=== PATIENT | female | born 1940 | race Caucasian/White ===

== ENCOUNTER → 2019-07-11 | Outpatient (CLI) | payer MEDICARE, BC ==
--- NOTE | 2019-07-11 10:17 | US ---
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 Takes medication for diabetes and arthritis; gallbladder removed; renal stones per patient EXAM MEASUREMENTS: Liver Length: 14.5 cm Gallbladder Wall: surgically removed CBD: 0.6 cm Right Kidney: 8.4 x 4.4 x 4.3 cm Pancreas: hyperechoic Liver: nodular borders with size decrease suggests cirrhotic liver; Main portal Vein Flow is to live r; Common Hepatic Artery Flow is to Liver; visualized portions of Right and Middle Hepatic Vein Flow is noted to IVC. Hepatic Veins are limitedly seen. Cirrhotic heterogenous echogenicity of the liver limits evaluation for underlying masses. No focal mass is seen on today's exam. Gallbladder: surgically absent Evidence for sonographic Law's sign: no CBD: wnl and post cholecystectomy Right Kidney: lobular borders, hyperechoic calcified vascular brito noted inferior pole. Ascites is noted in RUQ = 5.1cm A/P, very small amount in LUQ , and in LLQ = 4.7cm A/P. IMPRESSION: Cirrhotic morphology of the liver. Appropriate directionality of flow within the hepatic veins, portal vein and hepatic artery. Small volume ascites visualized.
== END | disposition home or self-care (01) ==
LOC: RADUSWWP 07:39
PROVIDERS: ATTEND Internal Medicine Gastroenterology
DX: K74.69 Other cirrhosis of liver (principal); R18.8 Other ascites
CPT/HCPCS: 76705; 93975

== ENCOUNTER 2019-07-24 08:18 | Day surgery (SDC) | payer MEDICARE, BC ==
[2019-07-19 16:18] VITALS: BMI 24.7
[~2019-07-24 08:18] MED LIST: LACTATED RINGERS 1,000 ML IV SCH; LIDOCAINE 1% 20 ML VIAL (10MG/ML) FOR IV START INTRADERMA PRN
[2019-07-24 08:48] VITALS: TEMP 97.9
[2019-07-24 08:50] LABS: Glucose,Whole Blood 115 mg/dL (75-99)
[2019-07-24] MEDS ORDERED: LIDOCAINE 1% INJ 10MG/ML (20 ML MDV) ONE (09:03)
[2019-07-24] MEDS ORDERED: PROPOFOL 10 MG/ML 20 ML VIAL IV ONE (09:03)
--- NOTE | 2019-07-24 09:05 | P.GSHP ---
History of Present Illness H&P Date: 07/24/19 Chief Complaint: GI bleed This a 79-year-old female referred from Dr. Aury Gracia. Patient rents today for colonoscopy. She's had issues with GI bleed. Past Medical History Past Medical History: Diabetes Mellitus, GERD/Reflux, Hyperlipidemia, Hypertension Additional Past Medical History / Comment(s): dtr Adrienne states "mom doesn't clot right but is not aware of any specific clotting disorders but all her Drs are aware",hemorrhoids and bleeding with stools,recent admission to [facility] for dehydration and UTI. History of Any Multi-Drug Resistant Organisms: None Reported Past Surgical History: Cholecystectomy, Orthopedic Surgery Additional Past Surgical History / Comment(s): colonoscopy,lt knee surgery Past Anesthesia/Blood Transfusion Reactions: No Reported Reaction Additional Past Anesthesia/Blood Transfusion Reaction / Comment(s): no problems with prior blood transfusions Past Psychological History: No Psychological Hx Reported Smoking Status: Never smoker Past Alcohol Use History: None Reported Past Drug Use History: None Reported - Past Family History Mother Family Medical History: Cancer Medications and Allergies Home Medications Medication Instructions Recorded Confirmed Type Allopurinol [Zyloprim] 100 mg PO DAILY 07/19/19 07/19/19 History Atenolol [Tenormin] 25 mg PO QAM 07/19/19 07/19/19 History Calcium Carbonate [Calcium] 1,200 mg PO DAILY 07/19/19 07/19/19 History Cranberry Fruit Extract [Cranberry] 1,500 mg PO DAILY 07/19/19 07/19/19 History Cyanocobalamin (Vitamin B-12) 1,000 mcg PO DAILY 07/19/19 07/19/19 History [Vitamin B-12] Ergocalciferol [Vitamin D2] 50,000 unit PO Q7D 07/19/19 07/19/19 History Ferrous Sulfate [Feosol] 325 mg PO DAILY 07/19/19 07/19/19 History HYDROcodone/APAP 5-325MG [[place] 1 tab PO BID PRN 07/19/19 07/19/19 History 5-325] Levothyroxine Sodium [Synthroid] 100 mcg PO QAM 07/19/19 07/19/19 History Multivit-Min/Iron/Folic/Lutein 1 each PO DAILY 07/19/19 07/19/19 History [Centrum Silver Women Tablet] Omeprazole 40 mg PO QAM 07/19/19 07/19/19 History Simvastatin [Zocor] 40 mg PO DAILY 07/19/19 07/19/19 History metFORMIN HCL 500 mg PO DAILY 07/19/19 07/19/19 History Allergies Allergy/AdvReac Type Severity Reaction Status Date / Time No Known Allergies Allergy Verified 07/19/19 16:12 Surgical - Exam Vital Signs Temp Pulse Resp BP Pulse Ox 97.9 F 80 18 139/61 99 07/24/19 08:44 07/24/19 08:44 07/24/19 08:44 07/24/19 08:44 07/24/19 08:44 - General well developed, well nourished, no distress - Eyes PERRL - ENT normal pinna - Neck no masses - Respiratory normal expansion - Cardiovascular Rhythm: regular - Abdomen Abdomen: soft, non tender Results - Labs Abnormal Lab Results - Last 24 Hours (Table) 07/24/19 Range/Units 08:45 POC Glucose (mg/dL) 115 H (75-99) mg/dL Assessment and Plan Assessment: GI bleed. We'll perform colonoscopy.
--- NOTE | 2019-07-24 09:23 | P.OP ---
Date of Procedure: 07/24/19 Preoperative Diagnosis: GI bleed Postoperative Diagnosis: Rectal prolapse Multiple colonic polyps Diverticulosis Procedure(s) Performed: Colonoscopy Anesthesia: MAC Surgeon: Christian Rosales Pathology: other (Right colon, transverse colon, rectal polyp) Condition: stable Disposition: PACU Description of Procedure: The patient's placed on the endoscopy table lateral position. She received IV sedation. Digital rectal exam was performed which revealed evidence of external hemorrhoids and rectal prolapse. The flexible colonoscope was then placed patient anus and passed throughout the entire colon. The ileocecal valve was visualized. The cecum appeared normal. In the right colon there was a sessile polyp was removed with cold forcep. Scope back then in the transverse colon polyp seen this removed with the snare. There was a few scattered diverticula in the transverse and descending colon. The sigmoid colon had a few scattered diverticula. Scope back the rectum another polyp seen this removed with snare. The scope was then withdrawn from the patient.
[2019-07-24 11:06] VITALS: BP 119/77; PULSE 71; RESP 16
== END 2019-07-24 11:06 | disposition home or self-care (01) ==
LOC: ORWHC2ENDO 08:18
PROVIDERS: ATTEND Surgery
DX: D12.2 Benign neoplasm of ascending colon (principal); D12.3 Benign neoplasm of transverse colon; K62.1 Rectal polyp; K64.4 Residual hemorrhoidal skin tags; K62.3 Rectal prolapse; K57.30 Diverticulosis of large intestine without perforation or abscess without bleeding; E07.9 Disorder of thyroid, unspecified; K21.9 Gastro-esophageal reflux disease without esophagitis; I10 Essential (primary) hypertension; E78.5 Hyperlipidemia, unspecified; Z97.2 Presence of dental prosthetic device (complete) (partial); E11.9 Type 2 diabetes mellitus without complications; Z90.49 Acquired absence of other specified parts of digestive tract; Z79.84 Long term (current) use of oral hypoglycemic drugs; Z79.890 Hormone replacement therapy; Z79.899 Other long term (current) drug therapy
CPT/HCPCS: 88305; 45380; 45385; J2001; J2704

== ENCOUNTER 2019-07-25 05:43 | Day surgery (SDC) | payer MEDICARE, BC ==
[~2019-07-25 05:43] MED LIST changes: +DEXAMETHASONE SOD PHOSPHATE 10 MG/ML 1 ML VIAL IV ONE; +HEPARIN SODIUM,PORCINE 5,000 UNIT/ML 1 ML VIAL SQ ONE; -LACTATED RINGERS 1,000 ML IV SCH; +MORPHINE SULFATE 4 MG/ML SYRINGE IV PRN; +ONDANSETRON 4 MG/2 ML VIAL IVP ONE; +Pre Op ABX Message 1 EACH MISC MISCELLANE ONE
[2019-07-25] MEDS ORDERED: NA PHOS,M-B/NA PHOS,DI-BA 133 ML ENEMA RECTAL ONE (06:16)
[2019-07-25 06:35] LABS: Glucose,Whole Blood 97 mg/dL (75-99)
[2019-07-25] MEDS ORDERED: LACTATED RINGERS 1,000 ML IV ONE ×2 (06:39→09:18)
[2019-07-25] MEDS ORDERED: fentaNYL (PF) 50 MCG/ML 2 ML AMP ONE (07:51)
[2019-07-25] MEDS ORDERED: KETAMINE 10 MG/ML 20 ML VIAL ONE (07:51)
[2019-07-25] MEDS ORDERED: MIDAZOLAM 2 MG/2 ML VIAL ONE (07:51)
[2019-07-25] MEDS ORDERED: diphenhydrAMINE 50 MG/ML 1 ML VIAL ONE (07:51)
[2019-07-25] MEDS ORDERED: PROPOFOL 10 MG/ML 20 ML VIAL IV ONE (07:51)
--- NOTE | 2019-07-25 07:52 | P.GSHP ---
History of Present Illness H&P Date: 07/25/19 Chief Complaint: Internal and external hemorrhoids This is a 79-year-old female who presents today for hemorrhoidectomy. Patient has had issues with rectal bleeding and pain from internal and external hemorrhoids. Past Medical History Past Medical History: Diabetes Mellitus, GERD/Reflux, Hyperlipidemia, Hypertension Additional Past Medical History / Comment(s): jl Deleon states "mom doesn't clot right but is not aware of any specific clotting disorders but all her Drs are aware",hemorrhoids and bleeding with stools,recent admission to [facility] for dehydration and UTI. History of Any Multi-Drug Resistant Organisms: None Reported Past Surgical History: Cholecystectomy, Orthopedic Surgery Additional Past Surgical History / Comment(s): colonoscopy,lt knee surgery Past Anesthesia/Blood Transfusion Reactions: No Reported Reaction Additional Past Anesthesia/Blood Transfusion Reaction / Comment(s): no problems with prior blood transfusions Past Psychological History: No Psychological Hx Reported Smoking Status: Never smoker Past Alcohol Use History: None Reported Past Drug Use History: None Reported - Past Family History Mother Family Medical History: Cancer Medications and Allergies Home Medications Medication Instructions Recorded Confirmed Type Allopurinol [Zyloprim] 100 mg PO DAILY 07/19/19 07/19/19 History Atenolol [Tenormin] 25 mg PO QAM 07/19/19 07/19/19 History Calcium Carbonate [Calcium] 1,200 mg PO DAILY 07/19/19 07/19/19 History Cranberry Fruit Extract [Cranberry] 1,500 mg PO DAILY 07/19/19 07/19/19 History Cyanocobalamin (Vitamin B-12) 1,000 mcg PO DAILY 07/19/19 07/19/19 History [Vitamin B-12] Ergocalciferol [Vitamin D2] 50,000 unit PO Q7D 07/19/19 07/19/19 History Ferrous Sulfate [Feosol] 325 mg PO DAILY 07/19/19 07/19/19 History HYDROcodone/APAP 5-325MG [[place] 1 tab PO BID PRN 07/19/19 07/19/19 History 5-325] Levothyroxine Sodium [Synthroid] 100 mcg PO QAM 07/19/19 07/19/19 History Multivit-Min/Iron/Folic/Lutein 1 each PO DAILY 07/19/19 07/19/19 History [Centrum Silver Women Tablet] Omeprazole 40 mg PO QAM 07/19/19 07/19/19 History Simvastatin [Zocor] 40 mg PO DAILY 07/19/19 07/19/19 History metFORMIN HCL 500 mg PO DAILY 07/19/19 07/19/19 History Allergies Allergy/AdvReac Type Severity Reaction Status Date / Time No Known Allergies Allergy Verified 07/19/19 16:12 Surgical - Exam Vital Signs Temp Pulse Resp BP Pulse Ox 97.6 F 78 18 127/65 99 07/25/19 06:10 07/25/19 06:10 07/25/19 06:10 07/25/19 06:10 07/25/19 06:10 - General well developed, well nourished, no distress - Eyes PERRL - ENT normal pinna - Neck no masses - Respiratory normal expansion - Cardiovascular Rhythm: regular - Abdomen Abdomen: soft, non tender - Rectum Internal and external hemorrhoids Assessment and Plan Assessment: Internal and external hemorrhoids. We'll perform hemorrhoidectomy.
[2019-07-25] MEDS ORDERED: SODIUM CHLORIDE 0.9% 50 ML with ceFAZolin 2,000 MG IV ONE ×2 (07:58)
[2019-07-25] MEDS ORDERED: GELATIN SPONGE,ABSORB (LARGE) 1 EACH SPONGE TOPICAL ONE (08:26)
[2019-07-25] MEDS ORDERED: BUPIVACAINE (PF) 0.25% 30 ML VIAL SQ ONE (08:27)
[2019-07-25] MEDS ORDERED: LIDOCAINE 1%-EPI 1:100,000 20 ML VIAL SQ ONE (08:27)
[2019-07-25] MEDS ORDERED: HYDROmorphone 0.5 MG/0.5 ML SYRINGE IVP PRN (09:18)
[2019-07-25] MEDS ORDERED: NALOXONE 0.4 MG/ML 1 ML VIAL IV PRN (09:18)
[2019-07-25] MEDS ORDERED: HYDROcodone/APAP 5-325MG 1 EACH TAB PO PRN (09:18)
[2019-07-25] MEDS ORDERED: ACETAMINOPHEN TAB 325 MG TAB PO PRN (09:18)
[2019-07-25] MEDS ORDERED: ONDANSETRON 4 MG/2 ML VIAL IVP PRN (09:18)
[2019-07-25] MEDS ORDERED: traMADol 50 MG TAB PO PRN (09:18)
[2019-07-25] MEDS: LACTATED RINGERS 1,000 ML IV SCH (10:11)
[2019-07-25 11:04] VITALS: BMI 25.0
[2019-07-25] MEDS: KETOROLAC 30 MG/ML 1 ML VIAL IVP SCH ×2 (11:30→16:49)
[2019-07-25] MEDS: PANTOPRAZOLE 40 MG TABLET PO SCH (11:31)
[2019-07-25] MEDS: LEVOTHYROXINE 100 MCG TAB PO SCH (11:31)
[2019-07-25] MEDS: metFORMIN 500 MG TAB PO SCH (11:31)
[2019-07-25] MEDS: ATENOLOL 25 MG TAB PO SCH (11:31)
[2019-07-25] MEDS: HEPARIN SODIUM,PORCINE 5,000 UNIT/ML 1 ML VIAL SQ SCH (16:51)
[2019-07-25] MEDS: DOCUSATE 100 MG CAP PO SCH (21:27)
[2019-07-26] MEDS: KETOROLAC 30 MG/ML 1 ML VIAL IVP SCH ×2 (00:01→05:24)
[2019-07-26] MEDS: LACTATED RINGERS 1,000 ML IV SCH (00:56)
[2019-07-26 04:06] VITALS: RESP 16
[2019-07-26] MEDS: LEVOTHYROXINE 100 MCG TAB PO SCH (05:26)
[2019-07-26 07:11] LABS: Glucose,Whole Blood 132 mg/dL (75-99)
[2019-07-26 07:27] VITALS: BP 115/69; PULSE 88; TEMP 98
[2019-07-26] MEDS: PANTOPRAZOLE 40 MG TABLET PO SCH (08:50)
[2019-07-26] MEDS: HEPARIN SODIUM,PORCINE 5,000 UNIT/ML 1 ML VIAL SQ SCH ×2 (08:50)
[2019-07-26] MEDS: DOCUSATE 100 MG CAP PO SCH (08:50)
[2019-07-26] MEDS: ATENOLOL 25 MG TAB PO SCH (08:50)
[2019-07-26] MEDS: metFORMIN 500 MG TAB PO SCH (08:51)
[2019-07-26 08:57] LABS: Basophils % (A) 0 %; Eosinophils % (A) 0 %; HCT 30.6 % (34.0-46.0); Lymphocytes # (A) 0.6 k/uL (1.0-4.8); Lymphocytes % (A) 22 %; MCH 32.7 pg (25.0-35.0); MCHC 32.7 g/dL (31.0-37.0); MCV 99.9 fL (80.0-100.0); Macrocytosis Slight; Mean Platelet Volume 7.6; Monocytes # (A) 0.1 k/uL (0-1.0); Monocytes % (A) 5 %; Neutrophils # (A) 1.9 k/uL (1.3-7.7); Neutrophils % (A) 71 %; RBC 3.07 m/uL (3.80-5.40); RDW 15.1 % (11.5-15.5); WBC 2.7 k/uL (3.8-10.6)
[2019-07-26] MEDS ORDERED: ALLOPURINOL 100 MG TAB PO SCH (09:00)
[2019-07-26] MEDS ORDERED: ATORVASTATIN 20 MG TAB PO SCH (09:00)
[2019-07-26 09:08] LABS: Platelet Count 40 k/uL (150-450)
[2019-07-26 09:09] LABS: Anisocytosis (M) Present; Poikilocytosis (M) Present
--- NOTE | 2019-07-26 12:34 | P.DS ---
Providers Expected date of discharge: 07/26/19 Attending physician: Christian Rosales Consults: 07/25/19 09:18 Consult Physician Routine Consulting Provider: Get Bower Consult Reason/Comments: Medical management Do you want consulting provider notified?: Yes Primary care physician: Aury Gracia Hospital Course: 79-year-old female who underwent hemorrhoidectomy with Dr. Rosales on 2018. Patient was admitted overnight for observation. She is doing well postoperatively without any immediate complications. She is stable for discharge home today. She is to follow up with Dr. Rosales outpatient. Please see EMR for further hospital course details. Discharge diagnosis 1. Status post hemorrhoidectomy Nurse practitioner note has been reviewed by physician. Signing provider agrees with the documented findings, assessment, and plan of care. Plan - Discharge Summary Discharge Rx Participant: No New Discharge Prescriptions: No Action Multivit-Min/Iron/Folic/Lutein [Centrum Silver Women Tablet] 1 each PO DAILY Ferrous Sulfate [Feosol] 325 mg PO DAILY Cyanocobalamin (Vitamin B-12) [Vitamin B-12] 1,000 mcg PO DAILY Cranberry Fruit Extract [Cranberry] 1,500 mg PO DAILY HYDROcodone/APAP 5-325MG [[place] 5-325] 1 tab PO BID PRN PRN Reason: Pain Ergocalciferol [Vitamin D2] 50,000 unit PO Q7D Simvastatin [Zocor] 40 mg PO DAILY Levothyroxine Sodium [Synthroid] 100 mcg PO QAM Omeprazole 40 mg PO QAM Atenolol [Tenormin] 25 mg PO QAM Allopurinol [Zyloprim] 100 mg PO DAILY metFORMIN HCL 500 mg PO DAILY Calcium Carbonate [Calcium] 1,200 mg PO DAILY Discharge Medication List Allopurinol [Zyloprim] 100 mg PO DAILY 07/19/19 [History] Atenolol [Tenormin] 25 mg PO QAM 07/19/19 [History] Calcium Carbonate [Calcium] 1,200 mg PO DAILY 07/19/19 [History] Cranberry Fruit Extract [Cranberry] 1,500 mg PO DAILY 07/19/19 [History] Cyanocobalamin (Vitamin B-12) [Vitamin B-12] 1,000 mcg PO DAILY 07/19/19 [History] Ergocalciferol [Vitamin D2] 50,000 unit PO Q7D 07/19/19 [History] Ferrous Sulfate [Feosol] 325 mg PO DAILY 07/19/19 [History] HYDROcodone/APAP 5-325MG [[place] 5-325] 1 tab PO BID PRN 07/19/19 [History] Levothyroxine Sodium [Synthroid] 100 mcg PO QAM 07/19/19 [History] Multivit-Min/Iron/Folic/Lutein [Centrum Silver Women Tablet] 1 each PO DAILY 07/19/19 [History] Omeprazole 40 mg PO QAM 07/19/19 [History] Simvastatin [Zocor] 40 mg PO DAILY 07/19/19 [History] metFORMIN HCL 500 mg PO DAILY 07/19/19 [History] Follow up Appointment(s)/Referral(s): Christian Rosales MD [STAFF PHYSICIAN] - 07/30/19 3:10 pm
--- NOTE | 2019-08-19 17:39 | P.OP ---
Date of Procedure: 07/25/19 Preoperative Diagnosis: Internal and external hemorrhoids Postoperative Diagnosis: Internal and external hemorrhoids Procedure(s) Performed: Hemorrhoidectomy Anesthesia: OTIS Surgeon: Christian Rosales Estimated Blood Loss (ml): 10 Pathology: other (Hemorrhoids) Condition: stable Disposition: PACU Description of Procedure: The patient's placed on the operative table in the prone position. She received IV sedation. Her anus was prepped and draped usual fashion. The a retractors placed anus. The left lateral hemorrhoidal column was grasped and then dissected using Harmonic scissors. The right anterior and right posterior hemorrhoidal columns were grasped in identical fashion. The wounds. Janet. There is no bleeding seen. The anus was packed with Gelfoam. Patient top she will was sent to recovery room stable condition.
== END 2019-07-26 11:13 ==
LOC: OR 05:43 → 4SSUR 08:51 → OR 07-26 11:13
PROVIDERS: ATTEND Surgery
DX: K64.8 Other hemorrhoids (principal); K64.4 Residual hemorrhoidal skin tags; E11.9 Type 2 diabetes mellitus without complications; K21.9 Gastro-esophageal reflux disease without esophagitis; E78.5 Hyperlipidemia, unspecified; I10 Essential (primary) hypertension; Z90.49 Acquired absence of other specified parts of digestive tract; Z80.9 Family history of malignant neoplasm, unspecified; Z79.84 Long term (current) use of oral hypoglycemic drugs; Z79.890 Hormone replacement therapy; Z79.899 Other long term (current) drug therapy; E07.9 Disorder of thyroid, unspecified; Z87.442 Personal history of urinary calculi; K74.60 Unspecified cirrhosis of liver; Z97.2 Presence of dental prosthetic device (complete) (partial)
CPT/HCPCS: 46260; 88304; 85025; J2250; J1200; J1644 ×2; J1100; J2405; J0690; J3010; J1885 ×2; J2704

== ENCOUNTER → 2019-08-15 | Outpatient (CLI) | payer MEDICARE, BC ==
[2019-08-15 13:17] LABS: HCT 34.1 % (34.0-46.0); Hypochromasia Slight; MCH 32.3 pg (25.0-35.0); MCHC 32.3 g/dL (31.0-37.0); MCV 100.1 fL (80.0-100.0); Macrocytosis Slight; Mean Platelet Volume 8.5; RBC 3.41 m/uL (3.80-5.40); RDW 14.9 % (11.5-15.5); WBC 2.8 k/uL (3.8-10.6)
[2019-08-15 13:20] LABS: Platelet Count 59 k/uL (150-450)
[2019-08-15 13:21] LABS: INR 1.3 (<1.2); Prothrombin Time 13.3 sec (9.0-12.0)
[2019-08-15 14:28] LABS: ALT 20 U/L (4-34); AST 48 U/L (14-36); African American GFR (CKD) 61 (>60 ml/min/1.73 sqM); Albumin 3.5 g/dL (3.5-5.0); Alkaline Phosphatase 140 U/L (38-126); Anion Gap 8 mmol/L; Blood Urea Nitrogen 20 mg/dL (7-17); Calcium 9.8 mg/dL (8.4-10.2); Carbon Dioxide 26 mmol/L (22-30); Chloride 109 mmol/L (98-107); Globulin 3.5 g/dL; Glucose 101 mg/dL (74-99); Non-African American GFR(CKD) 53 (>60 ml/min/1.73 sqM); Potassium 4.6 mmol/L (3.5-5.1); Sodium 143 mmol/L (137-145); Total Bilirubin 1.2 mg/dL (0.2-1.3)
== END | disposition home or self-care (01) ==
LOC: LABWHC1 12:02
PROVIDERS: ATTEND Internal Medicine Gastroenterology
DX: K74.60 Unspecified cirrhosis of liver (principal)
CPT/HCPCS: 36415; 80053; 82103; 85027; 85610

== ENCOUNTER → 2019-09-06 | Outpatient (CLI) | payer MEDICARE, BC ==
--- NOTE | 2019-09-06 10:46 | US ---
EXAMINATION TYPE: US liver DATE OF EXAM: 09/06/2019 COMPARISON: NONE CLINICAL HISTORY: 79-year-old female K74.60 Cirrhosis of liver. TECHNIQUE: Multiple sonographic images of the right upper quadrant are obtained. FINDINGS: EXAM MEASUREMENTS: Liver Length: 13.9 cm Gallbladder: Surgically absent CBD: 0.4 cm Right Kidney: 9.0 x 3.3 x 4.4 cm Pancreas: Suboptimal visualization of the pancreatic tail secondary to shadowing from bowel gas. At t he portal venous confluence, an echogenic, nonoccluding filling defect is demonstrated. The splenic v ein is dilated at 1.2 cm. Liver: nodular, heterogeneous, small amount of ascites Gallbladder: Surgically absent Evidence for sonographic Law's sign: no CBD: some intrahepatic duct dilation but the bile duct is normal caliber. Right Kidney: No hydronephrosis. IMPRESSION: 1. Cirrhotic morphology of the liver with heterogeneity and nodular contour. Trace perihepatic ascite s. 2. Large caliber to the splenic vein suggests underlying portal venous hypertension. There is some no nocclusive thrombus at the portal venous confluence. 3. Status post cholecystectomy. The bile duct is normal caliber at 4 mm.
== END | disposition home or self-care (01) ==
LOC: RADUSWWP 08:06
PROVIDERS: ATTEND Surgery Plastic and Reconstructive Surgery
DX: K74.60 Unspecified cirrhosis of liver (principal); Z90.49 Acquired absence of other specified parts of digestive tract
CPT/HCPCS: 76705

== ENCOUNTER → 2020-02-13 | Outpatient (CLI) | payer MEDICARE, BC ==
[2020-02-13 14:16] LABS: INR 1.3 (<1.2); Prothrombin Time 13.1 sec (9.0-12.0)
[2020-02-13 14:22] LABS: Basophils % (A) 1 %; Eosinophils # (A) 0.1 k/uL (0-0.7); Eosinophils % (A) 3 %; HCT 35.9 % (34.0-46.0); HGB 11.4 gm/dL (11.4-16.0); Hypochromasia Moderate; Lymphocytes # (A) 0.9 k/uL (1.0-4.8); Lymphocytes % (A) 36 %; MCH 32.4 pg (25.0-35.0); MCHC 31.7 g/dL (31.0-37.0); MCV 102.2 fL (80.0-100.0); Macrocytosis Slight; Mean Platelet Volume 8.8; Monocytes # (A) 0.1 k/uL (0-1.0); Monocytes % (A) 6 %; Neutrophils # (A) 1.3 k/uL (1.3-7.7); Neutrophils % (A) 54 %; RBC 3.51 m/uL (3.80-5.40); RDW 15.7 % (11.5-15.5); WBC 2.4 k/uL (3.8-10.6)
[2020-02-13 14:54] LABS: Platelet Count 40 k/uL (150-450)
[2020-02-13 21:24] LABS: Albumin 3.5 g/dL (3.80-4.90); Albumin/Globulin Ratio 1.3 (1.60-3.17); Bilirubin, Conjugated 0.5 mg/dL (0.20-0.40); Bilirubin,Unconjugated 0.6 mg/dL; Globulin 2.7 g/dL (1.6-3.3); Total Bilirubin 1.1 mg/dL (0.2-1.2); Total Protein 6.2 g/dL (6.2-8.2)
== END | disposition home or self-care (01) ==
LOC: LABWHC1 13:17
PROVIDERS: ATTEND Physician Assistant
DX: K74.60 Unspecified cirrhosis of liver (principal)
CPT/HCPCS: 36415; 80076; 82105; 85025; 85610

== ENCOUNTER → 2020-03-05 | Outpatient (CLI) | payer MEDICARE, BC ==
--- NOTE | 2020-03-05 13:16 | US ---
EXAMINATION TYPE: US liver DATE OF EXAM: 03/05/2020 COMPARISON: NONE CLINICAL HISTORY: 79-year-old female K74.60 CIRRHOSIS OF LIVER. Prior cholecystectomy TECHNIQUE: Multiple sonographic images of the right upper quadrant are obtained. FINDINGS: EXAM MEASUREMENTS: Liver Length: 13.3 cm Gallbladder: Surgically absent CBD: 0.5 cm Right Kidney: 8.7 x 3.9 x 3.7 cm Pancreas: echogenic non-occluding filling defect at portal venous confluence as on prior exam. Large caliber portal venous confluence. Liver: heterogeneous, small amount of ascites noted. Nodular contour compatible with cirrhosis. No f ocal lesion is seen. Gallbladder: Surgically absent Evidence for sonographic Law's sign: no CBD: appears wnl Right Kidney: no evidence of hydronephrosis IMPRESSION: 1. Cirrhotic morphology of the liver. No focal lesion seen. 2. Status post cholecystectomy. No biliary ductal dilatation. 3. Large caliber to the portal venous confluence with some small amount of nonocclusive portal venous thrombosis. Findings suggest portal venous hypertension. 4. Trace ascites.
== END | disposition home or self-care (01) ==
LOC: RADUSWWP 10:53
PROVIDERS: ATTEND Internal Medicine Gastroenterology
DX: K74.60 Unspecified cirrhosis of liver (principal); Z90.49 Acquired absence of other specified parts of digestive tract; I81 Portal vein thrombosis
CPT/HCPCS: 76705

== ENCOUNTER → 2020-03-13 | Outpatient (CLI) | payer MEDICARE, BC ==
--- NOTE | 2020-03-13 08:32 | CT ---
EXAMINATION TYPE: CT brain w con DATE OF EXAM: 03/13/2020 COMPARISON: None HISTORY: Confusion CT DLP: 1090.40 mGycm Automated exposure control for dose reduction was used. CONTRAST: Performed with IV Contrast, patient injected with 80 ml mL of Isovue 300. FINDINGS: The ventricles basal cisterns and sulci overlying the cerebral convexities are mildly enlarged. There is no evidence for enhancing lesion or pathologic enhancement. No midline shift identified. Mild per iventricular white matter ischemic demyelination likely related to chronic small vessel ischemic wiley ge. IMPRESSION: NO ENHANCING LESION IDENTIFIED AT THIS TIME.
== END | disposition home or self-care (01) ==
LOC: RADCTMAIN 06:51
PROVIDERS: ATTEND Family Medicine
DX: R41.0 Disorientation, unspecified (principal)
CPT/HCPCS: 82565; 84520; 70460; 36415; Q9967

== ENCOUNTER 2020-09-05 11:45 | Emergency (ER) | payer MEDICARE, BC ==
[2020-09-05 11:52] VITALS: RESP 18
[2020-09-05] MEDS ORDERED: fentaNYL (PF) 50 MCG/ML 2 ML AMP IVP STA (12:11)
[2020-09-05] MEDS ORDERED: PROPOFOL 10 MG/ML 20 ML VIAL IV ONE (12:11)
[2020-09-05] MEDS ORDERED: SODIUM CHLORIDE 0.9% 1,000 ML IV STA (12:11)
--- NOTE | 2020-09-05 12:13 | ED ---
General Adult HPI - General Chief complaint: Dental/Oral Stated complaint: Dislocated Jaw Time Seen by Provider: 09/05/20 11:57 Source: patient, family Mode of arrival: wheelchair Limitations: no limitations - History of Present Illness Initial comments: Dictation was produced using [employer] dictation software. please excuse any grammatical, word or spelling errors. This patient was cared for during a federal and state declared state of emergency secondary to Covid 19 Chief Complaint: 80-year-old female presents to the emergency department for jaw dislocation. History of Present Illness: 80-year-old female she has past medical history of diabetes, dyslipidemia hypertension. She presents today with jaw dislocation. Since last year she is had 3 occasions of jaw dislocation. Patient [facility] complaint. She states that she required sedation to have her jaw relocated. Patient was given referral to ENT however given that its to holidays in the week in she is not able to follow-up until Monday. She was given a Bartons bandage however last night she took it off to go to sleep. She woke up this morning with same symptoms of one her jaw dislocated. Patient states she required sedation for one of the relocation procedures. The ROS documented in this emergency department record has been reviewed and confirmed by me. Those systems with pertinent positive or negative responses have been documented in the HPI. All other systems are other negative and/or noncontributory. PHYSICAL EXAM: General Impression: Alert and oriented x3, acute distress secondary to pain HEENT: Normocephalic atraumatic, extra-ocular movements intact, pupils equal and reactive to light bilaterally, mucous membranes moist, malocclusion with just look in the open position he can only be approximated to 4 cm, tenderness to palpation over the bilateral TMJs. Cardiovascular: Heart regular rate and rhythm Chest: Able to complete full sentences, no retractions, no tachypnea Abdomen: abdomen soft, non-tender, non-distended, no organomegaly Musculoskeletal: Pulses present and equal in all extremities, no peripheral edema Motor: no focal deficits noted Neurological: CN II-XII grossly intact, no focal motor or sensory deficits noted Skin: Intact with no visualized rashes Psych: Normal affect and mood ED course: 80-year-old female with clinical presentation consistent with jaw dislocation. vital signs upon arrival are within acceptable limits. X-ray facial bones was obtained. No comment was made by radiology regarding possible TMJ dislocation. Case is discussed with Dr. Ramirez at approximately 12:[address] imaging of the TMJ. Given that this is patient's third recurrence in several months advanced imaging is indicated at this time.. CT shows bilateral TMJ dislocations. No other comp getting processes noted. Given propofol and bilateral TMJ dislocations were reduced. Patient was observed in emergency department after sedation. Case is discussed with Dr. Kimbrough who recommended outpatient follow-up with Dr. Philipp Murphy, TMJ specialist. Dr. Murphy's information was obtained from the Internet. Patient given Dr. Murphy's information. Patient be discharged. She is told to maintain Pina bandage for the time being. She is told to not open close her mouth excessively and to eat soft diet. - Related Data Home Medications Medication Instructions Recorded Confirmed Calcium Carbonate [Calcium] 1,200 mg PO DAILY 07/19/19 07/19/19 Cranberry Fruit Extract [Cranberry] 1,500 mg PO DAILY 07/19/19 07/19/19 Cyanocobalamin (Vitamin B-12) 1,000 mcg PO DAILY 07/19/19 07/19/19 [Vitamin B-12] Ergocalciferol [Vitamin D2] 50,000 unit PO Q7D 07/19/19 07/19/19 Ferrous Sulfate [Feosol] 325 mg PO DAILY 07/19/19 07/19/19 HYDROcodone/APAP 5-325MG [[place] 1 tab PO BID PRN 07/19/19 07/19/19 5-325] Levothyroxine Sodium [Synthroid] 100 mcg PO QAM 07/19/19 07/19/19 Multivit-Min/Iron/Folic/Lutein 1 each PO DAILY 07/19/19 07/19/19 [Centrum Silver Women Tablet] Omeprazole 40 mg PO QAM 07/19/19 07/19/19 Simvastatin [Zocor] 40 mg PO DAILY 07/19/19 07/19/19 allopurinoL [Zyloprim] 100 mg PO DAILY 07/19/19 07/19/19 atenoloL [Tenormin] 25 mg PO QAM 07/19/19 07/19/19 metFORMIN HCL 500 mg PO DAILY 07/19/19 07/19/19 Allergies Allergy/AdvReac Type Severity Reaction Status Date / Time No Known Allergies Allergy Verified 09/05/20 11:46 Review of Systems ROS Statement: Those systems with pertinent positive or pertinent negative responses have been documented in the HPI. ROS Other: All systems not noted in ROS Statement are negative. Past Medical History Past Medical History: Diabetes Mellitus, GERD/Reflux, Hyperlipidemia, Hypertension Additional Past Medical History / Comment(s): jl Deleon states "mom doesn't clot right but is not aware of any specific clotting disorders but all her Drs are aware",hemorrhoids and bleeding with stools,recent admission to [facility] for dehydration and UTI. History of Any Multi-Drug Resistant Organisms: None Reported Past Surgical History: Cholecystectomy, Orthopedic Surgery Additional Past Surgical History / Comment(s): colonoscopy,lt knee surgery Past Anesthesia/Blood Transfusion Reactions: No Reported Reaction Additional Past Anesthesia/Blood Transfusion Reaction / Comment(s): no problems with prior blood transfusions Past Psychological History: No Psychological Hx Reported Smoking Status: Current every day smoker Past Alcohol Use History: None Reported Past Drug Use History: None Reported - Past Family History Mother Family Medical History: Cancer General Exam Limitations: no limitations Course Vital Signs 09/05/20 09/05/20 09/05/20 11:49 12:50 13:48 Temperature 97.9 F Pulse Rate 84 85 89 Respiratory 18 18 18 Rate Blood Pressure 131/53 128/61 121/67 O2 Sat by Pulse 100 100 98 Oximetry 09/05/20 09/05/20 09/05/20 13:50 13:51 14:03 Temperature Pulse Rate 90 86 110 H Respiratory 18 18 18 Rate Blood Pressure 121/72 128/86 127/69 O2 Sat by Pulse 98 98 97 Oximetry Procedures - Orthopedic Joint Reduction Joint #1 Consent Obtained: verbal consent Side: right Joint Reduction Location: other (tmj) Analgesia: procedural sedation Technique Used: other (direct manipulation) Post-Reduction Neuro Exam: intact Post-Reduction Vascular Exam: intact Post Reduction X-Ray Obtained: No Post Reduction X-Ray Results: reduced Splint Applied: No Patient Tolerated Procedure: well - Procedural Sedation Procedural Sedation Start Time: 13:48 Procedural Sedation Stop Time: 13:50 Indications: fracture/dislocation reduction (bilateral tmj dislocation) ASA Class: II Mallampati Airway Score: 2 Preparation: post doc fellowship applied, pulse oximeter, capnometry used, supplemental O2 applied IV Propofol Dose (mgs): 50 Complications: none Patient Tolerated Procedure: well Disposition Clinical Impression: TMJ dislocation Disposition: HOME SELF-CARE Condition: Good Instructions (If sedation given, give patient instructions): Temporomandibular Disorder (ED) Additional Instructions: Philipp Murphy DDS TMJ specialist General Dentistry Website Directions [address] [place] [address] ~47.1 la Suggest an edit 1. Maintain head bandage 2. Try to eat soft diet preferably through a straw to avoid excessive opening and closing of the jaw. Is patient prescribed a controlled substance at d/c from ED?: No Time of Disposition: 14:05
--- NOTE | 2020-09-05 12:40 | XR ---
EXAMINATION TYPE: XR mandible complete DATE OF EXAM: 09/05/2020 COMPARISON: NONE HISTORY: Pain after injury. TECHNIQUE: Multiple views of the mandible including oblique and lateral projections. FINDINGS: No acute displaced mandibular fracture identified. Overlying soft tissue is unremarkable. IMPRESSION: As above.
--- NOTE | 2020-09-05 13:32 | CT ---
EXAMINATION TYPE: CT brain wo con DATE OF EXAM: 09/05/2020 HISTORY: Dislocated Jaw, headache. CT DLP: 1259.4 mGycm. Automated Exposure Control for Dose Reduction was Utilized. TECHNIQUE: CT scan of the head is performed without contrast. COMPARISON: Mandible x-rays earlier today. CT brain March 13, 2020. FINDINGS: There is no acute intracranial hemorrhage or midline shift identified. There is diffuse v entricular and sulcal prominence consistent with diffuse age-related cerebral atrophy. There is low- attenuation in the periventricular white matter consistent with chronic small vessel ischemic change. There is a 10 mm sclerotic focus right frontal bone consistent with osteoma redemonstrated otherwise paranasal sinuses are clear. Nasal septum is deviated to left of midline. The globes are intact bila terally. There is confirmation of anterior dislocation of the mandibular condyles without fracture. IMPRESSION: No acute intracranial hemorrhage or midline shift. There is [id number] diffuse ag e-related cerebral atrophy and chronic small vessel ischemic change redemonstrated. Bilateral anterio r TMJ joint dislocation is confirmed as suspected clinically.
[2020-09-05 14:47] VITALS: BP 129/71; PULSE 82; TEMP 98
--- NOTE | 2020-09-05 14:57 | ED ---
Disposition Clinical Impression: TMJ dislocation Disposition: HOME SELF-CARE Condition: Good Instructions (If sedation given, give patient instructions): Temporomandibular Disorder (ED), Moderate Sedation (ED) Additional Instructions: Philipp Murphy DDS TMJ specialist General Dentistry Website Directions [address] [place] [address] ~47.1 oh Suggest an edit 1. Maintain head bandage 2. Try to eat soft diet preferably through a straw to avoid excessive opening and closing of the jaw. Is patient prescribed a controlled substance at d/c from ED?: No Time of Disposition: 14:57 Procedures - Birney Protocol (Time Out) Procedure Performed:: jaw reduction Performing Provider: oY Iqbal Nurse: Mariam Mzea Respiratory Therapist: Rosie Ohara Patient Identification (2 identifiers required): Verbal, Arm Band, Name, Birthdate Patient/Legal Green Hide Inspector has Confirmed: Identity, Site, Procedure, Consent Site: jaw Site Marked: Not Applicable Site Verified With Patient/Guardian: Yes Final Confirmation: Procedure, Site, Radiographs, Special Equipment, Confirmed w/Provider
== END 2020-09-05 14:51 | disposition home or self-care (01) ==
LOC: EC 11:45
DX: S03.03XA Dislocation of jaw, bilateral, initial encounter (principal); M26.4 Malocclusion, unspecified; I10 Essential (primary) hypertension; E11.9 Type 2 diabetes mellitus without complications; K21.9 Gastro-esophageal reflux disease without esophagitis; E78.5 Hyperlipidemia, unspecified; F17.200 Nicotine dependence, unspecified, uncomplicated; Z79.890 Hormone replacement therapy; Z79.899 Other long term (current) drug therapy; Z79.84 Long term (current) use of oral hypoglycemic drugs; X58.XXXA Exposure to other specified factors, initial encounter
CPT/HCPCS: 70110; 70450; 99284; 21480; 96374; 96375; 96361 ×2; J3010; J2704

== ENCOUNTER → 2020-10-02 | Outpatient (CLI) | payer MEDICARE, BC ==
[2020-10-02 13:23] LABS: Basophils % (A) 1 %; Eosinophils # (A) 0.1 k/uL (0-0.7); Eosinophils % (A) 2 %; HCT 35.4 % (34.0-46.0); HGB 11.3 gm/dL (11.4-16.0); Hypochromasia Marked; Lymphocytes # (A) 0.9 k/uL (1.0-4.8); Lymphocytes % (A) 31 %; MCH 32.8 pg (25.0-35.0); MCHC 31.8 g/dL (31.0-37.0); MCV 103.3 fL (80.0-100.0); Macrocytosis Moderate; Mean Platelet Volume 8.6; Monocytes # (A) 0.2 k/uL (0-1.0); Monocytes % (A) 6 %; Neutrophils # (A) 1.6 k/uL (1.3-7.7); Neutrophils % (A) 59 %; RBC 3.43 m/uL (3.80-5.40); RDW 15.8 % (11.5-15.5); WBC 2.8 k/uL (3.8-10.6)
[2020-10-02 15:07] LABS: Platelet Count 41 k/uL (150-450)
[2020-10-02 19:13] LABS: INR 1.31 (0.90-1.11)
[2020-10-02 21:52] LABS: Albumin 3.4 g/dL (3.80-4.90); Albumin/Globulin Ratio 1.21 (1.60-3.17); Bilirubin, Conjugated 0.6 mg/dL (0.20-0.40); Bilirubin,Unconjugated 0.7 mg/dL; Globulin 2.8 g/dL (1.6-3.3); Total Bilirubin 1.3 mg/dL (0.3-1.2); Total Protein 6.2 g/dL (6.2-8.2)
== END | disposition home or self-care (01) ==
LOC: LABWHC1 10:59
PROVIDERS: ATTEND Physician Assistant
DX: K74.60 Unspecified cirrhosis of liver (principal)
CPT/HCPCS: 36415; 80076; 82105; 85025; 85610

== ENCOUNTER → 2020-10-27 | Outpatient (CLI) | payer MEDICARE, BC ==
--- NOTE | 2020-10-27 10:22 | US ---
EXAMINATION TYPE: US abdomen complete DATE OF EXAM: 10/27/2020 COMPARISON: MRI renal January 25, 2011. Most recent ultrasound liver March 05, 2020 CLINICAL HISTORY: K74.60 Unspecified cirrhosis of liver. follow up thrombus EXAM MEASUREMENTS: Liver Length: 14.4 cm CBD: 0.6 cm Spleen: 17.4 cm Right Kidney: 8.2 x 3.6 x 4.0 cm Left Kidney: 8.3 x 3.0 x 3.3 cm Pancreas: Echogenic in appearance. Echogenic non-occluding filling defect at portal venous confluen ce as on prior exam Liver: Lobular and coarse in appearance Gallbladder: Surgically absent Evidence for sonographic Alw's sign: neg CBD: wnl Spleen: wnl Right Kidney: Appears small in size. No hydronephrosis or masses seen. Left Kidney: Appears small in size. No hydronephrosis or masses seen. Upper IVC: Obscured by overlying bowel gas Abd Aorta: Obscured by overlying bowel gas Small to borderline moderate ascites visualized The visualized liver is heterogeneously hyperechoic with lobulated contour and adjacent [id number] rate amount of ascites greatest over right lobe. Visualized pancreas hypoechoic. Gallbladder surgical ly absent. No intrahepatic or extra hepatic biliary dilatation. Symmetric small size kidneys without hydronephrosis. Persistent splenomegaly without surrounding ascites. Small amount of intraperitoneal ascites greatest right lower quadrant. IMPRESSION: Findings consistent with cirrhosis and underlying portal venous hypertension with splenom egaly redemonstrated. Small amount of intraperitoneal ascites increased from most recent ultrasound g reatest in the right abdomen.
== END | disposition home or self-care (01) ==
LOC: RADUSWWP 07:42
PROVIDERS: ATTEND Internal Medicine Gastroenterology
DX: R18.8 Other ascites (principal); K74.60 Unspecified cirrhosis of liver
CPT/HCPCS: 76700

== ENCOUNTER 2020-11-20 20:24 | Inpatient (IN) | payer MEDICARE, BC ==
[2020-11-20 21:48] LABS: Anisocytosis Slight; Basophils % (A) 0 %; Eosinophils # (A) 0.1 k/uL (0-0.7); Eosinophils % (A) 3 %; HGB 10.7 gm/dL (11.4-16.0); Hypochromasia Moderate; Lymphocytes # (A) 1.3 k/uL (1.0-4.8); Lymphocytes % (A) 29 %; MCH 33.1 pg (25.0-35.0); MCHC 32.5 g/dL (31.0-37.0); Macrocytosis Moderate; Mean Platelet Volume 8.5; Monocytes # (A) 0.4 k/uL (0-1.0); Monocytes % (A) 8 %; Neutrophils # (A) 2.7 k/uL (1.3-7.7); Neutrophils % (A) 58 %; RBC 3.24 m/uL (3.80-5.40); RDW 16.8 % (11.5-15.5); WBC 4.6 k/uL (3.8-10.6)
[2020-11-20 22:07] LABS: Albumin 3.3 g/dL (3.5-5.0); Calcium 9.4 mg/dL (8.4-10.2); Total Bilirubin 1.5 mg/dL (0.2-1.3); Total Protein 6.9 g/dL (6.3-8.2)
[2020-11-20 22:09] LABS: Appearance,Urine Clear (Clear); Bilirubin,Urine Negative (Negative); Blood,Urine Negative (Negative); Color,Urine Light Yellow; Glucose,Urine (UA) Negative (Negative); Hyaline Casts,Urine 11 /lpf (0-2); Ketones,Urine Negative (Negative); Leukocyte Esterase,Urine Small (Negative); Nitrite,Urine Negative (Negative); Protein,Urine Negative (Negative); RBC,Urine 3 /hpf (0-5); Specific Gravity,Urine 1.007 (1.001-1.035); Squamous Epithelial Cell,Urine <1 /hpf (0-4); Urobilinogen,Urine <2.0 mg/dL (<2.0); WBC,Urine 8 /hpf (0-5)
[2020-11-20] MEDS ORDERED: LACTULOSE 20 GM/30 ML CUP PO ONE (22:10)
[2020-11-20] MEDS ORDERED: HYDROmorphone 0.5 MG/0.5 ML SYRINGE IVP STA (22:11)
[2020-11-20 22:12] LABS: Potassium 4.9 mmol/L (3.5-5.1)
[2020-11-20 22:42] LABS: Platelet Count 54 k/uL (150-450)
--- NOTE | 2020-11-20 23:05 | ED ---
Abdominal Pain HPI - General Chief Complaint: Abdominal Pain Stated Complaint: liver problems Time Seen by Provider: 11/20/20 20:43 Source: patient Mode of arrival: wheelchair Limitations: no limitations - History of Present Illness Initial Comments: 80-year-old female with history of known alcohol-like liver cirrhosis presents to emergency department with chief complaint of abdominal pain. Patient states she is scheduled for paracentesis 7 days from today. Daughter is also present in the room. Patient reports over the past 2 weeks she has been feeling increasingly weak and is sleeping more than usual. She denies any confusion lightheadedness or dizziness or headaches. Daughter states the patient is acting at baseline. She does report increased abdominal pain and left abdominal region. She states her abdomen is gradually becoming distended. She also has bilateral lower extremity edema. She denies any chest pain or shortness of breath. - Related Data Home Medications Medication Instructions Recorded Confirmed Calcium Carbonate [Calcium] 600 mg PO DAILY 07/19/19 11/20/20 Cranberry Fruit Extract [Cranberry] 1,500 mg PO DAILY 07/19/19 11/20/20 Cyanocobalamin (Vitamin B-12) 1,000 mcg PO DAILY 07/19/19 11/20/20 [Vitamin B-12] Ergocalciferol [Vitamin D2] 50,000 unit PO Q7D 07/19/19 11/20/20 Ferrous Sulfate [Feosol] 325 mg PO DAILY 07/19/19 11/20/20 HYDROcodone/APAP 5-325MG [[place] 1 tab PO BID PRN 07/19/19 11/20/20 5-325] Levothyroxine Sodium [Synthroid] 100 mcg PO QAM 07/19/19 11/20/20 Multivit-Min/Iron/Folic/Lutein 1 each PO DAILY 07/19/19 11/20/20 [Centrum Silver Women Tablet] Omeprazole 40 mg PO QAM 07/19/19 11/20/20 Simvastatin [Zocor] 40 mg PO DAILY 07/19/19 11/20/20 allopurinoL [Zyloprim] 100 mg PO DAILY 07/19/19 11/20/20 atenoloL [Tenormin] 25 mg PO QAM 07/19/19 11/20/20 metFORMIN HCL 500 mg PO DAILY 07/19/19 11/20/20 Furosemide [Lasix] 20 mg PO BID 11/20/20 11/20/20 Spironolactone [Aldactone] 25 mg PO BID 11/20/20 11/20/20 Allergies Allergy/AdvReac Type Severity Reaction Status Date / Time No Known Allergies Allergy Verified 11/20/20 23:13 Review of Systems ROS Statement: Those systems with pertinent positive or pertinent negative responses have been documented in the HPI. ROS Other: All systems not noted in ROS Statement are negative. Past Medical History Past Medical History: Cancer, Diabetes Mellitus, GERD/Reflux, Hyperlipidemia, Hypertension, Liver Disease, Osteoarthritis (OA) Additional Past Medical History / Comment(s): patient states "doesn't clot right but is not aware of any specific clotting disorders but all her Drs are aware",hemorrhoids and bleeding with stools,recent dehydration and UTI, non alcoholic cirrhosis of the liver, skin cancer History of Any Multi-Drug Resistant Organisms: None Reported Past Surgical History: Cholecystectomy, Orthopedic Surgery Additional Past Surgical History / Comment(s): colonoscopy, lt knee surgery Past Anesthesia/Blood Transfusion Reactions: No Reported Reaction Additional Past Anesthesia/Blood Transfusion Reaction / Comment(s): no problems with previous blood transfusions Past Psychological History: Depression Smoking Status: Never smoker Past Alcohol Use History: None Reported Past Drug Use History: None Reported - Past Family History Mother Family Medical History: Cancer General Exam Limitations: no limitations General appearance: alert, in no apparent distress Head exam: Present: atraumatic, normocephalic, normal inspection Eye exam: Present: normal appearance, PERRL, EOMI Pupils: Present: normal accommodation ENT exam: Present: normal exam, normal oropharynx, mucous membranes moist Neck exam: Present: normal inspection, full ROM. Absent: tenderness Respiratory exam: Present: normal lung sounds bilaterally. Absent: respiratory distress, wheezes, rales, rhonchi, stridor, chest wall tenderness Cardiovascular Exam: Present: regular rate, normal rhythm, normal heart sounds GI/Abdominal exam: Present: soft, distended, tenderness (Left-sided abdominal pain). Absent: guarding, rebound, rigid Extremities exam: Present: normal inspection, full ROM, normal capillary refill, pedal edema (+2 bilateral lower extremity edema, pitting.). Absent: tenderness, joint swelling, calf tenderness Back exam: Present: normal inspection, full ROM. Absent: tenderness, CVA tenderness (R), CVA tenderness (L) Neurological exam: Present: alert, oriented X3 Psychiatric exam: Present: normal affect, normal mood Skin exam: Present: warm, dry, intact, normal color Course Vital Signs 11/20/20 11/20/20 11/20/20 20:29 21:55 22:17 Temperature 98.1 F Pulse Rate 98 90 87 Respiratory 18 18 18 Rate Blood Pressure 112/46 128/56 119/53 O2 Sat by Pulse 100 97 96 Oximetry Medical Decision Making - Medical Decision Making 80-year-old female with known alcoholic cirrhosis presents to emergency department with a complaint of abdominal pain. Increased abdominal distention. On physical examination, abdomen is soft with mild tenderness.. Bilateral lower extremity edema. No chest pain shortness of breath. Mild anemia. Mild elevation BUN/creatinine at 22 and 1.49, respectively. Bilirubin 1.5. Ammonia levels 115. Patient was given 40 mg of by mouth lactulose. No confusion. Low concern for hepatic encephalopathy at this time. Repeat ammonia levels pending. UA unremarkable. I spoke with Maggy, nurse practitioner who will admit for Dr. Hill. Case discussed with . GI consult - Lab Data Result diagrams: 11/20/20 21:40 11/20/20 21:40 Lab Results 11/20/20 11/20/20 11/20/20 Range/Units 21:40 21:40 21:40 WBC 4.6 (3.8-10.6) k/uL RBC 3.24 L (3.80-5.40) m/uL Hgb 10.7 L (11.4-16.0) gm/dL Hct 33.0 L (34.0-46.0) % MCV 102.0 H (80.0-100.0) fL MCH 33.1 (25.0-35.0) pg MCHC 32.5 (31.0-37.0) g/dL RDW 16.8 H (11.5-15.5) % Plt Count 54 L (150-450) k/uL MPV 8.5 Neutrophils % 58 % Lymphocytes % 29 % Monocytes % 8 % Eosinophils % 3 % Basophils % 0 % Neutrophils # 2.7 (1.3-7.7) k/uL Lymphocytes # 1.3 (1.0-4.8) k/uL Monocytes # 0.4 (0-1.0) k/uL Eosinophils # 0.1 (0-0.7) k/uL Basophils # 0.0 (0-0.2) k/uL Hypochromasia Moderate Anisocytosis Slight Macrocytosis Moderate Sodium 139 (137-145) mmol/L Potassium 4.9 (3.5-5.1) mmol/L Chloride 103 (98-107) mmol/L Carbon Dioxide 25 (22-30) mmol/L Anion Gap 11 mmol/L BUN 22 H (7-17) mg/dL Creatinine 1.49 H (0.52-1.04) mg/dL Est GFR (CKD-EPI)AfAm 39 (>60 ml/min/1.73 sqM) Est GFR (CKD-EPI)NonAf 34 (>60 ml/min/1.73 sqM) Glucose 104 H (74-99) mg/dL Calcium 9.4 (8.4-10.2) mg/dL Total Bilirubin 1.5 H (0.2-1.3) mg/dL AST 82 H (14-36) U/L ALT 25 (4-34) U/L Alkaline Phosphatase 157 H (38-126) U/L Ammonia (<30) umol/L Total Protein 6.9 (6.3-8.2) g/dL Albumin 3.3 L (3.5-5.0) g/dL Amylase 75 (30-110) U/L Lipase 76 (23-300) U/L Urine Color Light Yellow Urine Appearance Clear (Clear) Urine pH 5.0 (5.0-8.0) Ur Specific [place] 1.007 (1.001-1.035) Urine Protein Negative (Negative) Urine Glucose (UA) Negative (Negative) Urine Ketones Negative (Negative) Urine Blood Negative (Negative) Urine Nitrite Negative (Negative) Urine Bilirubin Negative (Negative) Urine Urobilinogen <2.0 (<2.0) mg/dL Ur Leukocyte Esterase Small H (Negative) Urine RBC 3 (0-5) /hpf Urine WBC 8 H (0-5) /hpf Ur Squamous Epith Cells <1 (0-4) /hpf Hyaline Casts 11 H (0-2) /lpf 11/20/20 Range/Units 21:40 WBC (3.8-10.6) k/uL RBC (3.80-5.40) m/uL Hgb (11.4-16.0) gm/dL Hct (34.0-46.0) % MCV (80.0-100.0) fL MCH (25.0-35.0) pg MCHC (31.0-37.0) g/dL RDW (11.5-15.5) % Plt Count (150-450) k/uL MPV Neutrophils % % Lymphocytes % % Monocytes % % Eosinophils % % Basophils % % Neutrophils # (1.3-7.7) k/uL Lymphocytes # (1.0-4.8) k/uL Monocytes # (0-1.0) k/uL Eosinophils # (0-0.7) k/uL Basophils # (0-0.2) k/uL Hypochromasia Anisocytosis Macrocytosis Sodium (137-145) mmol/L Potassium (3.5-5.1) mmol/L Chloride (98-107) mmol/L Carbon Dioxide (22-30) mmol/L Anion Gap mmol/L BUN (7-17) mg/dL Creatinine (0.52-1.04) mg/dL Est GFR (CKD-EPI)AfAm (>60 ml/min/1.73 sqM) Est GFR (CKD-EPI)NonAf (>60 ml/min/1.73 sqM) Glucose (74-99) mg/dL Calcium (8.4-10.2) mg/dL Total Bilirubin (0.2-1.3) mg/dL AST (14-36) U/L ALT (4-34) U/L Alkaline Phosphatase (38-126) U/L Ammonia 115 H (<30) umol/L Total Protein (6.3-8.2) g/dL Albumin (3.5-5.0) g/dL Amylase (30-110) U/L Lipase (23-300) U/L Urine Color Urine Appearance (Clear) Urine pH (5.0-8.0) Ur Specific [place] (1.001-1.035) Urine Protein (Negative) Urine Glucose (UA) (Negative) Urine Ketones (Negative) Urine Blood (Negative) Urine Nitrite (Negative) Urine Bilirubin (Negative) Urine Urobilinogen (<2.0) mg/dL Ur Leukocyte Esterase (Negative) Urine RBC (0-5) /hpf Urine WBC (0-5) /hpf Ur Squamous Epith Cells (0-4) /hpf Hyaline Casts (0-2) /lpf Disposition Clinical Impression: Abdominal pain, Ascites, Increased ammonia level Disposition: ADMITTED IP TO THIS HOSP Condition: Fair Is patient prescribed a controlled substance at d/c from ED?: No Referrals: Aury Gracia DO [Primary Care Provider] - 1-2 days Time of Disposition: 23:50
[2020-11-20] MEDS ORDERED: LORazepam 2 MG/ML INJ IV PRN (23:44)
[2020-11-20] MEDS ORDERED: IBUPROFEN 400 MG TAB PO PRN (23:44)
[2020-11-20] MEDS ORDERED: NALOXONE 0.4 MG/ML 1 ML VIAL IV PRN (23:44)
[2020-11-20] MEDS ORDERED: SODIUM CHLORIDE 0.9% 1,000 ML IV SCH (23:45)
[2020-11-21 08:13] LABS: Glucose,Whole Blood 126 mg/dL (75-99)
[2020-11-21] MEDS: INSULIN ASPART (NovoLOG) 100 UNIT/ML VIAL SQ SCH ×4 (08:38→21:45)
[2020-11-21 12:06] LABS: Glucose,Whole Blood 114 mg/dL (75-99)
[2020-11-21] MEDS: MORPHINE SULFATE 4 MG/ML SYRINGE IV PRN ×2 (14:11→20:16)
--- NOTE | 2020-11-21 15:48 | CONS ---
CONSULTATION DATE OF SERVICE: 11/21/2020 REASON FOR CONSULTATION: Abdominal distention and ascites. HISTORY OF PRESENT ILLNESS: The patient is a 80-year-old pleasant white female with history of nonalcoholic fatty liver disease with cirrhosis of the liver diagnosed a couple of years ago, presented to the emergency room complaining of abdominal pain and abdominal distention for the last one week duration. She was seen in the office and was scheduled for paracentesis in a week from now, but in the meantime her symptoms got progressively worse and hence came into the hospital for further evaluation. She has been taking Lasix 20 mg twice daily and Aldactone 25 mg b.i.d. on an outpatient basis. She denies any abdominal pain. She did have some nausea and vomiting last night. She also has been complaining of intermittent rectal bleeding. PAST MEDICAL HISTORY: Significant for diabetes mellitus, hypertension, hyperlipidemia, gout, gastroesophageal reflux disease, hypothyroidism. MEDICATIONS: Aldactone 25 b.i.d., Lasix 20 b.i.d., metformin, atenolol, Allopurinol, simvastatin, Prilosec, multivitamin, levothyroxine, hydrocodone, iron sulfate, vitamin D3, calcium and vitamin B12. ALLERGIES: None. PAST SURGICAL HISTORY: Colonoscopy about 3 or 4 years ago, history of left knee surgery, cholecystectomy. SOCIAL HISTORY: No smoking, no alcohol use. FAMILY HISTORY: Unremarkable. REVIEW OF SYSTEMS: CARDIOPULMONARY: No chest pain, no shortness of breath. GENITOURINARY: No dysuria or hematuria. MUSCULOSKELETAL: Unremarkable. SKIN: Unremarkable. ENDOCRINE: Unremarkable. PSYCHIATRIC: Unremarkable. NEUROLOGY: Unremarkable. ENT/VISION: Unremarkable. CONSTITUTIONAL: Weight gain of 10 pounds. No fever, chills, night sweats. PHYSICAL EXAMINATION: Appears comfortable, no apparent distress. Vital signs are stable. Blood pressure is 130/82, pulse 86 per minute and afebrile. HEENT examination unremarkable. Conjunctivae pink, sclerae anicteric. Oral cavity no lesions. NECK: No JVD or lymph node enlargement. CHEST: Clear to auscultation. HEART: Regular rate and rhythm. ABDOMEN: Soft. Bowel sounds are positive. It was slightly distended. Mild tenderness in the epigastric and right upper quadrant area. EXTREMITIES: No pedal edema. NEUROLOGIC: Alert and oriented x3. No focal deficits. LABS: WBC 4.6, hemoglobin 10.7, platelets 54,000. BUN 22, creatinine 1.49, T bilirubin 1.5, AST 82, ALT 24, alkaline phosphatase is 157. Amylase and lipase are normal. Coronavirus PCR negative. IMPRESSION: 1. This is a lady with fatty liver disease with nonalcoholic cirrhosis of the liver diagnosed a couple of years ago, presents to the hospital with abdominal distention and abdominal discomfort for the last one week duration. Clinically has some ascites noted. She had an ultrasound of the abdomen done on October 27 which revealed mild to moderate amount of ascites and she was scheduled for large-volume paracentesis on an outpatient basis on November 23. In the meantime, her symptoms progressively got worse and hence admitted to the hospital for further management. She is on Lasix 20 b.i.d. and Aldactone 25 mg twice daily. 2. History of hypertension. 3. History of hypercholesteremia. 4. History of diabetes mellitus. 5. Pancytopenia secondary to mild portal hypertension and cirrhosis of the liver. 6. Mild elevation of BUN and creatinine, probably acute kidney injury. RECOMMENDATIONS: 1. Continue with current dose of diuretics. 2. Low-salt diet. 3. We will schedule her for large-volume paracentesis on Monday. 4. Continue with symptomatic and supportive care. 5. We will follow with you closely. Thank you for this consultation. HERMILO / SOFIEN: [id number] /
[2020-11-21 16:54] LABS: Glucose,Whole Blood 177 mg/dL (75-99)
--- NOTE | 2020-11-21 17:15 | P.HPIM ---
History of Present Illness Patient was around 82-year-old female came in with complaints of epigastric abdominal discomfort sharp pain which started yesterday. 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 Patient had paracentesis about a week ago patient does have abdominal distention but doesn't appear to have large ascites at this time. Patient denied any fever chills nausea vomiting patient does take on ibuprofen at home patient is also on Prilosec daily patient the serum reaction is a 1.4 baseline is within normal limits patient does take Lasix, Aldactone for cirrhosis. Patient pain is still not well controlled but patient is on morphine which will be continued as needed for pain. Review of Systems REVIEW OF SYSTEMS: CONSTITUTIONAL: No fever, no malaise, no fatigue. HEENT: No recent visual problems or hearing problems. Denied any sore throat. CARDIOVASCULAR: No chest pain, orthopnea, PND, no palpitations, no syncope. PULMONARY: No shortness of breath, no cough, no hemoptysis. GASTROINTESTINAL: As mentioned in HPI NEUROLOGICAL: No headaches, no weakness, no numbness. HEMATOLOGICAL: Denies any bleeding or petechiae. GENITOURINARY: Denies any burning micturition, frequency, or urgency. MUSCULOSKELETAL/RHEUMATOLOGICAL: Denies any joint pain, swelling, or any muscle pain. ENDOCRINE: Denies any polyuria or polydipsia. The rest of the 14-point review of systems is negative. Past Medical History Past Medical History: Cancer, Diabetes Mellitus, GERD/Reflux, Hyperlipidemia, Hypertension, Liver Disease, Osteoarthritis (OA) Additional Past Medical History / Comment(s): patient states "doesn't clot right but is not aware of any specific clotting disorders but all her Drs are a [place]",hemorrhoids and bleeding with stools,recent dehydration and UTI, non alcoholic cirrhosis of the liver, skin cancer History of Any Multi-Drug Resistant Organisms: None Reported Past Surgical History: Cholecystectomy, Orthopedic Surgery Additional Past Surgical History / Comment(s): colonoscopy, lt knee surgery Past Anesthesia/Blood Transfusion Reactions: No Reported Reaction Additional Past Anesthesia/Blood Transfusion Reaction / Comment(s): no problems with previous blood transfusions Past Psychological History: Depression Additional Psychological History / Comment(s): no medication Smoking Status: Never smoker Past Alcohol Use History: None Reported Past Drug Use History: None Reported - Past Family History Mother Family Medical History: Cancer Medications and Allergies Home Medications Medication Instructions Recorded Confirmed Type Calcium Carbonate [Calcium] 600 mg PO DAILY 07/19/19 11/20/20 History Cranberry Fruit Extract [Cranberry] 1,500 mg PO DAILY 07/19/19 11/20/20 History Cyanocobalamin (Vitamin B-12) 1,000 mcg PO DAILY 07/19/19 11/20/20 History [Vitamin B-12] Ergocalciferol [Vitamin D2] 50,000 unit PO Q7D 07/19/19 11/20/20 History Ferrous Sulfate [Feosol] 325 mg PO DAILY 07/19/19 11/20/20 History HYDROcodone/APAP 5-325MG [[place] 1 tab PO BID PRN 07/19/19 11/20/20 History 5-325] Levothyroxine Sodium [Synthroid] 100 mcg PO QAM 07/19/19 11/20/20 History Multivit-Min/Iron/Folic/Lutein 1 each PO DAILY 07/19/19 11/20/20 History [Centrum Silver Women Tablet] Omeprazole 40 mg PO QAM 07/19/19 11/20/20 History Simvastatin [Zocor] 40 mg PO DAILY 07/19/19 11/20/20 History allopurinoL [Zyloprim] 100 mg PO DAILY 07/19/19 11/20/20 History atenoloL [Tenormin] 25 mg PO QAM 07/19/19 11/20/20 History metFORMIN HCL 500 mg PO DAILY 07/19/19 11/20/20 History Furosemide [Lasix] 20 mg PO BID 11/20/20 11/20/20 History Spironolactone [Aldactone] 25 mg PO BID 11/20/20 11/20/20 History Allergies Allergy/AdvReac Type Severity Reaction Status Date / Time No Known Allergies Allergy Verified 11/20/20 23:13 Physical Exam Vitals: Vital Signs Temp Pulse Pulse Resp BP BP Pulse Ox 11/21/20 14:00 98.1 F 83 16 114/66 100 11/21/20 08:00 97.4 F L 87 16 112/70 98 11/21/20 02:07 97.8 F 87 99/61 98 11/21/20 00:47 82 16 124/55 98 11/20/20 22:17 87 18 119/53 96 11/20/20 21:55 90 18 128/56 97 11/20/20 20:29 98.1 F 98 18 112/46 100 Intake and Output 11/21/20 11/21/20 11/21/20 06:59 14:59 22:59 Intake Total 400 Balance 400 Intake: Intake, IV Titration 400 Amount Sodium Chloride 0.9% 1, 400 000 ml @ 50 mls/hr IV . [facility] Rx#:[id number] Other: Voiding Method Toilet # Voids 1 Weight 73.936 kg PHYSICAL EXAMINATION: GENERAL: The patient is alert and oriented x3, not in any acute distress. Well developed, well nourished. HEENT: Pupils are round and equally reacting to light. EOMI. No scleral icterus. No conjunctival pallor. Normocephalic, atraumatic. No pharyngeal erythema. No thyromegaly. CARDIOVASCULAR: S1 and S2 present. No murmurs, rubs, or gallops. PULMONARY: Chest is clear to auscultation, no wheezing or crackles. ABDOMEN: Distended mild epigastric abdominal tenderness does have ascites does have shifting dullness no fluid thrill MUSCULOSKELETAL: No joint swelling or deformity. EXTREMITIES: No cyanosis, clubbing, or pedal edema. NEUROLOGICAL: Gross neurological examination did not reveal any focal deficits. SKIN: No rashes. Results CBC & Chem 7: 11/20/20 21:40 11/20/20 21:40 Labs: Abnormal Lab Results - Last 24 Hours (Table) 11/20/20 11/20/20 11/20/20 Range/Units 21:40 21:40 21:40 RBC 3.24 L (3.80-5.40) m/uL Hgb 10.7 L (11.4-16.0) gm/dL Hct 33.0 L (34.0-46.0) % MCV 102.0 H (80.0-100.0) fL RDW 16.8 H (11.5-15.5) % Plt Count 54 L (150-450) k/uL BUN 22 H (7-17) mg/dL Creatinine 1.49 H (0.52-1.04) mg/dL Glucose 104 H (74-99) mg/dL POC Glucose (mg/dL) (75-99) mg/dL Total Bilirubin 1.5 H (0.2-1.3) mg/dL AST 82 H (14-36) U/L Alkaline Phosphatase 157 H (38-126) U/L Ammonia (<30) umol/L Albumin 3.3 L (3.5-5.0) g/dL Ur Leukocyte Esterase Small H (Negative) Urine WBC 8 H (0-5) /hpf Hyaline Casts 11 H (0-2) /lpf 11/20/20 11/20/20 11/21/20 Range/Units 21:40 23:43 08:11 RBC (3.80-5.40) m/uL Hgb (11.4-16.0) gm/dL Hct (34.0-46.0) % MCV (80.0-100.0) fL RDW (11.5-15.5) % Plt Count (150-450) k/uL BUN (7-17) mg/dL Creatinine (0.52-1.04) mg/dL Glucose (74-99) mg/dL POC Glucose (mg/dL) 126 H (75-99) mg/dL Total Bilirubin (0.2-1.3) mg/dL AST (14-36) U/L Alkaline Phosphatase (38-126) U/L Ammonia 115 H 118 H (<30) umol/L Albumin (3.5-5.0) g/dL Ur Leukocyte Esterase (Negative) Urine WBC (0-5) /hpf Hyaline Casts (0-2) /lpf 11/21/20 11/21/20 Range/Units 11:57 16:48 RBC (3.80-5.40) m/uL Hgb (11.4-16.0) gm/dL Hct (34.0-46.0) % MCV (80.0-100.0) fL RDW (11.5-15.5) % Plt Count (150-450) k/uL BUN (7-17) mg/dL Creatinine (0.52-1.04) mg/dL Glucose (74-99) mg/dL POC Glucose (mg/dL) 114 H 177 H (75-99) mg/dL Total Bilirubin (0.2-1.3) mg/dL AST (14-36) U/L Alkaline Phosphatase (38-126) U/L Ammonia (<30) umol/L Albumin (3.5-5.0) g/dL Ur Leukocyte Esterase (Negative) Urine WBC (0-5) /hpf Hyaline Casts (0-2) /lpf Thrombosis Risk Factor Assmnt - Choose All That Apply Each Factor Represents 1 point: Obesity (BMI >25) Each Risk Factor Represents 3 Points: Age 75 years or older Thrombosis Risk Factor Assessment Total Risk Factor Score: 4 Thrombosis Risk Factor Assessment Level: Moderate Risk Assessment and Plan Plan: Abdominal pain: Appears to be secondary to peptic is a disease or gastritis I do not believe patient has one his Bactrim peritonitis patient doesn't have significant ascites to cause discomfort due to distention. Patient's proton p ulmonary to will be switched to Protonix 40 twice a day discontinue ibuprofen continued morphine for pain. -acute renal failure secondary to diuretics and nonsteroidal anti-inflammatory medications. Nostril anti-inflammatory medications were discontinued patient was hydrated until now more hydration will lead to worsening ascites because of which IV fluids were discontinued -Type 2 diabetes mellitus -Gastroesophageal reflux disease -Hypertension -Hyperlipidemia -Nonalcoholic cirrhosis DVT prophylaxis with heparin
[2020-11-21 21:09] LABS: Glucose,Whole Blood 91 mg/dL (75-99)
[2020-11-21] MEDS: PANTOPRAZOLE 40 MG/10 ML VIAL IVP SCH (21:45)
[2020-11-21] MEDS: HEPARIN SODIUM,PORCINE 5,000 UNIT/ML 1 ML VIAL SQ SCH (21:45)
[2020-11-22] MEDS: LEVOTHYROXINE 100 MCG TAB PO SCH (05:30)
[2020-11-22 07:03] LABS: Glucose,Whole Blood 116 mg/dL (75-99)
[2020-11-22] MEDS: INSULIN ASPART (NovoLOG) 100 UNIT/ML VIAL SQ SCH ×4 (07:06→20:57)
[2020-11-22] MEDS ORDERED: PANTOPRAZOLE 40 MG TABLET PO SCH (07:30)
[2020-11-22] MEDS: HEPARIN SODIUM,PORCINE 5,000 UNIT/ML 1 ML VIAL SQ SCH ×2 (07:54→20:57)
[2020-11-22] MEDS: CALCIUM CARBONATE 500 MG CHEWABLE PO SCH (07:54)
[2020-11-22] MEDS: FERROUS SULFATE 325 MG TAB PO SCH (07:54)
[2020-11-22] MEDS: PANTOPRAZOLE 40 MG/10 ML VIAL IVP SCH ×2 (07:54→20:57)
[2020-11-22] MEDS: ATORVASTATIN 20 MG TAB PO SCH (07:54)
[2020-11-22] MEDS: allopurinoL 100 MG TAB PO SCH (07:54)
[2020-11-22] MEDS: CYANOCOBALAMIN 500 MCG TAB PO SCH (07:55)
[2020-11-22] MEDS ORDERED: NON FORMULARY DRUG (Cranberry Fruit Extract [Cranberry] 500 MG Tablet) PO SCH (09:00)
[2020-11-22 09:49] LABS: HCT 25.1 % (37.2-46.3); MCH 32.4 pg (27.0-32.0); MCHC 31.9 g/dL (32.0-37.0); MCV 101.6 fL (80.0-97.0); Mean Platelet Volume 11.6 fL (9.5-12.2); Platelet Count 47 X 10*3/uL (140-440); RBC 2.47 X 10*6/uL (4.10-5.20); WBC 2.94 X 10*3/uL (4.50-10.00)
[2020-11-22 09:50] LABS: Hypochromasia (M) 2+
[2020-11-22 09:54] LABS: African American GFR (CKD) 41.6 (60.0-200.0); Albumin 2.7 g/dL (3.80-4.90); Albumin/Globulin Ratio 1.13 (1.60-3.17); Anion Gap 8.2 mmol/L (4.00-12.00); BUN/Creat Ratio 16.43 Ratio (12.00-20.00); Calcium 8.7 mg/dL (8.7-10.3); Carbon Dioxide 29.8 mmol/L (21.6-31.8); Globulin 2.4 g/dL (1.6-3.3); Non-African American GFR(CKD) 35.9 (60.0-200.0); Potassium 4.3 mmol/L (3.5-5.5); Total Bilirubin 1.3 mg/dL (0.3-1.2); Total Protein 5.1 g/dL (6.2-8.2)
--- NOTE | 2020-11-22 10:31 | P.PN ---
Subjective Patient is a 80-year-old female came in with complaints of epigastric abdominal discomfort sharp pain which started yesterday. 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 Patient had paracentesis about a week ago patient does have abdominal distention but doesn't appear to have large ascites at this time. Patient denied any fever chills nausea vomiting patient does take on ibuprofen at home patient is also on Prilosec daily patient the serum reaction is a 1.4 baseline is within normal li mits patient does take Lasix, Aldactone for cirrhosis. Patient pain is still not well controlled but patient is on morphine which will be continued as needed for pain. 11/22/2020 Patient's creatinine remained stable at 1.4 patient does have thrombocytopenia which is expected secondary to her cirrhosis and splenic sequestration hemoglobin did go down from 10.7-8 no evidence of any active GI bleeding at this time. Her epigastric abdominal pain did improve compared to yesterday although still having abdominal pain. Constitutional: Denied any fatigue denied any fever. Cardio vascular: denied any chest pain, palpitations Gastrointestinal denied any nausea vomiting Pulmonary: Denied any shortness of breath cough Neurologic denied any new focal deficits All inpatient medications were reviewed and appropriate changes in these medications as dictated in the interval history and assessment and plan. Objective - Vital Signs Vital signs: Vital Signs Temp 97.7 F 11/22/20 07:45 Pulse 83 11/22/20 07:45 Resp 18 11/22/20 07:45 BP 104/52 11/22/20 07:45 Pulse Ox 94 L 11/22/20 07:45 Intake & Output 11/21/20 11/22/20 11/22/20 18:59 06:59 18:59 Intake Total 400 Balance 400 Intake: Intake, IV Titration 400 Amount Sodium Chloride 0.9% 1, 400 000 ml @ 50 mls/hr IV . Q20H [facility] Rx#:[id number] Other: Voiding Method Toilet Diaper # Voids 1 2 - Exam PHYSICAL EXAMINATION: GENERAL: The patient is alert and oriented x3, not in any acute distress. Well developed, well nourished. HEENT: Pupils are round and equally reacting to light. EOMI. No scleral icterus. No conjunctival pallor. Normocephalic, atraumatic. No pharyngeal erythema. No thyromegaly. CARDIOVASCULAR: S1 and S2 present. No murmurs, rubs, or gallops. PULMONARY: Chest is clear to auscultation, no wheezing or crackles. ABDOMEN: Distended mild epigastric abdominal tenderness does have ascites does have shifting dullness no fluid thrill MUSCULOSKELETAL: No joint swelling or deformity. EXTREMITIES: No cyanosis, clubbing, or pedal edema. NEUROLOGICAL: Gross neurological examination did not reveal any focal deficits. SKIN: No rashes. - Labs CBC & Chem 7: 11/22/20 06:05 11/22/20 06:05 Labs: Abnormal Lab Results - Last 24 Hours (Table) 11/21/20 11/21/20 11/22/20 Range/Units 11:57 16:48 06:05 WBC 2.94 L (4.50-10.00) X 10*3/uL RBC 2.47 L (4.10-5.20) X 10*6/uL Hgb 8.0 L (12.0-15.0) g/dL Hct 25.1 L (37.2-46.3) % MCV 101.6 H (80.0-97.0) fL MCH 32.4 H (27.0-32.0) pg MCHC 31.9 L (32.0-37.0) g/dL RDW 17.0 H (11.5-14.5) % Plt Count 47 L (140-440) X 10*3/uL Plt Count Comment A Est GFR (CKD-EPI)AfAm (60.0-200.0) Est GFR (CKD-EPI)NonAf (60.0-200.0) Glucose (70-110) mg/dL POC Glucose (mg/dL) 114 H 177 H (75-99) mg/dL Total Bilirubin (0.3-1.2) mg/dL AST (13-35) U/L Total Protein (6.2-8.2) g/dL Albumin (3.80-4.90) g/dL Albumin/Globulin Ratio (1.60-3.17) g/dL 11/22/20 11/22/20 Range/Units 06:05 06:47 WBC (4.50-10.00) X 10*3/uL RBC (4.10-5.20) X 10*6/uL Hgb (12.0-15.0) g/dL Hct (37.2-46.3) % MCV (80.0-97.0) fL MCH (27.0-32.0) pg MCHC (32.0-37.0) g/dL RDW (11.5-14.5) % Plt Count (140-440) X 10*3/uL Plt Count Comment Est GFR (CKD-EPI)AfAm 41.6 L (60.0-200.0) Est GFR (CKD-EPI)NonAf 35.9 L (60.0-200.0) Glucose 120 H (70-110) mg/dL POC Glucose (mg/dL) 116 H (75-99) mg/dL Total Bilirubin 1.3 H (0.3-1.2) mg/dL AST 41 H (13-35) U/L Total Protein 5.1 L (6.2-8.2) g/dL Albumin 2.70 L (3.80-4.90) g/dL Albumin/Globulin Ratio 1.13 L (1.60-3.17) g/dL Assessment and Plan Plan: Abdominal pain: Appears to be secondary to peptic is a disease or gastritis I do not believe patient has spontaneous bacterial peritonitis . Patient's proton pulmonary to will be switched to Protonix 40 twice a day discontinue ibuprofen continued morphine for pain. -acute renal failure secondary to diuretics and nonsteroidal anti-inflammatory medications. Nostril anti-inflammatory medications were discontinued patient was hydrated until now more hydration will lead to worsening ascites because of which IV fluids were discontinued. Patient's serum creatinine remained stable will continue to hold off on diuretics will check the kidney function tomorrow -Type 2 diabetes mellitus -Gastroesophageal reflux disease -Hypertension -Hyperlipidemia -Nonalcoholic cirrhosis DVT prophylaxis with heparin
[2020-11-22 11:36] LABS: Glucose,Whole Blood 139 mg/dL (75-99)
[2020-11-22 14:59] LABS: Hemoglobin A1C 5.1 % (4.0-6.0)
--- NOTE | 2020-11-22 15:23 | PN ---
PROGRESS NOTE DATE OF SERVICE: 11/22/2020 INTERVAL HISTORY: Patient is a 80-year-old pleasant white female admitted to hospital with history of liver cirrhosis, admitted to the hospital with new onset ascites. She was on Lasix and Aldactone on an outpatient basis, but because of elevated BUN and creatinine they are on hold. She is scheduled for large-volume paracentesis tomorrow. In the meantime, she is doing much better. Still has some abdominal distention and abdominal pain has improved. PHYSICAL EXAMINATION: GENERAL: Appears comfortable. VITAL SIGNS: Stable. Blood pressure 104/52, pulse 86, temperature 97.9. HEENT: Examination unremarkable. Conjunctivae are pink. Sclerae anicteric. Oral cavity no lesions. NECK: No JVD. No lymph node enlargement. CHEST: Was clear to auscultation. HEART: Regular rate and rhythm. ABDOMEN: Slightly distended. Bowel sounds are positive. No organomegaly. EXTREMITIES: No pedal edema. NEURO: She is alert and oriented x3. No focal deficits. LABS: WBC 2.9, hemoglobin 8, platelets 47, T bilirubin 1.3, AST 41, ALT 18. IMPRESSION: 1. Ascites secondary to portal hypertension from underlying liver cirrhosis. Diuretics currently on hold. The patient is scheduled for large-volume paracentesis tomorrow. 2. Elevated LFTs and mild jaundice secondary to nonalcoholic fatty liver disease. 3. History of liver cirrhosis diagnosed 2 years ago. 4. Mild pancytopenia. RECOMMENDATIONS: 1. Proceed with large volume paracentesis for diagnostic and therapeutic purposes tomorrow. 2. Monitor labs closely. 3. Hold off on diuretics for now. 4. Continue with low salt diet. We will follow with you. Thank you for this consultation. MMODL / IJN: [id number] /
[2020-11-22 16:32] LABS: Glucose,Whole Blood 141 mg/dL (75-99)
[2020-11-22 20:54] LABS: Glucose,Whole Blood 160 mg/dL (75-99)
[2020-11-23] MEDS: LEVOTHYROXINE 100 MCG TAB PO SCH (05:40)
[2020-11-23 07:28] LABS: Glucose,Whole Blood 146 mg/dL (75-99)
[2020-11-23] MEDS: ATORVASTATIN 20 MG TAB PO SCH (07:44)
[2020-11-23] MEDS: CYANOCOBALAMIN 500 MCG TAB PO SCH (07:44)
[2020-11-23] MEDS: allopurinoL 100 MG TAB PO SCH (07:44)
[2020-11-23] MEDS: PANTOPRAZOLE 40 MG/10 ML VIAL IVP SCH ×2 (07:44→21:11)
[2020-11-23] MEDS: CALCIUM CARBONATE 500 MG CHEWABLE PO SCH (07:44)
[2020-11-23] MEDS: FERROUS SULFATE 325 MG TAB PO SCH (07:44)
[2020-11-23] MEDS: HEPARIN SODIUM,PORCINE 5,000 UNIT/ML 1 ML VIAL SQ SCH ×2 (07:45→21:10)
[2020-11-23] MEDS: INSULIN ASPART (NovoLOG) 100 UNIT/ML VIAL SQ SCH ×4 (07:45→21:10)
[2020-11-23 07:49] LABS: INR 1.4 (<1.2); Partial Thromboplastin Time 24.7 sec (22.0-30.0); Prothrombin Time 13.9 sec (9.0-12.0)
[2020-11-23 09:30] LABS: African American GFR (CKD) 41.6 (60.0-200.0); Albumin 2.8 g/dL (3.80-4.90); Albumin/Globulin Ratio 1.08 (1.60-3.17); BUN/Creat Ratio 17.14 Ratio (12.00-20.00); Calcium 9.5 mg/dL (8.7-10.3); Globulin 2.6 g/dL (1.6-3.3); Non-African American GFR(CKD) 35.9 (60.0-200.0); Potassium 4.6 mmol/L (3.5-5.5); Total Bilirubin 1.2 mg/dL (0.2-1.2); Total Protein 5.4 g/dL (6.2-8.2)
[2020-11-23 10:41] LABS: HCT 25.9 % (37.2-46.3); HGB 8.2 g/dL (12.0-15.0); MCH 31.8 pg (27.0-32.0); MCHC 31.7 g/dL (32.0-37.0); MCV 100.4 fL (80.0-97.0); Mean Platelet Volume 12.5 fL (9.5-12.2); Platelet Count 42 X 10*3/uL (140-440); RBC 2.58 X 10*6/uL (4.10-5.20); RDW 16.7 % (11.5-14.5); WBC 2.41 X 10*3/uL (4.50-10.00)
[2020-11-23 11:55] LABS: Glucose,Whole Blood 159 mg/dL (75-99)
[2020-11-23] MEDS: MORPHINE SULFATE 4 MG/ML SYRINGE IV PRN ×2 (13:20→23:51)
--- NOTE | 2020-11-23 14:04 | P.PN ---
Subjective Progress Note Date: 11/23/20 11/23/2020 this is a 80 -year-old female admitted with abdominal pain, ascites, underlying liver cirrhosis, scheduled for large volume diagnostic and therapeutic paracentesis today. Abdomen tense, tender, reports positive diarrhea. Creatinine 1.4. Denies chest pain, palpitations or shortness of breath. Maintaining O2 sats in the 90s on room air. Objective - Vital Signs Vital signs: Vital Signs Temp 97.9 F 11/23/20 07:31 Pulse 96 11/23/20 11:31 Resp 16 11/23/20 11:31 BP 117/56 11/23/20 11:31 Pulse Ox 99 11/23/20 11:31 Intake & Output 11/22/20 11/23/20 11/23/20 18:59 06:59 18:59 Other: Voiding Method Toilet Diaper # Voids 2 2 2 # Bowel Movements 2 - Exam PHYSICAL EXAMINATION: GENERAL: alert and oriented x3, no acute distress. HEENT: Pupils are round and equally reacting to light. EOMI. No scleral icterus. No conjunctival pallor. Sclerae anicteric CARDIOVASCULAR: S1 and S2 present. No murmurs, rubs, or gallops. PULMONARY: Chest is clear to auscultation, no wheezing or crackles. ABDOMEN: Distended,tense,tender , positive ascites, positive bowel sounds EXTREMITIES: No cyanosis, clubbing, or pedal edema. NEUROLOGICAL: Gross neurological examination did not reveal any focal deficits. SKIN: Warm and dry, No rashes. - Labs CBC & Chem 7: 11/23/20 06:16 11/23/20 06:16 Labs: Abnormal Lab Results - Last 24 Hours (Table) 11/22/20 11/22/20 11/23/20 Range/Units 16:30 20:52 06:16 WBC (4.50-10.00) X 10*3/uL RBC (4.10-5.20) X 10*6/uL Hgb (12.0-15.0) g/dL Hct (37.2-46.3) % MCV (80.0-97.0) fL MCHC (32.0-37.0) g/dL RDW (11.5-14.5) % Plt Count (140-440) X 10*3/uL Plt Count Comment MPV (9.5-12.2) fL PT (9.0-12.0) sec INR (<1.2) Est GFR (CKD-EPI)AfAm 41.6 L (60.0-200.0) Est GFR (CKD-EPI)NonAf 35.9 L (60.0-200.0) Glucose 136 H (70-110) mg/dL POC Glucose (mg/dL) 141 H 160 H (75-99) mg/dL AST 46 H (13-35) U/L Total Protein 5.4 L (6.2-8.2) g/dL Albumin 2.80 L (3.80-4.90) g/dL Albumin/Globulin Ratio 1.08 L (1.60-3.17) g/dL 11/23/20 11/23/20 11/23/20 Range/Units 06:16 07:11 07:15 WBC 2.41 L (4.50-10.00) X 10*3/uL RBC 2.58 L (4.10-5.20) X 10*6/uL Hgb 8.2 L (12.0-15.0) g/dL Hct 25.9 L (37.2-46.3) % MCV 100.4 H (80.0-97.0) fL MCHC 31.7 L (32.0-37.0) g/dL RDW 16.7 H (11.5-14.5) % Plt Count 42 L (140-440) X 10*3/uL Plt Count Comment DECREASED A MPV 12.5 H (9.5-12.2) fL PT 13.9 H (9.0-12.0) sec INR 1.4 H (<1.2) Est GFR (CKD-EPI)AfAm (60.0-200.0) Est GFR (CKD-EPI)NonAf (60.0-200.0) Glucose (70-110) mg/dL POC Glucose (mg/dL) 146 H (75-99) mg/dL AST (13-35) U/L Total Protein (6.2-8.2) g/dL Albumin (3.80-4.90) g/dL Albumin/Globulin Ratio (1.60-3.17) g/dL 11/23/20 Range/Units 11:54 WBC (4.50-10.00) X 10*3/uL RBC (4.10-5.20) X 10*6/uL Hgb (12.0-15.0) g/dL Hct (37.2-46.3) % MCV (80.0-97.0) fL MCHC (32.0-37.0) g/dL RDW (11.5-14.5) % Plt Count (140-440) X 10*3/uL Plt Count Comment MPV (9.5-12.2) fL PT (9.0-12.0) sec INR (<1.2) Est GFR (CKD-EPI)AfAm (60.0-200.0) Est GFR (CKD-EPI)NonAf (60.0-200.0) Glucose (70-110) mg/dL POC Glucose (mg/dL) 159 H (75-99) mg/dL AST (13-35) U/L Total Protein (6.2-8.2) g/dL Albumin (3.80-4.90) g/dL Albumin/Globulin Ratio (1.60-3.17) g/dL Assessment and Plan Assessment: Abdominal pain, ascites secondary to portal hypertension,in a patient with history of liver cirrhosis, fatty liver, no history of hepatitis, Acute renal failure secondary to diuretics, NSAIDs Pancytopenia, mild Diabetes mellitus type 2 Gastroesophageal reflux disease Hypertension Hyperlipidemia Nonalcoholic cirrhosis Plan: Continue on current medication regime ,monitoring and symptomatic treatment. Scheduled for a large volume diagnostic and therapeutic paracentesis. The impression and plan of care has been dictated as directed. : I performed a history and examination of this patient, discussed the same with the dictator. I agree with the dictator's note ,documented as a scribe. Any additional findings or plans will be noted.
[2020-11-23 14:33] LABS: Appearance,BF Hazy; Color,BF Yellow; Nucleated Cells, Body Fluid 53 /uL; RBC, Body Fluid 199 /uL
[2020-11-23 14:43] LABS: Mononuclear WBC,Body Fluid 91 %; Polynuclear WBC,Body Fluid 9 %; Total Cells Counted,Body Fluid 100
--- NOTE | 2020-11-23 15:50 | US ---
EXAMINATION TYPE: US paracentesis abd w/image DATE OF EXAM: 11/23/2020 COMPARISON: NONE HISTORY: Ascites. PROCEDURE: Maximal barrier technique was utilized. The skin overlying a suitable pocket of fluid was localized with ultrasound and the overlying skin was prepped and draped. Ultrasound was utilized with sterile technique. Lidocaine was used for local anesthesia and a skin mike made with a scalpel. Catheter was advanced under direct ultrasound guidance into a suitable pocket of fluid and approximately 3.8 liter s of serous fluid were removed. Catheter was withdrawn and hemostasis achieved. There is no immedia te complication; the patient is discharged in stable condition. IMPRESSION: STATUS POST ULTRASOUND GUIDED PARACENTESIS FOR PALLIATION OF ASCITES. THIS PROCEDURE WA S PERFORMED BY THE UNDERSIGNED.
[2020-11-23 16:33] LABS: Glucose,Whole Blood 131 mg/dL (75-99)
[2020-11-23 20:39] LABS: Glucose,Whole Blood 191 mg/dL (75-99)
[2020-11-23 22:34] LABS: Albumin, Fluid Source Paracentesis Fluid; Total Protein, Body Fluid 630 mg/dL
[2020-11-23 23:04] LABS: Anisocytosis Slight; Basophils % (A) 1 %; Eosinophils % (A) 2 %; HCT 27.7 % (34.0-46.0); Hypochromasia Slight; Lymphocytes # (A) 1.1 k/uL (1.0-4.8); Lymphocytes % (A) 38 %; MCH 31.9 pg (25.0-35.0); MCHC 31.5 g/dL (31.0-37.0); MCV 101.1 fL (80.0-100.0); Macrocytosis Slight; Mean Platelet Volume 8.5; Monocytes # (A) 0.2 k/uL (0-1.0); Monocytes % (A) 8 %; Neutrophils # (A) 1.4 k/uL (1.3-7.7); Neutrophils % (A) 50 %; RBC 2.74 m/uL (3.80-5.40); RDW 16.9 % (11.5-15.5); WBC 2.8 k/uL (3.8-10.6)
[2020-11-23 23:20] LABS: HGB 8.7 gm/dL (11.4-16.0); Platelet Count 48 k/uL (150-450)
[2020-11-24 06:55] LABS: Glucose,Whole Blood 160 mg/dL (75-99)
[2020-11-24] MEDS: LEVOTHYROXINE 100 MCG TAB PO SCH (07:28)
[2020-11-24] MEDS: INSULIN ASPART (NovoLOG) 100 UNIT/ML VIAL SQ SCH ×4 (07:28→20:22)
[2020-11-24] MEDS: MORPHINE SULFATE 4 MG/ML SYRINGE IV PRN (07:29)
[2020-11-24 07:44] LABS: Anisocytosis Slight; Basophils % (A) 0 %; Eosinophils % (A) 3 %; HCT 26.9 % (34.0-46.0); HGB 8.9 gm/dL (11.4-16.0); Hypochromasia Moderate; Lymphocytes % (A) 39 %; MCH 33.5 pg (25.0-35.0); MCHC 32.9 g/dL (31.0-37.0); MCV 101.8 fL (80.0-100.0); Macrocytosis Slight; Mean Platelet Volume 8.2; Monocytes % (A) 8 %; Neutrophils % (A) 48 %; RBC 2.65 m/uL (3.80-5.40); RDW 16.5 % (11.5-15.5); WBC 3.7 k/uL (3.8-10.6)
[2020-11-24 07:45] LABS: Eosinophils # (A) 0.1 k/uL (0-0.7); Lymphocytes # (A) 1.4 k/uL (1.0-4.8); Monocytes # (A) 0.3 k/uL (0-1.0); Neutrophils # (A) 1.8 k/uL (1.3-7.7)
[2020-11-24 07:48] LABS: Platelet Count 51 k/uL (150-450)
[2020-11-24 07:54] LABS: African American GFR (CKD) 47 (>60 ml/min/1.73 sqM); Anion Gap 6 mmol/L; Blood Urea Nitrogen 23 mg/dL (7-17); Calcium 9.4 mg/dL (8.4-10.2); Carbon Dioxide 26 mmol/L (22-30); Chloride 107 mmol/L (98-107); Glucose 126 mg/dL (74-99); Non-African American GFR(CKD) 41 (>60 ml/min/1.73 sqM); Sodium 139 mmol/L (137-145)
[2020-11-24] MEDS: FERROUS SULFATE 325 MG TAB PO SCH (09:20)
[2020-11-24] MEDS: ATORVASTATIN 20 MG TAB PO SCH (09:20)
[2020-11-24] MEDS: CALCIUM CARBONATE 500 MG CHEWABLE PO SCH (09:20)
[2020-11-24] MEDS: CYANOCOBALAMIN 500 MCG TAB PO SCH (09:21)
[2020-11-24] MEDS: allopurinoL 100 MG TAB PO SCH (09:21)
[2020-11-24] MEDS: PANTOPRAZOLE 40 MG/10 ML VIAL IVP SCH ×2 (09:25→21:34)
[2020-11-24 11:31] LABS: Glucose,Whole Blood 131 mg/dL (75-99)
--- NOTE | 2020-11-24 12:38 | P.PN ---
Subjective Progress Note Date: 11/24/20 Principal diagnosis: Ascites Seen and examined lying in bed. She is status post paracentesis yesterday with removal of 3.8 L of fluid. Yesterday evening and this morning she had a bowel movement with noted bright red blood mixed in. The patient states she does have some abdominal discomfort, mostly in the epigastric. She denies any nausea or vomiting. Her hemoglobin stable at 9.4. States she did have a colonoscopy 2 years ago along with hemorrhoidectomy performed by Dr. Rosales. Last pain was July 2019 with findings of total prolapse, internal and external hemo rrhoids, polyps, and diverticulosis. Patient and daughter at bedside and states that she has intermittent rectal bleeding and has had since her hemorrhoidectomy. Objective - Vital Signs Vital signs: Vital Signs Temp 97.9 F 11/24/20 08:03 Pulse 109 H 11/24/20 08:03 Resp 14 11/24/20 08:03 BP 113/69 11/24/20 08:03 Pulse Ox 94 L 11/24/20 04:17 Intake & Output 11/23/20 11/24/20 11/24/20 18:59 06:59 18:59 Other: # Voids 2 1 # Bowel Movements 1 - Exam General appearance: The patient is alert, oriented, appears in no acute distress. HET: Head is normocephalic and atraumatic. Conjunctiva pink. Sclera anicteric. Neck: Supple without lymphadenopathy. Abdomen: Soft, tender, distended with bowel sounds. No guarding or rigidity. Extremities: Normal skin color and turgor. Bilateral pedal edema Skin: No rashes, no jaundice Neurological: No focal deficits. Alert and oriented 3. - Labs CBC & Chem 7: 11/24/20 07:10 11/24/20 07:10 Labs: Abnormal Lab Results - Last 24 Hours (Table) 11/23/20 11/23/20 11/23/20 Range/Units 06:16 11:54 16:30 WBC 2.41 L (4.50-10.00) X 10*3/uL RBC 2.58 L (4.10-5.20) X 10*6/uL Hgb 8.2 L (12.0-15.0) g/dL Hct 25.9 L (37.2-46.3) % MCV 100.4 H (80.0-97.0) fL MCHC 31.7 L (32.0-37.0) g/dL RDW 16.7 H (11.5-14.5) % Plt Count 42 L (140-440) X 10*3/uL Plt Count Comment DECREASED A MPV 12.5 H (9.5-12.2) fL BUN (7-17) mg/dL Creatinine (0.52-1.04) mg/dL Glucose (74-99) mg/dL POC Glucose (mg/dL) 159 H 131 H (75-99) mg/dL 11/23/20 11/23/20 11/24/20 Range/Units 20:38 22:18 06:49 WBC 2.8 L (4.50-10.00) X 10*3/uL RBC 2.74 L (4.10-5.20) X 10*6/uL Hgb 8.7 L D (12.0-15.0) g/dL Hct 27.7 L (37.2-46.3) % MCV 101.1 H (80.0-97.0) fL MCHC (32.0-37.0) g/dL RDW 16.9 H (11.5-14.5) % Plt Count 48 L (140-440) X 10*3/uL Plt Count Comment MPV (9.5-12.2) fL BUN (7-17) mg/dL Creatinine (0.52-1.04) mg/dL Glucose (74-99) mg/dL POC Glucose (mg/dL) 191 H 160 H (75-99) mg/dL 11/24/20 11/24/20 Range/Units 07:10 07:10 WBC 3.7 L (4.50-10.00) X 10*3/uL RBC 2.65 L (4.10-5.20) X 10*6/uL Hgb 8.9 L (12.0-15.0) g/dL Hct 26.9 L (37.2-46.3) % MCV 101.8 H (80.0-97.0) fL MCHC (32.0-37.0) g/dL RDW 16.5 H (11.5-14.5) % Plt Count 51 L (140-440) X 10*3/uL Plt Count Comment MPV (9.5-12.2) fL BUN 23 H (7-17) mg/dL Creatinine 1.26 H (0.52-1.04) mg/dL Glucose 126 H (74-99) mg/dL POC Glucose (mg/dL) (75-99) mg/dL Assessment and Plan (1) Ascites Narrative/Plan: This is a 80-year-old pleasant female with a history of nonalcoholic fatty liver disease with cirrhosis of the liver diagnosed a couple years ago. The patient presented to the emergency department with complaints of abdominal pain and abdominal distention her last week's duration. Patient had been on Aldactone and Lasix which had to be discontinued due to elevation in her BUN and creatinine. The patient underwent paracentesis with 3.8 L of fluid removed. Fluid protein and albumin consistent with cirrhosis of the liver. Current Visit: Yes Status: Acute Code(s): R18.8 - OTHER ASCITES SNOMED Code(s): 849707390 (2) Liver cirrhosis secondary to nonalcoholic steatohepatitis (SUÁREZ) Current Visit: Yes Status: Acute Code(s): K75.81 - NONALCOHOLIC STEATOHEPATITIS (SUÁREZ); K74.60 - UNSPECIFIED CIRRHOSIS OF LIVER SNOMED Code(s): 342222006 (3) Rectal bleed Narrative/Plan: Patient had some rectal bleeding with bright red blood in the stool yesterday evening and this morning. Patient has a history of internal and external hemorrhoids, status post hemorrhoidectomy in August 2019. Prior to that she had a colonoscopy in July 2019 which revealed rectal prolapse, internal and external hemorrhoids, polyps, and diverticulosis. Rectal suppositories ordered. CT of abdomen without contrast ordered Current Visit: Yes Status: Acute Code(s): K62.5 - HEMORRHAGE OF ANUS AND RECTUM SNOMED Code(s): 42143367 Plan: 1. Supportive care 2. Patient is post paracentesis, 3.8 L fluid removal 3. Advance diet as tolerated 4. Repeat CBC in a.m. 5. Will add rectal suppository 6. Continue to monitor for signs and symptoms of GI bleed 7. CT of abdomen without contrast ordered 8. No plans for endoscopic evaluation at this time, we'll continue to monitor signs and symptoms of GI bleed and abdominal pain Thank you for this consultation, we will continue to follow closely Dr. Vargas I agree with the dictator's note, documented as a scribe by Dary Ross.
--- NOTE | 2020-11-24 12:39 | P.PN ---
Subjective Progress Note Date: 11/23/20 Principal diagnosis: Ascites Patient is seen and examined sitting up in the bedside chair. She states she's had some diarrhea through the night since 4 AM, she denies any black stool or bloody stool. She denies any abdominal pain, nausea, or vomiting. She is scheduled for paracentesis today. Objective - Vital Signs Vital signs: Vital Signs Temp 97.9 F 11/23/20 07:31 Pulse 114 H 11/23/20 07:31 Resp 18 11/23/20 07:31 BP 101/53 11/23/20 07:31 Pulse Ox 95 11/23/20 07:31 Intake & Output 11/22/20 11/23/20 11/23/20 18:59 06:59 18:59 Other: Voiding Method Toilet Diaper # Voids 2 2 # Bowel Movements 2 - Exam General appearance: The patient is alert, oriented, appears in no acute distress. HET: Head is normocephalic and atraumatic. Conjunctiva pink. Sclera anicteric. Neck: Supple without lymphadenopathy. Abdomen: Soft, tender, distended with bowel sounds. No guarding or rigidity. Extremities: Normal skin color and turgor. Bilateral pedal edema Skin: No rashes, no jaundice Neurological: No focal deficits. Alert and oriented 3. - Labs CBC & Chem 7: 11/22/20 06:05 11/23/20 06:16 Labs: Abnormal Lab Results - Last 24 Hours (Table) 11/22/20 11/22/20 11/22/20 Range/Units 06:05 06:05 11:35 WBC 2.94 L (4.50-10.00) X 10*3/uL RBC 2.47 L (4.10-5.20) X 10*6/uL Hgb 8.0 L (12.0-15.0) g/dL Hct 25.1 L (37.2-46.3) % MCV 101.6 H (80.0-97.0) fL MCH 32.4 H (27.0-32.0) pg MCHC 31.9 L (32.0-37.0) g/dL RDW 17.0 H (11.5-14.5) % Plt Count 47 L (140-440) X 10*3/uL Plt Count Comment A PT (9.0-12.0) sec INR (<1.2) Est GFR (CKD-EPI)AfAm 41.6 L (60.0-200.0) Est GFR (CKD-EPI)NonAf 35.9 L (60.0-200.0) Glucose 120 H (70-110) mg/dL POC Glucose (mg/dL) 139 H (75-99) mg/dL Total Bilirubin 1.3 H (0.3-1.2) mg/dL AST 41 H (13-35) U/L Total Protein 5.1 L (6.2-8.2) g/dL Albumin 2.70 L (3.80-4.90) g/dL Albumin/Globulin Ratio 1.13 L (1.60-3.17) g/dL 11/22/20 11/22/20 11/23/20 Range/Units 16:30 20:52 06:16 WBC (4.50-10.00) X 10*3/uL RBC (4.10-5.20) X 10*6/uL Hgb (12.0-15.0) g/dL Hct (37.2-46.3) % MCV (80.0-97.0) fL MCH (27.0-32.0) pg MCHC (32.0-37.0) g/dL RDW (11.5-14.5) % Plt Count (140-440) X 10*3/uL Plt Count Comment PT (9.0-12.0) sec INR (<1.2) Est GFR (CKD-EPI)AfAm 41.6 L (60.0-200.0) Est GFR (CKD-EPI)NonAf 35.9 L (60.0-200.0) Glucose 136 H (70-110) mg/dL POC Glucose (mg/dL) 141 H 160 H (75-99) mg/dL Total Bilirubin (0.3-1.2) mg/dL AST 46 H (13-35) U/L Total Protein 5.4 L (6.2-8.2) g/dL Albumin 2.80 L (3.80-4.90) g/dL Albumin/Globulin Ratio 1.08 L (1.60-3.17) g/dL 11/23/20 11/23/20 Range/Units 07:11 07:15 WBC (4.50-10.00) X 10*3/uL RBC (4.10-5.20) X 10*6/uL Hgb (12.0-15.0) g/dL Hct (37.2-46.3) % MCV (80.0-97.0) fL MCH (27.0-32.0) pg MCHC (32.0-37.0) g/dL RDW (11.5-14.5) % Plt Count (140-440) X 10*3/uL Plt Count Comment PT 13.9 H (9.0-12.0) sec INR 1.4 H (<1.2) Est GFR (CKD-EPI)AfAm (60.0-200.0) Est GFR (CKD-EPI)NonAf (60.0-200.0) Glucose (70-110) mg/dL POC Glucose (mg/dL) 146 H (75-99) mg/dL Total Bilirubin (0.3-1.2) mg/dL AST (13-35) U/L Total Protein (6.2-8.2) g/dL Albumin (3.80-4.90) g/dL Albumin/Globulin Ratio (1.60-3.17) g/dL Assessment and Plan (1) Ascites Narrative/Plan: Patient is scheduled for paracentesis today. Patient had been on Aldactone and Lasix which had to be discontinued due to elevation in her BUN and creatinine. Current Visit: Yes Status: Acute Code(s): R18.8 - OTHER ASCITES SNOMED Code(s): 306707593 (2) Liver cirrhosis secondary to nonalcoholic steatohepatitis (SU[facility]REZ) Current Visit: Yes Status: Acute Code(s): K75.81 - NONALCOHOLIC STEATOHEPATITIS (SUÁREZ); K74.60 - UNSPECIFIED CIRRHOSIS OF LIVER SNOMED Code(s): 455750571 Plan: 1. Supportive care 2. Paracentesis ordered 3. Patient may have low sodium diet 4. Repeat labs in a.m. Thank you for this consultation, we will continue to follow closely Dr. Vargas I agree with the dictator's note, documented as a scribe by Dary Ross.
[2020-11-24] MEDS ORDERED: HYDROCORTISONE SUPPOSITORY 25 MG SUPP RECTAL STA (13:14)
[2020-11-24] MEDS: HYDROmorphone 0.5 MG/0.5 ML SYRINGE IVP PRN ×2 (13:21→23:01)
--- NOTE | 2020-11-24 14:48 | P.PN ---
Subjective Progress Note Date: 11/24/20 11/23/2020 this is a 80 -year-old female admitted with abdominal pain, ascites, underlying liver cirrhosis, scheduled for large volume diagnostic and therapeutic paracentesis today. Abdomen tense, tender, reports positive diarrhea. Creatinine 1.4. Denies chest pain, palpitations or shortness of breath. Maintaining O2 sats in the 90s on room air. 11/24/2020 status post paracentesis with 3.8 L tapped, tolerated procedure well with abdomen last tense. Staff reports bright bloody mixed stools throughout the night, hemoglobin improved, 8.9. Stool positive for occult blood. Patient states she has had intermittent rectal bleeding since her hemorrhoidectomy 2 years ago. Reports right upper quadrant to mid epigastric abdominal discomfort. Denies nausea vomiting. Renal function improving with creatinine down to 1.26. Denies chest pain, palpitations or shortness of breath. Objective - Vital Signs Vital signs: Vital Signs Temp 97.8 F 11/24/20 12:39 Pulse 109 H 11/24/20 12:39 Resp 14 11/24/20 08:03 BP 115/65 11/24/20 12:39 Pulse Ox 97 11/24/20 12:39 Intake & Output 11/23/20 11/24/20 11/24/20 18:59 06:59 18:59 Other: Voiding Method Toilet # Voids 2 1 # Bowel Movements 1 - Exam PHYSICAL EXAMINATION: GENERAL: alert and oriented x3, no acute distress. HEENT: Pupils are round and equally reacting to light. EOMI. No scleral icterus. No conjunctival pallor. Sclerae anicteric CARDIOVASCULAR: S1 and S2 present. No murmurs, rubs, or gallops. PULMONARY: Chest is clear to auscultation, no wheezing or crackles. ABDOMEN: Softer,less tense, less tender midepigastric to right upper quadrant , positive bowel sounds EXTREMITIES: No cyanosis, clubbing, or pedal edema. NEUROLOGICAL: Gross neurological examination did not reveal any focal deficits. SKIN: Warm and dry, No jaundice, no rashes. - Labs CBC & Chem 7: 11/24/20 07:10 11/24/20 07:10 Labs: Abnormal Lab Results - Last 24 Hours (Table) 11/23/20 11/23/20 11/23/20 Range/Units 16:30 20:38 22:18 WBC 2.8 L (3.8-10.6) k/uL RBC 2.74 L (3.80-5.40) m/uL Hgb 8.7 L D (11.4-16.0) gm/dL Hct 27.7 L (34.0-46.0) % MCV 101.1 H (80.0-100.0) fL RDW 16.9 H (11.5-15.5) % Plt Count 48 L (150-450) k/uL BUN (7-17) mg/dL Creatinine (0.52-1.04) mg/dL Glucose (74-99) mg/dL POC Glucose (mg/dL) 131 H 191 H (75-99) mg/dL Stool Occult Blood (Negative) 11/24/20 11/24/20 11/24/20 Range/Units 06:49 06:56 07:10 WBC 3.7 L (3.8-10.6) k/uL RBC 2.65 L (3.80-5.40) m/uL Hgb 8.9 L (11.4-16.0) gm/dL Hct 26.9 L (34.0-46.0) % MCV 101.8 H (80.0-100.0) fL RDW 16.5 H (11.5-15.5) % Plt Count 51 L (150-450) k/uL BUN (7-17) mg/dL Creatinine (0.52-1.04) mg/dL Glucose (74-99) mg/dL POC Glucose (mg/dL) 160 H (75-99) mg/dL Stool Occult Blood Positive H (Negative) 11/24/20 11/24/20 Range/Units 07:10 11:20 WBC (3.8-10.6) k/uL RBC (3.80-5.40) m/uL Hgb (11.4-16.0) gm/dL Hct (34.0-46.0) % MCV (80.0-100.0) fL RDW (11.5-15.5) % Plt Count (150-450) k/uL BUN 23 H (7-17) mg/dL Creatinine 1.26 H (0.52-1.04) mg/dL Glucose 126 H (74-99) mg/dL POC Glucose (mg/dL) 131 H (75-99) mg/dL Stool Occult Blood (Negative) Assessment and Plan Assessment: Abdominal pain, ascites secondary to portal hypertension,in a patient with history of liver cirrhosis, fatty liver, no history of hepatitis, status post paracentesis with 3.8 L fluid removed, cultures, cytology pending. Rectal bleeding Acute renal failure secondary to diuretics, NSAIDs Pancytopenia, mild Diabetes mellitus type 2 Gastroesophageal reflux disease Hypertension Hyperlipidemia Nonalcoholic cirrhosis Plan: Continue on current medication regime ,monitoring and symptomatic tr eatment. Status post diagnostic and therapeutic paracentesis with cultures/cytology pending. CT of abdomen pending. Continue monitoring for further bleeding overnight with Repeat CBC in a.m. discharge planning in progress for tomorrow pending clearance from GI. The impression and plan of care has been dictated as directed. : I performed a history and examination of this patient, discussed the same with the dictator. I agree with the dictator's note ,documented as a scribe. Any ad ditional findings or plans will be noted.
--- NOTE | 2020-11-24 15:26 | CT ---
EXAMINATION TYPE: CT abdomen pelvis wo con DATE OF EXAM: 11/24/2020 HISTORY: Abdominal pain, blood in stool, s/p paracentesis. CT DLP: 549.6 mGycm. Automated Exposure Control for Dose Reduction was Utilized. TECHNIQUE: CT scan of the abdomen and pelvis is performed without oral or IV contrast. COMPARISON: MRA abdomen January 25, 2011. FINDINGS: Within the limitations of a non-contrast study, the following observations are made. LUNG BASES: New small tiny right pleural effusion with associated compressive atelectasis. LIVER/GB: Liver is now small in size with lobulated peripheral nodular contour. Findings consistent w ith underlying cirrhosis. Cholecystectomy clips are now present. PANCREAS: Mild generalized atrophy. SPLEEN: Splenomegaly measuring 14.3 cm long axis coronal image 67. ADRENALS: No significant abnormality is seen. KIDNEYS: Few small scattered punctate nonobstructing calculi throughout both kidneys. Cortical thinni ng of both kidneys. BOWEL: Suboptimal evaluation bowel without enteric contrast. No suspicious small or large bowel dilat ation. Few scattered colonic diverticula. Nonspecific areas of vvln-yt-cywvwxja wall thickening could be on the basis of poor distention or underlying hepatocellular disease, other etiologies not exclud ed. GENITAL ORGANS: Uterus surgically absent or markedly atrophic. LYMPH NODES: No greater than 1cm abdominal or pelvic lymph nodes are appreciated. OSSEOUS STRUCTURES: Pbbxbwla-[id number] multilevel spurring in the spine. Prominent Schmorl node super ior L4 endplate. Osseous structures demineralized. Moderate axial joint space loss and spurring in casandra th hips. Prominent facet arthropathy lower lumbar levels. OTHER: Small mild scattered abdominal and pelvic ascites. Mild to moderate diffuse subcutaneous edema and/or soft tissue anasarca IMPRESSION: Known cirrhosis with underlying portal venous hypertension as there is splenomegaly and s mall amount of intraperitoneal ascites with mild/moderate diffuse soft tissue anasarca. Suboptimal ev aluation of bowel without enteric contrast. Few colonic diverticula without CT evidence for acute div erticulitis. Nonspecific areas of bowel wall thickening noted.
[2020-11-24 16:41] LABS: Glucose,Whole Blood 135 mg/dL (75-99)
[2020-11-24 20:08] LABS: Glucose,Whole Blood 137 mg/dL (75-99)
[2020-11-25] MEDS: LEVOTHYROXINE 100 MCG TAB PO SCH (05:29)
[2020-11-25 07:03] LABS: Glucose,Whole Blood 125 mg/dL (75-99)
[2020-11-25] MEDS: INSULIN ASPART (NovoLOG) 100 UNIT/ML VIAL SQ SCH ×4 (07:46→20:33)
[2020-11-25 07:58] LABS: Anisocytosis Slight; HCT 24.5 % (34.0-46.0); HGB 7.9 gm/dL (11.4-16.0); Hypochromasia Slight; MCH 32.2 pg (25.0-35.0); MCV 100.4 fL (80.0-100.0); Macrocytosis Slight; Mean Platelet Volume 8.2; RBC 2.45 m/uL (3.80-5.40); RDW 16.8 % (11.5-15.5); WBC 3.4 k/uL (3.8-10.6)
[2020-11-25 08:00] LABS: Platelet Count 46 k/uL (150-450)
[2020-11-25 08:23] LABS: ALT 19 U/L (4-34); AST 49 U/L (14-36); African American GFR (CKD) 51 (>60 ml/min/1.73 sqM); Albumin 2.4 g/dL (3.5-5.0); Albumin/Globulin Ratio 0.8; Alkaline Phosphatase 83 U/L (38-126); Anion Gap 4 mmol/L; Blood Urea Nitrogen 23 mg/dL (7-17); Carbon Dioxide 26 mmol/L (22-30); Chloride 105 mmol/L (98-107); Globulin 2.9 g/dL; Glucose 114 mg/dL (74-99); Non-African American GFR(CKD) 44 (>60 ml/min/1.73 sqM); Potassium 3.9 mmol/L (3.5-5.1); Sodium 135 mmol/L (137-145); Total Bilirubin 1.6 mg/dL (0.2-1.3); Total Protein 5.3 g/dL (6.3-8.2)
[2020-11-25] MEDS: allopurinoL 100 MG TAB PO SCH (09:05)
[2020-11-25] MEDS: CYANOCOBALAMIN 500 MCG TAB PO SCH (09:05)
[2020-11-25] MEDS: HYDROCORTISONE SUPPOSITORY 25 MG SUPP RECTAL SCH (09:05)
[2020-11-25] MEDS: CALCIUM CARBONATE 500 MG CHEWABLE PO SCH (09:06)
[2020-11-25] MEDS: PANTOPRAZOLE 40 MG/10 ML VIAL IVP SCH ×2 (09:06→20:31)
[2020-11-25] MEDS: FERROUS SULFATE 325 MG TAB PO SCH (09:06)
[2020-11-25] MEDS: ATORVASTATIN 20 MG TAB PO SCH (09:07)
[2020-11-25] MEDS: MORPHINE SULFATE 4 MG/ML SYRINGE IV PRN (09:18)
--- NOTE | 2020-11-25 09:23 | P.PN ---
Subjective Progress Note Date: 11/25/20 Principal diagnosis: Ascites Seen and examined sitting up in bed. She denies any bowel movement through the night with blunt. Nursing also reports no blood in her bowel movement. She did have a drop in her hemoglobin to 7.9, however no signs or symptoms GI bleed. Patient is stating she is having sharp intermittent pains along her upper abdomen,more so in her epigastric area. She states she does have a past history of peptic ulcer disease. She denies any nausea or vomiting. Objective - Vital Signs Vital signs: Vital Signs Temp 98.4 F 11/25/20 08:59 Pulse 108 H 11/25/20 08:59 Resp 14 11/25/20 08:59 BP 108/68 11/25/20 08:59 Pulse Ox 95 11/25/20 07:39 Intake & Output 11/24/20 11/25/20 11/25/20 18:59 06:59 18:59 Other: Voiding Method Toilet Toilet Diaper Diaper # Voids 2 3 - Exam General appearance: The patient is alert, oriented, appears in no acute distress. HET: Head is normocephalic and atraumatic. Conjunctiva pink. Sclera anicteric. Neck: Supple without lymphadenopathy. Abdomen: Soft, right upper quadrant and epigastric tenderness, diffuse tenderness over entire abdomen, mild distention with bowel sounds. No guarding or rigidity. Extremities: Normal skin color and turgor. Bilateral pedal edema Skin: No rashes, no jaundice Neurological: No focal deficits. Alert and oriented 3. - Labs CBC & Chem 7: 11/25/20 06:45 11/25/20 06:45 Labs: Abnormal Lab Results - Last 24 Hours (Table) 11/24/20 11/24/20 11/24/20 Range/Units 06:56 11:20 16:39 WBC (3.8-10.6) k/uL RBC (3.80-5.40) m/uL Hgb (11.4-16.0) gm/dL Hct (34.0-46.0) % MCV (80.0-100.0) fL RDW (11.5-15.5) % Plt Count (150-450) k/uL Sodium (137-145) mmol/L BUN (7-17) mg/dL Creatinine (0.52-1.04) mg/dL Glucose (74-99) mg/dL POC Glucose (mg/dL) 131 H 135 H (75-99) mg/dL Total Bilirubin (0.2-1.3) mg/dL AST (14-36) U/L Total Protein (6.3-8.2) g/dL Albumin (3.5-5.0) g/dL Stool Occult Blood Positive H (Negative) 11/24/20 11/25/20 11/25/20 Range/Units 20:06 06:45 06:45 WBC 3.4 L (3.8-10.6) k/uL RBC 2.45 L (3.80-5.40) m/uL Hgb 7.9 L (11.4-16.0) gm/dL Hct 24.5 L (34.0-46.0) % MCV 100.4 H (80.0-100.0) fL RDW 16.8 H (11.5-15.5) % Plt Count 46 L (150-450) k/uL Sodium 135 L (137-145) mmol/L BUN 23 H (7-17) mg/dL Creatinine 1.18 H (0.52-1.04) mg/dL Glucose 114 H (74-99) mg/dL POC Glucose (mg/dL) 137 H (75-99) mg/dL Total Bilirubin 1.6 H (0.2-1.3) mg/dL AST 49 H (14-36) U/L Total Protein 5.3 L (6.3-8.2) g/dL Albumin 2.4 L (3.5-5.0) g/dL Stool Occult Blood (Negative) 11/25/20 Range/Units 07:02 WBC (3.8-10.6) k/uL RBC (3.80-5.40) m/uL Hgb (11.4-16.0) gm/dL Hct (34.0-46.0) % MCV (80.0-100.0) fL RDW (11.5-15.5) % Plt Count (150-450) k/uL Sodium (137-145) mmol/L BUN (7-17) mg/dL Creatinine (0.52-1.04) mg/dL Glucose (74-99) mg/dL POC Glucose (mg/dL) 125 H (75-99) mg/dL Total Bilirubin (0.2-1.3) mg/dL AST (14-36) U/L Total Protein (6.3-8.2) g/dL Albumin (3.5-5.0) g/dL Stool Occult Blood (Negative) Assessment and Plan (1) Ascites Narrative/Plan: This is a 80-year-old pleasant female with a history of nonalcoholic fatty liver disease with cirrhosis of the liver diagnosed a couple years ago. The patient presented to the emergency department with complaints of abdominal pain and abdominal distention her last week's duration. Patient had been on Aldactone and Lasix which had to be discontinued due to elevation in her BUN and creatinine. The patient underwent paracentesis with 3.8 L of fluid removed. Fluid protein and albumin consistent with cirrhosis of the liver. Current Visit: Yes Status: Acute Code(s): R18.8 - OTHER ASCITES SNOMED Code(s): 860143847 (2) Liver cirrhosis secondary to nonalcoholic steatohepatitis (SUÁREZ) Current Visit: Yes Status: Acute Code(s): K75.81 - NONALCOHOLIC STEATOHEPATITIS (SUÁREZ); K74.60 - UNSPECIFIED CIRRHOSIS OF LIVER SNOMED Code(s): 873824980 (3) Rectal bleed Narrative/Plan: Patient had some rectal bleeding with bright red blood in the stool yesterday evening and this morning. Patient has a history of internal and external hemorrhoids, status post hemorrhoidectomy in August 2019. Prior to that she h ad a colonoscopy in July 2019 which revealed rectal prolapse, internal and external hemorrhoids, polyps, and diverticulosis. Rectal suppositories ordered. CT of abdomen without contrast ordered Current Visit: Yes Status: Acute Code(s): K62.5 - HEMORRHAGE OF ANUS AND RECTUM SNOMED Code(s): 23930350 (4) Epigastric abdominal pain Narrative/Plan: Patient with continued epigastric pain, states she has a history of prior peptic ulcer disease. Recommend proceeding with upper endoscopy tomorrow. Current Visit: Yes Status: Acute Code(s): R10.13 - EPIGASTRIC PAIN SNOMED Code(s): 89995980 Plan: 1. Supportive care 2. Patient is post paracentesis, 3.8 L fluid removal 3. Continue low sodium diet today, nothing by mouth after midnight 4. Repeat CBC in a.m. 5. Will add rectal suppository 6. Continue to monitor for signs and symptoms of GI bleed 7. CT of abdomen without contrast ordered and reviewed 8. Continue protonix as ordered 9. Will proceed with upper endoscopy tomorrow, risks and benefits discussed with patient and she is agreeable to proceed Thank you for this consultation, we will continue to follow closely Dr. Vargas I agree with the dictator's note, documented as a scribe by Dary Ross.
[2020-11-25 11:40] LABS: Glucose,Whole Blood 126 mg/dL (75-99)
--- NOTE | 2020-11-25 14:00 | P.PN ---
Subjective Progress Note Date: 11/25/20 11/23/2020 this is a 80 -year-old female admitted with abdominal pain, ascites, underlying liver cirrhosis, scheduled for large volume diagnostic and therapeutic paracentesis today. Abdomen tense, tender, reports positive diarrhea. Creatinine 1.4. Denies chest pain, palpitations or shortness of breath. Maintaining O2 sats in the 90s on room air. 11/24/2020 status post paracentesis with 3.8 L tapped, tolerated procedure well with abdomen last tense. Staff reports bright bloody mixed stools throughout the night, hemoglobin improved, 8.9. Stool positive for occult blood. Patient states she has had intermittent rectal bleeding since her hemorrhoidectomy 2 years ago. Reports right upper quadrant to mid epigastric abdominal discomfort. Denies nausea vomiting. Renal function improving with creatinine down to 1.26. Denies chest pain, palpitations or shortness of breath. 11/25/2020 hemoglobin continued to decline, 7.9. No further bleeding reported. Abdominal pelvis CT reported known cirrhosis with underlying portal dash hypertension, splenomegaly, small amount of intraperitoneal ascites with mild to moderate diffuse soft tissue anasarca, suboptimal evaluation of bowel without enteric contrast, a few colonic diverticula without acute diverticulitis, nonspecific areas of bowel wall thickening thickening. bowel wall Creatinine continues to improve .Complains of persistent generalized abdominal tenderness, more so and mid epigastric to right upper quadrant. Denies nausea vomiting Objective - Vital Signs Vital signs: Vital Signs Temp 98.4 F 11/25/20 08:59 Pulse 108 H 11/25/20 08:59 Resp 14 11/25/20 08:59 BP 108/68 11/25/20 08:59 Pulse Ox 95 11/25/20 07:39 Intake & Output 11/24/20 11/25/20 11/25/20 18:59 06:59 18:59 Other: Voiding Method Toilet Toilet Toilet Diaper Diaper Diaper # Voids 2 3 - Exam PHYSICAL EXAMINATION: GENERAL: alert and oriented x3, no acute distress. HEENT: Pupils are round and equally reacting to light. No scleral icterus. No conjunctival pallor. CARDIOVASCULAR: S1 and S2 present. No murmurs, rubs, or gallops. PULMONARY: Chest is clear to auscultation, no wheezing or crackles. ABDOMEN: Softer,less tense, diffuse tenderness-localized pain to midepigastric to right upper quadrant , positive bowel sounds EXTREMITIES: No cyanosis, clubbing, or pedal edema. NEUROLOGICAL: Gross neurological examination did not reveal any focal deficits. SKIN: Warm and dry, No jaundice, no rashes. - Labs CBC & Chem 7: 11/25/20 06:45 11/25/20 06:45 Labs: Abnormal Lab Results - Last 24 Hours (Table) 11/24/20 11/24/20 11/25/20 Range/Units 16:39 20:06 06:45 WBC 3.4 L (3.8-10.6) k/uL RBC 2.45 L (3.80-5.40) m/uL Hgb 7.9 L (11.4-16.0) gm/dL Hct 24.5 L (34.0-46.0) % MCV 100.4 H (80.0-100.0) fL RDW 16.8 H (11.5-15.5) % Plt Count 46 L (150-450) k/uL Sodium (137-145) mmol/L BUN (7-17) mg/dL Creatinine (0.52-1.04) mg/dL Glucose (74-99) mg/dL POC Glucose (mg/dL) 135 H 137 H (75-99) mg/dL Total Bilirubin (0.2-1.3) mg/dL AST (14-36) U/L Total Protein (6.3-8.2) g/dL Albumin (3.5-5.0) g/dL 11/25/20 11/25/20 11/25/20 Range/Units 06:45 07:02 11:36 WBC (3.8-10.6) k/uL RBC (3.80-5.40) m/uL Hgb (11.4-16.0) gm/dL Hct (34.0-46.0) % MCV (80.0-100.0) fL RDW (11.5-15.5) % Plt Count (150-450) k/uL Sodium 135 L (137-145) mmol/L BUN 23 H (7-17) mg/dL Creatinine 1.18 H (0.52-1.04) mg/dL Glucose 114 H (74-99) mg/dL POC Glucose (mg/dL) 125 H 126 H (75-99) mg/dL Total Bilirubin 1.6 H (0.2-1.3) mg/dL AST 49 H (14-36) U/L Total Protein 5.3 L (6.3-8.2) g/dL Albumin 2.4 L (3.5-5.0) g/dL Assessment and Plan Assessment: Abdominal pain, ascites secondary to portal hypertension,in a patient with history of liver cirrhosis, SUÁREZ, no history of hepatitis, status post pa racentesis with 3.8 L fluid removed, cultures, cytology pending. Rectal bleeding Acute renal failure secondary to diuretics, NSAIDs Pancytopenia, mild Diabetes mellitus type 2 Gastroesophageal reflux disease Hypertension Hyperlipidemia Nonalcoholic cirrhosis, SUÁREZ Splenomegaly Plan: Continue on current medication regime ,monitoring and symptomatic treatment. EGD scheduled for tomorrow. Peritoneal cytology pending. Continue monitoring for further bleeding overnight with Repeat CBC in a.m. The impression and plan of care has been dictated as directed. : I performed a history and examination of this patient, discussed the same with the dictator. I agree with the dictator's note ,documented as a scribe. Any additional findings or plans will be noted.
[2020-11-25 16:30] LABS: Glucose,Whole Blood 129 mg/dL (75-99)
[2020-11-25 20:19] LABS: Glucose,Whole Blood 162 mg/dL (75-99)
[2020-11-25] MEDS: HYDROmorphone 0.5 MG/0.5 ML SYRINGE IVP PRN (20:31)
[2020-11-26] MEDS: LEVOTHYROXINE 100 MCG TAB PO SCH (05:39)
[2020-11-26] MEDS: HYDROmorphone 0.5 MG/0.5 ML SYRINGE IVP PRN (06:09)
[2020-11-26 07:06] LABS: Glucose,Whole Blood 131 mg/dL (75-99)
[2020-11-26 07:48] LABS: ALT 18 U/L (4-34); AST 48 U/L (14-36); African American GFR (CKD) 47 (>60 ml/min/1.73 sqM); Albumin 2.4 g/dL (3.5-5.0); Albumin/Globulin Ratio 0.8; Alkaline Phosphatase 94 U/L (38-126); Anion Gap 4 mmol/L; Blood Urea Nitrogen 22 mg/dL (7-17); Calcium 8.9 mg/dL (8.4-10.2); Carbon Dioxide 27 mmol/L (22-30); Chloride 103 mmol/L (98-107); Glucose 125 mg/dL (74-99); Non-African American GFR(CKD) 41 (>60 ml/min/1.73 sqM); Potassium 3.4 mmol/L (3.5-5.1); Sodium 134 mmol/L (137-145); Total Bilirubin 1.5 mg/dL (0.2-1.3); Total Protein 5.4 g/dL (6.3-8.2)
[2020-11-26] MEDS: INSULIN ASPART (NovoLOG) 100 UNIT/ML VIAL SQ SCH ×4 (07:55→21:37)
[2020-11-26] MEDS: CALCIUM CARBONATE 500 MG CHEWABLE PO SCH (07:57)
[2020-11-26] MEDS: allopurinoL 100 MG TAB PO SCH (07:57)
[2020-11-26] MEDS: HYDROCORTISONE SUPPOSITORY 25 MG SUPP RECTAL SCH (07:57)
[2020-11-26] MEDS: FERROUS SULFATE 325 MG TAB PO SCH (07:57)
[2020-11-26] MEDS: CYANOCOBALAMIN 500 MCG TAB PO SCH (07:57)
[2020-11-26] MEDS: ATORVASTATIN 20 MG TAB PO SCH (07:57)
[2020-11-26] MEDS: PANTOPRAZOLE 40 MG/10 ML VIAL IVP SCH ×2 (08:44→21:41)
[2020-11-26] MEDS ORDERED: IV FLUID CONTINUATION 900 ML IV ONE (10:22)
[2020-11-26] MEDS ORDERED: PROPOFOL 10 MG/ML 20 ML VIAL IV ONE (10:36)
[2020-11-26] MEDS ORDERED: LIDOCAINE 1% INJ 10MG/ML (20 ML MDV) ONE (10:36)
--- NOTE | 2020-11-26 10:55 | P.PCN ---
Date of Procedure: 11/26/20 Description of Procedure: BRIEF HISTORY: Patient is a 80-year-old female with a known history of nonalcoholic cirrhosis of the liver who presented due to complaints of abdominal distention and ascites. Recently diuretic regimen had been modified due to chronic kidney disease. Patient had been having some intermittent blood per rectum but is status post colonoscopy 2 years ago subsequently followed by hemorrhoidectomy. She reports some vague epigastric abdominal pain as well as periumbilical and lower abdominal pain. She does believe she has a history of peptic ulcer disease in the past. No nausea or vomiting reported. PROCEDURE PERFORMED: Esophagogastroduodenoscopy with biopsy and esophageal variceal band ligation. PREOPERATIVE DIAGNOSIS: Epigastric abdominal pain, cirrhosis, GI bleed. ESTIMATED BLOOD LOSS: Minimal. IV sedation per anesthesia. PROCEDURE: After informed consent was obtained, the patient was brought into the endoscopy unit. IV sedation was administered by Anesthesia under continuous monitoring. Initially the Olympus GIF-190 video endoscope was inserted into the mouth. Esophagus intubated without any difficulty. It was gradually advanced into the stomach and duodenum and carefully examined. The bulb and the second part of the duodenum appeared normal, with biopsies taken. The scope at this time was withdrawn to the stomach, adequately insufflated with air, and upon careful examination, mucosa of the antrum, body, cardia and the fundus appeared normal, except for moderate erythema in the antrum suggestive of moderate gastritis biopsies of the antrum and body taken. The scope was then withdrawn into the esophagus. The GE junction was located at 36 cm from the incisors. The esophagus was significant for 2 columns of varices in the distal esophagus large in size which were treated with esophageal band ligation with 4 bands placed. There were no erosions or ulcerations seen and the patient tolerated the procedure well. IMPRESSION: 1. No active bleeding, old blood or ulcers noted. 2. Moderate gastritis. 3. Esophageal varices treated with band ligation 4. 4. Biopsies of the duodenum, antrum and body. RECOMMENDATIONS: The findings of this examination were discussed with the patient.. Okay for full liquid diet. Okay to resume medication. Await pathology from biopsies. Follow up in the GI clinic as scheduled. Continue other medical management.
[2020-11-26 11:20] LABS: Glucose,Whole Blood 141 mg/dL (75-99)
[2020-11-26 11:52] LABS: Basophils # (A) 0.02 X 10*3/uL (0.00-0.10); Basophils % (A) 0.6 %; Eosinophils % (A) 3.1 %; HCT 24.2 % (37.2-46.3); HGB 7.6 g/dL (12.0-15.0); Lymphocytes # (A) 1.11 X 10*3/uL (0.90-5.00); Lymphocytes % (A) 34.5 %; MCH 31.9 pg (27.0-32.0); MCHC 31.4 g/dL (32.0-37.0); MCV 101.7 fL (80.0-97.0); Mean Platelet Volume 11.5 fL (9.5-12.2); Monocytes # (A) 0.34 X 10*3/uL (0.20-1.00); Monocytes % (A) 10.6 %; Neutrophils # (A) 1.64 X 10*3/uL (1.80-7.70); Neutrophils % (A) 50.9 %; Platelet Count 53 X 10*3/uL (140-440); RBC 2.38 X 10*6/uL (4.10-5.20); WBC 3.22 X 10*3/uL (4.50-10.00)
[2020-11-26] MEDS ORDERED: ONDANSETRON 4 MG/2 ML VIAL IVP PRN (12:39)
[2020-11-26 14:35] VITALS: BMI 30.8
--- NOTE | 2020-11-26 15:19 | P.PN ---
Subjective Progress Note Date: 11/26/20 11/23/2020 this is a 80 -year-old female admitted with abdominal pain, ascites, underlying liver cirrhosis, scheduled for large volume diagnostic and therapeutic paracentesis today. Abdomen tense, tender, reports positive diarrhea. Creatinine 1.4. Denies chest pain, palpitations or shortness of breath. Maintaining O2 sats in the 90s on room air. 11/24/2020 status post paracentesis with 3.8 L tapped, tolerated procedure well with abdomen last tense. Staff reports bright bloody mixed stools throughout the night, hemoglobin improved, 8.9. Stool positive for occult blood. Patient states she has had intermittent rectal bleeding since her hemorrhoidectomy 2 years ago. Reports right upper quadrant to mid epigastric abdominal discomfort. Denies nausea vomiting. Renal function improving with creatinine down to 1.26. Denies chest pain, palpitations or shortness of breath. 11/25/2020 hemoglobin continued to decline, 7.9. No further bleeding reported. Abdominal pelvis CT reported known cirrhosis with underlying portal dash hypertension, splenomegaly, small amount of intraperitoneal ascites with mild to moderate diffuse soft tissue anasarca, suboptimal evaluation of bowel without enteric contrast, a few colonic diverticula without acute diverticulitis, nonspecific areas of bowel wall thickening thickening. bowel wall Creatinine continues to improve .Complains of persistent generalized abdominal tenderness, more so and mid epigastric to right upper quadrant. Denies nausea vomiting. 11/26/2020 continues to have blood-streaked bowel movements, abdominal pain. Denies nausea vomiting. Hemoglobin pending. Peritoneal pathology reporting no cytologically malignant cells. NPO, scheduled for EGD this morning. Denies chest pain, palpitations or increased shortness of breath. Objective - Vital Signs Vital signs: Vital Signs Temp 98.0 F 11/26/20 07:37 Pulse 100 11/26/20 07:37 Resp 16 11/26/20 07:37 BP 103/62 11/26/20 07:37 Pulse Ox 96 11/26/20 07:37 Intake & Output 11/25/20 11/26/20 11/26/20 18:59 06:59 18:59 Intake Total 400 Balance 400 Weight 73.936 kg Intake: IV 400 Other: Voiding Method Toilet Toilet Diaper # Voids 3 1 - Exam PHYSICAL EXAMINATION: GENERAL: alert and oriented x3, no acute distress. HEENT: Pupils are round and equally reacting to light. No scleral icterus. No conjunctival pallor. CARDIOVASCULAR: S1 and S2 present. No murmurs, rubs, or gallops. PULMONARY: Chest is clear to auscultation, no wheezing or crackles. ABDOMEN: Softer,less tense, diffuse tenderness,positive bowel sounds EXTREMITIES: No cyanosis, clubbing, or pedal edema. NEUROLOGICAL: Gross neurological examination did not reveal any focal deficits. SKIN: Warm and dry, No jaundice, no rashes. - Labs CBC & Chem 7: 11/26/20 07:02 11/26/20 07:02 Labs: Abnormal Lab Results - Last 24 Hours (Table) 11/25/20 11/25/20 11/26/20 Range/Units 16:29 20:18 07:02 WBC (4.50-10.00) X 10*3/uL RBC (4.10-5.20) X 10*6/uL Hgb (12.0-15.0) g/dL Hct (37.2-46.3) % MCV (80.0-97.0) fL MCHC (32.0-37.0) g/dL RDW (11.5-14.5) % Plt Count (140-440) X 10*3/uL Plt Count Comment Neutrophils # (1.80-7.70) X 10*3/uL Sodium 134 L (137-145) mmol/L Potassium 3.4 L (3.5-5.1) mmol/L BUN 22 H (7-17) mg/dL Creatinine 1.26 H (0.52-1.04) mg/dL Glucose 125 H (74-99) mg/dL POC Glucose (mg/dL) 129 H 162 H (75-99) mg/dL Total Bilirubin 1.5 H (0.2-1.3) mg/dL AST 48 H (14-36) U/L Total Protein 5.4 L (6.3-8.2) g/dL Albumin 2.4 L (3.5-5.0) g/dL 11/26/20 11/26/20 11/26/20 Range/Units 07:02 07:05 11:18 WBC 3.22 L (4.50-10.00) X 10*3/uL RBC 2.38 L (4.10-5.20) X 10*6/uL Hgb 7.6 L (12.0-15.0) g/dL Hct 24.2 L (37.2-46.3) % MCV 101.7 H (80.0-97.0) fL MCHC 31.4 L (32.0-37.0) g/dL RDW 17.0 H (11.5-14.5) % Plt Count 53 L (140-440) X 10*3/uL Plt Count Comment DECREASED A Neutrophils # 1.64 L (1.80-7.70) X 10*3/uL Sodium (137-145) mmol/L Potassium (3.5-5.1) mmol/L BUN (7-17) mg/dL Creatinine (0.52-1.04) mg/dL Glucose (74-99) mg/dL POC Glucose (mg/dL) 131 H 141 H (75-99) mg/dL Total Bilirubin (0.2-1.3) mg/dL AST (14-36) U/L Total Protein (6.3-8.2) g/dL Albumin (3.5-5.0) g/dL Assessment and Plan Assessment: Abdominal pain, ascites secondary to portal hypertension,in a patient with history of liver cirrhosis, SUÁREZ, no history of hepatitis, status post paracentesis with 3.8 L fluid removed, cultures, cytology pending. Rectal bleeding Acute renal failure secondary to diuretics, NSAIDs Pancytopenia, mild Diabetes mellitus type 2 Gastroesophageal reflux disease Hypertension Hyperlipidemia Nonalcoholic cirrhosis, SUÁREZ Splenomegaly Plan: Continue on current medication regime ,monitoring and symptomatic treatment. EGD pending. Maintain supportive care. Close monitoring of CBC with repeat labs ordered for a.m. Discharge planning in progress for tomorrow pending final GI recommendations and clearance. The impression and plan of care has been dictated as directed. : I performed a history and examination of this patient, discussed the same with the dictator. I agree with the dictator's note ,documented as a scribe. Any additional findings or plans will be noted.
[2020-11-26 16:40] LABS: Glucose,Whole Blood 145 mg/dL (75-99)
[2020-11-26 20:23] LABS: Glucose,Whole Blood 154 mg/dL (75-99)
[2020-11-27] MEDS: LEVOTHYROXINE 100 MCG TAB PO SCH (06:13)
[2020-11-27] MEDS: HYDROmorphone 0.5 MG/0.5 ML SYRINGE IVP PRN (06:13)
[2020-11-27 06:53] LABS: Glucose,Whole Blood 121 mg/dL (75-99)
[2020-11-27 07:07] VITALS: RESP 18
[2020-11-27 07:35] VITALS: BP 109/51; PULSE 105; TEMP 98.5
[2020-11-27] MEDS: INSULIN ASPART (NovoLOG) 100 UNIT/ML VIAL SQ SCH (07:36)
[2020-11-27 07:41] LABS: Anisocytosis Slight; Basophils % (A) 0 %; Eosinophils # (A) 0.1 k/uL (0-0.7); Eosinophils % (A) 2 %; HCT 22.8 % (34.0-46.0); HGB 7.5 gm/dL (11.4-16.0); Hypochromasia Slight; Lymphocytes # (A) 0.7 k/uL (1.0-4.8); Lymphocytes % (A) 19 %; MCH 32.9 pg (25.0-35.0); MCHC 33.1 g/dL (31.0-37.0); MCV 99.6 fL (80.0-100.0); Macrocytosis Slight; Mean Platelet Volume 8.3; Monocytes # (A) 0.4 k/uL (0-1.0); Monocytes % (A) 10 %; Neutrophils # (A) 2.4 k/uL (1.3-7.7); RBC 2.29 m/uL (3.80-5.40); RDW 17.1 % (11.5-15.5); WBC 3.6 k/uL (3.8-10.6)
[2020-11-27 07:46] LABS: Platelet Count 48 k/uL (150-450)
[2020-11-27 09:13] LABS: ALT 17 U/L (4-34); AST 46 U/L (14-36); African American GFR (CKD) 51 (>60 ml/min/1.73 sqM); Albumin 2.3 g/dL (3.5-5.0); Albumin/Globulin Ratio 0.8; Alkaline Phosphatase 84 U/L (38-126); Anion Gap 7 mmol/L; Blood Urea Nitrogen 24 mg/dL (7-17); Calcium 8.7 mg/dL (8.4-10.2); Carbon Dioxide 25 mmol/L (22-30); Chloride 103 mmol/L (98-107); Globulin 2.9 g/dL; Glucose 107 mg/dL (74-99); Non-African American GFR(CKD) 44 (>60 ml/min/1.73 sqM); Potassium 3.5 mmol/L (3.5-5.1); Sodium 135 mmol/L (137-145); Total Bilirubin 2.3 mg/dL (0.2-1.3); Total Protein 5.2 g/dL (6.3-8.2)
--- NOTE | 2020-11-27 09:15 | P.PN ---
Subjective Progress Note Date: 11/27/20 Principal diagnosis: Ascites Examined lying in bed. She is status post upper endoscopy yesterday which revealed for esophageal varices with banding, no active bleeding or old blood or ulcers noted. Moderate gastritis. Her hemoglobin is stable today at 7.5. She denies any black or bloody stool. She denies any nausea, vomiting, or abdominal pain. Plan is for discharge home today. Objective - Vital Signs Vital signs: Vital Signs Temp 98.5 F 11/27/20 07:34 Pulse 105 H 11/27/20 07:34 Resp 18 11/27/20 07:34 BP 109/51 11/27/20 07:34 Pulse Ox 93 L 11/27/20 07:34 Intake & Output 11/26/20 11/27/20 11/27/20 18:59 06:59 18:59 Intake Total 400 Balance 400 Weight 73.936 kg Intake: IV 400 Other: Voiding Method Toilet Diaper # Voids 2 3 # Bowel Movements 2 - Exam General appearance: The patient is alert, oriented, appears in no acute distress. HET: Head is normocephalic and atraumatic. Conjunctiva pink. Sclera anicteric. Neck: Supple without lymphadenopathy. Abdomen: Soft, mild diffuse tenderness over entire abdomen, mild distention with bowel sounds. No guarding or rigidity. Extremities: Normal skin color and turgor. Bilateral pedal edema Skin: No rashes, no jaundice Neurological: No focal deficits. Alert and oriented 3. - Labs CBC & Chem 7: 11/27/20 06:22 11/27/20 06:22 Labs: Abnormal Lab Results - Last 24 Hours (Table) 11/26/20 11/26/20 11/26/20 Range/Units 07:02 11:18 16:39 WBC 3.22 L (4.50-10.00) X 10*3/uL RBC 2.38 L (4.10-5.20) X 10*6/uL Hgb 7.6 L (12.0-15.0) g/dL Hct 24.2 L (37.2-46.3) % MCV 101.7 H (80.0-97.0) fL MCHC 31.4 L (32.0-37.0) g/dL RDW 17.0 H (11.5-14.5) % Plt Count 53 L (140-440) X 10*3/uL Plt Count Comment DECREASED A Neutrophils # 1.64 L (1.80-7.70) X 10*3/uL Lymphocytes # (1.0-4.8) k/uL POC Glucose (mg/dL) 141 H 145 H (75-99) mg/dL 11/26/20 11/27/20 11/27/20 Range/Units 20:21 06:22 06:52 WBC 3.6 L (4.50-10.00) X 10*3/uL RBC 2.29 L (4.10-5.20) X 10*6/uL Hgb 7.5 L (12.0-15.0) g/dL Hct 22.8 L (37.2-46.3) % MCV (80.0-97.0) fL MCHC (32.0-37.0) g/dL RDW 17.1 H (11.5-14.5) % Plt Count 48 L (140-440) X 10*3/uL Plt Count Comment Neutrophils # (1.80-7.70) X 10*3/uL Lymphocytes # 0.7 L (1.0-4.8) k/uL POC Glucose (mg/dL) 154 H 121 H (75-99) mg/dL Assessment and Plan (1) Ascites Narrative/Plan: This is a 80-year-old pleasant female with a history of nonalcoholic fatty liver disease with cirrhosis of the liver diagnosed a couple years ago. The patient presented to the emergency department with complaints of abdominal pain and abdominal distention her last week's duration. Patient had been on Aldact one and Lasix which had to be discontinued due to elevation in her BUN and creatinine. The patient underwent paracentesis with 3.8 L of fluid removed. Fluid protein and albumin consistent with cirrhosis of the liver. Status: Acute Code(s): R18.8 - OTHER ASCITES SNOMED Code(s): 143649440 (2) Liver cirrhosis secondary to nonalcoholic steatohepatitis (SUÁREZ) Narrative/Plan: Patient underwent an upper endoscopy yesterday which showed varices with banding 4. Status: Acute Code(s): K75.81 - NONALCOHOLIC STEATOHEPATITIS (SUÁREZ); K74.60 - UNSPECIFIED CIRRHOSIS OF LIVER SNOMED Code(s): 719574275 (3) Rectal bleed Narrative/Plan: Patient had some rectal bleeding with bright red blood in the stool yesterday evening and this morning. Patient has a history of internal and external hemorrhoids, status post hemorrhoidectomy in August 2019. Prior to that she had a colonoscopy in July 2019 which revealed rectal prolapse, internal and external hemorrhoids, polyps, and diverticulosis. Rectal suppositories ordered. CT of abdomen without contrast ordered Status: Acute Code(s): K62.5 - HEMORRHAGE OF ANUS AND RECTUM SNOMED Code(s): 84055591 (4) Epigastric abdominal pain Narrative/Plan: Patient with continued epigastric pain, states she has a history of prior peptic ulcer disease. Recommend proceeding with upper endoscopy tomorrow. Status: Acute Code(s): R10.13 - EPIGASTRIC PAIN SNOMED Code(s): 18889957 (5) Esophageal varices Narrative/Plan: Underwent upper endoscopy yesterday which revealed varices with banding 4 mild gastritis and no active bleeding or old blood noted Status: Acute Code(s): I85.00 - ESOPHAGEAL VARICES WITHOUT BLEEDING SNOMED Code(s): 38080133 Plan: 1. Supportive care 2. Patient is post paracentesis, 3.8 L fluid removal 3. May advance to low sodium diet 4. Patient to follow-up with Dr. Mckenzie 5. Patient may be discharged home from a gastroenterology standpoint Thank you for this consultation, we will sign off at this time Dr. Vargas I agree with the dictator's note, documented as a scribe by Dary Ross.
[2020-11-27] MEDS: CYANOCOBALAMIN 500 MCG TAB PO SCH (10:19)
[2020-11-27] MEDS: FERROUS SULFATE 325 MG TAB PO SCH (10:19)
[2020-11-27] MEDS: allopurinoL 100 MG TAB PO SCH (10:19)
[2020-11-27] MEDS: CALCIUM CARBONATE 500 MG CHEWABLE PO SCH (10:19)
[2020-11-27] MEDS: ATORVASTATIN 20 MG TAB PO SCH (10:19)
[2020-11-27] MEDS: HYDROCORTISONE SUPPOSITORY 25 MG SUPP RECTAL SCH (10:20)
[2020-11-27] MEDS: PANTOPRAZOLE 40 MG/10 ML VIAL IVP SCH (10:20)
[2020-11-27 11:04] LABS: Glucose,Whole Blood 145 mg/dL (75-99)
--- NOTE | 2020-11-27 14:26 | P.DS ---
Providers Date of admission: 11/23/20 07:26 Expected date of discharge: 11/27/20 Attending physician: Get Bower MD Consults: 11/20/20 23:44 Consult Physician Stat Consulting Provider: Stacia Mckenzie Consult Reason/Comments: Ascites secondary to liver cirrhosis Do you want consulting provider notified?: Yes Primary care physician: Aury Gracia Hospital Course: Final Diagnoses: Abdominal pain, ascites secondary to portal hypertension,in a patient with history of liver cirrhosis, SUÁREZ, no history of hepatitis, status post paracentesis with 3.8 L fluid drained. Peritoneal pathology reporting no cytologically malignant cells.Fluid protein and albumin consistent with cirrhosis of the liver as per GI. Rectal bleeding. EGD reporting no active bleeding, old blood, or ulcers noted, moderate gastritis, esophageal varices with band ligation 4, biopsies obtained. Acute renal failure secondary to diuretics, NSAIDs Pancytopenia, mild Diabetes mellitus type 2 Gastroesophageal reflux disease Hypertension Hyperlipidemia Nonalcoholic cirrhosis, SUÁREZ Splenomegaly Hospital course:11/23/2020 this is a 80 -year-old female admitted with abdominal pain, ascites, underlying liver cirrhosis, scheduled for large volume diagnostic and therapeutic paracentesis today. Abdomen tense, tender, reports positive diarrhea. Creatinine 1.4. Denies chest pain, palpitations or shortness of breath. Maintaining O2 sats in the 90s on room air. 11/24/2020 status post paracentesis with 3.8 L tapped, tolerated procedure well with abdomen last tense. Staff reports bright bloody mixed stools throughout the night, hemoglobin improved, 8.9. Stool positive for occult blood. Patient states she has had intermittent rectal bleeding since her hemorrhoidectomy 2 years ago. Reports right upper quadrant to mid epigastric abdominal discomfort. Denies nausea vomiting. Renal function improving with creatinine down to 1.26. Denies chest pain, palpitations or shortness of breath. 11/25/2020 hemoglobin continued to decline, 7.9. No further bleeding reported. Abdominal pelvis CT reported known cirrhosis with underlying portal dash hypertension, splenomegaly, small amount of intraperitoneal ascites with mild to moderate diffuse soft tissue anasarca, suboptimal evaluation of bowel without enteric contrast, a few colonic diverticula without acute diverticulitis, nonspecific areas of bowel wall thickening thickening. bowel wall Creatinine continues to improve .Complains of persistent generalized abdominal tenderness, more so and mid epigastric to right upper quadrant. Denies nausea vomiting. 11/26/2020 continues to have blood-streaked bowel movements, abdominal pain. Denies nausea vomiting. Hemoglobin pending. Peritoneal pathology reporting no cytologically malignant cells. NPO, scheduled for EGD this morning. Denies chest pain, palpitations or increased shortness of breath. Completed EGD reporting no active bleeding, old blood, or ulcers noted, moderate gastritis, esophageal varices with band ligation 4, biopsies obtained. Tolerated procedure well. Cleared by GI for discharge. Patient will be discharged home today, in a stable condition with guarded prognosis on PPI twice a day, close monitoring of CBC. The impression and plan of care has been dictated as directed. : I performed a history and examination of this patient, discussed the same with the dictator. I agree with the dictator's note ,documented as a scribe. Any additional findings or plans will be noted. Patient Condition at Discharge: Stable Plan - Discharge Summary New Discharge Prescriptions: New Pantoprazole Sodium [Protonix] 40 mg PO BID #60 tablet. Hydrocortisone Suppository [Anusol-Hc] 25 mg RECTAL DAILY #7 supp Continue Multivit-Min/Iron/Folic/Lutein [Centrum Silver Women Tablet] 1 each PO DAILY Ferrous Sulfate [Iron (65 MG Elemental)] 325 mg PO DAILY Cyanocobalamin (Vitamin B-12) [Vitamin B-12] 1,000 mcg PO DAILY Cranberry Fruit Extract [Cranberry] 1,500 mg PO DAILY HYDROcodone/APAP 5-325MG [[place] 5-325] 1 tab PO BID PRN PRN Reason: Pain Ergocalciferol [Vitamin D2 (DRISDOL)] 50,000 unit PO Q7D Simvastatin [Zocor] 40 mg PO DAILY Levothyroxine Sodium [Synthroid] 100 mcg PO QAM Omeprazole 40 mg PO QAM atenoloL [Tenormin] 25 mg PO QAM allopurinoL [Zyloprim] 100 mg PO DAILY metFORMIN HCL 500 mg PO DAILY Calcium Carbonate [Calcium] 600 mg PO DAILY Spironolactone [Aldactone] 25 mg PO BID Furosemide [Lasix] 20 mg PO BID Discharge Medication List Calcium Carbonate [Calcium] 600 mg PO DAILY 07/19/19 [History] Cranberry Fruit Extract [Cranberry] 1,500 mg PO DAILY 07/19/19 [History] Cyanocobalamin (Vitamin B-12) [Vitamin B-12] 1,000 mcg PO DAILY 07/19/19 [History] Ergocalciferol [Vitamin D2 (DRISDOL)] 50,000 unit PO Q7D 07/19/19 [History] Ferrous Sulfate [Iron (65 MG Elemental)] 325 mg PO DAILY 07/19/19 [History] HYDROcodone/APAP 5-325MG [[place] 5-325] 1 tab PO BID PRN 07/19/19 [History] Levothyroxine Sodium [Synthroid] 100 mcg PO QAM 07/19/19 [History] Multivit-Min/Iron/Folic/Lutein [Centrum Silver Women Tablet] 1 each PO DAILY 07/19/19 [History] Omeprazole 40 mg PO QAM 07/19/19 [History] Simvastatin [Zocor] 40 mg PO DAILY 07/19/19 [History] allopurinoL [Zyloprim] 100 mg PO DAILY 07/19/19 [History] atenoloL [Tenormin] 25 mg PO QAM 07/19/19 [History] metFORMIN HCL 500 mg PO DAILY 07/19/19 [History] Furosemide [Lasix] 20 mg PO BID 11/20/20 [History] Spironolactone [Aldactone] 25 mg PO BID 11/20/20 [History] Hydrocortisone Suppository [Anusol-Hc] 25 mg RECTAL DAILY #7 supp 11/27/20 [Rx] Pantoprazole Sodium [Protonix] 40 mg PO BID #60 tablet. 11/27/20 [Rx] Follow up Appointment(s)/Referral(s): Aury Gracia DO [Primary Care Provider] - 12/03/20 12:45 pm Jose Manuel Vargas MD [STAFF PHYSICIAN] - 12/14/20 10:45 am Ambulatory/Diagnostic Orders: Complete Blood Count w/diff [LAB.AMB] Time Frame: 3 Days, Location: None Selected Patient Instructions/Handouts: Gastritis (DC) Discharge Disposition: HOME SELF-CARE
--- NOTE | 2020-11-30 16:19 | CDI ---
Documentation Clarification Form Date: 11/30/2020 04:17:00 PM From: Nakia Ty CCS Admit Date: 11/23/2020 07:26:00 AM Patient Name: Marianne Rodriguez Visit Number: [id number] Discharge Date: 11/27/2020 12:11:00 PM ATTENTION: The Clinical Documentation Specialists (CDI) and [facility] Coding Staff appreciate your assistance in clarifying documentation. Please respond to the clarification below the line at the bottom and electronically sign. The CDI & [facility] Coding staff will review the response and follow-up if needed. Please note: Queries are made part of the Legal Health Record. If you have any questions, please contact the author of this message via ITS. Dr. Get Bower CKD is documented in the EGD Report 11/26. Recently diuretic regimen had been modified due to chronic kidney disease History/Risk Factors: Cirrhosis, MARY, HTN, DM Patient Current: BUN: 22, 23, 24 CR: 1.49, 1.26, 1.19 GFR: 34, 35, 41, 44 Clinical Indicators: CKD Treatment: Monitor, Modified diuretic regimen In order to capture the severity of condition, please clarify the stage of the CKD, if known: CKD Stage 1 (GFR > 90) CKD Stage 2 (GFR 60-89) CKD Stage 3a (GFR 45-59) CKD Stage 3b (GFR 30-44) CKD Stage 4 (GFR 15-29) CKD Stage 5 (GFR <15) ESRD Other, please specify Unable to determine CKD Stage 3b) [facility]
== END 2020-11-27 12:11 | disposition home or self-care (01) | DRG 442 ==
LOC: EC 20:24 → 4SSUR 23:41 → OBSVTOIN 11-23 07:26
PROVIDERS: ADMIT Family Medicine; ATTEND Family Medicine
PROC: 0W9G3ZZ Drainage of Peritoneal Cavity, Percutaneous Approach (ICD-10-PCS; principal; 2020-11-23)
PROC: 0DB78ZX Excision of Stomach, Pylorus, Via Natural or Artificial Opening Endoscopic, Diagnostic (ICD-10-PCS; 2020-11-26)
PROC: 06L38CZ Occlusion of Esophageal Vein with Extraluminal Device, Via Natural or Artificial Opening Endoscopic (ICD-10-PCS; 2020-11-26)
PROC: 0DB98ZX Excision of Duodenum, Via Natural or Artificial Opening Endoscopic, Diagnostic (ICD-10-PCS; 2020-11-26 12:10)
DX: K76.6 Portal hypertension (principal); R18.8 Other ascites; D61.818 Other pancytopenia; N17.9 Acute kidney failure, unspecified; I85.10 Secondary esophageal varices without bleeding; K62.5 Hemorrhage of anus and rectum; K74.69 Other cirrhosis of liver; E11.22 Type 2 diabetes mellitus with diabetic chronic kidney disease; K75.81 Nonalcoholic steatohepatitis (NASH); N18.32 Chronic kidney disease, stage 3b; Z20.822 Contact with and (suspected) exposure to COVID-19; F32.9 Major depressive disorder, single episode, unspecified; K29.70 Gastritis, unspecified, without bleeding; R10.9 Unspecified abdominal pain; E78.5 Hyperlipidemia, unspecified; I12.9 Hypertensive chronic kidney disease with stage 1 through stage 4 chronic kidney disease, or unspecified chronic kidney disease; K21.9 Gastro-esophageal reflux disease without esophagitis; M19.90 Unspecified osteoarthritis, unspecified site; E03.9 Hypothyroidism, unspecified; M10.9 Gout, unspecified; E78.00 Pure hypercholesterolemia, unspecified; K57.90 Diverticulosis of intestine, part unspecified, without perforation or abscess without bleeding; R16.1 Splenomegaly, not elsewhere classified; T50.2X5A Adverse effect of carbonic-anhydrase inhibitors, benzothiadiazides and other diuretics, initial encounter; T50.1X5A Adverse effect of loop [high-ceiling] diuretics, initial encounter; Z79.890 Hormone replacement therapy; Z79.899 Other long term (current) drug therapy; Z79.84 Long term (current) use of oral hypoglycemic drugs; Z87.440 Personal history of urinary (tract) infections; Z85.828 Personal history of other malignant neoplasm of skin; Z87.11 Personal history of peptic ulcer disease
CPT/HCPCS: 36415; 43239; 43244; 49083; 74176; 80048; 80053; 81001; 82042; 82140; 82150; 82272; 83036; 83690; 84157; 85025; 85027; 85610; 85730; 86850; 86900; 86901; 87635; 88108; 88305; 88341; 88342; 89050; 99285

== ENCOUNTER 2020-12-13 00:22 | Inpatient (IN) | payer MEDICARE, BC ==
--- NOTE | 2020-12-13 02:40 | XR ---
EXAM: XR Chest, 2 Views CLINICAL HISTORY: altered mental status TECHNIQUE: Frontal and lateral views of the chest. COMPARISON: No relevant prior studies available. FINDINGS: Lungs: Very mild atelectasis in the right lung base. Pleural space: Unremarkable. No pneumothorax. No pleural fluid. Heart: Unremarkable. No cardiomegaly. Mediastinum: Unremarkable. Bones/joints: Unremarkable. No acute abnormalities. IMPRESSION: Mild atelectasis in the right lung base. Otherwise unremarkable.
[2020-12-13 03:12] LABS: Anisocytosis Slight; Basophils % (A) 0 %; Eosinophils % (A) 1 %; HCT 32.1 % (34.0-46.0); HGB 10.1 gm/dL (11.4-16.0); Hypochromasia Moderate; Lymphocytes # (A) 0.7 k/uL (1.0-4.8); Lymphocytes % (A) 23 %; MCH 31.4 pg (25.0-35.0); MCHC 31.5 g/dL (31.0-37.0); MCV 99.7 fL (80.0-100.0); Macrocytosis Slight; Mean Platelet Volume 9.7; Monocytes # (A) 0.2 k/uL (0-1.0); Monocytes % (A) 7 %; Neutrophils # (A) 2.1 k/uL (1.3-7.7); Neutrophils % (A) 67 %; RBC 3.22 m/uL (3.80-5.40); RDW 16.6 % (11.5-15.5); WBC 3.1 k/uL (3.8-10.6)
[2020-12-13 03:17] LABS: INR 1.6 (<1.2); Prothrombin Time 16.3 sec (9.0-12.0)
[2020-12-13 03:29] LABS: Platelet Count 46 k/uL (150-450)
[2020-12-13 03:34] LABS: Albumin 3.1 g/dL (3.5-5.0); Calcium 9.3 mg/dL (8.4-10.2); Potassium 3.4 mmol/L (3.5-5.1); Total Bilirubin 1.6 mg/dL (0.2-1.3); Total Protein 6.7 g/dL (6.3-8.2)
[2020-12-13 03:51] LABS: Lactic Acid, Venous 4.3 mmol/L (0.7-2.0)
[2020-12-13] MEDS ORDERED: SODIUM CHLORIDE 0.9% 500 ML 500 ML IV ONE (03:54)
[2020-12-13 04:31] LABS: Appearance,Urine Cloudy (Clear); Bacteria,Urine Occasional /hpf; Bilirubin,Urine Negative (Negative); Blood,Urine Trace (Negative); Color,Urine Yellow; Glucose,Urine (UA) Negative (Negative); Ketones,Urine Negative (Negative); Leukocyte Esterase,Urine Trace (Negative); Mucus,Urine Rare /hpf; Nitrite,Urine Positive (Negative); PH, Urine 5.5 (5.0-8.0); Protein,Urine Trace (Negative); RBC,Urine 7 /hpf (0-5); Specific Gravity,Urine 1.014 (1.001-1.035); Squamous Epithelial Cell,Urine 1 /hpf (0-4); Urobilinogen,Urine <2.0 mg/dL (<2.0); WBC,Urine 2 /hpf (0-5)
[2020-12-13] MEDS ORDERED: NALOXONE 0.4 MG/ML 1 ML VIAL IV PRN (05:26)
[2020-12-13] MEDS ORDERED: ONDANSETRON 4 MG/2 ML VIAL IVP PRN (05:26)
[2020-12-13] MEDS ORDERED: POTASSIUM BICARBONATE/CIT AC 20 MEQ TABLET.EFF PO STA (05:31)
--- NOTE | 2020-12-13 05:35 | ED ---
Altered Mental Status HPI - General Chief Complaint: Altered Mental Status Stated Complaint: Confusion Time Seen by Provider: 12/13/20 01:10 Source: patient, family Mode of arrival: ambulatory Limitations: altered mental status - History of Present Illness Initial Comments: 80-year-old female patient presents to the emergency department today for evaluation of altered mental status. Daughter states she's been confused for the 4 hours prior to coming in. States that she has had decreased food and fluid intake over the last couple of days. States that she does have nonalcoholic cirrhosis of the liver and has had elevated ammonia levels in the past and has acted similar. Patient denies any headache, blurred vision, double vision. Denies any abdominal pain. Denies any vomiting or diarrhea. They deny any recent fall or head injury. Patient denies any recent rash, fever, chills, cough, shortness of breath, chest pain, back pain, numbness, tingling, dizziness, weakness, hematuria, dysuria, urinary urgency, urinary frequency, or any other complaints. - Related Data Home Medications Medication Instructions Recorded Confirmed Calcium Carbonate [Calcium] 600 mg PO DAILY 07/19/19 11/20/20 Cranberry Fruit Extract [Cranberry] 1,500 mg PO DAILY 07/19/19 11/20/20 Cyanocobalamin (Vitamin B-12) 1,000 mcg PO DAILY 07/19/19 11/20/20 [Vitamin B-12] Ergocalciferol [Vitamin D2 50,000 unit PO Q7D 07/19/19 11/20/20 (DRISDOL)] Ferrous Sulfate [Iron (65 MG 325 mg PO DAILY 07/19/19 11/20/20 Elemental)] HYDROcodone/APAP 5-325MG [[place] 1 tab PO BID PRN 07/19/19 11/20/20 5-325] Levothyroxine Sodium [Synthroid] 100 mcg PO QAM 07/19/19 11/20/20 Multivit-Min/Iron/Folic/Lutein 1 each PO DAILY 07/19/19 11/20/20 [Centrum Silver Women Tablet] Omeprazole 40 mg PO QAM 07/19/19 11/20/20 Simvastatin [Zocor] 40 mg PO DAILY 07/19/19 11/20/20 allopurinoL [Zyloprim] 100 mg PO DAILY 07/19/19 11/20/20 atenoloL [Tenormin] 25 mg PO QAM 07/19/19 11/20/20 metFORMIN HCL 500 mg PO DAILY 07/19/19 11/20/20 Furosemide [Lasix] 20 mg PO BID 11/20/20 11/20/20 Spironolactone [Aldactone] 25 mg PO BID 11/20/20 11/20/20 Previous Rx's Medication Instructions Recorded Hydrocortisone Suppository 25 mg RECTAL DAILY #7 supp 11/27/20 [Anusol-Hc] Pantoprazole Sodium [Protonix] 40 mg PO BID #60 tablet. 11/27/20 Allergies Allergy/AdvReac Type Severity Reaction Status Date / Time No Known Allergies Allergy Verified 12/13/20 00:56 Review of Systems ROS Statement: Those systems with pertinent positive or pertinent negative responses have been documented in the HPI. ROS Other: All systems not noted in ROS Statement are negative. Past Medical History Past Medical History: Cancer, Diabetes Mellitus, GERD/Reflux, Hyperlipidemia, Hypertension, Liver Disease, Osteoarthritis (OA) Additional Past Medical History / Comment(s): patient states "doesn't clot right but is not aware of any specific clotting disorders but all her Drs are aware",hemorrhoids and bleeding with stools,recent dehydration and UTI, non alcoholic cirrhosis of the liver, skin cancer History of Any Multi-Drug Resistant Organisms: None Reported Past Surgical History: Cholecystectomy, Orthopedic Surgery Additional Past Surgical History / Comment(s): colonoscopy, lt knee surgery Past Anesthesia/Blood Transfusion Reactions: No Reported Reaction Additional Past Anesthesia/Blood Transfusion Reaction / Comment(s): no problems with previous blood transfusions Past Psychological History: Depression Smoking Status: Never smoker Past Alcohol Use History: None Reported Past Drug Use History: None Reported - Past Family History Mother Family Medical History: Cancer General Exam Limitations: altered mental status General appearance: alert, in no apparent distress, other (Physical well- developed, well-nourished adult female patient in no acute distress. Vital signs upon presentation are temperature 98.0F, pulse 73, respirations 20, blood pressure 98/53, pulse ox 98% on room air.) Eye exam: Present: normal appearance, PERRL, EOMI. Absent: scleral icterus, conjunctival injection, periorbital swelling ENT exam: Present: normal exam, normal oropharynx, mucous membranes moist Respiratory exam: Present: normal lung sounds bilaterally. Absent: respiratory distress, wheezes, rales, rhonchi, stridor Cardiovascular Exam: Present: regular rate, normal rhythm, normal heart sounds. Absent: systolic murmur, diastolic murmur, rubs, gallop, clicks GI/Abdominal exam: Present: soft, normal bowel sounds. Absent: distended, tenderness, guarding, rebound, rigid Back exam: Present: normal inspection Neurological exam: Present: alert, CN II-XII intact. Absent: oriented X3 (Oriented 1) Psychiatric exam: Present: normal affect, normal mood Skin exam: Present: warm, dry, intact, normal color. Absent: rash Course Vital Signs 12/13/20 12/13/20 00:53 05:20 Temperature 98.0 F Pulse Rate 73 72 Respiratory 20 16 Rate Blood Pressure 98/53 110/57 O2 Sat by Pulse 98 97 Oximetry Medical Decision Making - Medical Decision Making 80-year-old female patient presents to the emergency department today for evaluation of altered mental status and decreased food and fluid intake. Physical examination was relatively unremarkable. She is neurologically intact just disoriented. Labs reviewed and did reveal white blood cell count of 3.1, hemoglobin 10.1, lymphocyte 0.7. BUN is 40, creatinine 2.17, GFR 21. Lactic acid 4.3. Ammonia 64. Urinalysis shows a cloudy appearance with trace protein, trace blood, positive nitrite, trace leukocyte esterase, occasional bacteria. We did send urine for culture. Patient's kidney function is slightly worse than before. This is most likely due to dehydration, we'll provide IV fluids. We will replace her potassium. She'll be admitted to the hospital for altered me ntal status and dehydration. Case discussed with my attending Dr. Covarrubias. - Lab Data Result diagrams: 12/13/20 02:42 12/13/20 02:42 Lab Results 12/13/20 12/13/20 12/13/20 Range/Units 02:42 02:42 02:42 WBC 3.1 L (3.8-10.6) k/uL RBC 3.22 L (3.80-5.40) m/uL Hgb 10.1 L (11.4-16.0) gm/dL Hct 32.1 L (34.0-46.0) % MCV 99.7 (80.0-100.0) fL MCH 31.4 (25.0-35.0) pg MCHC 31.5 (31.0-37.0) g/dL RDW 16.6 H (11.5-15.5) % Plt Count 46 L (150-450) k/uL MPV 9.7 Neutrophils % 67 % Lymphocytes % 23 % Monocytes % 7 % Eosinophils % 1 % Basophils % 0 % Neutrophils # 2.1 (1.3-7.7) k/uL Lymphocytes # 0.7 L (1.0-4.8) k/uL Monocytes # 0.2 (0-1.0) k/uL Eosinophils # 0.0 (0-0.7) k/uL Basophils # 0.0 (0-0.2) k/uL Manual Slide Review Performed Hypochromasia Moderate Anisocytosis Slight Macrocytosis Slight PT 16.3 H (9.0-12.0) sec INR 1.6 H (<1.2) APTT 26.0 (22.0-30.0) sec Sodium 139 (137-145) mmol/L Potassium 3.4 L (3.5-5.1) mmol/L Chloride 97 L (98-107) mmol/L Carbon Dioxide 30 (22-30) mmol/L Anion Gap 12 mmol/L BUN 40 H (7-17) mg/dL Creatinine 2.17 H (0.52-1.04) mg/dL Est GFR (CKD-EPI)AfAm 24 (>60 ml/min/1.73 sqM) Est GFR (CKD-EPI)NonAf 21 (>60 ml/min/1.73 sqM) Glucose 104 H (74-99) mg/dL Plasma Lactic Acid Alex (0.7-2.0) mmol/L Calcium 9.3 (8.4-10.2) mg/dL Total Bilirubin 1.6 H (0.2-1.3) mg/dL AST 81 H (14-36) U/L ALT 28 (4-34) U/L Alkaline Phosphatase 130 H (38-126) U/L Ammonia (<30) umol/L Troponin I (0.000-0.034) ng/mL Total Protein 6.7 (6.3-8.2) g/dL Albumin 3.1 L (3.5-5.0) g/dL Urine Color Urine Appearance (Clear) Urine pH (5.0-8.0) Ur Specific [place] (1.001-1.035) Urine Protein (Negative) Urine Glucose (UA) (Negative) Urine Ketones (Negative) Urine Blood (Negative) Urine Nitrite (Negative) Urine Bilirubin (Negative) Urine Urobilinogen (<2.0) mg/dL Ur Leukocyte Esterase (Negative) Urine RBC (0-5) /hpf Urine WBC (0-5) /hpf Ur Squamous Epith Cells (0-4) /hpf Urine Bacteria (None) /hpf Urine Mucus (None) /hpf 12/13/20 12/13/20 12/13/20 Range/Units 02:42 02:42 04:11 WBC (3.8-10.6) k/uL RBC (3.80-5.40) m/uL Hgb (11.4-16.0) gm/dL Hct (34.0-46.0) % MCV (80.0-100.0) fL MCH (25.0-35.0) pg MCHC (31.0-37.0) g/dL RDW (11.5-15.5) % Plt Count (150-450) k/uL MPV Neutrophils % % Lymphocytes % % Monocytes % % Eosinophils % % Basophils % % Neutrophils # (1.3-7.7) k/uL Lymphocytes # (1.0-4.8) k/uL Monocytes # (0-1.0) k/uL Eosinophils # (0-0.7) k/uL Basophils # (0-0.2) k/uL Manual Slide Review Hypochromasia Anisocytosis Macrocytosis PT (9.0-12.0) sec INR (<1.2) APTT (22.0-30.0) sec Sodium (137-145) mmol/L Potassium (3.5-5.1) mmol/L Chloride (98-107) mmol/L Carbon Dioxide (22-30) mmol/L Anion Gap mmol/L BUN (7-17) mg/dL Creatinine (0.52-1.04) mg/dL Est GFR (CKD-EPI)AfAm (>60 ml/min/1.73 sqM) Est GFR (CKD-EPI)NonAf (>60 ml/min/1.73 sqM) Glucose (74-99) mg/dL Plasma Lactic Acid Alex 4.3 H* (0.7-2.0) mmol/L Calcium (8.4-10.2) mg/dL Total Bilirubin (0.2-1.3) mg/dL AST (14-36) U/L ALT (4-34) U/L Alkaline Phosphatase (38-126) U/L Ammonia 64 H (<30) umol/L Troponin I <0.012 (0.000-0.034) ng/mL Total Protein (6.3-8.2) g/dL Albumin (3.5-5.0) g/dL Urine Color Yellow Urine Appearance Cloudy H (Clear) Urine pH 5.5 (5.0-8.0) Ur Specific [place] 1.014 (1.001-1.035) Urine Protein Trace H (Negative) Urine Glucose (UA) Negative (Negative) Urine Ketones Negative (Negative) Urine Blood Trace H (Negative) Urine Nitrite Positive H (Negative) Urine Bilirubin Negative (Negative) Urine Urobilinogen <2.0 (<2.0) mg/dL Ur Leukocyte Esterase Trace H (Negative) Urine RBC 7 H (0-5) /hpf Urine WBC 2 (0-5) /hpf Ur Squamous Epith Cells 1 (0-4) /hpf Urine Bacteria Occasional H (None) /hpf Urine Mucus Rare H (None) /hpf - Radiology Data Radiology results: report reviewed, image reviewed Two-view x-ray of the chest is obtained. Report was reviewed in its entirety. Impression by Dr. Perez shows mild atelectasis in the right lung base. Otherwise unremarkable. Disposition Clinical Impression: Altered mental status Disposition: [facility] Condition: Serious Referrals: Aury Gracia DO [Primary Care Provider] - 1-2 days Decision to Admit Reason: Admit from EC Decision Date: 12/13/20 Decision Time: 05:34
[2020-12-13] MEDS: SODIUM CHLORIDE 0.9% 1,000 ML IV SCH (06:12)
--- NOTE | 2020-12-13 07:35 | ED ---
Medical Decision Making - Lab Data Result diagrams: 12/13/20 02:42 12/13/20 02:42 Lab Results 12/13/20 12/13/20 12/13/20 Range/Units 02:42 02:42 02:42 WBC 3.1 L (3.8-10.6) k/uL RBC 3.22 L (3.80-5.40) m/uL Hgb 10.1 L (11.4-16.0) gm/dL Hct 32.1 L (34.0-46.0) % MCV 99.7 (80.0-100.0) fL MCH 31.4 (25.0-35.0) pg MCHC 31.5 (31.0-37.0) g/dL RDW 16.6 H (11.5-15.5) % Plt Count 46 L (150-450) k/uL MPV 9.7 Neutrophils % 67 % Lymphocytes % 23 % Monocytes % 7 % Eosinophils % 1 % Basophils % 0 % Neutrophils # 2.1 (1.3-7.7) k/uL Lymphocytes # 0.7 L (1.0-4.8) k/uL Monocytes # 0.2 (0-1.0) k/uL Eosinophils # 0.0 (0-0.7) k/uL Basophils # 0.0 (0-0.2) k/uL Manual Slide Review Performed Hypochromasia Moderate Anisocytosis Slight Macrocytosis Slight PT 16.3 H (9.0-12.0) sec INR 1.6 H (<1.2) APTT 26.0 (22.0-30.0) sec Sodium 139 (137-145) mmol/L Potassium 3.4 L (3.5-5.1) mmol/L Chloride 97 L (98-107) mmol/L Carbon Dioxide 30 (22-30) mmol/L Anion Gap 12 mmol/L BUN 40 H (7-17) mg/dL Creatinine 2.17 H (0.52-1.04) mg/dL Est GFR (CKD-EPI)AfAm 24 (>60 ml/min/1.73 sqM) Est GFR (CKD-EPI)NonAf 21 (>60 ml/min/1.73 sqM) Glucose 104 H (74-99) mg/dL Lactic Ac Sepsis Rflx Plasma Lactic Acid Alex (0.7-2.0) mmol/L Calcium 9.3 (8.4-10.2) mg/dL Total Bilirubin 1.6 H (0.2-1.3) mg/dL AST 81 H (14-36) U/L ALT 28 (4-34) U/L Alkaline Phosphatase 130 H (38-126) U/L Ammonia (<30) umol/L Troponin I (0.000-0.034) ng/mL Total Protein 6.7 (6.3-8.2) g/dL Albumin 3.1 L (3.5-5.0) g/dL Urine Color Urine Appearance (Clear) Urine pH (5.0-8.0) Ur Specific [place] (1.001-1.035) Urine Protein (Negative) Urine Glucose (UA) (Negative) Urine Ketones (Negative) Urine Blood (Negative) Urine Nitrite (Negative) Urine Bilirubin (Negative) Urine Urobilinogen (<2.0) mg/dL Ur Leukocyte Esterase (Negative) Urine RBC (0-5) /hpf Urine WBC (0-5) /hpf Ur Squamous Epith Cells (0-4) /hpf Urine Bacteria (None) /hpf Urine Mucus (None) /hpf 12/13/20 12/13/20 12/13/20 Range/Units 02:42 02:42 03:51 WBC (3.8-10.6) k/uL RBC (3.80-5.40) m/uL Hgb (11.4-16.0) gm/dL Hct (34.0-46.0) % MCV (80.0-100.0) fL MCH (25.0-35.0) pg MCHC (31.0-37.0) g/dL RDW (11.5-15.5) % Plt Count (150-450) k/uL MPV Neutrophils % % Lymphocytes % % Monocytes % % Eosinophils % % Basophils % % Neutrophils # (1.3-7.7) k/uL Lymphocytes # (1.0-4.8) k/uL Monocytes # (0-1.0) k/uL Eosinophils # (0-0.7) k/uL Basophils # (0-0.2) k/uL Manual Slide Review Hypochromasia Anisocytosis Macrocytosis PT (9.0-12.0) sec INR (<1.2) APTT (22.0-30.0) sec Sodium (137-145) mmol/L Potassium (3.5-5.1) mmol/L Chloride (98-107) mmol/L Carbon Dioxide (22-30) mmol/L Anion Gap mmol/L BUN (7-17) mg/dL Creatinine (0.52-1.04) mg/dL Est GFR (CKD-EPI)AfAm (>60 ml/min/1.73 sqM) Est GFR (CKD-EPI)NonAf (>60 ml/min/1.73 sqM) Glucose (74-99) mg/dL Lactic Ac Sepsis Rflx Y Plasma Lactic Acid Alex 4.3 H* (0.7-2.0) mmol/L Calcium (8.4-10.2) mg/dL Total Bilirubin (0.2-1.3) mg/dL AST (14-36) U/L ALT (4-34) U/L Alkaline Phosphatase (38-126) U/L Ammonia 64 H (<30) umol/L Troponin I <0.012 (0.000-0.034) ng/mL Total Protein (6.3-8.2) g/dL Albumin (3.5-5.0) g/dL Urine Color Urine Appearance (Clear) Urine pH (5.0-8.0) Ur Specific [place] (1.001-1.035) Urine Protein (Negative) Urine Glucose (UA) (Negative) Urine Ketones (Negative) Urine Blood (Negative) Urine Nitrite (Negative) Urine Bilirubin (Negative) Urine Urobilinogen (<2.0) mg/dL Ur Leukocyte Esterase (Negative) Urine RBC (0-5) /hpf Urine WBC (0-5) /hpf Ur Squamous Epith Cells (0-4) /hpf Urine Bacteria (None) /hpf Urine Mucus (None) /hpf 12/13/20 Range/Units 04:11 WBC (3.8-10.6) k/uL RBC (3.80-5.40) m/uL Hgb (11.4-16.0) gm/dL Hct (34.0-46.0) % MCV (80.0-100.0) fL MCH (25.0-35.0) pg MCHC (31.0-37.0) g/dL RDW (11.5-15.5) % Plt Count (150-450) k/uL MPV Neutrophils % % Lymphocytes % % Monocytes % % Eosinophils % % Basophils % % Neutrophils # (1.3-7.7) k/uL Lymphocytes # (1.0-4.8) k/uL Monocytes # (0-1.0) k/uL Eosinophils # (0-0.7) k/uL Basophils # (0-0.2) k/uL Manual Slide Review Hypochromasia Anisocytosis Macrocytosis PT (9.0-12.0) sec INR (<1.2) APTT (22.0-30.0) sec Sodium (137-145) mmol/L Potassium (3.5-5.1) mmol/L Chloride (98-107) mmol/L Carbon Dioxide (22-30) mmol/L Anion Gap mmol/L BUN (7-17) mg/dL Creatinine (0.52-1.04) mg/dL Est GFR (CKD-EPI)AfAm (>60 ml/min/1.73 sqM) Est GFR (CKD-EPI)NonAf (>60 ml/min/1.73 sqM) Glucose (74-99) mg/dL Lactic Ac Sepsis Rflx Plasma Lactic Acid Alex (0.7-2.0) mmol/L Calcium (8.4-10.2) mg/dL Total Bilirubin (0.2-1.3) mg/dL AST (14-36) U/L ALT (4-34) U/L Alkaline Phosphatase (38-126) U/L Ammonia (<30) umol/L Troponin I (0.000-0.034) ng/mL Total Protein (6.3-8.2) g/dL Albumin (3.5-5.0) g/dL Urine Color Yellow Urine Appearance Cloudy H (Clear) Urine pH 5.5 (5.0-8.0) Ur Specific [place] 1.014 (1.001-1.035) Urine Protein Trace H (Negative) Urine Glucose (UA) Negative (Negative) Urine Ketones Negative (Negative) Urine Blood Trace H (Negative) Urine Nitrite Positive H (Negative) Urine Bilirubin Negative (Negative) Urine Urobilinogen <2.0 (<2.0) mg/dL Ur Leukocyte Esterase Trace H (Negative) Urine RBC 7 H (0-5) /hpf Urine WBC 2 (0-5) /hpf Ur Squamous Epith Cells 1 (0-4) /hpf Urine Bacteria Occasional H (None) /hpf Urine Mucus Rare H (None) /hpf Disposition Clinical Impression: Altered mental status Disposition: ADMITTED IP TO THIS HOSP Condition: Serious Procedures - EJ/Peripheral Line No standard instances Consent Obtained: verbal consent Indications: nurses unable to establish peripheral IV Skin Cleansed in Sterile Fashion: Yes Size: 20 Dressing Placed: Tegaderm, tape Patient Tolerated Procedure: well, no complications Additional Comments: Ultrasound-guided IV inserted to the left upper arm, one attempt.
--- NOTE | 2020-12-13 13:39 | P.CONS ---
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 Patient reports worsening memory impairment and cloudiness of thought prior to presentation. This is been going on for a few days. She has a known history of nonalcoholic liver disease/cirrhosis of the liver previously hospitalized for fluid overload and ascites the patient had paracentesis with 3.8 L removed and was started on a diuretic regimen. In addition she's previously had esophageal variceal band ligation on 11/22 with gastritis noted at that time and varices which were ligated. She denies any signs or symptoms of GI bleeding at this time. She previously also had colonoscopy in 07/2019 which revealed rectal prolapse and internal and external hemorrhoids as well as polyps and diverticulosis and subsequently underwent hemorrhoidectomy in 08/2019. On current presentation chest x-ray showed mild atelectasis, WBC 3.1, hemoglobin 10.1, platelet count 46,000, INR 1.6, total bilirubin 1.6, platelet phosphatase 130, AST 81 and ALT 2 5. Ammonia was found to be elevated at 64. Review of Systems REVIEW OF SYSTEMS: CONSTITUTIONAL: Denies any fevers, chills, weight change or fatigue. CARDIOVASCULAR: Denies any chest pain, palpitations high or low blood pressures RESPIRATORY: Denies any shortness of breath, hemoptysis or cough. GENITOURINARY: No dysuria or hematuria. MUSCULOSKELETAL: No weakness reported. SKIN: Denies any new rashes or lesions, jaundice or pallor. PSYCHIATRIC: Denies any depression or anxiety. NEUROLOGY: Denies headache, denies any new focal deficits, she does report some fogginess of thought and worsening memory. EARS/NOSE/THROAT: No recent hearing change, congestion, nasal discharge or sore throat. EYES: No pain in eyes, discharge or change in vision. GASTROINTESTINAL: As per HPI. Past Medical History Past Medical History: Cancer, Diabetes Mellitus, GERD/Reflux, Hyperlipidemia, Hypertension, Liver Disease, Osteoarthritis (OA) Additional Past Medical History / Comment(s): patient states "doesn't clot right but is not aware of any specific clotting disorders but all her Drs are aware",hemorrhoids and bleeding with stools,recent dehydration and UTI, non alcoholic cirrhosis of the liver, skin cancer History of Any Multi-Drug Resistant Organisms: None Reported Past Surgical History: Cholecystectomy, Orthopedic Surgery Additional Past Surgical History / Comment(s): colonoscopy, lt knee surgery Past Anesthesia/Blood Transfusion Reactions: No Reported Reaction Additional Past Anesthesia/Blood Transfusion Reaction / Comm: no problems with previous blood transfusions Past Psychological History: Depression Smoking Status: Never smoker Past Alcohol Use History: None Reported Past Drug Use History: None Reported - Past Family History Mother Family Medical History: Cancer Medications and Allergies Home Medications Medication Instructions Recorded Confirmed Type Calcium Carbonate [Calcium] 600 mg PO DAILY 07/19/19 12/13/20 History Cranberry Fruit Extract [Cranberry] 1,500 mg PO DAILY 07/19/19 12/13/20 History Cyanocobalamin (Vitamin B-12) 1,000 mcg PO DAILY 07/19/19 12/13/20 History [Vitamin B-12] Ergocalciferol [Vitamin D2 50,000 unit PO Q7D 07/19/19 12/13/20 History (DRISDOL)] Ferrous Sulfate [Iron (65 MG 325 mg PO DAILY 07/19/19 12/13/20 History Elemental)] HYDROcodone/APAP 5-325MG [[place] 1 tab PO BID PRN 07/19/19 12/13/20 History 5-325] Levothyroxine Sodium [Synthroid] 100 mcg PO QAM 07/19/19 12/13/20 History Multivit-Min/Iron/Folic/Lutein 1 tab PO DAILY 07/19/19 12/13/20 History [Centrum Silver Women Tablet] Omeprazole 40 mg PO QAM 07/19/19 12/13/20 History Simvastatin [Zocor] 40 mg PO DAILY 07/19/19 12/13/20 History allopurinoL [Zyloprim] 100 mg PO DAILY 07/19/19 12/13/20 History atenoloL [Tenormin] 25 mg PO QAM 07/19/19 12/13/20 History metFORMIN HCL 500 mg PO DAILY 07/19/19 12/13/20 History Furosemide [Lasix] 20 mg PO BID 11/20/20 12/13/20 History Spironolactone [Aldactone] 25 mg PO BID 11/20/20 12/13/20 History Pantoprazole Sodium [Protonix] 40 mg PO BID #60 tablet. 11/27/20 12/13/20 Rx Allergies Allergy/AdvReac Type Severity Reaction Status Date / Time No Known Allergies Allergy Verified 12/13/20 07:25 Physical Exam Vitals: Vital Signs Temp Pulse Resp BP Pulse Ox 12/13/20 10:56 98.3 F 76 16 120/59 97 12/13/20 09:33 98.3 F 72 16 114/55 97 12/13/20 08:06 98.3 F 74 16 118/59 99 12/13/20 06:19 98.0 F 105 H 18 118/75 96 12/13/20 05:20 72 16 110/57 97 12/13/20 00:53 98.0 F 73 20 98/53 98 Intake and Output 12/12/20 12/13/20 12/13/20 22:59 06:59 14:59 Other: Weight 64.864 kg On physical examination, patient appears comfortable in no apparent distress. HEAD: Normocephalic, atraumatic. EYES: No scleral icterus. No conjunctival injection. MOUTH: No lesions, tongue midline. NECK: Trachea midline, no gross abnormalities. CHEST: Clear to auscultation with no wheezing or rhonchi appreciated. HEART: Regular rate and rhythm. ABDOMEN: Soft, mildly distended. Bowel sounds are positive. No organomegaly. No guarding or rigidity. EXTREMITIES: No pedal edema. SKIN: No rashes, no jaundice. NEUROLOGIC: Alert and oriented to person and place, asterixis is noted. Results CBC & Chem 7: 12/13/20 02:42 12/13/20 02:42 Labs: Abnormal Lab Results - Last 24 Hours (Table) 12/13/20 12/13/20 12/13/20 Range/Units 02:42 02:42 02:42 WBC 3.1 L (3.8-10.6) k/uL RBC 3.22 L (3.80-5.40) m/uL Hgb 10.1 L (11.4-16.0) gm/dL Hct 32.1 L (34.0-46.0) % RDW 16.6 H (11.5-15.5) % Plt Count 46 L (150-450) k/uL Lymphocytes # 0.7 L (1.0-4.8) k/uL PT 16.3 H (9.0-12.0) sec INR 1.6 H (<1.2) Potassium 3.4 L (3.5-5.1) mmol/L Chloride 97 L (98-107) mmol/L BUN 40 H (7-17) mg/dL Creatinine 2.17 H (0.52-1.04) mg/dL Glucose 104 H (74-99) mg/dL Plasma Lactic Acid Alex (0.7-2.0) mmol/L Total Bilirubin 1.6 H (0.2-1.3) mg/dL AST 81 H (14-36) U/L Alkaline Phosphatase 130 H (38-126) U/L Ammonia (<30) umol/L Albumin 3.1 L (3.5-5.0) g/dL Urine Appearance (Clear) Urine Protein (Negative) Urine Blood (Negative) Urine Nitrite (Negative) Ur Leukocyte Esterase (Negative) Urine RBC (0-5) /hpf Urine Bacteria (None) /hpf Urine Mucus (None) /hpf Coronavirus (PCR) (Not Detectd) 12/13/20 12/13/20 12/13/20 Range/Units 02:42 04:11 06:19 WBC (3.8-10.6) k/uL RBC (3.80-5.40) m/uL Hgb (11.4-16.0) gm/dL Hct (34.0-46.0) % RDW (11.5-15.5) % Plt Count (150-450) k/uL Lymphocytes # (1.0-4.8) k/uL PT (9.0-12.0) sec INR (<1.2) Potassium (3.5-5.1) mmol/L Chloride (98-107) mmol/L BUN (7-17) mg/dL Creatinine (0.52-1.04) mg/dL Glucose (74-99) mg/dL Plasma Lactic Acid Alex 4.3 H* (0.7-2.0) mmol/L Total Bilirubin (0.2-1.3) mg/dL AST (14-36) U/L Alkaline Phosphatase (38-126) U/L Ammonia 64 H (<30) umol/L Albumin (3.5-5.0) g/dL Urine Appearance Cloudy H (Clear) Urine Protein Trace H (Negative) Urine Blood Trace H (Negative) Urine Nitrite Positive H (Negative) Ur Leukocyte Esterase Trace H (Negative) Urine RBC 7 H (0-5) /hpf Urine Bacteria Occasional H (None) /hpf Urine Mucus Rare H (None) /hpf Coronavirus (PCR) Detected A (Not Detectd) 12/13/20 Range/Units 06:56 WBC (3.8-10.6) k/uL RBC (3.80-5.40) m/uL Hgb (11.4-16.0) gm/dL Hct (34.0-46.0) % RDW (11.5-15.5) % Plt Count (150-450) k/uL Lymphocytes # (1.0-4.8) k/uL PT (9.0-12.0) sec INR (<1.2) Potassium (3.5-5.1) mmol/L Chloride (98-107) mmol/L BUN (7-17) mg/dL Creatinine (0.52-1.04) mg/dL Glucose (74-99) mg/dL Plasma Lactic Acid Alex 2.8 H* (0.7-2.0) mmol/L Total Bilirubin (0.2-1.3) mg/dL AST (14-36) U/L Alkaline Phosphatase (38-126) U/L Ammonia (<30) umol/L Albumin (3.5-5.0) g/dL Urine Appearance (Clear) Urine Protein (Negative) Urine Blood (Negative) Urine Nitrite (Negative) Ur Leukocyte Esterase (Negative) Urine RBC (0-5) /hpf Urine Bacteria (None) /hpf Urine Mucus (None) /hpf Coronavirus (PCR) (Not Detectd) Chest x-ray: report reviewed (Chest x-ray with atelectasis noted.) Assessment and Plan (1) Hepatic encephalopathy Narrative/Plan: 80-year-old female with multiple medical comorbidities including decompensated liver cirrhosis with ascites, varices presenting for altered mental status. Found to have elevation in ammonia at 64 on presentation. Clinically patient reported increasing confusion. She is noted to have asterixis on physical exam. No prior treatment for hepatic encephalopathy. Last EGD in 11/22 with gastritis and varices noted which were treated with band ligation. Current Visit: Yes Status: Acute Code(s): K72.90 - HEPATIC FAILURE, UNSPECIFIED WITHOUT COMA SNOMED Code(s): 10553755 (2) Ascites Current Visit: No Status: Acute Code(s): R18.8 - OTHER ASCITES SNOMED Code(s): 534423369 (3) Esophageal varices Current Visit: No Status: Acute Code(s): I85.00 - ESOPHAGEAL VARICES WITHOUT BLEEDING SNOMED Code(s): 32521251 (4) Liver cirrhosis secondary to nonalcoholic steatohepatitis (SUÁREZ) Current Visit: No Status: Acute Code(s): K75.81 - NONALCOHOLIC STEATOHEPATITIS (SU[place]REZ); K74.60 - UNSPECIFIED CIRRHOSIS OF LIVER SNOMED Code(s): 537488247 Plan: Supportive care Okay for sodium restricted diet Continue Protonix therapy Ultrasound paracentesis with fluid studies ordered Lactulose twice a day ordered, should be titrated to 3-4 bowel movements daily Repeat ammonia level ordered for tomorrow Continue to monitor clinically Continue other medical management per primary team Thank you for allowing us to participate in the care of the patient
[2020-12-13] MEDS: LACTULOSE 20 GM/30 ML CUP PO SCH ×2 (14:20→20:50)
--- NOTE | 2020-12-13 15:47 | HP ---
HISTORY AND PHYSICAL DATE OF SERVICE: 12/13/2020 CHIEF COMPLAINT: Change in mental status. I am covering for Dr. Bower. HISTORY OF PRESENT ILLNESS: This 80-year-old woman with a past history of cirrhosis, nonalcoholic steatohepatitis, history of diabetes, hypertension, hyperlipidemia, being followed by Dr. Aury Gracia in the outpatient setting was complaining of change in mental status. The patient is confused four hours prior to admission. The patient also had previously elevated ammonia in the past and was correlated with change in mental status. Because of concerns, the patient was taken to [facility] and admitted. The lactic acid was found to be elevated. Serum ammonia was found to be 64 and the patient also had COVID-19 that was positive. The chest x-ray which was reviewed personally by me showed some minimal suspected bilateral infiltrates and the patient was admitted for further evaluation and treatment. A GI evaluation by Dr. Vargas is progressing at this time. I recommend supportive care at this time. There is no history of fever, rigors or chills. PAST MEDICAL HISTORY: History of diabetes, history of GERD, hypertension, family history of chronic liver disease. HOME MEDICATIONS: Metformin, Aldactone, Zocor, Protonix, multivitamins, Synthroid, [place], Zyloprim, Tenormin, ( ), vitamin B12, cranberry extract, calcium. ALLERGIES: None. FAMILY HISTORY: History of cancer in the family. SOCIAL HISTORY: No history of smoking, no history of alcohol intake. REVIEW OF SYSTEMS: ENT No history of diminished hearing or vision. CARDIOVASCULAR No angina or palpitations. RESPIRATORY As mentioned earlier. GI No nausea, vomiting, or diarrhea. No dysuria or hematuria. NERVOUS As mentioned earlier. ALLERGY/IMMUNOLOGY No asthma or hayfever. MUSCULOSKELETAL As mentioned earlier. HEMATOLOGY/ONCOLOGY Negative. ENDOCRINE History of diabetes. No hypothyroidism. CONSTITUTIONAL As mentioned earlier. DERMATOLOGY Negative. RHEUMATOLOGY Negative, PSYCHIATRY As mentioned earlier. PHYSICAL EXAMINATION: Alert and oriented. Pulse 72, blood pressure 91/56, respiration 18, temperature 98.1, pulse ox 98% on room air. HEENT: Conjunctivae normal. Oral mucosa moist. NECK: No jugular venous distention. No lymph node enlargement. CARDIOVASCULAR: S1, S2, muffled. No S3, no S4, RESPIRATORY: Diminished breath sounds at the bases. A few scattered rhonchi, no crackles. ABDOMEN: Soft, nontender. No mass palpable. LEGS: No edema, no swelling. NERVOUS SYSTEM: Higher functions mentioned earlier. Moves all four limbs. Mild diffuse weakness. LYMPHATICS: No lymph node in neck or axilla. SKIN: No rash. JOINTS: No active deforming arthropathy. LABS: At this time show WBC 3.2, hemoglobin 10.1, platelets are 46. INR is 1.6. Creatinine is 2.17, the baseline was 1.19. Other labs are noted. ASSESSMENT: 1. Acute COVID-19 infection. 2. Change in mental status, acute metabolic encephalopathy, hepatic encephalopathy. 3. Elevated ammonia. 4. Hypokalemia. 5. Acute renal failure, acute tubular necrosis. 6. Leukopenia. 7. Anemia. 8. Thrombocytopenia. 9. History of cirrhosis of the liver and nonalcoholic steatohepatitis. 10.History of previous abdominal paracentesis. 11.History of diabetes. 12.History of GERD. 13.Hypertension. 14.Hyperlipidemia. 15.History of DJD. 16.History of cholecystectomy. 17.History of depression. 18.FULL CODE. RECOMMENDATIONS AND DISCUSSION: This 80-year-old woman who presented with multiple complex medical issues, we will monitor the patient closely, continue the current management, continue symptomatic treatment. I would recommend D-dimer and also if the D-dimer is elevated I would recommend a V/Q scan to rule out the possibility of pulmonary embolism. Otherwise, consult Dr. Giron for evaluation of COVID-19. Prognosis guarded because of multiple complex medical issues. Further recommendations to follow. Dr. Bower will follow tomorrow morning. MMODL / IJN: [id number] /
[2020-12-13 16:07] LABS: ALT 26 U/L (4-34); AST 71 U/L (14-36); African American GFR (CKD) 28 (>60 ml/min/1.73 sqM); Albumin 2.6 g/dL (3.5-5.0); Albumin/Globulin Ratio 0.8; Alkaline Phosphatase 99 U/L (38-126); Anion Gap 9 mmol/L; Blood Urea Nitrogen 42 mg/dL (7-17); Calcium 8.8 mg/dL (8.4-10.2); Carbon Dioxide 30 mmol/L (22-30); Chloride 101 mmol/L (98-107); Globulin 3.3 g/dL; Glucose 113 mg/dL (74-99); Non-African American GFR(CKD) 24 (>60 ml/min/1.73 sqM); Potassium 3.9 mmol/L (3.5-5.1); Sodium 140 mmol/L (137-145); Total Bilirubin 1.5 mg/dL (0.2-1.3); Total Protein 5.9 g/dL (6.3-8.2)
[2020-12-13] MEDS: HYDROcodone/APAP 5-325MG 1 EACH TAB PO PRN (20:49)
[2020-12-13] MEDS ORDERED: SPIRONOLACTONE 25 MG TAB PO SCH (21:00)
[2020-12-14] MEDS: SODIUM CHLORIDE 0.9% 1,000 ML IV SCH ×2 (03:02→22:16)
[2020-12-14] MEDS: LEVOTHYROXINE 100 MCG TAB PO SCH (05:38)
[2020-12-14 05:43] LABS: C Reactive Protein 26.9 mg/L (<10.0)
--- NOTE | 2020-12-14 06:01 | CONS ---
CONSULTATION DATE OF SERVICE: 12/13/2020 REASON FOR CONSULTATION: COVID-19 infection. 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 The patient presented to the ER for evaluation of mental status changes. Currently patient reports worsening memory and prior to presentation to the hospital. The patient's symptoms have been going on for the last few days before presentation to the hospital. The patient has previously presented with similar symptoms and required paracentesis. The patient denies having any headache. Denies having any URI symptoms. No chest pain or shortness of breath. No cough or diarrhea. On presentation to the hospital the patient was afebrile. The patient currently is 98% on room air. The patient did have leukopenia as well as lymphopenia. Creatinine was 1.94. Bilirubin 1.5, AST 71. Ammonia was on high 64. Inflammatory markers were not checked. Urine is negative. COVID test came back positive. The patient did have a chest x-ray, mild atelectasis right lung, otherwise unremarkable. Infectious Disease was consulted for further management of her positive COVID testing and COVID-19 infection. REVIEW OF SYSTEMS: Positive points have been mentioned in HPI. Rest of systems are negative. PAST MEDICAL HISTORY: Nonalcoholic cirrhosis of the liver, diabetes mellitus, gastroesophageal reflux disease, hyperlipidemia, hypertension, osteoarthritis. PAST SURGICAL HISTORY: Cholecystectomy, left knee surgery, colonoscopy. SOCIAL HISTORY: No history of smoking, drinking or drug use. FAMILY HISTORY: Mother with history of cancer. ALLERGIES: No known drug allergies. MEDICATIONS: The patient is currently on [place], Zyloprim, Tenormin, Lipitor, Tums, vitamin B12, iron sulfate, Lactulose, Synthroid, Theragran, Narcan, Zofran, Protonix, insulin. PHYSICAL EXAMINATION: VITAL SIGNS: Blood pressure 104/62 with a pulse of 70, temperature 98.1, she is 98% on room air. GENERAL DESCRIPTION: Patient is an elderly female lying in bed in no distress. No tachypnea or accessory muscles of respiration use. HEENT: Examination shows slight pallor, no scleral icterus. Oral mucous membrane is dry. No pharyngeal erythema or thrush. NECK: Trachea central, no thyromegaly. LUNGS: Unlabored breathing, clear to auscultation anteriorly, no wheeze or crackle. HEART: S1-S2, regular rate and rhythm. ABDOMEN: Soft, mildly distended. No guarding or rigidity. No organomegaly. EXTREMITIES: No edema of the feet. SKIN: No rash or mass palpable. NEUROLOGICAL: Patient is awake, alert, oriented times two. Mood and affect normal. LABS: Red PCR was positive. Hemoglobin is 10.1, white count 3.1, BUN of 42, creatinine 1.94. Liver enzymes mildly elevated. Urine is negative. Chest x-ray with some atelectasis. DIAGNOSTIC IMPRESSION: Patient admitted to the hospital with mental status changes, more likely related to the hepatic encephalopathy from underlying nonalcoholic cirrhosis of the liver. The patient did have a positive COVID-19 test, however, does not have respiratory symptoms. Chest x-ray with some atelectasis. No ground-glass infiltrate and the patient is not hypoxic. PLAN: 1. We will check inflammatory markers. 2. No need for remdesivir. 3. Lovenox, zinc and ascorbic acid. 4. Droplet isolation and respiratory support. 5. We will follow on clinical condition and repeat investigations to further adjust medication if needed. Thank you for this consultation. Will follow this patient along with you. MMODL / IJN: [id number] / MTDNeil
[2020-12-14] MEDS: FERROUS SULFATE 325 MG TAB PO SCH (08:49)
[2020-12-14] MEDS: ASCORBIC ACID 500 MG TAB PO SCH (08:49)
[2020-12-14] MEDS: CYANOCOBALAMIN 500 MCG TAB PO SCH (08:51)
[2020-12-14] MEDS: atenoloL 25 MG TAB PO SCH (08:51)
[2020-12-14] MEDS: ATORVASTATIN 20 MG TAB PO SCH (08:51)
[2020-12-14] MEDS: PANTOPRAZOLE 40 MG TABLET PO SCH (08:51)
[2020-12-14] MEDS: MULTIVITAMINS, THERA 1 EACH TAB PO SCH (08:51)
[2020-12-14] MEDS: allopurinoL 100 MG TAB PO SCH (08:51)
[2020-12-14] MEDS: CALCIUM CARBONATE 500 MG CHEWABLE PO SCH (08:51)
[2020-12-14] MEDS: LACTULOSE 20 GM/30 ML CUP PO SCH ×3 (08:54→22:16)
[2020-12-14] MEDS ORDERED: ENOXAPARIN 40 MG/0.4 ML SYRINGE SQ SCH (09:00)
[2020-12-14 09:42] LABS: Ferritin 32.1 ng/mL (10.0-291.0)
[2020-12-14 09:58] LABS: Basophils # (A) 0.01 X 10*3/uL (0.00-0.10); Basophils % (A) 0.4 %; Eosinophils # (A) 0.07 X 10*3/uL (0.04-0.35); Eosinophils % (A) 2.7 %; HCT 25.7 % (37.2-46.3); HGB 8.1 g/dL (12.0-15.0); Lymphocytes # (A) 1.15 X 10*3/uL (0.90-5.00); Lymphocytes % (A) 43.9 %; MCH 31.4 pg (27.0-32.0); MCHC 31.5 g/dL (32.0-37.0); MCV 99.6 fL (80.0-97.0); Mean Platelet Volume 13.3 fL (9.5-12.2); Monocytes # (A) 0.23 X 10*3/uL (0.20-1.00); Monocytes % (A) 8.8 %; Neutrophils # (A) 1.15 X 10*3/uL (1.80-7.70); Neutrophils % (A) 43.8 %; Platelet Count 35 X 10*3/uL (140-440); RBC 2.58 X 10*6/uL (4.10-5.20); RDW 16.3 % (11.5-14.5); WBC 2.62 X 10*3/uL (4.50-10.00)
--- NOTE | 2020-12-14 13:19 | P.PN ---
Subjective Progress Note Date: 12/14/20 Principal diagnosis: Altered mental status, cirrhosis of the liver C 80-year-old female with a past medical history significant for diabetes mellitus, hypertension, hyperlipidemia, and alcoholic cirrhosis of the liver with ascites who presented to the hospital with altered mental status. She reports worsening memory impairment cloudiness prior to presentation, which has been going on for a few days prior to presentation. She has a known history of nonalcoholic liver disease/cirrhosis of the liver previously hospitalized for fluid overload and ascites with a recent paracentesis with 3.8 L removed and started on diuretic regimen. She's previously had esophageal variceal banding ligation in November 2020 with gastritis noted at the time the varices which were ligated. She has been refusing her lactulose. She denied any signs or symptoms of GI bleed. However her nurse called reporting that she had a bowel movement and bright red blood per rectum with wiping. She had a drop in her hemoglobin today from 10.1-8.1. Denying any abdominal pain, nausea, or vomiting. She'll for paracentesis. Objective - Vital Signs Vital signs: Vital Signs Temp 98.2 F 12/14/20 07:40 Pulse 72 12/14/20 07:40 Resp 16 12/14/20 08:00 BP 105/60 12/14/20 07:40 Pulse Ox 96 12/14/20 09:11 Intake & Output 12/13/20 12/14/20 12/14/20 18:59 06:59 18:59 Intake Total 180 Balance 180 Intake: Oral 180 Other: Voiding Method Bedside Commode Bedside Commode # Voids 1 1 # Bowel Movements 1 1 - Exam General appearance: The patient is alert, oriented x2, appears in no acute distress. HET: Head is normocephalic and atraumatic. Conjunctiva pink. Sclera anicteric. Neck: Supple without lymphadenopathy. Abdomen: Soft, nontender, distended with bowel sounds. No guarding or rigidity. Extremities: Normal skin color and turgor. No pedal edema Skin: No rashes, no jaundice Neurological: No focal deficits. Alert and oriented 2. - Labs CBC & Chem 7: 12/14/20 04:56 12/13/20 15:35 Labs: Abnormal Lab Results - Last 24 Hours (Table) 04/11/21 04/12/21 04/12/21 Range/Units 15:35 04:56 04:56 WBC 2.62 L (4.50-10.00) X 10*3/uL RBC 2.58 L (4.10-5.20) X 10*6/uL Hgb 8.1 L (12.0-15.0) g/dL Hct 25.7 L (37.2-46.3) % MCV 99.6 H (80.0-97.0) fL MCHC 31.5 L (32.0-37.0) g/dL RDW 16.3 H (11.5-14.5) % Plt Count 35 L (140-440) X 10*3/uL MPV 13.3 H (9.5-12.2) fL Neutrophils # 1.15 L (1.80-7.70) X 10*3/uL D-Dimer (<0.60) mg/L FEU BUN 42 H (7-17) mg/dL Creatinine 1.94 H (0.52-1.04) mg/dL Glucose 113 H (74-99) mg/dL Total Bilirubin 1.5 H (0.2-1.3) mg/dL AST 71 H (14-36) U/L Ammonia 72 H (<30) umol/L C-Reactive Protein (<10.0) mg/L Total Protein 5.9 L (6.3-8.2) g/dL Albumin 2.6 L (3.5-5.0) g/dL Procalcitonin (0.02-0.09) ng/mL 12/14/20 12/14/20 12/14/20 Range/Units 04:56 04:56 04:56 WBC (4.50-10.00) X 10*3/uL RBC (4.10-5.20) X 10*6/uL Hgb (12.0-15.0) g/dL Hct (37.2-46.3) % MCV (80.0-97.0) fL MCHC (32.0-37.0) g/dL RDW (11.5-14.5) % Plt Count (140-440) X 10*3/uL MPV (9.5-12.2) fL Neutrophils # (1.80-7.70) X 10*3/uL D-Dimer 8.37 H (<0.60) mg/L FEU BUN (7-17) mg/dL Creatinine (0.52-1.04) mg/dL Glucose (74-99) mg/dL Total Bilirubin (0.2-1.3) mg/dL AST (14-36) U/L Ammonia (<30) umol/L C-Reactive Protein 26.9 H (<10.0) mg/L Total Protein (6.3-8.2) g/dL Albumin (3.5-5.0) g/dL Procalcitonin 0.23 H (0.02-0.09) ng/mL Microbiology - Last 24 Hours (Table) 12/13/20 04:11 Urine Culture - Preliminary Urine,Catheterized Gram Neg Bacilli Assessment and Plan (1) Hepatic encephalopathy Narrative/Plan: Assessment 80-year-old female with a history of decompensated liver cirrhosis with ascites, varices presenting for altered mental status. She was found to have elevation in ammonia of 64 on presentation. Clinically the patient re ported increasing confusion. She is noted to have asterixis is a colon exam. No prior treatment for hepatic encephalopathy. Last EGD in November 2020 with gastritis and varices noted, which were treated with band ligation. Current Visit: Yes Status: Acute Code(s): K72.90 - HEPATIC FAILURE, UNSPECIFIED WITHOUT COMA SNOMED Code(s): 96044146 (2) Ascites Current Visit: No Status: Acute Code(s): R18.8 - OTHER ASCITES SNOMED Code(s): 538943439 (3) Esophageal varices Current Visit: No Status: Acute Code(s): I85.00 - ESOPHAGEAL VARICES WITHOUT BLEEDING SNOMED Code(s): 68970647 (4) Liver cirrhosis secondary to nonalcoholic steatohepatitis (SUÁREZ) Current Visit: No Status: Acute Code(s): K75.81 - NONALCOHOLIC STEATOHEPATITIS (SUÁREZ); K74.60 - UNSPECIFIED CIRRHOSIS OF LIVER SNOMED Code(s): 810538870 Plan: 1. Symptomatic and supportive care 2. Okay for sodium restricted diet 3. Continue Protonix therapy 4. Ultrasound Nagy T-System ordered with fluid studies 5. Lactulose twice a day, titrate for 3-4 bowel movements daily 6. Repeat ammonia level 7. CBC ordered for 1800 8. Continue to monitor for signs and symptoms GI bleed Thank you for this consultation, we will continue to follow Dr. Imelda Mckenzie I agree with the dictator's note, documented as a scribe by Dary Ross.
--- NOTE | 2020-12-14 14:42 | US ---
EXAMINATION TYPE: US abdomen limited DATE OF EXAM: 12/14/2020 COMPARISON: NONE CLINICAL HISTORY: ascites. All four quadrants were scanned. There is free fluid noted in all four quadrants. IMPRESSION: Small amount of ascites.
[2020-12-14 19:00] LABS: Anisocytosis Slight; HCT 31.9 % (34.0-46.0); HGB 9.9 gm/dL (11.4-16.0); Hypochromasia Moderate; MCH 31.5 pg (25.0-35.0); MCHC 31.2 g/dL (31.0-37.0); MCV 100.9 fL (80.0-100.0); Macrocytosis Slight; Mean Platelet Volume 9.2; RBC 3.16 m/uL (3.80-5.40); RDW 16.6 % (11.5-15.5)
[2020-12-14 19:04] LABS: Platelet Count 46 k/uL (150-450)
--- NOTE | 2020-12-14 19:54 | PN ---
PROGRESS NOTE DATE OF SERVICE: 12/14/2020 REASON FOR FOLLOWUP: COVID-19 infection. INTERVAL HISTORY: The patient is currently afebrile. The patient is breathing comfortably on room air. The patient denies having any chest pain or shortness of breath or cough. No abdominal pain or diarrhea. PHYSICAL EXAMINATION: Blood pressure is 107/66, pulse of 68, temperature 98.7. She is 98% on room air. General description is an elderly female lying in bed in no distress. RESPIRATORY SYSTEM: Unlabored breathing. Clear to auscultation anteriorly. HEART: S1, S2. Regular rate and rhythm. ABDOMEN: Soft. Mildly distended. No guarding or rigidity. EXTREMITIES: No edema of the feet. LABS: Hemoglobin 8.9, white count 2.62. BUN of 42, creatinine 1.94. D-dimer is 8.37. CRP is 26.9. Procalcitonin is 0.23. Urine is negative. DIAGNOSTIC IMPRESSION AND PLAN: Patient with a positive COVID-19 in this patient admitted to hospital with mental status changes, more likely related to her diabetic encephalopathy. Patient currently not symptomatic as far as her COVID is concerned, with no hypoxemia and no need for systemic steroids or remdesivir. Patient to continue with Lovenox, zinc and ascorbic acid, and monitor clinical course closely. MMODL / IJN: [id number] /
[2020-12-14] MEDS: HYDROCORTISONE 2.5% RECTAL CREAM 30 GM TUBE RECTAL SCH (22:16)
[2020-12-14] MEDS: RIFAXIMIN 550 MG TABLET PO SCH (22:16)
[2020-12-14] MEDS: HYDROcodone/APAP 5-325MG 1 EACH TAB PO PRN (22:23)
--- NOTE | 2020-12-14 22:53 | P.PN ---
Subjective Progress Note Date: 12/14/20 She denies any chest pain, shortness of breath, fever, or chills. Reports abdominal bloating and discomfort. Her hgb is stable today, she remains thrombocytopenic with plt 35. She continues on sodium restricted diet and lasix. Nursing reporting blood tinged bowel movement. Objective - Vital Signs Vital signs: Vital Signs Temp 98.6 F 12/14/20 20:00 Pulse 68 12/14/20 20:00 Resp 16 12/14/20 20:00 BP 102/66 12/14/20 20:00 Pulse Ox 99 12/14/20 20:00 Intake & Output 12/14/20 12/14/20 12/15/20 06:59 18:59 06:59 Intake Total 540 Balance 540 Intake: IV 300 Sodium Chloride 0.9% 1, 300 000 ml @ 50 mls/hr IV . Q[facility]H [facility] Rx#:[id number] Oral 240 Other: Voiding Method Bedside Commode Bedside Commode # Voids 1 1 # Bowel Movements 1 1 - Exam General: well nourished, well developed, NAD. Vitals reviewed Lungs: normal respiratory effort, no wheezes or rales CV: Regular rate and rhythm, no murmur. Peripheral pulses 2+ Abdomen: soft, distended, generalized tenderness Skin: warm and dry. - Labs CBC & Chem 7: 12/14/20 18:38 12/13/20 15:35 Labs: Abnormal Lab Results - Last 24 Hours (Table) 12/14/20 12/14/20 12/14/20 Range/Units 04:56 04:56 04:56 WBC 2.62 L (4.50-10.00) X 10*3/uL RBC 2.58 L (4.10-5.20) X 10*6/uL Hgb 8.1 L (12.0-15.0) g/dL Hct 25.7 L (37.2-46.3) % MCV 99.6 H (80.0-97.0) fL MCHC 31.5 L (32.0-37.0) g/dL RDW 16.3 H (11.5-14.5) % Plt Count 35 L (140-440) X 10*3/uL MPV 13.3 H (9.5-12.2) fL Neutrophils # 1.15 L (1.80-7.70) X 10*3/uL D-Dimer (<0.60) mg/L FEU Ammonia 72 H (<30) umol/L C-Reactive Protein (<10.0) mg/L Procalcitonin 0.23 H (0.02-0.09) ng/mL 12/14/20 12/14/20 12/14/20 Range/Units 04:56 04:56 18:38 WBC 3.0 L (4.50-10.00) X 10*3/uL RBC 3.16 L (4.10-5.20) X 10*6/uL Hgb 9.9 L (12.0-15.0) g/dL Hct 31.9 L (37.2-46.3) % MCV 100.9 H (80.0-97.0) fL MCHC (32.0-37.0) g/dL RDW 16.6 H (11.5-14.5) % Plt Count 46 L (140-440) X 10*3/uL MPV (9.5-12.2) fL Neutrophils # (1.80-7.70) X 10*3/uL D-Dimer 8.37 H (<0.60) mg/L FEU Ammonia (<30) umol/L C-Reactive Protein 26.9 H (<10.0) mg/L Procalcitonin (0.02-0.09) ng/mL Microbiology - Last 24 Hours (Table) 12/13/20 04:11 Urine Culture - Preliminary Urine,Catheterized Gram Neg Bacilli Assessment and Plan (1) COVID-19 Current Visit: Yes Status: Acute Code(s): U07.1 - COVID-19 SNOMED Code(s): 116686613 (2) Hepatic encephalopathy Current Visit: Yes Status: Acute Code(s): K72.90 - HEPATIC FAILURE, UNSPECIFIED WITHOUT COMA SNOMED Code(s): 87745059 Plan: Continue with sodium restriction, lasix, COVID cocktail and lovenox. Continue la ctulose, follow ammonia. Therapeutic paracentesis per GI. Guarded prognosis
[2020-12-15] MEDS: LEVOTHYROXINE 100 MCG TAB PO SCH (06:02)
[2020-12-15] MEDS: FERROUS SULFATE 325 MG TAB PO SCH (07:28)
[2020-12-15] MEDS: HYDROcodone/APAP 5-325MG 1 EACH TAB PO PRN ×2 (07:28→20:57)
[2020-12-15] MEDS: PANTOPRAZOLE 40 MG TABLET PO SCH (07:28)
[2020-12-15] MEDS: allopurinoL 100 MG TAB PO SCH (07:28)
[2020-12-15] MEDS: CALCIUM CARBONATE 500 MG CHEWABLE PO SCH (07:28)
[2020-12-15] MEDS: MULTIVITAMINS, THERA 1 EACH TAB PO SCH (07:28)
[2020-12-15] MEDS: RIFAXIMIN 550 MG TABLET PO SCH ×2 (07:28→20:48)
[2020-12-15] MEDS: ASCORBIC ACID 500 MG TAB PO SCH (07:28)
[2020-12-15] MEDS: CYANOCOBALAMIN 500 MCG TAB PO SCH (07:28)
[2020-12-15] MEDS: ATORVASTATIN 20 MG TAB PO SCH (07:28)
[2020-12-15] MEDS: atenoloL 25 MG TAB PO SCH (07:28)
[2020-12-15] MEDS: LACTULOSE 20 GM/30 ML CUP PO SCH ×2 (07:29→20:48)
[2020-12-15] MEDS ORDERED: ENOXAPARIN 30 MG/0.3 ML SYRINGE SQ SCH (09:00)
--- NOTE | 2020-12-15 09:04 | P.PN ---
Subjective Progress Note Date: 12/15/20 Principal diagnosis: Altered mental status, cirrhosis of the liver This is a 80-year-old female with a past medical history significant for diabetes mellitus, hypertension, hyperlipidemia, and alcoholic cirrhosis of the liver with ascites who presented to the hospital with altered mental status. She reports worsening memory impairment cloudiness prior to presentation, which has been going on for a few days prior to presentation. She has a known history of nonalcoholic liver disease/cirrhosis of the liver previously hospitalized for fluid overload and ascites with a recent paracentesis with 3.8 L removed and started on diuretic regimen. She's previously had esophageal variceal banding ligation in November 2020 with gastritis noted at the time the varices which were ligated. She has been refusing her lactulose. She denied any signs or symptoms of GI bleed until yesterday which she had 2 episodes of maroon/red stool. She is now taking her lactulose and is more alert and orientated today. She is currently getting platelets and is scheduled for paracentesis today. Her repeat hemoglobin yesterday evening was 9.9. Her labs from this morning are pending. No further reported rectal bleeding or blood in the stool today. Objective - Vital Signs Vital signs: Vital Signs Temp 97.8 F 12/15/20 08:02 Pulse 80 12/15/20 08:02 Resp 16 12/15/20 08:02 BP 107/62 12/15/20 08:02 Pulse Ox 99 12/15/20 08:02 Intake & Output 12/14/20 12/15/20 12/15/20 18:59 06:59 18:59 Intake Total 540 240 0 Balance 540 240 0 Intake: IV 300 Sodium Chloride 0.9% 1, 300 000 ml @ 50 mls/hr IV . Q[facility]H [facility] Rx#:[id number] Oral 240 240 Blood Product 0 Platelet Pheresis Pas 0 Psoralen Unit [id number] Other: Voiding Method Bedside Commode Bedside Commode # Voids 1 1 # Bowel Movements 1 - Exam General appearance: The patient is alert, oriented x3, appears in no acute distress. HET: Head is normocephalic and atraumatic. Conjunctiva pink. Sclera anicteric. Neck: Supple without lymphadenopathy. Abdomen: Soft, nontender, distended with bowel sounds. No guarding or rigidity. Extremities: Normal skin color and turgor. No pedal edema Skin: No rashes, no jaundice Neurological: No focal deficits. Alert and oriented 3. - Labs CBC & Chem 7: 12/15/20 04:55 12/13/20 15:35 Labs: Abnormal Lab Results - Last 24 Hours (Table) 12/14/20 12/14/20 12/14/20 Range/Units 04:56 04:56 18:38 WBC 2.62 L 3.0 L (4.50-10.00) X 10*3/uL RBC 2.58 L 3.16 L (4.10-5.20) X 10*6/uL Hgb 8.1 L 9.9 L (12.0-15.0) g/dL Hct 25.7 L 31.9 L (37.2-46.3) % MCV 99.6 H 100.9 H (80.0-97.0) fL MCHC 31.5 L (32.0-37.0) g/dL RDW 16.3 H 16.6 H (11.5-14.5) % Plt Count 35 L 46 L (140-440) X 10*3/uL MPV 13.3 H (9.5-12.2) fL Neutrophils # 1.15 L (1.80-7.70) X 10*3/uL Ammonia (<30) umol/L Procalcitonin 0.23 H (0.02-0.09) ng/mL 12/15/20 Range/Units 04:55 WBC (4.50-10.00) X 10*3/uL RBC (4.10-5.20) X 10*6/uL Hgb (12.0-15.0) g/dL Hct (37.2-46.3) % MCV (80.0-97.0) fL MCHC (32.0-37.0) g/dL RDW (11.5-14.5) % Plt Count (140-440) X 10*3/uL MPV (9.5-12.2) fL Neutrophils # (1.80-7.70) X 10*3/uL Ammonia 92 H (<30) umol/L Procalcitonin (0.02-0.09) ng/mL Microbiology - Last 24 Hours (Table) 12/13/20 04:11 Urine Culture - Preliminary Urine,Catheterized Gram Neg Bacilli Assessment and Plan (1) Hepatic encephalopathy Narrative/Plan: Assessment 80-year-old female with a history of decompensated liver cirrhosis with ascites, varices presenting for altered mental status. She was found to have elevation in ammonia of 64 on presentation. Clinically the patient reported increasing confusion. She is noted to have asterixis is a colon exam. No prior treatment for hepatic encephalopathy. Last EGD in November 2020 with gastritis and varices noted, which were treated with band ligation. Patient is currently taking lactulose 20 mg twice a day, Xifaxan was added. She is more Alert and oriented today. Current Visit: Yes Status: Acute Code(s): K72.90 - HEPATIC FAILURE, UNSPECIFIED WITHOUT COMA SNOMED Code(s): 33089005 (2) Ascites Current Visit: No Status: Acute Code(s): R18.8 - OTHER ASCITES SNOMED Code(s): 928390792 (3) Esophageal varices Current Visit: No Status: Acute Code(s): I85.00 - ESOPHAGEAL VARICES WITHOUT BLEEDING SNOMED Code(s): 12914079 (4) Liver cirrhosis secondary to nonalcoholic steatohepatitis (SUÁREZ) Current Visit: No Status: Acute Code(s): K75.81 - NONALCOHOLIC STEATOHEP ATITIS (SUÁREZ); K74.60 - UNSPECIFIED CIRRHOSIS OF LIVER SNOMED Code(s): 26 1257720 Plan: 1. Symptomatic and supportive care 2. Okay for sodium restricted diet 3. Continue Protonix therapy 4. Ultrasound Paracentesis canceled, not enough fluid 5. Lactulose twice a day, titrate for 3-4 bowel movements daily 6. Xifaxinon 550 mg twice a day added 7. Daily CBC 8. Continue to monitor for signs and symptoms GI bleed 9. Agree with platelets Thank you for this consultation, we will continue to follow Dr. Imelda Mckenzie I agree with the dictator's note, documented as a scribe by Dary Ross.
[2020-12-15] MEDS: HYDROCORTISONE 2.5% RECTAL CREAM 30 GM TUBE RECTAL SCH ×2 (09:23→20:48)
[2020-12-15 10:41] LABS: HCT 26.7 % (37.2-46.3); HGB 8.2 g/dL (12.0-15.0); MCH 30.9 pg (27.0-32.0); MCHC 30.7 g/dL (32.0-37.0); MCV 100.8 fL (80.0-97.0); Mean Platelet Volume 11.2 fL (9.5-12.2); Platelet Count 38 X 10*3/uL (140-440); RBC 2.65 X 10*6/uL (4.10-5.20); WBC 3.12 X 10*3/uL (4.50-10.00)
--- NOTE | 2020-12-15 11:54 | P.PN ---
Subjective Progress Note Date: 12/15/20 She denies any chest pain, shortness of breath, fever, or chills. Reports abdominal bloating and discomfort. Her hgb is stable today, she remains thrombocytopenic with plt 35. She continues on sodium restricted diet and lasix. Nursing reporting blood tinged bowel movement. 12/15/2020 more alert today reporting maroon bowel movement X 2 yesterday, hemoglobin stable 8.2. Complains of abdominal pain. Ammonia 63. Lovenox on hold, scheduled for paracentesis today. Receiving platelets, platelets 38. Denies chest pain, palpitations or shortness of breath. Vital signs stable, maintaining O2 sats in the high 90s to 100 on room air. Objective - Vital Signs Vital signs: Vital Signs Temp 97.5 F L 12/15/20 08:42 Pulse 76 12/15/20 08:42 Resp 16 12/15/20 08:42 BP 111/56 12/15/20 08:42 Pulse Ox 100 12/15/20 08:42 Intake & Output 12/14/20 12/15/20 12/15/20 18:59 06:59 18:59 Intake Total 540 240 0 Balance 540 240 0 Intake: IV 300 Sodium Chloride 0.9% 1, 300 000 ml @ 50 mls/hr IV . Q20H [facility] Rx#:[id number] Oral 240 240 Blood Product 0 Platelet Pheresis Pas 0 Psoralen Unit [id number] Other: Voiding Method Bedside Commode Bedside Commode # Voids 1 1 # Bowel Movements 1 - Exam - Exam General: Alert and oriented 3 ,NAD. Vitals reviewed Lungs: normal respiratory effort, no wheezes or rales CV: Regular rate and rhythm, no murmur. Peripheral pulses 2+ Abdomen: soft, distended, generalized tenderness, positive bowel sounds Skin: warm and dry. - Labs CBC & Chem 7: 12/15/20 04:55 12/13/20 15:35 Labs: Abnormal Lab Results - Last 24 Hours (Table) 12/14/20 12/15/20 12/15/20 Range/Units 18:38 04:55 04:55 WBC 3.0 L 3.12 L (3.8-10.6) k/uL RBC 3.16 L 2.65 L (3.80-5.40) m/uL Hgb 9.9 L 8.2 L (11.4-16.0) gm/dL Hct 31.9 L 26.7 L (34.0-46.0) % MCV 100.9 H 100.8 H (80.0-100.0) fL MCHC 30.7 L (32.0-37.0) g/dL RDW 16.6 H 16.0 H (11.5-15.5) % Plt Count 46 L 38 L (150-450) k/uL Plt Count Comment DECREASED A Ammonia 92 H (<30) umol/L 12/15/20 Range/Units 08:44 WBC (3.8-10.6) k/uL RBC (3.80-5.40) m/uL Hgb (11.4-16.0) gm/dL Hct (34.0-46.0) % MCV (80.0-100.0) fL MCHC (32.0-37.0) g/dL RDW (11.5-15.5) % Plt Count (150-450) k/uL Plt Count Comment Ammonia 63 H (<30) umol/L Microbiology - Last 24 Hours (Table) 12/13/20 04:11 Urine Culture - Final Urine,Catheterized Escherichia coli Assessment and Plan Assessment: (1) COVID-19 Current Visit: Yes Status: Acute Code(s): U07.1 - COVID-19 SNOMED Code(s): 278548907 (2) Hepatic encephalopathy Current Visit: Yes Status: Acute Code(s): K72.90 - HEPATIC FAILURE, UNSPECIFIED WITHOUT COMA SNOMED Code(s): 13384272 (3) Ascites Current Visit: No Status: Acute Code(s): R18.8 - OTHER ASCITES SNOMED Code(s): 337272105 (4) Esophageal varices Current Visit: No Status: Acute Code(s): I85.00 - ESOPHAGEAL VARICES WITHOUT BLEEDING SNOMED Code(s): 11464893 (5) Liver cirrhosis secondary to nonalcoholic steatohepatitis (SUÁREZ) Current Visit: No Status: Acute Code(s): K75.81 - NONALCOHOLIC STEATOHEPATITIS (SUÁREZ); K74.60 - UNSPECIFIED CIRRHOSIS OF LIVER SNOMED Code(s): 246442540 Acute renal failure Diabetes mellitus type 2 Gastroesophageal reflux disease Hypertension Hyperlipidemia Splenomegaly Plan: Continue on current medication regime ,monitoring and symptomatic treatment. Scheduled for therapeutic paracentesis today. Maintained PPI, lactulose and sodium restrictions. Close monitoring of platelets, ammonia level. Prognosis guarded given multiple complex medical issues. The impression and plan of care has been dictated as directed. : I performed a history and examination of this patient, discussed the same with the dictator. I agree with the dictator's note ,documented as a scribe. Any ad ditional findings or plans will be noted.
[2020-12-15] MEDS: INSULIN ASPART (NovoLOG) 100 UNIT/ML VIAL SQ SCH ×3 (12:00→20:51)
[2020-12-15 16:27] LABS: African American GFR (CKD) 35.4 (60.0-200.0); Albumin 2.7 g/dL (3.80-4.90); Albumin/Globulin Ratio 0.96 (1.60-3.17); Anion Gap 13.9 mmol/L (4.00-12.00); BUN/Creat Ratio 19.38 Ratio (12.00-20.00); Carbon Dioxide 24.1 mmol/L (21.6-31.8); Globulin 2.8 g/dL (1.6-3.3); Non-African American GFR(CKD) 30.5 (60.0-200.0); Potassium 3.7 mmol/L (3.5-5.5); Total Bilirubin 1.2 mg/dL (0.3-1.2); Total Protein 5.5 g/dL (6.2-8.2)
[2020-12-15] MEDS: SODIUM CHLORIDE 0.9% 1,000 ML IV SCH (17:53)
[2020-12-15 17:54] LABS: Glucose,Whole Blood 128 mg/dL (75-99)
[2020-12-15 20:28] LABS: Glucose,Whole Blood 162 mg/dL (75-99)
--- NOTE | 2020-12-15 22:37 | PN ---
PROGRESS NOTE DATE OF SERVICE: 12/15/2020 REASON FOR FOLLOWUP: COVID-19 infection. INTERVAL HISTORY: The patient is afebrile. The patient is breathing comfortably and currently remains on room air. The patient denies having chest pain. She did have minimal cough but no sputum production. Denies any worsening abdominal pain. No nausea, vomiting or diarrhea. PHYSICAL EXAMINATION: Blood pressure 113/75, pulse of 58, temperature 99. She is 99% on room air. General description is an elderly female lying in bed in no distress. RESPIRATORY SYSTEM: Unlabored breathing. Clear to auscultation anteriorly. HEART: S1, S2. Regular rate and rhythm. ABDOMEN: Soft. No tenderness. EXTREMITIES: No edema of the feet. LABS: Hemoglobin 8.2, white count 3.12, BUN of 31, creatinine 1.6. Ammonia level is still high. DIAGNOSTIC IMPRESSION AND PLAN: 1. Patient admitted to hospital with mental status changes more likely secondary to hepatic encephalopathy in this patient who also has positive COVID with no significant respiratory symptoms. She is currently being managed . 2. Patient with a positive urine culture with Escherichia coli, possibly mild urinary tract infection. Will add Rocephin 1 gram daily and monitor clinical course closely. MMODL / IJN: [id number] /
[2020-12-16] MEDS: LEVOTHYROXINE 100 MCG TAB PO SCH (05:59)
[2020-12-16 07:12] LABS: Glucose,Whole Blood 128 mg/dL (75-99)
[2020-12-16] MEDS: FERROUS SULFATE 325 MG TAB PO SCH (08:58)
[2020-12-16] MEDS: PANTOPRAZOLE 40 MG TABLET PO SCH (08:58)
[2020-12-16] MEDS: ATORVASTATIN 20 MG TAB PO SCH (08:58)
[2020-12-16] MEDS: atenoloL 25 MG TAB PO SCH (08:58)
[2020-12-16] MEDS: CYANOCOBALAMIN 500 MCG TAB PO SCH (08:58)
[2020-12-16] MEDS: allopurinoL 100 MG TAB PO SCH (08:58)
[2020-12-16] MEDS: ASCORBIC ACID 500 MG TAB PO SCH (08:58)
[2020-12-16] MEDS: RIFAXIMIN 550 MG TABLET PO SCH ×2 (08:59→21:40)
[2020-12-16] MEDS: INSULIN ASPART (NovoLOG) 100 UNIT/ML VIAL SQ SCH ×4 (08:59→21:23)
[2020-12-16] MEDS: CALCIUM CARBONATE 500 MG CHEWABLE PO SCH (08:59)
[2020-12-16] MEDS: HYDROCORTISONE 2.5% RECTAL CREAM 30 GM TUBE RECTAL SCH ×2 (08:59→21:23)
[2020-12-16] MEDS: LACTULOSE 20 GM/30 ML CUP PO SCH ×3 (09:00→21:24)
[2020-12-16] MEDS ORDERED: ERGOCALCIFEROL 1,250 MCG (50,000 IU) CAPSULE PO SCH (09:00)
[2020-12-16] MEDS: MULTIVITAMINS, THERA 1 EACH TAB PO SCH (09:00)
[2020-12-16 10:28] LABS: ALT 25 U/L (4-34); AST 69 U/L (14-36); African American GFR (CKD) 41 (>60 ml/min/1.73 sqM); Albumin 2.8 g/dL (3.5-5.0); Albumin/Globulin Ratio 0.8; Alkaline Phosphatase 140 U/L (38-126); Anion Gap 10 mmol/L; Blood Urea Nitrogen 29 mg/dL (7-17); Calcium 9.4 mg/dL (8.4-10.2); Carbon Dioxide 27 mmol/L (22-30); Chloride 104 mmol/L (98-107); Globulin 3.4 g/dL; Glucose 149 mg/dL (74-99); Non-African American GFR(CKD) 35 (>60 ml/min/1.73 sqM); Potassium 4.1 mmol/L (3.5-5.1); Sodium 141 mmol/L (137-145); Total Bilirubin 1.3 mg/dL (0.2-1.3); Total Protein 6.2 g/dL (6.3-8.2)
[2020-12-16 10:36] LABS: Anisocytosis Slight; Basophils % (A) 1 %; Eosinophils # (A) 0.1 k/uL (0-0.7); Eosinophils % (A) 1 %; HCT 30.7 % (34.0-46.0); HGB 10.5 gm/dL (11.4-16.0); Hypochromasia Moderate; Lymphocytes % (A) 28 %; MCH 33.8 pg (25.0-35.0); MCHC 34.2 g/dL (31.0-37.0); Macrocytosis Slight; Mean Platelet Volume 8.6; Monocytes # (A) 0.3 k/uL (0-1.0); Monocytes % (A) 8 %; Neutrophils # (A) 2.1 k/uL (1.3-7.7); Neutrophils % (A) 60 %; RBC 3.11 m/uL (3.80-5.40); RDW 16.4 % (11.5-15.5); WBC 3.5 k/uL (3.8-10.6)
[2020-12-16 10:37] LABS: Platelet Count 32 k/uL (150-450)
[2020-12-16 11:46] LABS: Glucose,Whole Blood 188 mg/dL (75-99)
[2020-12-16] MEDS: SIMETHICONE 80 MG CHEWABLE PO SCH ×3 (14:10→21:25)
--- NOTE | 2020-12-16 14:53 | P.PN ---
Subjective Progress Note Date: 12/16/20 Principal diagnosis: Altered mental status, cirrhosis of the liver This is a 80-year-old female with a past medical history significant for diabetes mellitus, hypertension, hyperlipidemia, and alcoholic cirrhosis of the liver with ascites who presented to the hospital with altered mental status. She reports worsening memory impairment cloudiness prior to presentation, which has been going on for a few days prior to presentation. She has a known history of nonalcoholic liver disease/cirrhosis of the liver previously hospitalized for fluid overload and ascites with a recent paracentesis with 3.8 L removed and started on diuretic regimen. She's previously had esophageal variceal banding ligation in November 2020 with gastritis noted at the time the varices which were ligated. The nurse reports she had another episode of maroon colored stool yesterday morning, none since then. Patient also reports not having any further maroon colored stool that she knows of. States that she does not wish had a bowel movement today. She denies any nausea, vomiting, or abdominal pain. She is more alert today and is taking her lactulose. Ammonia levels have been trending down. Hemoglobin was stable at 10.0. Objective - Vital Signs Vital signs: Vital Signs Temp 98.2 F 12/16/20 08:51 Pulse 86 12/16/20 08:51 Resp 18 12/16/20 08:51 BP 108/66 12/16/20 08:51 Pulse Ox 97 12/16/20 09:30 Intake & Output 12/15/20 12/16/20 12/16/20 18:59 06:59 18:59 Intake Total 292 Balance 292 Intake: Blood Product 292 Platelet Pheresis Pas 292 Psoralen Unit [id number] Other: Voiding Method Bedside Commode # Voids 1 1 - Exam General appearance: The patient is alert, oriented x3, appears in no acute distress. HET: Head is normocephalic and atraumatic. Conjunctiva pink. Sclera anicteric. Neck: Supple without lymphadenopathy. Abdomen: Soft, nontender, distended with bowel sounds. No guarding or rigidity. Extremities: Normal skin color and turgor. No pedal edema Skin: No rashes, no jaundice Neurological: No focal deficits. Alert and oriented 3. - Labs CBC & Chem 7: 12/16/20 09:22 12/16/20 09:22 Labs: Abnormal Lab Results - Last 24 Hours (Table) 12/15/20 12/15/20 12/15/20 Range/Units 04:55 17:53 20:27 WBC (3.8-10.6) k/uL RBC (3.80-5.40) m/uL Hgb (11.4-16.0) gm/dL Hct (34.0-46.0) % RDW (11.5-15.5) % Plt Count (150-450) k/uL Anion Gap 13.90 H (4.00-12.00) mmol/L BUN 31.0 H (9.0-27.0) mg/dL Creatinine 1.6 H (0.6-1.5) mg/dL Est GFR (CKD-EPI)AfAm 35.4 L (60.0-200.0) Est GFR (CKD-EPI)NonAf 30.5 L (60.0-200.0) Glucose 115 H (70-110) mg/dL POC Glucose (mg/dL) 128 H 162 H (75-99) mg/dL AST 63 H (13-35) U/L Alkaline Phosphatase (38-126) U/L Total Protein 5.5 L (6.2-8.2) g/dL Albumin 2.70 L (3.80-4.90) g/dL Albumin/Globulin Ratio 0.96 L (1.60-3.17) g/dL 12/16/20 12/16/20 12/16/20 Range/Units 07:10 09:22 09:22 WBC 3.5 L (3.8-10.6) k/uL RBC 3.11 L (3.80-5.40) m/uL Hgb 10.5 L (11.4-16.0) gm/dL Hct 30.7 L (34.0-46.0) % RDW 16.4 H (11.5-15.5) % Plt Count 32 L (150-450) k/uL Anion Gap (4.00-12.00) mmol/L BUN 29 H (9.0-27.0) mg/dL Creatinine 1.43 H (0.6-1.5) mg/dL Est GFR (CKD-EPI)AfAm (60.0-200.0) Est GFR (CKD-EPI)NonAf (60.0-200.0) Glucose 149 H (70-110) mg/dL POC Glucose (mg/dL) 128 H (75-99) mg/dL AST 69 H (13-35) U/L Alkaline Phosphatase 140 H (38-126) U/L Total Protein 6.2 L (6.2-8.2) g/dL Albumin 2.8 L (3.80-4.90) g/dL Albumin/Globulin Ratio (1.60-3.17) g/dL 12/16/20 Range/Units 11:44 WBC (3.8-10.6) k/uL RBC (3.80-5.40) m/uL Hgb (11.4-16.0) gm/dL Hct (34.0-46.0) % RDW (11.5-15.5) % Plt Count (150-450) k/uL Anion Gap (4.00-12.00) mmol/L BUN (9.0-27.0) mg/dL Creatinine (0.6-1.5) mg/dL Est GFR (CKD-EPI)AfAm (60.0-200.0) Est GFR (CKD-EPI)NonAf (60.0-200.0) Glucose (70-110) mg/dL POC Glucose (mg/dL) 188 H (75-99) mg/dL AST (13-35) U/L Alkaline Phosphatase (38-126) U/L Total Protein (6.2-8.2) g/dL Albumin (3.80-4.90) g/dL Albumin/Globulin Ratio (1.60-3.17) g/dL Assessment and Plan (1) Hepatic encephalopathy Narrative/Plan: Assessment 80-year-old female with a history of decompensated liver cirrhosis with ascites, varices presenting for altered mental status. She was found to have elevation in ammonia of 64 on presentation. Clinically the patient reported increasing confusion. She is noted to have asterixis is a colon exam. No prior treatment for hepatic encephalopathy. Last EGD in November 2020 with gastritis and varices noted, which were treated with band ligation. Patient is currently taking lactulose 20 mg twice a day will increase to three times daily, Xifaxan was added. She is more Alert and oriented today. Current Visit: Yes Status: Acute Code(s): K72.90 - HEPATIC FAILURE, UNSPECIFIED WITHOUT COMA SNOMED Code(s): 11057543 (2) Ascites Current Visit: No Status: Acute Code(s): R18.8 - OTHER ASCITES SNOMED Code(s): 414168271 (3) Esophageal varices Current Visit: No Status: Acute Code(s): I85.00 - ESOPHAGEAL VARICES WITHOUT BLEEDING SNOMED Code(s): 27414314 (4) Liver cirrhosis secondary to nonalcoholic steatohepatitis (SUÁREZ) Current Visit: No Status: Acute Code(s): K75.81 - NONALCOHOLIC STEATOHEPATITIS (SUÁREZ); K74.60 - UNSPECIFIED CIRRHOSIS OF LIVER SNOMED Code(s): 922748922 Plan: 1. Symptomatic and supportive care 2. Okay for sodium restricted diet 3. Continue Protonix therapy 4. Ultrasound Paracentesis canceled, not enough fluid 5. Lactulose increased to 3 times a day, titrate for 3-4 bowel movements daily 6. Xifaxan 550 mg twice a day added 7. Daily CBC 8. Continue to monitor for signs and symptoms GI bleed Thank you for this consultation, we will continue to follow Dr. Imelda Mckenzie I agree with the dictator's note, documented as a scribe by Dary Ross.
--- NOTE | 2020-12-16 15:23 | P.PN ---
Subjective Progress Note Date: 12/16/20 She denies any chest pain, shortness of breath, fever, or chills. Reports abdominal bloating and discomfort. Her hgb is stable today, she remains thrombocytopenic with plt 35. She continues on sodium restricted diet and lasix. Nursing reporting blood tinged bowel movement. 12/15/2020 more alert today reporting maroon bowel movement X 2 yesterday, hemoglobin stable 8.2. Complains of abdominal pain. Ammonia 63. Lovenox on hold, scheduled for paracentesis today. Receiving platelets, platelets 38. Denies chest pain, palpitations or shortness of breath. Vital signs stable, maintaining O2 sats in the high 90s to 100 on room air. 12/16/20 paracentesis canceled as ultrasound reported not enough fluid .xifaxin added to med regimen yesterday,in addition to increased lactulose. No further bleeding reported. Complains of abdominal "ache". Eating breakfast, denies nausea or vomiting. Hemoglobin 10.5, platelets 32. Renal function continues trending down, BUN 29, creatinine 1.43. Rocephin initiated for E. coli UTI. Complains of generalized weakness. Evaluated by PT recommending subacute rehab. Objective - Vital Signs Vital signs: Vital Signs Temp 98.2 F 12/16/20 08:51 Pulse 86 12/16/20 08:51 Resp 18 12/16/20 08:51 BP 108/66 12/16/20 08:51 Pulse Ox 97 12/16/20 09:30 Intake & Output 12/15/20 12/16/20 12/16/20 18:59 06:59 18:59 Intake Total 292 Balance 292 Intake: Blood Product 292 Platelet Pheresis Pas 292 Psoralen Unit [id number] Other: Voiding Method Bedside Commode # Voids 1 1 - Exam - Exam General: Alert and oriented 3 ,NAD. Vitals reviewed Lungs: normal respiratory effort, no wheezes or rales CV: Regular rate and rhythm, no murmur. Peripheral pulses 2+ Abdomen: soft, distended, generalized tenderness, positive bowel sounds Skin: warm and dry. Microbiology 12/13/20 04:11 Urine,Catheterized Urine Culture - Final Escherichia coli - Labs CBC & Chem 7: 12/16/20 09:22 12/16/20 09:22 Labs: Abnormal Lab Results - Last 24 Hours (Table) 12/15/20 12/15/20 12/15/20 Range/Units 04:55 04:55 17:53 WBC 3.12 L (4.50-10.00) X 10*3/uL RBC 2.65 L (4.10-5.20) X 10*6/uL Hgb 8.2 L (12.0-15.0) g/dL Hct 26.7 L (37.2-46.3) % MCV 100.8 H (80.0-97.0) fL MCHC 30.7 L (32.0-37.0) g/dL RDW 16.0 H (11.5-14.5) % Plt Count 38 L (140-440) X 10*3/uL Plt Count Comment DECREASED A Anion Gap 13.90 H (4.00-12.00) mmol/L BUN 31.0 H (9.0-27.0) mg/dL Creatinine 1.6 H (0.6-1.5) mg/dL Est GFR (CKD-EPI)AfAm 35.4 L (60.0-200.0) Est GFR (CKD-EPI)NonAf 30.5 L (60.0-200.0) Glucose 115 H (70-110) mg/dL POC Glucose (mg/dL) 128 H (75-99) mg/dL AST 63 H (13-35) U/L Total Protein 5.5 L (6.2-8.2) g/dL Albumin 2.70 L (3.80-4.90) g/dL Albumin/Globulin Ratio 0.96 L (1.60-3.17) g/dL 12/15/20 12/16/20 Range/Units 20:27 07:10 WBC (4.50-10.00) X 10*3/uL RBC (4.10-5.20) X 10*6/uL Hgb (12.0-15.0) g/dL Hct (37.2-46.3) % MCV (80.0-97.0) fL MCHC (32.0-37.0) g/dL RDW (11.5-14.5) % Plt Count (140-440) X 10*3/uL Plt Count Comment Anion Gap (4.00-12.00) mmol/L BUN (9.0-27.0) mg/dL Creatinine (0.6-1.5) mg/dL Est GFR (CKD-EPI)AfAm (60.0-200.0) Est GFR (CKD-EPI)NonAf (60.0-200.0) Glucose (70-110) mg/dL POC Glucose (mg/dL) 162 H 128 H (75-99) mg/dL AST (13-35) U/L Total Protein (6.2-8.2) g/dL Albumin (3.80-4.90) g/dL Albumin/Globulin Ratio (1.60-3.17) g/dL Microbiology - Last 24 Hours (Table) 12/13/20 04:11 Urine Culture - Final Urine,Catheterized Escherichia coli Assessment and Plan Assessment: (1) COVID-19 Current Visit: Yes Status: Acute Code(s): U07.1 - COVID-19 SNOMED Code(s): 838549345 (2) Hepatic encephalopathy Current Visit: Yes Status: Acute Code(s): K72.90 - HEPATIC FAILURE, UNSPECIFIED WITHOUT COMA SNOMED Code(s): 30962884 (3) Ascites Current Visit: No Status: Acute Code(s): R18.8 - OTHER ASCITES SNOMED Code(s): 441338964 (4) Esophageal varices Current Visit: No Status: Acute Code(s): I85.00 - ESOPHAGEAL VARICES WITHOUT BLEEDING SNOMED Code(s): 22509758 (5) Liver cirrhosis secondary to nonalcoholic steatohepatitis (SU[place]REZ) Current Visit: No Status: Acute Code(s): K75.81 - NONALCOHOLIC STEATO HEPATITIS (SU[place]REZ); K74.60 - UNSPECIFIED CIRRHOSIS OF LIVER SNOMED Code(s): 280181271 Acute UTI with E. coli Acute renal failure Diabetes mellitus type 2 Gastroesophageal reflux disease Hypertension Hyperlipidemia Splenomegaly Plan: Continue on current medication regime ,monitoring and symptomatic treatment. Continue antibiotic, PPI, lactulose and sodium restrictions. Close monitoring of platelets, ammonia level, with repeat labs ordered for a.m. Discussed subacute rehab at discharge the patient is in agreement with. Social work consulted. Prognosis guarded given multiple complex medical issues. The impression and plan of care has been dictated as directed. : I performed a history and examination of this patient, discussed the same with the dictator. I agree with the dictator's note ,documented as a scribe. Any additional findings or plans will be noted.
[2020-12-16 17:34] LABS: Glucose,Whole Blood 166 mg/dL (75-99)
[2020-12-16] MEDS: SODIUM CHLORIDE 0.9% 1,000 ML IV SCH (18:09)
--- NOTE | 2020-12-16 19:39 | PN ---
PROGRESS NOTE DATE OF SERVICE: 12/16/2020 REASON FOR FOLLOWUP: 1. COVID-19 infection. 2. UTI. INTERVAL HISTORY: The patient is currently afebrile. The patient is breathing comfortably. The patient did have minimal cough. No sputum production. No chest pain, shortness of breath or cough. Mild abdominal discomfort but no worsening. Did have diarrhea from the lactulose. PHYSICAL EXAMINATION: Blood pressure 127/80 with a pulse of 95, temperature 98.2. She is 100% on room air. General description is an elderly female lying in bed in no distress. RESPIRATORY SYSTEM: Unlabored breathing. Clear to auscultation anteriorly. HEART: S1, S2. Regular rate and rhythm. ABDOMEN: Soft. No tenderness. LABS: Hemoglobin 10.5, white count 3.5, BUN of 29, creatinine 1.43. DIAGNOSTIC IMPRESSION AND PLAN: 1. Patient with COVID-19 infection but no significant pneumonia. Patient is currently not hypoxic. She is 100% on room air. Treatment remains mostly supportive in the form of Lovenox, zinc and ascorbic acid. 2. Patient with an Escherichia coli urinary tract infection, on Rocephin; to continue. MMODL / IJN: [id number] /
[2020-12-16 21:13] LABS: Glucose,Whole Blood 160 mg/dL (75-99)
[2020-12-16] MEDS: HYDROcodone/APAP 5-325MG 1 EACH TAB PO PRN (21:25)
[2020-12-17] MEDS: LEVOTHYROXINE 100 MCG TAB PO SCH (06:04)
[2020-12-17] MEDS: PANTOPRAZOLE 40 MG TABLET PO SCH (07:08)
[2020-12-17] MEDS: ASCORBIC ACID 500 MG TAB PO SCH (07:08)
[2020-12-17] MEDS: MULTIVITAMINS, THERA 1 EACH TAB PO SCH (07:09)
[2020-12-17] MEDS: CYANOCOBALAMIN 500 MCG TAB PO SCH (07:09)
[2020-12-17] MEDS: ATORVASTATIN 20 MG TAB PO SCH (07:09)
[2020-12-17] MEDS: LACTULOSE 20 GM/30 ML CUP PO SCH (07:09)
[2020-12-17] MEDS: atenoloL 25 MG TAB PO SCH (07:09)
[2020-12-17] MEDS: allopurinoL 100 MG TAB PO SCH (07:09)
[2020-12-17] MEDS: FERROUS SULFATE 325 MG TAB PO SCH (07:09)
[2020-12-17] MEDS: CALCIUM CARBONATE 500 MG CHEWABLE PO SCH (07:09)
[2020-12-17] MEDS: SIMETHICONE 80 MG CHEWABLE PO SCH ×2 (07:10→13:15)
[2020-12-17] MEDS: RIFAXIMIN 550 MG TABLET PO SCH (07:10)
[2020-12-17] MEDS: HYDROCORTISONE 2.5% RECTAL CREAM 30 GM TUBE RECTAL SCH (07:11)
[2020-12-17 07:59] LABS: Glucose,Whole Blood 118 mg/dL (75-99)
[2020-12-17] MEDS: INSULIN ASPART (NovoLOG) 100 UNIT/ML VIAL SQ SCH ×2 (08:06→13:15)
[2020-12-17] MEDS ORDERED: ENOXAPARIN 30 MG/0.3 ML SYRINGE SQ SCH (09:00)
[2020-12-17] MEDS: SODIUM CHLORIDE 0.9% 1,000 ML IV SCH (11:08)
[2020-12-17 12:27] LABS: Glucose,Whole Blood 210 mg/dL (75-99)
[2020-12-17 12:40] LABS: HCT 26.7 % (37.2-46.3); HGB 8.2 g/dL (12.0-15.0); MCH 30.9 pg (27.0-32.0); MCHC 30.7 g/dL (32.0-37.0); MCV 100.8 fL (80.0-97.0); Mean Platelet Volume 11.7 fL (9.5-12.2); Platelet Count 33 X 10*3/uL (140-440); RBC 2.65 X 10*6/uL (4.10-5.20); RDW 16.5 % (11.5-14.5); WBC 2.98 X 10*3/uL (4.50-10.00)
--- NOTE | 2020-12-17 14:55 | PN ---
PROGRESS NOTE DATE OF SERVICE: 12/17/2020 REASON FOR FOLLOWUP: 1. Positive COVID test. 2. UTI. INTERVAL HISTORY: The patient is afebrile. The patient is breathing comfortably, currently 100% on room air. Denies having any chest pain or shortness of breath. Occasional cough. No abdominal pain or any worsening of urinary symptoms. PHYSICAL EXAMINATION: Blood pressure 134/65, pulse of 113, temperature 98.2. She is 100% on room air. General description is an elderly female lying in bed in no distress. RESPIRATORY SYSTEM: Unlabored breathing, clear to auscultation anteriorly. HEART: S1, S2. Regular rate and rhythm. ABDOMEN: Soft. No tenderness. LABS: Hemoglobin is 8.2, white count 2.98. Urine with an E coli. DIAGNOSTIC IMPRESSION AND PLAN: 1. Patient with positive COVID test. However, the patient did not have significant respiratory symptoms and is on room air, treatment was mostly supportive and will be multivitamins and zinc on discharge. No need for steroids. 2. Patient with Escherichia coli urinary tract infection that has been adequately treated. No need for antibiotic on discharge. Will discuss with the nurse practitioner for admitting team. MMODL / IJN: [id number] /
--- NOTE | 2020-12-17 15:14 | P.DS ---
Providers Date of admission: 12/13/20 11:22 Expected date of discharge: 12/17/20 Attending physician: Get Bower MD Consults: 12/13/20 07:25 Consult Physician Routine Consulting Provider: Jose Manuel Vargas Consult Reason/Comments: Liver Disease Do you want consulting provider notified?: Yes 12/13/20 14:42 Consult Physician Routine Consulting Provider: Gabriel Giron Consult Reason/Comments: covid Do you want consulting provider notified?: Yes Primary care physician: Aury Gracia [facility] Course: Final Diagnoses: (1) COVID-19 Current Visit: Yes Status: Acute Code(s): U07.1 - COVID-19 SNOMED Code(s): 034674342 (2) Hepatic encephalopathy Current Visit: Yes Status: Acute Code(s): K72.90 - HEPATIC FAILURE, UNSPECIFIED WITHOUT COMA SNOMED Code(s): 65876157 (3) Ascites Current Visit: No Status: Acute Code(s): R18.8 - OTHER ASCITES SNOMED Code(s): 506835038 (4) Esophageal varices Current Visit: No Status: Acute Code(s): I85.00 - ESOPHAGEAL VARICES WITHOUT BLEEDING SNOMED Code(s): 24942279 (5) Liver cirrhosis secondary to nonalcoholic steatohepatitis (SUÁREZ) Current Visit: No Status: Acute Code(s): K75.81 - NONALCOHOLIC STEATOHEPATITIS (SUÁREZ); K74.60 - UNSPECIFIED CIRRHOSIS OF LIVER SNOMED Code(s): 906336698 Acute UTI with E. coli, completed antibiotic therapy, as per ID Acute renal failure Diabetes mellitus type 2 Gastroesophageal reflux disease Hypertension Hyperlipidemia Splenomegaly Hospital course:She denies any chest pain, shortness of breath, fever, or chills. Reports abdominal bloating and discomfort. Her hgb is stable today, she remains thrombocytopenic with plt 35. She continues on sodium restricted diet and lasix. Nursing reporting blood tinged bowel movement. 12/15/2020 more alert today reporting maroon bowel movement X 2 yesterday, hemoglobin stable 8.2. Complains of abdominal pain. Ammonia 63. Lovenox on hold, scheduled for paracentesis today. Receiving platelets, platelets 38. Denies chest pain, palpitations or shortness of breath. Vital signs stable, maintaining O2 sats in the high 90s to 100 on room air. 4/14/21 paracentesis canceled as ultrasound reported not enough fluid .xifaxin added to med regimen yesterday,in addition to increased lactulose. No further bleeding reported. Complains of abdominal "ache". Eating breakfast, denies nausea or vomiting. Hemoglobin 10.5, platelets 32. Renal function continues trending down, BUN 29, creatinine 1.43. Rocephin initiated for E. coli UTI. Complains of generalized weakness. Evaluated by PT recommending subacute rehab. Significant improvement on combined therapy of lactulose with Xifaxan , with ammonia level down to 15. Sensorium improved. Patient and family declining subacute rehab. Hemoglobin 8.2, no further bleeding reported. Denies chest pain, palpitations or shortness of breath. Denies lightheadedness dizziness or focal deficits. Denies nausea vomiting or diarrhea. Cleared by GI for discharge. Patient will be discharged home today in a stable condition with guarded prognosis. Patient has been instructed to maintain sodium restricted diet. GI will re-attempt authorization for Xifaxan in office, OP. The impression and plan of care has been dictated as directed. : I performed a history and examination of this patient, discussed the same with the dictator. I agree with the dictator's note ,documented as a scribe. Any additional findings or plans will be noted. Patient Condition at Discharge: Stable Plan - Discharge Summary Discharge Rx Participant: No New Discharge Prescriptions: [place], Insulin Disposable [Bd Ultra-Fine Pen Needle 4mm 32g] 1 needle SQ DIRECTED 30 Days #120 needle Lactulose [Cephulac] 20 gm PO TID #900 ml Ascorbic Acid [Vitamin C] 1,000 mg PO DAILY tab INSULIN LISPRO (HumaLOG) [humaLOG] 0 unit SQ ACHS #1 vial Rifaximin [Xifaxan] 550 mg PO BID #60 tablet Continue Multivit-Min/Iron/Folic/Lutein [Centrum Silver Women Tablet] 1 tab PO DAILY Ferrous Sulfate [Iron (65 MG Elemental)] 325 mg PO DAILY Cyanocobalamin (Vitamin B-12) [Vitamin B-12] 1,000 mcg PO DAILY Cranberry Fruit Extract [Cranberry] 1,500 mg PO DAILY HYDROcodone/APAP 5-325MG [[place] 5-325] 1 tab PO BID PRN PRN Reason: Pain Ergocalciferol [Vitamin D2 (DRISDOL)] 50,000 unit PO Q7D Simvastatin [Zocor] 40 mg PO DAILY Levothyroxine Sodium [Synthroid] 100 mcg PO QAM Omeprazole 40 mg PO QAM atenoloL [Tenormin] 25 mg PO QAM allopurinoL [Zyloprim] 100 mg PO DAILY Calcium Carbonate [Calcium] 600 mg PO DAILY Pantoprazole Sodium [Protonix] 40 mg PO BID #60 tablet. Discontinued metFORMIN HCL 500 mg PO DAILY Spironolactone [Aldactone] 25 mg PO BID Furosemide [Lasix] 20 mg PO BID Discharge Medication List Calcium Carbonate [Calcium] 600 mg PO DAILY 07/19/19 [History] Cranberry Fruit Extract [Cranberry] 1,500 mg PO DAILY 07/19/19 [History] Cyanocobalamin (Vitamin B-12) [Vitamin B-12] 1,000 mcg PO DAILY 07/19/19 [History] Ergocalciferol [Vitamin D2 (DRISDOL)] 50,000 unit PO Q7D 07/19/19 [History] Ferrous Sulfate [Iron (65 MG Elemental)] 325 mg PO DAILY 07/19/19 [History] HYDROcodone/APAP 5-325MG [[place] 5-325] 1 tab PO BID PRN 07/19/19 [History] Levothyroxine Sodium [Synthroid] 100 mcg PO QAM 07/19/19 [History] Multivit-Min/Iron/Folic/Lutein [Centrum Silver Women Tablet] 1 tab PO DAILY 07/19/19 [History] Omeprazole 40 mg PO QAM 07/19/19 [History] Simvastatin [Zocor] 40 mg PO DAILY 07/19/19 [History] allopurinoL [Zyloprim] 100 mg PO DAILY 07/19/19 [History] atenoloL [Tenormin] 25 mg PO QAM 07/19/19 [History] Pantoprazole Sodium [Protonix] 40 mg PO BID #60 tablet. 11/27/20 [Rx] Ascorbic Acid [Vitamin C] 1,000 mg PO DAILY tab 12/17/20 [Rx] INSULIN LISPRO (HumaLOG) [humaLOG] 0 unit SQ ACHS #1 vial 12/17/20 [Rx] Lactulose [Cephulac] 20 gm PO TID #900 ml 12/17/20 [Rx] [place], Insulin Disposable [Bd Ultra-Fine Pen Needle 4mm 32g] 1 needle SQ DIRECTED 30 Days #120 needle 12/17/20 [Rx] Rifaximin [Xifaxan] 550 mg PO BID #60 tablet 12/17/20 [Rx] Follow up Appointment(s)/Referral(s): [facility], [NON-STAFF] - 1-2 Days Aury Gracia DO [Primary Care Provider] - 1 Week Jose Manuel Vargas MD [STAFF PHYSICIAN] - 2 Weeks Patient Instructions/Handouts: Lactulose (By mouth), Insulin Lispro (By injection), Coronavirus Disease 2019 (COVID-19), Dehydration (DC), Altered Mental Status (GEN) Activity/Diet/Wound Care/Special Instructions: Metformin, Aldactone, Lasix currently on hold, secondary to renal function; reevaluate in outpatient clinic. Final DC recommendations and clearance from GI. Confirm GI follow-up prior to discharge. Completed antibiotic therapy as per ID.
--- NOTE | 2020-12-17 15:30 | P.PN ---
Subjective Progress Note Date: 12/17/20 Principal diagnosis: Altered mental status, cirrhosis of the liver This is a 80-year-old female with a past medical history significant for diabetes mellitus, hypertension, hyperlipidemia, and alcoholic cirrhosis of the liver with ascites who presented to the hospital with altered mental status. She reports worsening memory impairment cloudiness prior to presentation, which has been going on for a few days prior to presentation. She has a known history of nonalcoholic liver disease/cirrhosis of the liver previously hospitalized for fluid overload and ascites with a recent paracentesis with 3.8 L removed and started on diuretic regimen. She's previously had esophageal variceal banding ligation in November 2020 with gastritis noted at the time the varices which were ligated. The nurse reports she had another episode of maroon colored stool yesterday morning, none since then. Patient also reports not having any further maroon colored stool that she knows of. She denies any nausea, vomiting, or abdominal pain. She is alert and oriented. Ammonia levels have been trending down. Yesterday's hemoglobin was 10, today is 8.2, believed yesterday was a false reading. Patient has been stable at 8.2 with no signs of GI bleed. Patient reportedly had a brown stool today. Plan is for discharge home. Objective - Vital Signs Vital signs: Vital Signs Temp 98.2 F 12/17/20 07:00 Pulse 113 H 12/17/20 07:00 Resp 17 12/17/20 08:00 BP 134/65 12/17/20 07:00 Pulse Ox 100 12/17/20 07:00 Intake & Output 12/16/20 12/17/20 12/17/20 18:59 06:59 18:59 Other: Voiding Method Bedside Commode # Voids 1 1 1 # Bowel Movements 1 1 - Exam General appearance: The patient is alert, oriented x3, appears in no acute distress. HET: Head is normocephalic and atraumatic. Conjunctiva pink. Sclera anicteric. Neck: Supple without lymphadenopathy. Abdomen: Soft, nontender, distended with bowel sounds. No guarding or rigidity. Extremities: Normal skin color and turgor. No pedal edema Skin: No rashes, no jaundice Neurological: No focal deficits. Alert and oriented 3. - Labs CBC & Chem 7: 12/17/20 07:13 12/16/20 09:22 Labs: Abnormal Lab Results - Last 24 Hours (Table) 12/16/20 12/16/20 12/17/20 Range/Units 17:32 21:12 07:13 WBC 2.98 L (4.50-10.00) X 10*3/uL RBC 2.65 L (4.10-5.20) X 10*6/uL Hgb 8.2 L (12.0-15.0) g/dL Hct 26.7 L (37.2-46.3) % MCV 100.8 H (80.0-97.0) fL MCHC 30.7 L (32.0-37.0) g/dL RDW 16.5 H (11.5-14.5) % Plt Count 33 L (140-440) X 10*3/uL POC Glucose (mg/dL) 166 H 160 H (75-99) mg/dL 12/17/20 12/17/20 Range/Units 07:57 12:25 WBC (4.50-10.00) X 10*3/uL RBC (4.10-5.20) X 10*6/uL Hgb (12.0-15.0) g/dL Hct (37.2-46.3) % MCV (80.0-97.0) fL MCHC (32.0-37.0) g/dL RDW (11.5-14.5) % Plt Count (140-440) X 10*3/uL POC Glucose (mg/dL) 118 H 210 H (75-99) mg/dL Assessment and Plan (1) Hepatic encephalopathy Narrative/Plan: Assessment 80-year-old female with a history of decompensated liver cirrhosis with ascites, varices presenting for altered mental status. She was found to have elevation in ammonia of 64 on presentation. Clinically the patient reported increasing confusion. She is noted to have asterixis is a colon exam. No prior treatment for hepatic encephalopathy. Last EGD in November 2020 with gastritis and varices noted, which were treated with band ligation. Patient is currently taking lactulose 20 mg twice a day will increase to three times daily, Xifaxan was added. She is more Alert and oriented today. Current Visit: Yes Status: Acute Code(s): K72.90 - HEPATIC FAILURE, UNSPECIFIED WITHOUT COMA SNOMED Code(s): 53058903 (2) Ascites Current Visit: No Status: Acute Code(s): R18.8 - OTHER ASCITES SNOMED Code(s): 200346751 (3) Esophageal varices Current Visit: No Status: Acute Code(s): I85.00 - ESOPHAGEAL VARICES WITHOUT BLEEDING SNOMED Code(s): 13380784 (4) Liver cirrhosis secondary to nonalcoholic steatohepatitis (SUÁREZ) Current Visit: No Status: Acute Code(s): K75.81 - NONALCOHOLIC STEATOHEPATITIS (SUÁREZ); K74.60 - UNSPECIFIED CIRRHOSIS OF LIVER SNOMED Code(s): 993492003 Plan: 1. Symptomatic and supportive care 2. Okay for sodium restricted diet 3. Continue Protonix therapy 4. Ultrasound Paracentesis canceled, not enough fluid 5. Lactulose increased to 3 times a day, titrate for 3-4 bowel movements daily 6. Xifaxan 550 mg twice a day, if not covered continue lactulose only Patient may be discharged home from a gastroenterology standpoint. Thank you for this consultation. Dr. Imelda Mckenzie I agree with the dictator's note, documented as a scribe by Dary Ross.
[2020-12-17 15:31] VITALS: BP 124/62; PULSE 86; RESP 16; TEMP 98.1
--- NOTE | 2021-01-06 16:03 | CDI ---
Documentation Clarification Form Date: 01/05/2021 09:20:00 AM From: Ebony Rai Admit Date: 12/13/2020 11:22:00 AM Patient Name: Marianne Rodriguez Visit Number: [id number] Discharge Date: 12/17/2020 03:27:00 PM ATTENTION: The Clinical Documentation Specialists (CDI) and [facility] Coding Staff appreciate your assistance in clarifying documentation. Please respond to the clarification below the line at the bottom and electronically sign. The CDI & [facility] Coding staff will review the response and follow-up if needed. Please note: Queries are made part of the Legal Health Record. If you have any questions, please contact the author of this message via ITS. Dr. Get Bower The patient presented with the following clinical indicators. Additional clarification regarding the Etiology/cause of the clinical indicators is requested. Patient admitted with dehydration and AMS. As per ED, H&P, consult, PN and Discharge Summary impression documented as AMS due to hepatic encephalopathy from underlying non-alcoholic cirrhosis of liver &metabolic encephalopathy , MARY with ATN due to dehydration, has acute Covid 19 infection however does not have respiratory symptoms with Chest Xray- No ground infiltrate & patient is not hypoxic, positive urine culture with E.Coli with mild acute UTI. History/Risk Factors: AMS due to hepatic encephalopathy from non-alcoholic cirrhosis of liver, MARY with ATN due to dehydration, Covid 19 infection asymptomatic symptoms, Mild UTI without urinary symptoms, No fever, chills, SOB or respiratory symptoms. Clinical Indicators: WBC: 3.1 , 2.62 , 3.0, 3.12, 3.5, 2.98 , Platelets-46, 35, 46, 38, 32, 33 , Lactic acid: 4.3, 2.8. Procalcitonin- 0.23. , Ammonia- 64,72,92,63,15, Cr-2.17, 1.94 , 1.6, 1.43 & GFR-24,28,35,41. Vitals signs: 12/13 Temp-98.0 F, Pulse-74, RR-16,BP 118/75,Pulseoxy-96 Room air. Treatment: Lovonex, Zinc, ascorbic acid, Lactulose 20mg PO 3 times a day & Xifaxan 50mg PO twice a day ,Rocephin for mild UTI, platelets transfusion, ferrous sulphate 325mg PO, multivitamins, cyanocobalamin ID Consult: Patient admitted to the hospital with mental status changes, more likely related to the hepatic encephalopathy from underlying non-alcoholic cirrhosis of the liver. The patient did have a positive COVID-19 test, however, does not have respiratory symptoms. Chest x-ray with some atelectasis. No ground-glass infiltrate and the patient is not hypoxic & We will check inflammatory markers, no need for Remedesivir. Lovenox, zinc and ascorbic acid, Patient with a positive urine culture with Escherichia coli, mild urinary tract infection. In your professional opinion, please clarify if these findings signify one of the following conditions: [ ] Sepsis POA [ ] Sepsis, Not POA [ ] Sepsis Ruled out , only having Covid infection & mild UTI. [ ] Other, please specify [ ] Unable to determine SIRS Criteria: 2 or more of the following may indicate SIRS-----Reference information only -Temperature < 96.8F (36C) or > 101.0F (38.3C) -Heart Rate > 90 bpm -Respiratory Rate > 20 breaths/min or PaCO2 < 32 mmHg -White Blood Cell Count > 12,000 or < 4,000 cells/mm3 or > 10% bands Sepsis POA MTDD
--- NOTE | 2021-01-06 16:07 | CDI ---
Documentation Clarification Form Date: 01/05/2021 09:25:00 AM From: Ebony Rai Admit Date: 12/13/2020 11:22:00 AM Patient Name: Marianne Rodriguez Visit Number: [id number] Discharge Date: 12/17/2020 03:27:00 PM ATTENTION: The Clinical Documentation Specialists (CDI) and [facility] Coding Staff appreciate your assistance in clarifying documentation. Please respond to the clarification below the line at the bottom and electronically sign. The CDI & [facility] Coding staff will review the response and follow-up if needed. Please note: Queries are made part of the Legal Health Record. If you have any questions, please contact the author of this message via ITS. Dr. Get Bower Anemia documented in H&P PMH, thrombocytopenia & Leukopenia documented in H&P impression. Patient admitted with dehydration and AMS. As per ED, H&P, consult, PN and Discharge Summary impression documented as AMS due to hepatic encephalopathy from underlying non-alcoholic cirrhosis of liver &metabolic encephalopathy , MARY with ATN due to dehydration, has acute Covid 19 infection however does not have respiratory symptoms with Chest Xray- No ground infiltrate & patient is not hypoxic, positive urine culture with E.coli with mild acute UTI. History/Risk factors: PMH of anemia, leukopenia & thrombocytopenia as per the H&P impression but no documentation of pancytopenia in the medical report. Clinical indicators: Labs: WBC : 3.1 , 2.62, 3.0, 3.12, 3.5, 2.98. RBC: 3.22, 2.58, 3.16, 2.65, 3.11, 2.65. HGB:10.1, 8.1, 9.9, 8.2, 10.5, 8.2. Hct-32.1, 25.7, 31.9, 26.7, 30.7, 26.7. Plt count: 46, 35, 46, 38, 32, 33. Treatment: platelets transfusion, ferrous sulphate 325mg PO, Lovonex, Zinc, ascorbic acid, Lactulose 20mg PO 3 times a day & Xifaxan 50mg POA twice a day ,Rocephin for mild UTI, multivitamins, cyanocobalamin. Please clarify the Etiology of anemia, thrombocytopenia and leukopenia, if known: [ ] Anemia, thrombocytopenia, leukopenia due to pancytopenia. [ ] Anemia, thrombocytopenia, leukopenia not due to pancytopenia. [ ] Other condition, please specify ____ [ ] Unable to determine Anemia, thrombocytopenia, leukopenia due to pancytopenia MTDD
== END 2020-12-17 15:27 | disposition home or self-care (01) | DRG 871 ==
LOC: EC 00:22 → 6NMEDSUR 05:26 → OBSVTOIN 11:22
PROVIDERS: ADMIT Family Medicine; ATTEND Family Medicine
PROC: 30233R1 Transfusion of Nonautologous Platelets into Peripheral Vein, Percutaneous Approach (ICD-10-PCS; principal; 2020-12-15)
DX: A41.89 Other specified sepsis (principal); U07.1 COVID-19; K72.00 Acute and subacute hepatic failure without coma; G93.41 Metabolic encephalopathy; N17.0 Acute kidney failure with tubular necrosis; R18.8 Other ascites; N39.0 Urinary tract infection, site not specified; J98.11 Atelectasis; D61.818 Other pancytopenia; K75.81 Nonalcoholic steatohepatitis (NASH); K21.9 Gastro-esophageal reflux disease without esophagitis; E78.5 Hyperlipidemia, unspecified; I10 Essential (primary) hypertension; M19.90 Unspecified osteoarthritis, unspecified site; K74.60 Unspecified cirrhosis of liver; E86.0 Dehydration; R16.1 Splenomegaly, not elsewhere classified; E11.9 Type 2 diabetes mellitus without complications; B96.20 Unspecified Escherichia coli [E. coli] as the cause of diseases classified elsewhere; E87.6 Hypokalemia; D72.810 Lymphocytopenia; K29.70 Gastritis, unspecified, without bleeding; K57.30 Diverticulosis of large intestine without perforation or abscess without bleeding; F32.9 Major depressive disorder, single episode, unspecified; Z90.49 Acquired absence of other specified parts of digestive tract; Z79.84 Long term (current) use of oral hypoglycemic drugs; Z79.890 Hormone replacement therapy; Z79.899 Other long term (current) drug therapy; Z87.440 Personal history of urinary (tract) infections; Z80.9 Family history of malignant neoplasm, unspecified; Z85.828 Personal history of other malignant neoplasm of skin; Z83.79 Family history of other diseases of the digestive system; Z87.19 Personal history of other diseases of the digestive system; Z86.010 Personal history of colon polyps
CPT/HCPCS: 36415; 71046; 76705; 80053; 81001; 82140; 82728; 83605; 83615; 84145; 84484; 85025; 85027; 85379; 85610; 85730; 86140; 86850; 86900; 86901; 87077; 87086; 87186; 87635; 93005; 94760; 96374; 99285

== ENCOUNTER → 2021-01-18 | Outpatient (CLI) | payer MEDICARE, BC ==
[2021-01-18 20:25] LABS: INR 1.41 (0.90-1.11)
[2021-01-18 21:03] LABS: HCT 31.5 % (37.2-46.3); HGB 9.3 g/dL (12.0-15.0); MCHC 29.5 g/dL (32.0-37.0); MCV 108.2 fL (80.0-97.0); Macrocytosis (M) 2+; Mean Platelet Volume 11.2 fL (9.5-12.2); Platelet Count 61 X 10*3/uL (140-440); RBC 2.91 X 10*6/uL (4.10-5.20); RDW 20.1 % (11.5-14.5); WBC 4.36 X 10*3/uL (4.50-10.00)
[2021-01-18 21:26] LABS: Albumin 2.7 g/dL (3.80-4.90); Albumin/Globulin Ratio 0.79 (1.60-3.17); Anion Gap 15.2 mmol/L (4.00-12.00); BUN/Creat Ratio 13.5 Ratio (12.00-20.00); Carbon Dioxide 23.8 mmol/L (21.6-31.8); Globulin 3.4 g/dL (1.6-3.3); Non-African American GFR(CKD) 23.3 (60.0-200.0); Potassium 3.4 mmol/L (3.5-5.5); Total Bilirubin 1.4 mg/dL (0.2-1.2); Total Protein 6.1 g/dL (6.2-8.2)
== END | disposition home or self-care (01) ==
LOC: LABWHC1 12:14
PROVIDERS: ATTEND Physician Assistant
DX: K74.60 Unspecified cirrhosis of liver (principal)
CPT/HCPCS: 36415; 80053; 82105; 85027; 85610

== ENCOUNTER 2021-01-30 07:53 | Inpatient (IN) | payer MEDICARE, BC ==
--- NOTE | 2021-01-30 08:16 | ED ---
SOB HPI - General Chief Complaint: Shortness of Breath Stated Complaint: SOB Time Seen by Provider: 01/30/21 07:58 Source: patient, family, RN notes reviewed, old records reviewed Mode of arrival: ambulatory Limitations: no limitations - History of Present Illness Initial Comments: This is a 72-year-old female with a history of nonalcoholic cirrhosis who presents with complaints of one week of shortness of breath also midsternal sharp chest pain dyspnea on exertion and abdominal distention. She believes she has recurrent ascites. No fevers chills sweats nausea vomiting or other symptoms at this time MD Complaint: shortness of breath - Related Data Home Medications Medication Instructions Recorded Confirmed Calcium Carbonate [Calcium] 600 mg PO DAILY 07/19/19 01/22/21 Cranberry Fruit Extract [Cranberry] 1,500 mg PO DAILY 07/19/19 01/22/21 Cyanocobalamin (Vitamin B-12) 1,000 mcg PO DAILY 07/19/19 01/22/21 [Vitamin B-12] Ergocalciferol [Vitamin D2 50,000 unit PO Q7D 07/19/19 01/22/21 (DRISDOL)] Ferrous Sulfate [Iron (65 MG 325 mg PO DAILY 07/19/19 01/22/21 Elemental)] HYDROcodone/APAP 5-325MG [[place] 1 tab PO BID PRN 07/19/19 01/22/21 5-325] Levothyroxine Sodium [Synthroid] 100 mcg PO QAM 07/19/19 01/22/21 Multivit-Min/Iron/Folic/Lutein 1 tab PO DAILY 07/19/19 01/22/21 [Centrum Silver Women Tablet] Omeprazole 40 mg PO QAM 07/19/19 01/22/21 Simvastatin [Zocor] 40 mg PO DAILY 07/19/19 01/22/21 allopurinoL [Zyloprim] 100 mg PO DAILY 07/19/19 01/22/21 atenoloL [Tenormin] 25 mg PO QAM 07/19/19 01/22/21 Furosemide [Lasix] 20 mg PO DAILY 01/22/21 01/22/21 Spironolactone [Aldactone] 25 mg PO DAILY 01/22/21 01/22/21 Previous Rx's Medication Instructions Recorded Ascorbic Acid [Vitamin C] 1,000 mg PO DAILY tab 12/17/20 INSULIN LISPRO (HumaLOG) [humaLOG] 0 unit SQ ACHS #1 vial 12/17/20 Lactulose [Cephulac] 20 gm PO TID #900 ml 12/17/20 Rifaximin [Xifaxan] 550 mg PO BID #60 tablet 12/17/20 Syringe-Needle,Insulin,0.5 ml 1 syr SQ DIRECTED #120 syr 12/17/20 [Insulin Syringe 30G 01/17" 1/2 ml] Allergies Allergy/AdvReac Type Severity Reaction Status Date / Time No Known Allergies Allergy Verified 01/30/21 07:53 Review of Systems ROS Statement: Those systems with pertinent positive or pertinent negative responses have been documented in the HPI. ROS Other: All systems not noted in ROS Statement are negative. Past Medical History Past Medical History: Cancer, Diabetes Mellitus, GERD/Reflux, Hyperlipidemia, Hypertension, Liver Disease, Osteoarthritis (OA) Additional Past Medical History / Comment(s): patient states "doesn't clot right but is not aware of any specific clotting disorders but all her Drs are aware",hemorrhoids and bleeding with stools,recent dehydration and UTI, non alcoholic cirrhosis of the liver, skin cancer History of Any Multi-Drug Resistant Organisms: None Reported Past Surgical History: Cholecystectomy, Orthopedic Surgery Additional Past Surgical History / Comment(s): colonoscopy, lt knee surgery, pa racentesis Past Anesthesia/Blood Transfusion Reactions: No Reported Reaction Additional Past Anesthesia/Blood Transfusion Reaction / Comment(s): no problems with previous blood transfusions Past Psychological History: Depression Smoking Status: Never smoker Past Alcohol Use History: None Reported Past Drug Use History: None Reported - Past Family History Mother Family Medical History: Cancer General Exam - General Exam Comments Initial Comments: This is a well-developed sec appearing female who is awake alert oriented 3 Limitations: no limitations General appearance: alert, in no apparent distress Head exam: Present: atraumatic, normocephalic, normal inspection Eye exam: Present: normal appearance, PERRL, EOMI. Absent: scleral icterus, conjunctival injection, periorbital swelling ENT exam: Present: mucous membranes dry Neck exam: Present: normal inspection, full ROM, other (No surgery or bruits). Absent: tenderness, meningismus, lymphadenopathy Respiratory exam: Present: decreased breath sounds, other (Decreased breath sounds on the right). Absent: respiratory distress, wheezes, rales, rhonchi, stridor Cardiovascular Exam: Present: regular rate, normal rhythm, normal heart sounds. Absent: systolic murmur, diastolic murmur, rubs, gallop, clicks GI/Abdominal exam: Present: soft, distended, normal bowel sounds. Absent: tenderness, guarding, rebound, rigid Extremities exam: Present: normal inspection, full ROM, normal capillary refill. Absent: tenderness, pedal edema, joint swelling, calf tenderness Back exam: Present: normal inspection Neurological exam: Present: alert, oriented X3, CN II-XII intact Psychiatric exam: Present: normal affect, normal mood Skin exam: Present: warm, dry, intact, normal color. Absent: rash Course Vital Signs 01/30/21 01/30/21 01/30/21 07:55 08:49 09:01 Temperature 97.5 F L Pulse Rate 85 70 74 Respiratory 18 15 22 Rate Blood Pressure 97/51 97/56 108/57 O2 Sat by Pulse 96 98 97 Oximetry Medical Decision Making - Medical Decision Making I did discuss findings with the patient family as well as with Dr. Bundy patient will be admitted with pulmonary consultation. Dr. Villegas is in the emergency department and will see the patient - Lab Data Result diagrams: 01/30/21 08:21 01/30/21 08:21 Lab Results 01/30/21 01/30/21 01/30/21 Range/Units 08:21 08:21 08:21 WBC 5.3 (3.8-10.6) k/uL RBC 3.49 L (3.80-5.40) m/uL Hgb 10.9 L (11.4-16.0) gm/dL Hct 36.4 (34.0-46.0) % MCV 104.3 H D (80.0-100.0) fL MCH 31.4 (25.0-35.0) pg MCHC 30.1 L (31.0-37.0) g/dL RDW 19.6 H (11.5-15.5) % Plt Count 69 L D (150-450) k/uL MPV 8.4 Neutrophils % 49 % Lymphocytes % 38 % Monocytes % 6 % Eosinophils % 3 % Basophils % 1 % Neutrophils # 2.6 (1.3-7.7) k/uL Lymphocytes # 2.0 (1.0-4.8) k/uL Monocytes # 0.3 (0-1.0) k/uL Eosinophils # 0.2 (0-0.7) k/uL Basophils # 0.0 (0-0.2) k/uL Manual Slide Review Performed Hypochromasia Moderate Poikilocytosis (manual Present Anisocytosis Slight Macrocytosis Marked A Target Cells Present PT 14.1 H (9.0-12.0) sec INR 1.4 H (<1.2) APTT 24.8 (22.0-30.0) sec Sodium 140 (137-145) mmol/L Potassium 3.7 (3.5-5.1) mmol/L Chloride 102 (98-107) mmol/L Carbon Dioxide 30 (22-30) mmol/L Anion Gap 8 mmol/L BUN 30 H (7-17) mg/dL Creatinine 1.94 H (0.52-1.04) mg/dL Est GFR (CKD-EPI)AfAm 28 (>60 ml/min/1.73 sqM) Est GFR (CKD-EPI)NonAf 24 (>60 ml/min/1.73 sqM) Glucose 120 H (74-99) mg/dL Plasma Lactic Acid Alex (0.7-2.0) mmol/L Calcium 9.3 (8.4-10.2) mg/dL Magnesium 1.6 (1.6-2.3) mg/dL Total Bilirubin 1.8 H (0.2-1.3) mg/dL AST 59 H (14-36) U/L ALT 20 (4-34) U/L Alkaline Phosphatase 138 H (38-126) U/L Ammonia (<30) umol/L Creatine Kinase 36 (30-135) U/L Troponin I (0.000-0.034) ng/mL Total Protein 6.9 (6.3-8.2) g/dL Albumin 3.1 L (3.5-5.0) g/dL Lipase 64 (23-300) U/L 01/30/21 01/30/21 Range/Units 08:21 08:21 WBC (3.8-10.6) k/uL RBC (3.80-5.40) m/uL Hgb (11.4-16.0) gm/dL Hct (34.0-46.0) % MCV (80.0-100.0) fL MCH (25.0-35.0) pg MCHC (31.0-37.0) g/dL RDW (11.5-15.5) % Plt Count (150-450) k/uL MPV Neutrophils % % Lymphocytes % % Monocytes % % Eosinophils % % Basophils % % Neutrophils # (1.3-7.7) k/uL Lymphocytes # (1.0-4.8) k/uL Monocytes # (0-1.0) k/uL Eosinophils # (0-0.7) k/uL Basophils # (0-0.2) k/uL Manual Slide Review Hypochromasia Poikilocytosis (manual Anisocytosis Macrocytosis Target Cells PT (9.0-12.0) sec INR (<1.2) APTT (22.0-30.0) sec Sodium (137-145) mmol/L Potassium (3.5-5.1) mmol/L Chloride (98-107) mmol/L Carbon Dioxide (22-30) mmol/L Anion Gap mmol/L BUN (7-17) mg/dL Creatinine (0.52-1.04) mg/dL Est GFR (CKD-EPI)AfAm (>60 ml/min/1.73 sqM) Est GFR (CKD-EPI)NonAf (>60 ml/min/1.73 sqM) Glucose (74-99) mg/dL Plasma Lactic Acid Alex 2.7 H* (0.7-2.0) mmol/L Calcium (8.4-10.2) mg/dL Magnesium (1.6-2.3) mg/dL Total Bilirubin (0.2-1.3) mg/dL AST (14-36) U/L ALT (4-34) U/L Alkaline Phosphatase (38-126) U/L Ammonia 23 (<30) umol/L Creatine Kinase (30-135) U/L Troponin I <0.012 (0.000-0.034) ng/mL Total Protein (6.3-8.2) g/dL Albumin (3.5-5.0) g/dL Lipase (23-300) U/L - EKG Data -: EKG Interpreted by Oh EKG shows normal: sinus rhythm EKG Comments: Social 78. Interval 120 QRS 84 QT/QTC 430/494 QT is prolonged no acute ST-T wave changes - Radiology Data Radiology results: report reviewed (Imaging reviewed the patient does have evidence of consolidation of the right lung likely secondary to effusion), image reviewed Disposition Clinical Impression: Pleural effusion, right, Ascites, Lactic acidosis, Dehydration, Dyspnea Disposition: ADMITTED IP TO THIS HOSP Condition: Fair Referrals: Aury Gracia DO [Primary Care Provider] - 1-2 days
[2021-01-30 08:34] LABS: Anisocytosis Slight; Basophils % (A) 1 %; Eosinophils # (A) 0.2 k/uL (0-0.7); Eosinophils % (A) 3 %; HCT 36.4 % (34.0-46.0); HGB 10.9 gm/dL (11.4-16.0); Hypochromasia Moderate; Lymphocytes % (A) 38 %; MCH 31.4 pg (25.0-35.0); MCHC 30.1 g/dL (31.0-37.0); Macrocytosis Marked; Mean Platelet Volume 8.4; Monocytes # (A) 0.3 k/uL (0-1.0); Monocytes % (A) 6 %; Neutrophils # (A) 2.6 k/uL (1.3-7.7); Neutrophils % (A) 49 %; RBC 3.49 m/uL (3.80-5.40); RDW 19.6 % (11.5-15.5); WBC 5.3 k/uL (3.8-10.6)
--- NOTE | 2021-01-30 08:37 | XR ---
EXAMINATION TYPE: XR chest 2V DATE OF EXAM: 01/30/2021 COMPARISON: Chest x-ray 12/13/2020 HISTORY: Difficulty breathing TECHNIQUE: Frontal and lateral views of the chest are obtained. FINDINGS: There is opacification of the right hemithorax. Patient is rotated. Heart is obscured. Lef t lung is spared. Aorta is dense. There are overlying leads and artifacts. IMPRESSION: Opacified right hemithorax. There may be underlying effusion and associated atelectasis versus pneumonia. Follow-up recommended, consider pulmonary consult.
[2021-01-30 08:39] LABS: MCV 104.3 fL (80.0-100.0); Platelet Count 69 k/uL (150-450)
[2021-01-30 08:43] LABS: Albumin 3.1 g/dL (3.5-5.0); Calcium 9.3 mg/dL (8.4-10.2); INR 1.4 (<1.2); Magnesium 1.6 mg/dL (1.6-2.3); Partial Thromboplastin Time 24.8 sec (22.0-30.0); Potassium 3.7 mmol/L (3.5-5.1); Prothrombin Time 14.1 sec (9.0-12.0); Total Bilirubin 1.8 mg/dL (0.2-1.3); Total Protein 6.9 g/dL (6.3-8.2)
[2021-01-30 08:44] LABS: Lactic Acid, Venous 2.7 mmol/L (0.7-2.0)
[2021-01-30 09:10] LABS: Poikilocytosis (M) Present; Target Cells Present
[2021-01-30] MEDS ORDERED: SODIUM CHLORIDE 0.9% 1,000 ML IV STA ×2 (09:26)
[2021-01-30] MEDS ORDERED: NALOXONE 0.4 MG/ML 1 ML VIAL IV PRN (09:36)
--- NOTE | 2021-01-30 10:35 | XR ---
EXAMINATION TYPE: XR chest 1V DATE OF EXAM: 01/30/2021 COMPARISON: Chest x-ray 01/30/2021 HISTORY: Status post thoracentesis TECHNIQUE: Single frontal view of the chest is obtained. FINDINGS: There is some interval improved aeration within the right upper chest. Persistent abnormal density in the right lower chest. No evident pneumothorax. IMPRESSION: No evident complication status post thoracentesis.
[2021-01-30] MEDS: SODIUM CHLORIDE 0.9% 1,000 ML IV SCH ×2 (12:45→18:01)
[2021-01-30] MEDS: INSULIN ASPART (NovoLOG) 100 UNIT/ML VIAL SQ SCH ×3 (12:49→20:51)
[2021-01-30 12:50] LABS: Glucose,Whole Blood 120 mg/dL (75-99)
[2021-01-30] MEDS ORDERED: LACTULOSE 20 GM/30 ML CUP PO PRN (13:59)
[2021-01-30] MEDS ORDERED: LACTULOSE 20 GM/30 ML CUP PO SCH (16:00)
[2021-01-30 17:14] LABS: Glucose,Whole Blood 148 mg/dL (75-99)
[2021-01-30 17:40] LABS: Glucose, BF Source Pleural Fluid; Glucose, Body Fluid 129 mg/dL; LDH, Body Fluid Source Pleural Fluid; Total Protein, Body Fluid 959 mg/dL
[2021-01-30 20:51] LABS: Glucose,Whole Blood 123 mg/dL (75-99)
[2021-01-30] MEDS: RIFAXIMIN 550 MG TABLET PO SCH (21:01)
[2021-01-30 23:41] LABS: Appearance,Urine Clear (Clear); Bacteria,Urine Rare /hpf; Bilirubin,Urine Negative (Negative); Blood,Urine Negative (Negative); Color,Urine Yellow; Glucose,Urine (UA) Negative (Negative); Hyaline Casts,Urine 20 /lpf (0-2); Ketones,Urine Negative (Negative); Leukocyte Esterase,Urine Negative (Negative); Mucus,Urine Occasional /hpf; Nitrite,Urine Negative (Negative); PH, Urine 5.5 (5.0-8.0); Protein,Urine 1+ (Negative); RBC,Urine 2 /hpf (0-5); Specific Gravity,Urine 1.023 (1.001-1.035); Squamous Epithelial Cell,Urine <1 /hpf (0-4); WBC,Urine 6 /hpf (0-5)
[2021-01-30] MEDS: HYDROcodone/APAP 5-325MG 1 EACH TAB PO PRN (23:46)
[2021-01-31] MEDS: SODIUM CHLORIDE 0.9% 1,000 ML IV SCH ×3 (01:18→15:47)
[2021-01-31] MEDS: LEVOTHYROXINE 100 MCG TAB PO SCH (05:20)
[2021-01-31 07:18] LABS: Glucose,Whole Blood 124 mg/dL (75-99)
[2021-01-31] MEDS: INSULIN ASPART (NovoLOG) 100 UNIT/ML VIAL SQ SCH ×4 (07:25→21:29)
[2021-01-31] MEDS: ASCORBIC ACID 500 MG TAB PO SCH (08:32)
[2021-01-31] MEDS: RIFAXIMIN 550 MG TABLET PO SCH ×2 (08:32→21:29)
[2021-01-31] MEDS: PANTOPRAZOLE 40 MG TABLET PO SCH (08:32)
[2021-01-31] MEDS: SPIRONOLACTONE 25 MG TAB PO SCH (08:32)
[2021-01-31] MEDS: CYANOCOBALAMIN 500 MCG TAB PO SCH (08:32)
[2021-01-31] MEDS: FERROUS SULFATE 325 MG TAB PO SCH (08:32)
[2021-01-31] MEDS: allopurinoL 100 MG TAB PO SCH (08:32)
[2021-01-31] MEDS: MULTIVITAMINS, THERA 1 EACH TAB PO SCH (08:32)
[2021-01-31] MEDS: ATORVASTATIN 20 MG TAB PO SCH (08:32)
[2021-01-31] MEDS: CALCIUM CARB-VIT D 500 MG-5 MCG TAB PO SCH (08:32)
[2021-01-31] MEDS: FUROSEMIDE 20 MG TAB PO SCH (08:32)
[2021-01-31] MEDS: atenoloL 25 MG TAB PO SCH (08:36)
[2021-01-31] MEDS ORDERED: ERGOCALCIFEROL 1,250 MCG (50,000 IU) CAPSULE PO SCH (09:00)
--- NOTE | 2021-01-31 11:06 | P.HPIM ---
History of Present Illness H&P Date: 01/30/21 Chief Complaint: Shortness of breath 72-year-old female with a history of nonalcoholic cirrhosis, hypertension, hyperlipidemia and diabetes mellitus, who presents with complaints of one week of shortness of breath also midsternal sharp chest pain dyspnea on exertion and abdominal distention. She believes she has recurrent ascites. No fevers chills sweats nausea vomiting or other symptoms at this time Workup in ED including labwork reveals WBC of 5.3, hemoglobin 10.9 and platelet count of 69, BUN 30/creatinine of 1.94; total bilirubin elevated at 1.8, AST slightly elevated at 59 ALT is normal Chest x-ray reveals right-sided consolidation likely secondary to effusion; EKG shows no acute ST or T-wave changes Patient is planned to be admitted for right-sided pleural effusion, ascites, dehydration and dyspnea Review of Systems REVIEW OF SYSTEMS: CONSTITUTIONAL: No fever, no malaise, no fatigue. HEENT: No recent visual problems or hearing problems. Denied any sore throat. CARDIOVASCULAR: No chest pain, orthopnea, PND, no palpitations, no syncope. PULMONARY: shortness of breath, no cough, no hemoptysis. GASTROINTESTINAL: No diarrhea, no nausea, no vomiting, no abdominal pain. NEUROLOGICAL: No headaches, no weakness, no numbness. HEMATOLOGICAL: Denies any bleeding or petechiae. GENITOURINARY: Denies any burning micturition, frequency, or urgency. MUSCULOSKELETAL/RHEUMATOLOGICAL: Denies any joint pain, swelling, or any muscle pain. ENDOCRINE: Denies any polyuria or polydipsia. The rest of the 14-point review of systems is negative. Past Medical History Past Medical History: Cancer, Diabetes Mellitus, GERD/Reflux, Hyperlipidemia, Hypertension, Liver Disease, Osteoarthritis (OA) Additional Past Medical History / Comment(s): patient states "doesn't clot right but is not aware of any specific clotting disorders but all her Drs are aware",hemorrhoids and bleeding with stools,recent dehydration and UTI, non alcoholic cirrhosis of the liver, skin cancer History of Any Multi-Drug Resistant Organisms: None Reported Past Surgical History: Cholecystectomy, Orthopedic Surgery Additional Past Surgical History / Comment(s): colonoscopy, lt knee surgery, paracentesis Past Anesthesia/Blood Transfusion Reactions: No Reported Reaction Additional Past Anesthesia/Blood Transfusion Reaction / Comment(s): no problems with previous blood transfusions Past Psychological History: Depression Additional Psychological History / Comment(s): no medication. lives with Adrienne. Other dtr Patricia takes her to Dr. bradford. Smoking Status: Never smoker Past Alcohol Use History: None Reported Past Drug Use History: None Reported - Past Family History Mother Family Medical History: Cancer Medications and Allergies Home Medications Medication Instructions Recorded Confirmed Type Calcium Carbonate [Calcium] 600 mg PO DAILY 07/19/19 01/30/21 History Cranberry Fruit Extract [Cranberry] 1,500 mg PO DAILY 07/19/19 01/30/21 History Cyanocobalamin (Vitamin B-12) 1,000 mcg PO DAILY 07/19/19 01/30/21 History [Vitamin B-12] Ergocalciferol [Vitamin D2 50,000 unit PO FR 07/19/19 01/30/21 History (DRISDOL)] Ferrous Sulfate [Iron (65 MG 325 mg PO DAILY 07/19/19 01/30/21 History Elemental)] HYDROcodone/APAP 5-325MG [Orange 1 tab PO BID PRN 07/19/19 01/30/21 History 5-325] Levothyroxine Sodium [Synthroid] 100 mcg PO DAILY 07/19/19 01/30/21 History Multivit-Min/Iron/Folic/Lutein 1 tab PO DAILY 07/19/19 01/30/21 History [Centrum Silver Women Tablet] Omeprazole 40 mg PO DAILY 07/19/19 01/30/21 History Simvastatin [Zocor] 40 mg PO DAILY 07/19/19 01/30/21 History allopurinoL [Zyloprim] 100 mg PO DAILY 07/19/19 01/30/21 History atenoloL [Tenormin] 25 mg PO DAILY 07/19/19 01/30/21 History Ascorbic Acid [Vitamin C] 1,000 mg PO DAILY tab 12/17/20 01/30/21 Rx Furosemide [Lasix] 20 mg PO DAILY 01/22/21 01/30/21 History Spironolactone [Aldactone] 25 mg PO DAILY 01/22/21 01/30/21 History Lactulose 10 - 20 gm PO TID PRN 01/30/21 01/30/21 History Rifaximin [Xifaxan] 200 mg PO BID 01/30/21 01/30/21 History Allergies Allergy/AdvReac Type Severity Reaction Status Date / Time No Known Allergies Allergy Verified 01/30/21 09:59 Physical Exam Vitals: Vital Signs Temp Pulse Pulse Resp BP BP Pulse Ox 01/30/21 13:31 98.0 F 78 16 101/58 95 01/30/21 11:36 71 18 97/59 100 01/30/21 10:30 73 19 85/48 100 01/30/21 10:15 76 18 117/56 100 01/30/21 09:01 74 22 108/57 97 01/30/21 08:49 70 15 97/56 98 01/30/21 07:55 97.5 F L 85 18 97/51 96 Intake and Output 01/29/21 01/30/21 01/30/21 22:59 06:59 14:59 Other: Weight 65.771 kg - Constitutional General appearance: Present: average body habitus, cooperative, no acute distress Neck: Present: normal ROM. Absent: lymphadenopathy, rigidity, thyromegaly Carotids: negative: bruit present Thyroid: bilateral: normal size, negative: enlarged, nodule Respiratory: Markedly decreased breath sounds Cardiovascular; Rhythm: regular; normal: S1, S2 General gastrointestinal: Present: normal bowel sounds, soft. Absent: distended, organomegaly, tenderness Genitourinary Comment(s): deferred Integumentary: Present: normal turgor. Absent: jaundiced, rash, ulcer Neurologic: Present: CNII-XII intact. Absent: focal deficits Musculoskeletal: Present: gait normal, strength equal bilaterally Psychiatric: Present: A&O x's 3, appropriate affect, intact judgment & insight Results CBC & Chem 7: 01/30/21 08:21 01/30/21 08:21 Labs: Abnormal Lab Results - Last 24 Hours (Table) 01/30/21 01/30/21 01/30/21 Range/Units 08:21 08:21 08:21 RBC 3.49 L (3.80-5.40) m/uL Hgb 10.9 L (11.4-16.0) gm/dL MCV 104.3 H D (80.0-100.0) fL MCHC 30.1 L (31.0-37.0) g/dL RDW 19.6 H (11.5-15.5) % Plt Count 69 L D (150-450) k/uL Macrocytosis Marked A PT 14.1 H (9.0-12.0) sec INR 1.4 H (<1.2) BUN 30 H (7-17) mg/dL Creatinine 1.94 H (0.52-1.04) mg/dL Glucose 120 H (74-99) mg/dL POC Glucose (mg/dL) (75-99) mg/dL Plasma Lactic Acid Alex (0.7-2.0) mmol/L Total Bilirubin 1.8 H (0.2-1.3) mg/dL AST 59 H (14-36) U/L Alkaline Phosphatase 138 H (38-126) U/L Albumin 3.1 L (3.5-5.0) g/dL 01/30/21 01/30/21 Range/Units 08:21 12:49 RBC (3.80-5.40) m/uL Hgb (11.4-16.0) gm/dL MCV (80.0-100.0) fL MCHC (31.0-37.0) g/dL RDW (11.5-15.5) % Plt Count (150-450) k/uL Macrocytosis PT (9.0-12.0) sec INR (<1.2) BUN (7-17) mg/dL Creatinine (0.52-1.04) mg/dL Glucose (74-99) mg/dL POC Glucose (mg/dL) 120 H (75-99) mg/dL Plasma Lactic Acid Alex 2.7 H* (0.7-2.0) mmol/L Total Bilirubin (0.2-1.3) mg/dL AST (14-36) U/L Alkaline Phosphatase (38-126) U/L Albumin (3.5-5.0) g/dL Thrombosis Risk Factor Assmnt - Choose All That Apply Each Factor Represents 1 point: Obesity (BMI >25) Each Risk Factor Represents 3 Points: Age 75 years or older, Family history of DVT/PE Thrombosis Risk Factor Assessment Total Risk Factor Score: 7 Thrombosis Risk Factor Assessment Level: High Risk Assessment and Plan Assessment: 1. Acute onset dyspnea - Significant right-sided pleural effusion - Patient is placed on Lasix 20 mg daily along with Aldactone 40 mg; consult pulmonary for thoracentesis 2. Non-alcoholic hepatic cirrhosis/ascites; patient follows up with GI for weekly paracentesis; we will consult with Dr. Rodriguez for further recommendations; monitor liver enzymes; INR is elevated at 1.4; we will continue to monitor PT/INR 3. Acute renal injury/dehydration; slow IV fluid hydration; monitor strict ASIF's, daily weights, renal function and electrolytes; avoid nephrotoxins 4. Lactic acidosis; likely secondary to dehydration; cautious IV fluid hydration, as indicated above; we will trend lactic acid level 5. Hypertension; stable on atenolol 25 mg daily 6. Hyperlipidemia; continue with home statin therapy and monitor liver enzymes closely; we'll plan to discontinue statin therapy if liver enzymes continue to trend 7. Hypothyroidism; levothyroxin 100 MCG daily DVT prophylaxis; SCDs only due to hepatic failure CODE STATUS; full code
--- NOTE | 2021-01-31 11:25 | US ---
EXAMINATION TYPE: US abdomen limited DATE OF EXAM: 01/31/2021 COMPARISON: NONE CLINICAL HISTORY: r/o ascitics. Small amount of ascites visualized in the RUQ and RLQ, pocket depth in the right lower quadrant is ap proximately 10 cm. Trace ascites visualized in the LUQ and LLQ IMPRESSION: There is some ascites present in the right hemiabdomen
--- NOTE | 2021-01-31 11:52 | CONS ---
CONSULTATION DATE OF SERVICE: 01/31/2021 REQUESTING PHYSICIAN: Dr. Aury Gracia. REASON FOR CONSULTATION: Abdominal distention and shortness of breath. HISTORY OF PRESENT ILLNESS: The patient is a 80-year-old pleasant white female with longstanding history of diabetes mellitus, hypertension and hyperlipidemia, diagnosed with nonalcoholic cirrhosis of the liver approximately two years ago. She presented to the emergency room complaining of shortness of breath for the last one week duration and some abdominal distention. In the ER, she did have a chest x-ray done that showed opacified right hemothorax secondary to severe pleural effusion. The patient states that she underwent thoracentesis yesterday but still continues to feel shortness of breath. She is also complaining of some abdominal distention. In the past she did have ascites and has been maintained on diuretics on an outpatient basis with Lasix 20 mg twice daily. She denies any abdominal pain. No nausea, no vomiting. No rectal bleeding or melena. PAST MEDICAL HISTORY: Significant for diabetes mellitus, hypertension, hyperlipidemia, gastroesophageal reflux disease, nonalcoholic cirrhosis of the liver diagnosed two years ago, history of hepatic encephalopathy and hypothyroidism. MEDICATIONS: Medications at home include calcium, cranberry, vitamin B12, vitamin D3, iron, omeprazole, Zocor, zyloprim, Tenormin, Lasix, Aldactone 25 mg daily, Lasix 20 mg daily. ALLERGIES: None. SOCIAL HISTORY: No smoking no alcohol use. SURGICAL HISTORY: Left knee surgery, paracentesis a few months ago, cholecystectomy. FAMILY HISTORY: Mother had some kind of cancer. REVIEW OF SYSTEMS: CARDIOPULMONARY: She does complain of some shortness of breath. : No dysuria or hematuria. MUSCULOSKELETAL: Chronic back pain. NEUROLOGY: Unremarkable. PSYCHIATRIC: Unremarkable. ENT/VISION: Unremarkable. CONSTITUTIONAL: No recent weight loss. PHYSICAL EXAMINATION: She appears comfortable. No apparent distress. VITAL SIGNS: Stable. Blood pressure is 92/56, pulse rate 82, temperature 98.7. HEENT examination unremarkable. Conjunctivae pink, sclerae anicteric. Oral cavity no lesions. NECK: No JVD or lymph node enlargement. CHEST: Decreased breath sounds on the right side. HEART: Regular rate and rhythm. ABDOMEN: Soft, it was slightly distended but there was no free fluid noted. No shifting dullness noted. EXTREMITIES: Trace pedal edema. SKIN: No rashes. NEURO: She is alert and oriented x3. No focal deficits. LABS: Labs done at the time of admission to the hospital: WBC 4.3, hemoglobin 9.3, platelets 61,000. INR 1.4. BUN 27, creatinine 2. Today BUN is 30, creatinine 1.94. T bilirubin 1.8, AST 59, ALT 20, alkaline phosphatase 138. Coronavirus PCR is negative. IMPRESSION: 1. Massive right-sided pleural effusion. The patient presented to the emergency room with shortness of breath. She was seen by Dr. Villegas and underwent thoracentesis yesterday. The patient is feeling slightly better. 2. Nonalcoholic cirrhosis of the liver with portal hypertension and prior history of ascites. Clinically she has no significant ascites on examination. She is maintained on Lasix 20 mg and Aldactone 25 mg daily on outpatient basis. 3. Pancytopenia secondary to underlying liver disease. 4. Mild coagulopathy. 5. History of hepatic encephalopathy, maintained on Xifaxan and lactulose on outpatient basis. Ammonia level 23. 6. Elevated liver function tests secondary to underlying cirrhosis of the liver. RECOMMENDATIONS: 1. Continue with current dose of diuretics with Lasix 20 mg daily and Aldactone 25 mg daily. 2. Low-salt diet. 3. We will obtain ultrasound of the abdomen to evaluate for ascites. 4. Continue with Xifaxan and oral lactulose. 5. Low-salt diet. 6. Will follow with you closely. Thank you for this consultation. MMODL / IJN: [id number] /
[2021-01-31 11:56] LABS: Glucose,Whole Blood 139 mg/dL (75-99)
[2021-01-31 14:05] VITALS: BMI 27.3
[2021-01-31 17:05] LABS: Glucose,Whole Blood 112 mg/dL (75-99)
--- NOTE | 2021-01-31 21:11 | P.PN ---
Subjective Progress Note Date: 01/31/21 72-year-old female with a history of nonalcoholic cirrhosis, hypertension, hyperlipidemia and diabetes mellitus, who presents with complaints of one week of shortness of breath also midsternal sharp chest pain dyspnea on exertion and abdominal distention. She believes she has recurrent ascites. No fevers chills sweats nausea vomiting or other symptoms at this time Workup in ED including labwork reveals WBC of 5.3, hemoglobin 10.9 and platelet count of 69, BUN 30/creatinine of 1.94; total bilirubin elevated at 1.8, AST slightly elevated at 59 ALT is normal Chest x-ray reveals right-sided consolidation likely secondary to effusion; EKG shows no acute ST or T-wave changes Patient is planned to be admitted for right-sided pleural effusion, ascites, dehydration and dyspnea 01/31/2021 Patient is seen and evaluated resting in bed; continues to complain of shortness of breath but overall reports improvement Vital signs are reviewed; temperature of 98.7, pulse 82, respiration 18 and blood pressure 92/56 Laboratory review shows WBC of 4.3, hemoglobin of 9.3 and platelets of 61, BUN/creatinine 27/2.0 with a downward trend this morning of B UN/creatinine of 30/1.94 Patient has been evaluated by pulmonary for massive right-sided pleural effusion and underwent thoracentesis yesterday GI on board for evaluation of nonalcoholic liver cirrhosis and portal hypertension with ascites; patient does not have any significant ascites on clinical exam and is recommended to continue with Lasix and Aldactone along with xifaxan and lactulose; continue with low-salt diet; GI recommending abdominal ultrasound to evaluate for ascites Objective - Vital Signs Vital signs: Vital Signs Temp 98.4 F 01/31/21 14:00 Pulse 86 01/31/21 14:00 Resp 20 01/31/21 14:00 BP 98/61 01/31/21 14:00 Pulse Ox 97 01/31/21 14:00 Intake & Output 01/30/21 01/31/21 01/31/21 18:59 06:59 18:59 Intake Total 540 1700 720 Output Total 350 Balance 540 1350 720 Weight 65.771 kg 65.771 kg Intake: Intake, IV Titration 1700 600 Amount Sodium Chloride 0.9% 1, 1700 600 000 ml @ 75 mls/hr IV . [id number] STA Rx#:[id number] Oral 540 120 Output: Urine 350 Other: # Voids 0 - Exam - Constitutional General appearance: Present: average body habitus, cooperative, no acute distress - EENT Eyes: Present: anicteric sclerae, EOMI, PERRLA, normal appearance ENT: Present: hearing grossly normal, normal oropharynx Ears: bilateral: normal - Neck Neck: Present: normal ROM. Absent: lymphadenopathy, rigidity, thyromegaly Carotids: negative: bruit present Thyroid: bilateral: normal size, negative: enlarged, nodule - Respiratory Respiratory: bilateral: CTA, negative: rales, rhonchi, wheezing - Cardiovascular Rhythm: regular Heart sounds: normal: S1, S2 Abnormal Heart Sounds: Absent: systolic murmur, diastolic murmur - Gastrointestinal General gastrointestinal: Present: normal bowel sounds, soft. Absent: disten ded, organomegaly, tenderness - Genitourinary Genitourinary Comment(s): deferred - Integumentary Integumentary: Present: normal turgor. Absent: jaundiced, rash, ulcer - Neurologic Neurologic: Present: CNII-XII intact. Absent: focal deficits - Musculoskeletal Musculoskeletal: Present: gait normal, strength equal bilaterally - Psychiatric Psychiatric: Present: A&O x's 3, appropriate affect, intact judgment & insight - Labs CBC & Chem 7: 01/30/21 08:21 01/30/21 08:21 Labs: Abnormal Lab Results - Last 24 Hours (Table) 01/30/21 01/30/21 01/30/21 Range/Units 17:13 20:50 23:15 POC Glucose (mg/dL) 148 H 123 H (75-99) mg/dL Urine Protein 1+ H (Negative) Urine WBC 6 H (0-5) /hpf Urine Bacteria Rare H (None) /hpf Hyaline Casts 20 H (0-2) /lpf Urine Mucus Occasional H (None) /hpf 01/31/21 01/31/21 Range/Units 07:16 11:49 POC Glucose (mg/dL) 124 H 139 H (75-99) mg/dL Urine Protein (Negative) Urine WBC (0-5) /hpf Urine Bacteria (None) /hpf Hyaline Casts (0-2) /lpf Urine Mucus (None) /hpf Microbiology - Last 24 Hours (Table) 01/30/21 10:20 Gram Stain - Preliminary Pleural Fluid Body Fluid Culture - Preliminary Assessment and Plan Assessment: 1. Acute onset dyspnea - Significant right-sided pleural effusion - Patient is placed on Lasix 20 mg daily along with Aldactone 40 mg; consult pulmonary for thoracentesis 2. Non-alcoholic hepatic cirrhosis/ascites; patient follows up with GI for weekly paracentesis; we will consult with Dr. Rodriguez for further recommendations; monitor liver enzymes; INR is elevated at 1.4; we will continue to monitor PT/INR 3. Acute renal injury/dehydration; slow IV fluid hydration; monitor strict ASIF's, daily weights, renal function and electrolytes; avoid nephrotoxins 4. Lactic acidosis; likely secondary to dehydration; cautious IV fluid hydration, as indicated above; we will trend lactic acid level 5. Hypertension; stable on atenolol 25 mg daily 6. Hyperlipidemia; continue with home statin therapy and monitor liver enzymes closely; we'll plan to discontinue statin therapy if liver enzymes continue to trend 7. Hypothyroidism; levothyroxin 100 MCG daily DVT prophylaxis; SCDs only due to hepatic failure CODE STATUS; full code
[2021-01-31 21:24] LABS: Glucose,Whole Blood 185 mg/dL (75-99)
[2021-01-31] MEDS: HYDROcodone/APAP 5-325MG 1 EACH TAB PO PRN (21:28)
[2021-02-01] MEDS: SODIUM CHLORIDE 0.9% 1,000 ML IV SCH ×4 (00:14→23:14)
[2021-02-01] MEDS: LEVOTHYROXINE 100 MCG TAB PO SCH (05:14)
[2021-02-01 07:12] LABS: Glucose,Whole Blood 128 mg/dL (75-99)
[2021-02-01] MEDS: INSULIN ASPART (NovoLOG) 100 UNIT/ML VIAL SQ SCH ×4 (07:29→22:48)
[2021-02-01] MEDS: CYANOCOBALAMIN 500 MCG TAB PO SCH (07:31)
[2021-02-01] MEDS: MULTIVITAMINS, THERA 1 EACH TAB PO SCH (07:32)
[2021-02-01] MEDS: allopurinoL 100 MG TAB PO SCH (07:32)
[2021-02-01] MEDS: ASCORBIC ACID 500 MG TAB PO SCH (07:32)
[2021-02-01] MEDS: SPIRONOLACTONE 25 MG TAB PO SCH (07:32)
[2021-02-01] MEDS: RIFAXIMIN 550 MG TABLET PO SCH ×2 (07:32→22:48)
[2021-02-01] MEDS: FUROSEMIDE 20 MG TAB PO SCH (07:32)
[2021-02-01] MEDS: ATORVASTATIN 20 MG TAB PO SCH (07:33)
[2021-02-01] MEDS: FERROUS SULFATE 325 MG TAB PO SCH (07:33)
[2021-02-01] MEDS: CALCIUM CARB-VIT D 500 MG-5 MCG TAB PO SCH (07:33)
[2021-02-01] MEDS: atenoloL 25 MG TAB PO SCH (07:33)
[2021-02-01] MEDS: PANTOPRAZOLE 40 MG TABLET PO SCH (07:33)
--- NOTE | 2021-02-01 07:40 | XR ---
EXAMINATION TYPE: XR chest 1V portable DATE OF EXAM: 02/01/2021 COMPARISON: Prior chest x-ray dated 01/30/2021 HISTORY: Pleural effusion TECHNIQUE: Single frontal view of the chest is obtained. FINDINGS: There is interval opacification of the right hemithorax. No evident pneumothorax. Heart is obscured. Aorta is dense. Left lung is relatively spared. IMPRESSION: Large right effusion with associated atelectasis has recurred.
--- NOTE | 2021-02-01 09:29 | PN ---
PROGRESS NOTE DATE OF DICTATION: February 01, 2021 The patient is a 80-year-old pleasant white female admitted to hospital with right- sided pleural effusion and underwent thoracentesis 2 days ago. She is feeling better. She denies any abdominal pain. She reports no nausea, vomiting. She still is somewhat short of breath. She did have chest x-ray done this morning that shows large right- sided pleural effusion with associated atelectasis. She also had ultrasound of the abdomen which showed a small amount of ascites. She reports no nausea, vomiting. PHYSICAL EXAMINATION: Appears comfortable. VITAL SIGNS: Stable. Blood pressure 100/58, pulse rate 84, temperature 97.9. HEENT examination unremarkable. Conjunctivae pink. Sclerae anicteric. Oral cavity no lesions. NECK no JVD. No lymph node enlargement. HEART: Regular rate and rhythm. ABDOMEN: Soft. It was nontender, nondistended. Bowel sounds are positive. CHEST: Decreased breath sounds on the right side. EXTREMITIES: No pedal edema. NEURO: She is alert and oriented x3. No focal deficits. LABS: No labs available from yesterday or today. IMPRESSION: 1. Nonalcoholic cirrhosis of the liver with gradual decompensation. 2. Right-sided pleural effusion status post thoracentesis [address] Villegas. Continues to complain of some shortness of breath and repeat chest x-ray today shows large right-sided pleural effusion. 3. Mild ascites. 4. History of hepatic encephalopathy. 5. Mild anemia and thrombocytopenia secondary to underlying chronic liver disease. RECOMMENDATIONS: 1. Continue with current dose of diuretics with Aldactone 25 mg daily and Lasix 20 mg daily. 2. Low-salt diet. 3. Continue Xifaxan and lactulose. 4. Reviewed the ultrasound results with the patient. 5. We will follow with you closely. Thank you for this consultation. MMODL / IJN: [id number] /
--- NOTE | 2021-02-01 10:14 | P.PN ---
Subjective Progress Note Date: 02/01/21 02/01/2021, the patient has developed recurrent right-sided pleural effusion. After my initial drainage, the patient had some improvement. Nevertheless, the follow-up chest x-ray still showing complete opacification of the right lung consistent with pleural effusion. 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 I'm going to give her another thoracentesis today. She is agreeable to the procedure. She is on diuretics for now. She is still short of breath. Objective - Vital Signs Vital signs: Vital Signs Temp 97.9 F 02/01/21 08:00 Pulse 84 02/01/21 08:00 Resp 16 02/01/21 08:00 BP 100/58 02/01/21 08:00 Pulse Ox 97 02/01/21 08:00 Intake & Output 01/31/21 02/01/21 02/01/21 18:59 06:59 18:59 Intake Total 720 118 Output Total 550 Balance 720 -550 118 Weight 65.771 kg Intake: Intake, IV Titration 600 Amount Sodium Chloride 0.9% 1, 600 000 ml @ 75 mls/hr IV . [id number] STA Rx#:[id number] Oral 120 118 Output: Urine 550 Other: # Voids 2 1 # Bowel Movements 1 - Exam The patient appeared well nourished and normally developed. Vital signs as documented. Head exam is unremarkable. No scleral icterus or corneal arcus noted. Neck is without jugular venous distension, thyromegaly, or carotid bruits. Carotid upstrokes are brisk bilaterally. Lungs sounds are diminished on the right compared to the left. The left side is essentially clear and there is no wheezes or rhonchi this point in time. Cardiac exam reveals the PMI to be normally sized and situated. Rhythm is regular. First and second heart sounds normal. No murmurs, rubs or gallops. Abdominal exam reveals normal bowel sounds, no masses, no organomegaly and no aortic enlargement. Extremities are nonedematous and both femoral and pedal pulses are normal.Examination of the sk in revealed no evidence of significant rashes, suspicious appearing nevi or other concerning lesions.Neurologically, the patient is awake and alert and the patient does not have any focal neurological deficit. Cranial nerves are essentially intact. - Labs CBC & Chem 7: 01/30/21 08:21 01/30/21 08:21 Labs: Abnormal Lab Results - Last 24 Hours (Table) 01/31/21 01/31/21 01/31/21 Range/Units 11:49 17:03 21:23 POC Glucose (mg/dL) 139 H 112 H 185 H (75-99) mg/dL 02/01/21 Range/Units 07:11 POC Glucose (mg/dL) 128 H (75-99) mg/dL Microbiology - Last 24 Hours (Table) 01/30/21 10:20 Gram Stain - Preliminary Pleural Fluid Body Fluid Culture - Preliminary Assessment and Plan Plan: 1. Complete whitening out of the right lung, consistent with pleural effusion, hepatic hydrothorax. He underwent thoracentesis and evaluation of 1.7 L of pleural fluid from the right lung yesterday and the foods a transudate consistent with hepatic hydrothorax. Patient is feeling better. Repeat chest x-ray will be done tomorrow. Possible repeat thoracentesis. Use incentive spirometer. Continue diuretics. 2 shortness of breath secondary to above 3 acute hypoxic respiratory failure secondary to above 4 history of liver cirrhosis secondary to nonalcoholic steatohepatitis 5 history of portal hypertension and splenomegaly and esophageal varices 6 history of ascites last drainage was on 11/23/2020 7 chronic kidney disease 8 hypertension 9 hyperlipidemia 10 history of COVID-19 infection with complete recovery 11 diabetes mellitus 12 thrombocytopenia secondary to liver disease Plan Will do another thoracentesis today CAT scan of the chest postthoracentesis Use incentive spirometer. Continue diuretics. Ultrasound of the abdomen is showing some mild ascites Home medications were resumed.
[2021-02-01] MEDS ORDERED: RX INFO: IV CONTRAST WAS GIVEN 1 EACH MISC MISCELLANE PRN (10:31)
--- NOTE | 2021-02-01 10:31 | P.PCN ---
Date of Procedure: 02/01/21 Preoperative Diagnosis: Right-sided pleural effusion, hepatic hydrothorax Postoperative Diagnosis: Right-sided pleural effusion, hepatic hydrothorax Procedure(s) Performed: thoracentesis Estimated Blood Loss (ml): 0 Disposition: floor Operative Findings: A time out was performed and the chest x-ray was reviewed, the appropriate side was confirmed and marked. My hands were washed immediately prior to the procedure. I wore a surgical cap, mask with protective eyewear, sterile gown and sterile gloves throughout the procedure. The patient was prepped and draped in a sterile manner using chlorhexidine scrub after the appropriate level was percussed and confirmed by ultrasound. 1% lidocaine was used to anesthesize the skin, subcutaneous tissue, superior aspect of the rib periosteum and parietal pleura. A finder needle was then introduced over the superior aspect of the rib to locate the pleural fluid; 2colored fluid was aspirated at a depth of approximately 2 cm. A 10-blade scalpel was used to mike the skin at the insertion site. The [id number] needle was then introduced through the skin incision into the pleural space using negative aspiration pressure and the red colometric indicator to confirm appropriate positioning of the needle. The thoracentesis catheter was then threaded without difficulty. 2400 ml of turbid colored fluid was removed without difficulty. The catheter was then removed. No immediate complications were noted during the procedure. A post-procedure The fluid will not be sent for studies. Estimated blood loss is 0cc
[2021-02-01 11:55] LABS: ALT 15 U/L (4-34); AST 46 U/L (14-36); African American GFR (CKD) 33 (>60 ml/min/1.73 sqM); Albumin 2.2 g/dL (3.5-5.0); Albumin/Globulin Ratio 0.7; Alkaline Phosphatase 115 U/L (38-126); Anion Gap 7 mmol/L; Blood Urea Nitrogen 32 mg/dL (7-17); Calcium 8.7 mg/dL (8.4-10.2); Carbon Dioxide 27 mmol/L (22-30); Chloride 105 mmol/L (98-107); Globulin 3.1 g/dL; Glucose 153 mg/dL (74-99); Non-African American GFR(CKD) 29 (>60 ml/min/1.73 sqM); Potassium 3.6 mmol/L (3.5-5.1); Sodium 139 mmol/L (137-145); Total Bilirubin 1.2 mg/dL (0.2-1.3); Total Protein 5.3 g/dL (6.3-8.2)
[2021-02-01 11:57] LABS: Anisocytosis Slight; Basophils % (A) 0 %; Eosinophils # (A) 0.1 k/uL (0-0.7); Eosinophils % (A) 1 %; HCT 26.1 % (34.0-46.0); Hypochromasia Moderate; Lymphocytes % (A) 18 %; MCH 32.1 pg (25.0-35.0); MCHC 30.9 g/dL (31.0-37.0); MCV 103.9 fL (80.0-100.0); Macrocytosis Marked; Mean Platelet Volume 9.2; Monocytes # (A) 0.3 k/uL (0-1.0); Monocytes % (A) 6 %; Neutrophils # (A) 3.7 k/uL (1.3-7.7); Neutrophils % (A) 72 %; RBC 2.51 m/uL (3.80-5.40); RDW 19.7 % (11.5-15.5); WBC 5.2 k/uL (3.8-10.6)
[2021-02-01 11:58] LABS: Glucose,Whole Blood 141 mg/dL (75-99)
[2021-02-01 12:01] LABS: HGB 8.1 gm/dL (11.4-16.0); Platelet Count 43 k/uL (150-450)
--- NOTE | 2021-02-01 12:11 | CT ---
EXAMINATION TYPE: CT chest wo con DATE OF EXAM: 02/01/2021 COMPARISON: Chest x-ray same date HISTORY: Cough,Right pleural effusion, history of mass CT DLP: 288.7 mGycm. Automated Exposure Control for Dose Reduction was Utilized. TECHNIQUE: CT scan of the thorax is performed without IV contrast. FINDINGS: LUNGS: Right pleural effusion is present, there is associated atelectasis. Groundglass opacities pres ent to much of the residual aerated right lung, there air bronchograms at the right middle lobe and r ight lower lobe. There is some vague groundglass opacity also noted in the left lung MEDIASTINUM: Lack of IV contrast is noted to limit evaluation for mediastinal and especially hilar ad enopathy. There are no definitive greater than 1 cm hilar or mediastinal lymph nodes. No cardiomega ly or pericardial effusion is seen. There may be some bronchial wall narrowing at the lower lobe on t he right, difficult to exclude endobronchial lesion, there is some calcification or metallic density present. There are some coronary artery calcifications. OTHER: The liver shows a nodular contour likely due to underlying cirrhosis. Patient is post cholecys tectomy. There is ascites present within the abdomen. Gastric wall thickening may be due to lack of d istention but is indeterminate. IMPRESSION: Correlate for pneumonia, edema. Question some bronchial wall narrowing. Cirrhosis and asc ites.
[2021-02-01 16:55] LABS: Glucose,Whole Blood 162 mg/dL (75-99)
[2021-02-01 21:48] LABS: Glucose,Whole Blood 128 mg/dL (75-99)
--- NOTE | 2021-02-01 22:20 | P.PN ---
Subjective 72-year-old female with a history of nonalcoholic cirrhosis, hypertension, hyperlipidemia and diabetes mellitus, who presents with complaints of one week of shortness of breath also midsternal sharp chest pain dyspnea on exertion and abdominal distention. She believes she has recurrent ascites. No fevers chills sweats nausea vomiting or other symptoms at this time Workup in ED including labwork reveals WBC of 5.3, hemoglobin 10.9 and platelet count of 69, BUN 30/creatinine of 1.94; total bilirubin elevated at 1.8, AST slightly elevated at 59 ALT is normal Chest x-ray reveals right-sided consolidation likely secondary to effusion; EKG shows no acute ST or T-wave changes Patient is planned to be admitted for right-sided pleural effusion, ascites, dehydration and dyspnea 01/31/2021 Patient is seen and evaluated resting in bed; continues to complain of shortness of breath but overall reports improvement Vital signs are reviewed; temperature of 98.7, pulse 82, respiration 18 and blood pressure 92/56 Laboratory review shows WBC of 4.3, hemoglobin of 9.3 and platelets of 61, BUN/creatinine 27/2.0 with a downward trend this morning of B UN/creatinine of 30/1.94 Patient has been evaluated by pulmonary for massive right-sided pleural effusion and underwent thoracentesis yesterday GI on board for evaluation of nonalcoholic liver cirrhosis and portal hypertension with ascites; patient does not have any significant ascites on clinical exam and is recommended to continue with Lasix and Aldactone along with xifaxan and lactulose; continue with low-salt diet; GI recommending abdominal ultrasound to evaluate for ascites 02/01/2021 This is a pleasant 80 years old female with nonalcoholic liver cirrhosis pre sents with dyspnea secondary to marked right pleural effusion status post thoracocentesis 2 days ago Patient is hemodynamically stable Labs showing WBC of 5.2, hemoglobin went down from 10.9-8.1, platelets dropped from 69 down to 43PK. Today just x-ray showing also complete opacification of the right lung secondary to pleural effusion, I discussed the case with pulmonary team and they going to repeat thoracocentesis and patient is agreeable CT of the chest without contrast showing pneumonia, edema. Question somewhat bronchial wall narrowing. Cirrhosis and ascites Abdominal ultrasound: Small amount of ascites. Patient currently is on Lasix, Aldactone, rifaximin and lactulose. The peak labs CBC and BMP tomorrow Objective - Vital Signs Vital signs: Vital Signs Temp 97.9 F 02/01/21 08:00 Pulse 89 02/01/21 11:15 Resp 18 02/01/21 10:41 BP 99/60 02/01/21 11:15 Pulse Ox 96 02/01/21 11:15 Intake & Output 01/31/21 02/01/21 02/01/21 18:59 06:59 18:59 Intake Total 720 1158 Output Total 550 Balance 720 -550 1158 Weight 65.771 kg Intake: Intake, IV Titration 600 1040 Amount Sodium Chloride 0.9% 1, 1040 000 ml @ 130 mls/hr IV . [id number] STEF Rx#:[id number] Sodium Chloride 0.9% 1, 600 000 ml @ 75 mls/hr IV . [id number] STA Rx#:[id number] Oral 120 118 Output: Urine 550 Other: # Voids 2 1 # Bowel Movements 1 - Exam GENERAL: The patient is alert and oriented x3, not in any acute distress. Well developed, well nourished. HEENT: Pupils are round and equally reacting to light. EOMI. No scleral icterus. No conjunctival pallor. Normocephalic, atraumatic. No pharyngeal erythema. No thyromegaly. CARDIOVASCULAR: S1 and S2 present. No murmurs, rubs, or gallops. -PULMONARY: Chest is clear to auscultation, no wheezing or crackles. Right side with decreased breath sounds ABDOMEN: Soft, nontender, nondistended, normoactive bowel sounds. No palpable organomegaly. MUSCULOSKELETAL: No joint swelling or deformity. EXTREMITIES: No cyanosis, clubbing, or pedal edema. NEUROLOGICAL: Gross neurological examination did not reveal any focal deficits. SKIN: No rashes. no petechiae. - Labs CBC & Chem 7: 02/01/21 11:14 02/01/21 11:14 Labs: Abnormal Lab Results - Last 24 Hours (Table) 01/31/21 01/31/21 02/01/21 Range/Units 17:03 21:23 07:11 RBC (3.80-5.40) m/uL Hgb (11.4-16.0) gm/dL Hct (34.0-46.0) % MCV (80.0-100.0) fL MCHC (31.0-37.0) g/dL RDW (11.5-15.5) % Plt Count (150-450) k/uL Macrocytosis BUN (7-17) mg/dL Creatinine (0.52-1.04) mg/dL Glucose (74-99) mg/dL POC Glucose (mg/dL) 112 H 185 H 128 H (75-99) mg/dL AST (14-36) U/L Total Protein (6.3-8.2) g/dL Albumin (3.5-5.0) g/dL 02/01/21 02/01/21 02/01/21 Range/Units 11:14 11:14 11:57 RBC 2.51 L (3.80-5.40) m/uL Hgb 8.1 L D (11.4-16.0) gm/dL Hct 26.1 L (34.0-46.0) % MCV 103.9 H (80.0-100.0) fL MCHC 30.9 L (31.0-37.0) g/dL RDW 19.7 H (11.5-15.5) % Plt Count 43 L (150-450) k/uL Macrocytosis Marked A BUN 32 H (7-17) mg/dL Creatinine 1.70 H (0.52-1.04) mg/dL Glucose 153 H (74-99) mg/dL POC Glucose (mg/dL) 141 H (75-99) mg/dL AST 46 H (14-36) U/L Total Protein 5.3 L (6.3-8.2) g/dL Albumin 2.2 L (3.5-5.0) g/dL Microbiology - Last 24 Hours (Table) 01/30/21 10:20 Gram Stain - Preliminary Pleural Fluid Body Fluid Culture - Preliminary Assessment and Plan Assessment: 1. Acute onset dyspnea - Significant right-sided pleural effusion, status post thoracocentesis by pulmonary team. Computed tomography scan of the chest reviewed. Follow up with pulmonary recommendation - Patient is placed on Lasix 20 mg daily along with Aldactone 40 mg 2. Non-alcoholic hepatic cirrhosis/ascites; patient follows up with GI for weekly paracentesis; we will consult with Dr. Rodriguez for further recommendations; monitor liver enzymes; INR is elevated at 1.4; we will continue to monitor P T/INR - GI team on the case, continue with Lasix, Aldactone, rifaximin and lactulose 3. Acute renal injury/dehydration; slow IV fluid hydration; monitor strict ASIF's, daily weights, renal function and electrolytes; avoid nephrotoxins - Improving, creatinine down to 1.9 down to 1.7 today. Keep monitoring 4. Bicytopenia - with low hemoglobin 10 down to 8.1 and a platelet count down to 43K 5. Hypertension; stable on atenolol 25 mg daily 6. Hyperlipidemia; continue with home statin therapy and monitor liver enzymes closely; we'll plan to discontinue statin therapy if liver enzymes continue to trend 7. Hypothyroidism; levothyroxin 100 MCG daily DVT prophylaxis; SCDs only due to hepatic failure. And thrombocytopenia CODE STATUS; full code
[2021-02-01] MEDS: HYDROcodone/APAP 5-325MG 1 EACH TAB PO PRN (22:47)
[2021-02-02] MEDS: LEVOTHYROXINE 100 MCG TAB PO SCH (05:36)
[2021-02-02] MEDS: SODIUM CHLORIDE 0.9% 1,000 ML IV SCH ×2 (05:38→19:46)
[2021-02-02 07:13] LABS: Glucose,Whole Blood 109 mg/dL (75-99)
[2021-02-02] MEDS: INSULIN ASPART (NovoLOG) 100 UNIT/ML VIAL SQ SCH ×4 (07:45→21:46)
[2021-02-02] MEDS: SPIRONOLACTONE 25 MG TAB PO SCH (08:12)
[2021-02-02] MEDS: MULTIVITAMINS, THERA 1 EACH TAB PO SCH (08:12)
[2021-02-02] MEDS: ATORVASTATIN 20 MG TAB PO SCH (08:13)
[2021-02-02] MEDS: PANTOPRAZOLE 40 MG TABLET PO SCH (08:13)
[2021-02-02] MEDS: RIFAXIMIN 550 MG TABLET PO SCH ×2 (08:13→21:59)
[2021-02-02] MEDS: FUROSEMIDE 20 MG TAB PO SCH (08:13)
[2021-02-02] MEDS: CYANOCOBALAMIN 500 MCG TAB PO SCH (08:13)
[2021-02-02] MEDS: FERROUS SULFATE 325 MG TAB PO SCH (08:13)
[2021-02-02] MEDS: CALCIUM CARB-VIT D 500 MG-5 MCG TAB PO SCH (08:13)
[2021-02-02] MEDS: ASCORBIC ACID 500 MG TAB PO SCH (08:13)
[2021-02-02] MEDS: allopurinoL 100 MG TAB PO SCH (08:13)
[2021-02-02] MEDS: atenoloL 25 MG TAB PO SCH (08:16)
--- NOTE | 2021-02-02 09:35 | XR ---
EXAMINATION TYPE: XR chest 1V portable DATE OF EXAM: 02/02/2021 COMPARISON: 02/01/2021 HISTORY: Pleural effusion TECHNIQUE: Single frontal view of the chest is obtained. FINDINGS: There remains complete opacification the right hemithorax. Subsegmental changes at the lef t lung. Heart size stable. Hypertrophic and degenerative change of the spine. Diffuse osteopenia. Ath erosclerotic change aorta. No pneumothorax. Suggestion of surgical clips right upper quadrant. IMPRESSION: Stable complete opacification of the right hemithorax.
--- NOTE | 2021-02-02 09:41 | P.CNPUL ---
History of Present Illness Consult date: 01/30/21 History of present illness: Patient Name: Marianne Rodriguez Date of : 1940 Patient Status: Surgical Day Care Attending Provider: Shantel Barros Date: 01/30/21 10:05 Initialization Date: 01/30/21 10:05 History of Present Illness Consult date: 01/30/21 Reason for consult: dyspnea, pleural effusion History of present illness: Is a 80-year-old female patient with known history of liver cirrhosis secondary to nonalcoholic steatohepatitis. The patient is being seen by gastroenterology. She has had previous paracentesis 1 and she was scheduled to have another one and this never got done. This was done through interventional radiology in our hospital. The patient presented with worsening shortness of breath and she had developed complete whitening out of the right lung along with a mediastinal shift to the left and obviously this is consistent with a large pleural effusion probably a hepatic hydrothorax. No signs of any hepatic encephalopathy. She is awake and alert. The daughter is at the bedside. No GI bleeding. No other major comorbidities. She is known to have hypertension, diabetes mellitus and acid reflux. Last drainage was on 11/24/2019 100 patient had a total of 3.8 L drained.. For now she is having shortness of breath and some cough. Her platelet count is 69, coagulation profile shows and INR 1.4 with a PT of 14.1. Creatinine is at 1.9 and this is essentially chronic. Lactic acid level is at 2.1. Review of Systems Constitutional: Reports fatigue, Reports weakness Eyes: denies as per HPI, denies blurred vision, denies bulging eye, denies decreased vision, denies diplopia, denies discharge, denies dry eye, denies irritation, denies itching, denies pain, denies photophobia, denies loss of peripheral vision, denies loss of vision, denies tunnel vision/blind spots Ears: deny: decreased hearing, ear discharge, earache, tinnitus Ears, nose, mouth and throat: Reports as per HPI Breasts: absent: as per HPI, change in shape, gynecomastia, masses, nipple discharge, pain, skin changes, swelling Cardiovascular: Reports decreased exercise tolerance, Reports dyspnea on exertion Respiratory: Reports dyspnea Gastrointestinal: Reports as per HPI (ascites the secondary to liver disease), Reports loss of appetite Genitourinary: Reports as per HPI Menstruation: Reports as per HPI Musculoskeletal: Reports as per HPI Musculoskeletal: absent: ankle pain, ankle stiffness, ankle swelling, as per HPI, elbow pain, elbow stiffness, elbow swelling, foot pain, foot stiffness, foot swelling, hand pain, hand stiffness, hand swelling, hip pain, hip st iffness, hip swelling, knee pain, knee stiffness, knee swelling, shoulder pain, shoulder stiffness, shoulder swelling, wrist pain, wrist stiffness, wrist swelling Integumentary: Reports as per HPI Neurological: Reports as per HPI Psychiatric: Reports as per HPI Endocrine: Reports as per HPI Hematologic/Lymphatic: Reports as per HPI Allergic/Immunologic: Reports as per HPI Past Medical History Past Medical History: Cancer, Diabetes Mellitus, GERD/Reflux, Hyperlipidemia, Hypertension, Liver Disease, Osteoarthritis (OA) Additional Past Medical History / Comment(s): patient states "doesn't clot right but is not aware of any specific clotting disorders but all her Drs are aware",hemorrhoids and bleeding with stools,recent dehydration and UTI, non alcoholic cirrhosis of the liver, skin cancer History of Any Multi-Drug Resistant Organisms: None Reported Past Surgical History: Cholecystectomy, Orthopedic Surgery Additional Past Surgical History / Comment(s): colonoscopy, lt knee surgery, paracentesis Past Anesthesia/Blood Transfusion Reactions: No Reported Reaction Additional Past Anesthesia/Blood Transfusion Reaction / Comment(s): no problems with previous blood transfusions Past Psychological History: Depression Additional Psychological History / Comment(s): no medication Smoking Status: Never smoker Past Alcohol Use History: None Reported Past Drug Use History: None Reported - Past Family History Mother Family Medical History: Cancer Medications and Allergies Home Medications Medication Instructions Recorded Confirmed Type Calcium Carbonate [Calcium] 600 mg PO DAILY 07/19/19 01/30/21 History Cranberry Fruit Extract [Cranberry] 1,500 mg PO DAILY 07/19/19 01/30/21 History Cyanocobalamin (Vitamin B-12) 1,000 mcg PO DAILY 07/19/19 01/30/21 History [Vitamin B-12] Ergocalciferol [Vitamin D2 50,000 unit PO FR 07/19/19 01/30/21 History (DRISDOL)] Ferrous Sulfate [Iron (65 MG 325 mg PO DAILY 07/19/19 01/30/21 History Elemental)] HYDROcodone/APAP 5-325MG [[place] 1 tab PO BID PRN 07/19/19 01/30/21 History 5-325] Levothyroxine Sodium [Synthroid] 100 mcg PO DAILY 07/19/19 01/30/21 History Multivit-Min/Iron/Folic/Lutein 1 tab PO DAILY 07/19/19 01/30/21 History [Centrum Silver Women Tablet] Omeprazole 40 mg PO DAILY 07/19/19 01/30/21 History Simvastatin [Zocor] 40 mg PO DAILY 07/19/19 01/30/21 History allopurinoL [Zyloprim] 100 mg PO DAILY 07/19/19 01/30/21 History atenoloL [Tenormin] 25 mg PO DAILY 07/19/19 01/30/21 History Ascorbic Acid [Vitamin C] 1,000 mg PO DAILY tab 12/17/20 01/30/21 Rx Furosemide [Lasix] 20 mg PO DAILY 01/22/21 01/30/21 History Spironolactone [Aldactone] 25 mg PO DAILY 01/22/21 01/30/21 History Lactulose 10 - 20 gm PO TID PRN 01/30/21 01/30/21 History Rifaximin [Xifaxan] 200 mg PO BID 01/30/21 01/30/21 History Allergies Allergy/AdvReac Type Severity Reaction Status Date / Time No Known Allergies Allergy Verified 01/30/21 09:59 Physical Exam The patient appeared well nourished and normally developed. Vital signs as documented. Head exam is unremarkable. No scleral icterus or corneal arcus noted. Neck is without jugular venous distension, thyromegaly, or carotid bruits. Carotid upstrokes are brisk bilaterally. Lungs absent breath sounds in the right compared to the left. The left side is essentially clear and there is no wheezes or rhonchi this point in time. Cardiac exam reveals the PMI to be normally sized and situated. Rhythm is regular. First and second heart sounds normal. No murmurs, rubs or gallops. Abdominal exam reveals normal bowel sounds, no masses, no organomegaly and no aortic enlargement. Extremities are nonedematous and both femoral and pedal pulses are normal.Examination of the skin revealed no evidence of significant rashes, suspicious appearing nevi or other concerning lesions.Neurologically, the patient is awake and alert and the patient does not have any focal neurological deficit. Cranial nerves are essentially intact. Results - Diagnostic Findings Chest x-ray: image reviewed Assessment and Plan Plan: 1. Complete whitening out of the right lung, consistent with pleural effusion, hepatic hydrothorax. 2 shortness of breath secondary to above 3 acute hypoxic respiratory failure secondary to above 4 history of liver cirrhosis secondary to nonalcoholic steatohepatitis 5 history of portal hypertension and splenomegaly and esophageal varices 6 history of ascites last drainage was on 11/23/2020 7 chronic kidney disease 8 hypertension 9 hyperlipidemia 10 history of COVID-19 infection with complete recovery 11 diabetes mellitus 12 thrombocytopenia secondary to liver disease Plan We'll proceed with a right-sided thoracentesis for diagnostic and therapeutic purposes. We'll continue to follow. Consent was obtained. Proceed with explained. This will be done in the emergency department. We'll continue to follow this patient. Past Medical History Past Medical History: Cancer, Diabetes Mellitus, GERD/Reflux, Hyperlipidemia, Hypertension, Liver Disease, Osteoarthritis (OA) Additional Past Medical History / Comment(s): patient states "doesn't clot right but is not aware of any specific clotting disorders but all her Drs are aware",hemorrhoids and bleeding with stools,recent dehydration and UTI, non alcoholic cirrhosis of the liver, skin cancer History of Any Multi-Drug Resistant Organisms: None Reported Past Surgical History: Cholecystectomy, Orthopedic Surgery Additional Past Surgical History / Comment(s): colonoscopy, lt knee surgery, paracentesis Past Anesthesia/Blood Transfusion Reactions: No Reported Reaction Additional Past Anesthesia/Blood Transfusion Reaction / Comment(s): no problems with previous blood transfusions Past Psychological History: Depression Additional Psychological History / Comment(s): no medication Smoking Status: Never smoker Past Alcohol Use History: None Reported Past Drug Use History: None Reported - Past Family History Mother Family Medical History: Cancer Medications and Allergies Home Medications Medication Instructions Recorded Confirmed Type Calcium Carbonate [Calcium] 600 mg PO DAILY 07/19/19 01/30/21 History Cranberry Fruit Extract [Cranberry] 1,500 mg PO DAILY 07/19/19 01/30/21 History Cyanocobalamin (Vitamin B-12) 1,000 mcg PO DAILY 07/19/19 01/30/21 History [Vitamin B-12] Ergocalciferol [Vitamin D2 50,000 unit PO FR 07/19/19 01/30/21 History (DRISDOL)] Ferrous Sulfate [Iron (65 MG 325 mg PO DAILY 07/19/19 01/30/21 History Elemental)] HYDROcodone/APAP 5-325MG [[place] 1 tab PO BID PRN 07/19/19 01/30/21 History 5-325] Levothyroxine Sodium [Synthroid] 100 mcg PO DAILY 07/19/19 01/30/21 History Multivit-Min/Iron/Folic/Lutein 1 tab PO DAILY 07/19/19 01/30/21 History [Centrum Silver Women Tablet] Omeprazole 40 mg PO DAILY 07/19/19 01/30/21 History Simvastatin [Zocor] 40 mg PO DAILY 07/19/19 01/30/21 History allopurinoL [Zyloprim] 100 mg PO DAILY 07/19/19 01/30/21 History atenoloL [Tenormin] 25 mg PO DAILY 07/19/19 01/30/21 History Ascorbic Acid [Vitamin C] 1,000 mg PO DAILY tab 12/17/20 01/30/21 Rx Furosemide [Lasix] 20 mg PO DAILY 01/22/21 01/30/21 History Spironolactone [Aldactone] 25 mg PO DAILY 01/22/21 01/30/21 History Lactulose 10 - 20 gm PO TID PRN 01/30/21 01/30/21 History Rifaximin [Xifaxan] 200 mg PO BID 01/30/21 01/30/21 History Allergies Allergy/AdvReac Type Severity Reaction Status Date / Time No Known Allergies Allergy Verified 01/30/21 09:59 Results - Laboratory Findings CBC and BMP: 02/01/21 11:14 02/01/21 11:14
--- NOTE | 2021-02-02 09:42 | P.PCN ---
Date of Procedure: 01/30/21 Operative Findings: re Note Patient Name: Marianne Rodriguez Date of : 1940 Patient Status: Surgical Day Care Attending Provider: Shantel Barros Date: 01/30/21 10:16 Initialization Date: 01/30/21 10:16 Date of Procedure: 01/30/21 Preoperative Diagnosis: right pleural effusion Postoperative Diagnosis: right pleural effusion Procedure(s) Performed: thoracentesis Anesthesia: local Surgeon: Ronal Villegas Estimated Blood Loss (ml): 0 Pathology: other Condition: stable Disposition: floor Operative Findings: A time out was performed and the chest x-ray was reviewed, the appropriate side was confirmed and marked. My hands were washed immediately prior to the procedure. I wore a surgical cap, mask with protective eyewear, sterile gown and sterile gloves throughout the procedure. The patient was prepped and draped in a sterile manner using chlorhexidine scrub after the appropriate level was percussed and confirmed by ultrasound. 1% lidocaine was used to anesthesize the skin, subcutaneous tissue, superior aspect of the rib periosteum and parietal pleura. A finder needle was then introduced over the superior aspect of the rib to locate the pleural fluid; 2colored fluid was aspirated at a depth of approximately 2 cm. A 10-blade scalpel was used to mike the skin at the insertion site. The [id number] needle was then introduced through the skin incision into the pleural space using negative aspiration pressure and the red colometric indicator to confirm appropriate positioning of the needle. The thoracentesis catheter was then threaded without difficulty. 1700 ml of turbid colored fluid was removed without difficulty. The catheter was then removed. No immediate complications were noted during the procedure. A post-procedure chest x-ray is pending at the time of this note. The fluid will be sent for studies. Estimated blood loss is 0cc
--- NOTE | 2021-02-02 09:43 | P.PN ---
Subjective Progress Note Date: 01/31/21 01/31/2021, khalif this patient for a follow-up. 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 Clinically felt better. Less short of breath. Post chest x-ray showed no evidence of any pneumothorax. Clinically the patient is feeling better. The patient is using incentive spirometer. She is on diuretics for now. Ultrasound of the abdomen was also done looking for any significant ascites. Objective - Exam The patient appeared well nourished and normally developed. Vital signs as documented. Head exam is unremarkable. No scleral icterus or corneal arcus noted. Neck is without jugular venous distension, thyromegaly, or carotid bruits. Carotid upstrokes are brisk bilaterally. Lungs sounds are diminished on the right compared to the left. The left side is essentially clear and there is no wheezes or rhonchi this point in time. Cardiac exam reveals the PMI to be normally sized and situated. Rhythm is regular. First and second heart sounds normal. No murmurs, rubs or gallops. Abdominal exam reveals normal bowel sounds, no masses, no organomegaly and no aortic enlargement. Extremities are nonedematous and both femoral and pedal pulses are normal.Examination of the skin revealed no evidence of significant rashes, suspicious appearing nevi or other concerning lesions.Neurologically, the patient is awake and alert and the patient does not have any focal neurological deficit. Cranial nerves are essentially intact. - Labs CBC & Chem 7: 02/01/21 11:14 02/01/21 11:14 Assessment and Plan Plan: 1. Complete whitening out of the right lung, consistent with pleural effusion, hepatic hydrothorax. He underwent thoracentesis and evaluation of 1.7 L of pleural fluid from the right lung yesterday and the foods a transudate consistent with hepatic hydrothorax. Patient is feeling better. Repeat chest x -ray will be done tomorrow. Possible repeat thoracentesis. Use incentive spirometer. Continue diuretics. 2 shortness of breath secondary to above 3 acute hypoxic respiratory failure secondary to above 4 history of liver cirrhosis secondary to nonalcoholic steatohepatitis 5 history of portal hypertension and splenomegaly and esophageal varices 6 history of ascites last drainage was on 11/23/2020 7 chronic kidney disease 8 hypertension 9 hyperlipidemia 10 history of COVID-19 infection with complete recovery 11 diabetes mellitus 12 thrombocytopenia secondary to liver disease Plan Use incentive spirometer. Continue diuretics. Ultrasound of the abdomen. Home medications were resumed. Repeat chest x-ray in a.m. and possible repeat thoracentesis
[2021-02-02 11:12] LABS: INR 1.5 (<1.2)
[2021-02-02 11:20] LABS: African American GFR (CKD) 34 (>60 ml/min/1.73 sqM); Anion Gap 5 mmol/L; Blood Urea Nitrogen 30 mg/dL (7-17); Calcium 8.7 mg/dL (8.4-10.2); Carbon Dioxide 27 mmol/L (22-30); Chloride 106 mmol/L (98-107); Glucose 127 mg/dL (74-99); Non-African American GFR(CKD) 30 (>60 ml/min/1.73 sqM); Potassium 3.5 mmol/L (3.5-5.1); Sodium 138 mmol/L (137-145)
--- NOTE | 2021-02-02 11:22 | US ---
EXAMINATION TYPE: US chest DATE OF EXAM: 02/02/2021 COMPARISON: X ray, CT CLINICAL HISTORY: Markings for thoracentesis by pulmonary staff. TECHNIQUE: Targeted ultrasound of the posterior right hemithorax EXAM MEASUREMENTS: Right Pleural Effusion pocket size: 8.4 cm A/P with hypoechoic internal echoes seen Right skin surface to fluid distance: 2.8 cm A/P Left Pleural Effusion pocket size: no fluid seen Right side was marked for possible thoracentesis outside the dept. Pulmonologists are able to review the images in the patient?s EMR. IMPRESSIONS: 1. Right pleural effusion with pockets size of 8.4 cm AP, and 2.8 cm AP from skin surface to fluid, a s described above.
[2021-02-02 11:28] LABS: Glucose,Whole Blood 117 mg/dL (75-99)
[2021-02-02 11:44] LABS: African American GFR (CKD) 32.9 (60.0-200.0); Anion Gap 8.5 mmol/L (4.00-12.00); BUN/Creat Ratio 17.65 Ratio (12.00-20.00); Calcium 8.6 mg/dL (8.7-10.3); Carbon Dioxide 27.5 mmol/L (21.6-31.8); Non-African American GFR(CKD) 28.4 (60.0-200.0); Potassium 3.9 mmol/L (3.5-5.5)
[2021-02-02 11:54] LABS: Anisocytosis Slight; HCT 29.1 % (34.0-46.0); HGB 8.9 gm/dL (11.4-16.0); Hypochromasia Marked; MCH 32.2 pg (25.0-35.0); MCHC 30.7 g/dL (31.0-37.0); MCV 104.8 fL (80.0-100.0); Macrocytosis Marked; Mean Platelet Volume 8.8; RBC 2.78 m/uL (3.80-5.40); RDW 19.6 % (11.5-15.5)
[2021-02-02 11:56] LABS: Platelet Count 55 k/uL (150-450)
[2021-02-02 12:19] LABS: Basophils # (M) 0 X 10*3/uL (0.00-0.10); Eosinophils # (M) 0.08 X 10*3/uL (0.04-0.35); HCT 25.6 % (37.2-46.3); HGB 7.9 g/dL (12.0-15.0); Lymphocytes # (M) 0.85 X 10*3/uL (0.90-5.00); MCH 32.8 pg (27.0-32.0); MCHC 30.9 g/dL (32.0-37.0); MCV 106.2 fL (80.0-97.0); Macrocytosis (M) 2+; Mean Platelet Volume 12.3 fL (9.5-12.2); Neutrophils # (M) 2.92 X 10*3/uL (2.00-8.90); Neutrophils % (M) 72 %; Platelet Count 42 X 10*3/uL (140-440); RBC 2.41 X 10*6/uL (4.10-5.20); RDW 19.9 % (11.5-14.5); WBC 4.05 X 10*3/uL (4.50-10.00)
--- NOTE | 2021-02-02 12:22 | XR ---
EXAMINATION TYPE: XR chest 1V portable DATE OF EXAM: 02/02/2021 COMPARISON: 02/02/2021 HISTORY: Postthoracentesis TECHNIQUE: Single frontal view of the chest is obtained. FINDINGS: Interval marked improvement in aeration of the right lung with no sizable pneumothorax. Pe rsistent pleural fluid and consolidation noted. Left lung is clear. Underlying COPD suspected. Diffus e osteopenia. IMPRESSION: Interval marked improvement in aeration of the right lung with no sizable pneumothorax p ostthoracentesis.
[2021-02-02] MEDS: HYDROcodone/APAP 5-325MG 1 EACH TAB PO PRN ×2 (14:23→21:59)
--- NOTE | 2021-02-02 14:32 | P.PN ---
Subjective Progress Note Date: 02/02/21 Principal diagnosis: Recurrent right hemithorax 02/01/2021, the patient has developed recurrent right-sided pleural effusion. After my initial drainage, the patient had some improvement. Nevertheless, the follow-up chest x-ray still showing complete opacification of the right lung consistent with pleural effusion. 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 I'm going to give her another thoracentesis today. She is agreeable to the procedure. She is on diuretics for now. She is still short of breath. On 02/02/2021 patient's chest x-ray again shows complete opacification of the right hemithorax and a stat ultrasound of the chest was obtained showing 8.4 cm fluid pocket on the right. Clinically patient feels short of breath, but appears to be in no acute distress, and actually seems to be quite comfortable. Still on 2 L of oxygen pulse ox is 97%, denies any chest pain, low-grade fever this morning, afebrile right now, hemodynamically she is been stable, we discussed possibility of repeat right-sided thoracentesis with her today and patient agreed to proceed, patient's daughter is at the bedside, this was also discussed with the patient's daughter, decision was made to proceed with repeat right-sided thoracentesis. Patient tired procedure very well, preprocedure blood work was obtained showing hemoglobin of 7.9, white blood cell count was 4.05, platelet count was 44, INR is 1.5, electrolytes were unremarkable, B1 is 30 creatinine is 1.7. 2.7 L of slightly dark pleural fluid was removed, and postprocedure chest x-ray showed interval marked improvement in aeration of the right lung with no sizable pneumothorax. Objective - Vital Signs Vital signs: Vital Signs Temp 97.6 F 02/02/21 08:44 Pulse 86 02/02/21 08:44 Resp 16 02/02/21 08:44 BP 94/57 02/02/21 08:44 Pulse Ox 97 02/02/21 08:44 Intake & Output 02/01/21 02/02/21 02/02/21 18:59 06:59 18:59 Intake Total 1276 Balance 1276 Intake: Intake, IV Titration 1040 Amount Sodium Chloride 0.9% 1, 1040 000 ml @ 130 mls/hr IV . Q7H42M [facility] Rx#:[id number] Oral 236 Other: # Voids 1 - Exam GENERAL EXAM: Alert, very pleasant, 80-year-old white female, on 2 L of oxygen with pulse ox of 97%, comfortable in no apparent distress. HEAD: Normocephalic/atraumatic. EYES: Normal reaction of pupils, equal size. Conjunctiva pink, sclera white. NOSE: Clear with pink turbinates. THROAT: No erythema or exudates. NECK: No masses, no JVD, no thyroid enlargement, no adenopathy. CHEST: No chest wall deformity. Symmetrical expansion. LUNGS: diminished breath sounds over right upper mid and lower lobe, clear breath sounds on the left. CVS: Regular rate and rhythm, normal S1 and S2, no gallops, no murmurs, no rubs ABDOMEN: Soft, nontender. No hepatosplenomegaly, normal bowel sounds, no guard ing or rigidity. EXTREMITIES: No clubbing, no edema, no cyanosis, 2+ pulses and upper and lower extremities. MUSCULOSKELETAL: Muscle strength and tone normal. SPINE: No scoliosis or deformity SKIN: No rashes CENTRAL NERVOUS SYSTEM: Alert and oriented -3. No focal deficits, tone is normal in all 4 extremities. PSYCHIATRIC: Alert and oriented -3. Appropriate affect. Intact judgment and insight. - Labs CBC & Chem 7: 02/02/21 10:57 02/02/21 10:57 Labs: Abnormal Lab Results - Last 24 Hours (Table) 02/01/21 02/01/21 02/02/21 Range/Units 16:54 21:46 06:49 WBC 4.05 L (4.50-10.00) X 10*3/uL RBC 2.41 L (4.10-5.20) X 10*6/uL Hgb 7.9 L (12.0-15.0) g/dL Hct 25.6 L (37.2-46.3) % MCV 106.2 H (80.0-97.0) fL MCH 32.8 H (27.0-32.0) pg MCHC 30.9 L (32.0-37.0) g/dL RDW 19.9 H (11.5-14.5) % Plt Count 42 L (140-440) X 10*3/uL Plt Count Comment DECREASED A MPV 12.3 H (9.5-12.2) fL Lymphocytes # (Manual) 0.85 L (0.90-5.00) X 10*3/uL Macrocytosis PT (9.0-12.0) sec INR (<1.2) BUN (9.0-27.0) mg/dL Creatinine (0.6-1.5) mg/dL Est GFR (CKD-EPI)AfAm (60.0-200.0) Est GFR (CKD-EPI)NonAf (60.0-200.0) Glucose (70-110) mg/dL POC Glucose (mg/dL) 162 H 128 H (75-99) mg/dL Calcium (8.7-10.3) mg/dL 02/02/21 02/02/21 02/02/21 Range/Units 06:49 06:49 07:12 WBC (4.50-10.00) X 10*3/uL RBC (4.10-5.20) X 10*6/uL Hgb (12.0-15.0) g/dL Hct (37.2-46.3) % MCV (80.0-97.0) fL MCH (27.0-32.0) pg MCHC (32.0-37.0) g/dL RDW (11.5-14.5) % Plt Count (140-440) X 10*3/uL Plt Count Comment MPV (9.5-12.2) fL Lymphocytes # (Manual) (0.90-5.00) X 10*3/uL Macrocytosis PT 15.0 H (9.0-12.0) sec INR 1.5 H (<1.2) BUN 30.0 H (9.0-27.0) mg/dL Creatinine 1.7 H (0.6-1.5) mg/dL Est GFR (CKD-EPI)AfAm 32.9 L (60.0-200.0) Est GFR (CKD-EPI)NonAf 28.4 L (60.0-200.0) Glucose 122 H (70-110) mg/dL POC Glucose (mg/dL) 109 H (75-99) mg/dL Calcium 8.6 L (8.7-10.3) mg/dL 02/02/21 02/02/21 02/02/21 Range/Units 10:57 10:57 11:26 WBC (4.50-10.00) X 10*3/uL RBC 2.78 L (4.10-5.20) X 10*6/uL Hgb 8.9 L (12.0-15.0) g/dL Hct 29.1 L (37.2-46.3) % MCV 104.8 H (80.0-97.0) fL MCH (27.0-32.0) pg MCHC 30.7 L (32.0-37.0) g/dL RDW 19.6 H (11.5-14.5) % Plt Count 55 L (140-440) X 10*3/uL Plt Count Comment MPV (9.5-12.2) fL Lymphocytes # (Manual) (0.90-5.00) X 10*3/uL Macrocytosis Marked A PT (9.0-12.0) sec INR (<1.2) BUN 30 H (9.0-27.0) mg/dL Creatinine 1.64 H (0.6-1.5) mg/dL Est GFR (CKD-EPI)AfAm (60.0-200.0) Est GFR (CKD-EPI)NonAf (60.0-200.0) Glucose 127 H (70-110) mg/dL POC Glucose (mg/dL) 117 H (75-99) mg/dL Calcium (8.7-10.3) mg/dL Microbiology - Last 24 Hours (Table) 01/30/21 10:20 Gram Stain - Preliminary Pleural Fluid Body Fluid Culture - Preliminary Assessment and Plan Plan: Assessment: #1. Complete whitening out of the right lung, consistent with pleural effusion, hepatic hydrothorax. She underwent thoracentesis and evaluation of 12.4 L of pleural fluid from the right lung on 02/01/2021 and the pleural fluid was a transudate consistent with hepatic hydrothorax. Patient had a repeat chest x- ray on 02/02/2021 that again showed recurrence of right-sided hydrothorax, and underwent right-sided repeat thoracentesis would removal of 2.7 L of pleural fluid #2. shortness of breath secondary to above #3. acute hypoxic respiratory failure secondary to above #4. history of liver cirrhosis secondary to nonalcoholic steatohepatitis #5. history of portal hypertension and splenomegaly and esophageal varices #6. history of ascites last drainage was on 11/23/2020 #7. chronic kidney disease #8. hypertension #9. hyperlipidemia #10. history of COVID-19 infection with complete recovery #11. diabetes mellitus #12. thrombocytopenia secondary to liver disease Plan: 2.7 L of pleural fluid was removed from the right pleural space Follow-up chest x-ray showed significant improvement in aeration of the right lung Patient is breathing easier No evidence of pneumothorax on follow-up chest x-ray Repeat chest x-ray in the morning Cutback IV fluids to KVO Obtain alpha-1 antitrypsin level We'll continue to follow I performed a history & physical examination of the patient and discussed their management with my nurse practitioner, Tari Laguna. I reviewed the nurse practitioner's note and agree with the documented findings and plan of care. Lung sounds are positive for diminished breath sounds. The findings and the impression was discussed with the patient. I attest to the documentation by the nurse practitioner. Time with Patient: Less than 30
--- NOTE | 2021-02-02 14:53 | P.PN ---
Subjective Progress Note Date: 02/02/21 Principal diagnosis: Ascites Pleasant 72-year-old female who presented to the emergency department with increased shortness of breath and ascites. She was noted to have a right p leural effusion. She is status post thoracentesis on 01/30/2021 and a repeat thoracentesis on 02/01/2021 with removal of 2400 mL of fluid at that time. She states she does have some improvement in her abdominal distention and breathing. She is on Xifaxan and lactulose, Aldactone is at 25 mg daily and Lasix 20 mg daily is denying any abdominal pain, nausea, or vomiting. Objective - Vital Signs Vital signs: Vital Signs Temp 97.6 F 02/02/21 08:44 Pulse 86 02/02/21 08:44 Resp 16 02/02/21 08:44 BP 94/57 02/02/21 08:44 Pulse Ox 97 02/02/21 08:44 Intake & Output 02/01/21 02/02/21 02/02/21 18:59 06:59 18:59 Intake Total 1276 Balance 1276 Intake: Intake, IV Titration 1040 Amount Sodium Chloride 0.9% 1, 1040 000 ml @ 130 mls/hr IV . Q7H42M [facility] Rx#:[id number] Oral 236 Other: # Voids 1 - Exam General appearance: The patient is alert, oriented, appears in no acute distress. HET: Head is normocephalic and atraumatic. Conjunctiva pink. Sclera anicteric. Neck: Supple without lymphadenopathy. Abdomen: Soft, nontender, nondistended with bowel sounds. No guarding or rigidity. Extremities: Normal skin color and turgor. No pedal edema Skin: No rashes, no jaundice Neurological: No focal deficits. Alert and oriented 3. - Labs CBC & Chem 7: 02/02/21 10:57 02/02/21 10:57 Labs: Abnormal Lab Results - Last 24 Hours (Table) 02/01/21 02/01/21 02/01/21 Range/Units 11:14 11:14 11:57 RBC 2.51 L (3.80-5.40) m/uL Hgb 8.1 L D (11.4-16.0) gm/dL Hct 26.1 L (34.0-46.0) % MCV 103.9 H (80.0-100.0) fL MCHC 30.9 L (31.0-37.0) g/dL RDW 19.7 H (11.5-15.5) % Plt Count 43 L (150-450) k/uL Macrocytosis Marked A BUN 32 H (7-17) mg/dL Creatinine 1.70 H (0.52-1.04) mg/dL Glucose 153 H (74-99) mg/dL POC Glucose (mg/dL) 141 H (75-99) mg/dL AST 46 H (14-36) U/L Total Protein 5.3 L (6.3-8.2) g/dL Albumin 2.2 L (3.5-5.0) g/dL 02/01/21 02/01/21 02/02/21 Range/Units 16:54 21:46 07:12 RBC (3.80-5.40) m/uL Hgb (11.4-16.0) gm/dL Hct (34.0-46.0) % MCV (80.0-100.0) fL MCHC (31.0-37.0) g/dL RDW (11.5-15.5) % Plt Count (150-450) k/uL Macrocytosis BUN (7-17) mg/dL Creatinine (0.52-1.04) mg/dL Glucose (74-99) mg/dL POC Glucose (mg/dL) 162 H 128 H 109 H (75-99) mg/dL AST (14-36) U/L Total Protein (6.3-8.2) g/dL Albumin (3.5-5.0) g/dL Microbiology - Last 24 Hours (Table) 01/30/21 10:20 Gram Stain - Preliminary Pleural Fluid Body Fluid Culture - Preliminary Assessment and Plan (1) Liver cirrhosis secondary to nonalcoholic steatohepatitis (SU[place]REZ) Narrative/Plan: 72-year-old female with a history of nonalcoholic cirrhosis of the liver with gradual decompensation with mild ascites. She is on Xifaxan and lactulose. Also on diuretics Aldactone 25 mg and Lasix 20 mg daily Current Visit: No Status: Acute Code(s): K75.81 - NONALCOHOLIC STEATOHEPATITIS (SU[place]REZ); K74.60 - UNSPECIFIED CIRRHOSIS OF LIVER SNOMED Code(s): 486321954 (2) Ascites Current Visit: Yes Status: Acute Code(s): R18.8 - OTHER ASCITES SNOMED Code(s): 985378708 (3) Dyspnea Current Visit: Yes Status: Acute Code(s): R06.00 - DYSPNEA, UNSPECIFIED SNOMED Code(s): 843095286 (4) Pleural effusion, right Narrative/Plan: Pulmonology following, patient has status post thoracentesis 01/30/2021 and 02/01/2021 Current Visit: Yes Status: Acute Code(s): J90 - PLEURAL EFFUSION, NOT ELSEWHERE CLASSIFIED SNOMED Code(s): 71804887 Plan: 1. Continue current dose of diuretics Aldactone 25 mg daily Lasix 20 mg daily 2. Low-salt diet 3. Continue Xifaxan and lactulose 4. Ultrasound reviewed only small amount of fluid noted Thank you for this consultation, we will continue to follow Dr. Imelda Mckenzie I agree with the dictator's note, documented as a scribe by Dary Ross.
[2021-02-02 16:31] LABS: Glucose,Whole Blood 116 mg/dL (75-99)
[2021-02-02 21:37] LABS: Glucose,Whole Blood 154 mg/dL (75-99)
--- NOTE | 2021-02-02 22:39 | P.PN ---
Subjective Progress Note Date: 02/02/21 She continues to complain of shortness of breath. CXR today shows complete opacification of R hemithorax. Labs stable from yesterday with increase of hgb to 8.7. Objective - Vital Signs Vital signs: Vital Signs Temp 99.3 F 02/02/21 19:40 Pulse 92 02/02/21 19:40 Resp 18 02/02/21 19:40 BP 94/52 02/02/21 19:40 Pulse Ox 97 02/02/21 19:40 Intake & Output 02/02/21 02/02/21 02/03/21 06:59 18:59 06:59 Intake Total 550 Balance 550 Intake: Oral 550 Other: # Voids 1 1 - Exam General: well nourished, well developed, NAD. Vitals reviewed Lungs: decreased sounds on R, no wheezes or rales CV: Regular rate and rhythm, no murmur. Peripheral pulses 2+ Abdomen: soft, distended, nontender Skin: warm and dry. - Labs CBC & Chem 7: 02/02/21 10:57 02/02/21 10:57 Labs: Abnormal Lab Results - Last 24 Hours (Table) 02/02/21 02/02/21 02/02/21 Range/Units 06:49 06:49 06:49 WBC 4.05 L (4.50-10.00) X 10*3/uL RBC 2.41 L (4.10-5.20) X 10*6/uL Hgb 7.9 L (12.0-15.0) g/dL Hct 25.6 L (37.2-46.3) % MCV 106.2 H (80.0-97.0) fL MCH 32.8 H (27.0-32.0) pg MCHC 30.9 L (32.0-37.0) g/dL RDW 19.9 H (11.5-14.5) % Plt Count 42 L (140-440) X 10*3/uL Plt Count Comment DECREASED A MPV 12.3 H (9.5-12.2) fL Lymphocytes # (Manual) 0.85 L (0.90-5.00) X 10*3/uL Macrocytosis PT 15.0 H (9.0-12.0) sec INR 1.5 H (<1.2) BUN 30.0 H (9.0-27.0) mg/dL Creatinine 1.7 H (0.6-1.5) mg/dL Est GFR (CKD-EPI)AfAm 32.9 L (60.0-200.0) Est GFR (CKD-EPI)NonAf 28.4 L (60.0-200.0) Glucose 122 H (70-110) mg/dL POC Glucose (mg/dL) (75-99) mg/dL Calcium 8.6 L (8.7-10.3) mg/dL 02/02/21 02/02/21 02/02/21 Range/Units 07:12 10:57 10:57 WBC (4.50-10.00) X 10*3/uL RBC 2.78 L (4.10-5.20) X 10*6/uL Hgb 8.9 L (12.0-15.0) g/dL Hct 29.1 L (37.2-46.3) % MCV 104.8 H (80.0-97.0) fL MCH (27.0-32.0) pg MCHC 30.7 L (32.0-37.0) g/dL RDW 19.6 H (11.5-14.5) % Plt Count 55 L (140-440) X 10*3/uL Plt Count Comment MPV (9.5-12.2) fL Lymphocytes # (Manual) (0.90-5.00) X 10*3/uL Macrocytosis Marked A PT (9.0-12.0) sec INR (<1.2) BUN 30 H (9.0-27.0) mg/dL Creatinine 1.64 H (0.6-1.5) mg/dL Est GFR (CKD-EPI)AfAm (60.0-200.0) Est GFR (CKD-EPI)NonAf (60.0-200.0) Glucose 127 H (70-110) mg/dL POC Glucose (mg/dL) 109 H (75-99) mg/dL Calcium (8.7-10.3) mg/dL 02/02/21 02/02/21 02/02/21 Range/Units 11:26 16:29 21:36 WBC (4.50-10.00) X 10*3/uL RBC (4.10-5.20) X 10*6/uL Hgb (12.0-15.0) g/dL Hct (37.2-46.3) % MCV (80.0-97.0) fL MCH (27.0-32.0) pg MCHC (32.0-37.0) g/dL RDW (11.5-14.5) % Plt Count (140-440) X 10*3/uL Plt Count Comment MPV (9.5-12.2) fL Lymphocytes # (Manual) (0.90-5.00) X 10*3/uL Macrocytosis PT (9.0-12.0) sec INR (<1.2) BUN (9.0-27.0) mg/dL Creatinine (0.6-1.5) mg/dL Est GFR (CKD-EPI)AfAm (60.0-200.0) Est GFR (CKD-EPI)NonAf (60.0-200.0) Glucose (70-110) mg/dL POC Glucose (mg/dL) 117 H 116 H 154 H (75-99) mg/dL Calcium (8.7-10.3) mg/dL Microbiology - Last 24 Hours (Table) 01/30/21 10:20 Gram Stain - Preliminary Pleural Fluid Body Fluid Culture - Preliminary Assessment and Plan Plan: Continue with present course, thoracentsis per Pulmonology. Continue lactulose, lasix and aldactone. decrease IV fluids today
[2021-02-03] MEDS: SODIUM CHLORIDE 0.9% 1,000 ML IV SCH ×3 (04:54→21:39)
[2021-02-03] MEDS: LEVOTHYROXINE 100 MCG TAB PO SCH (05:56)
[2021-02-03 06:50] LABS: Glucose,Whole Blood 124 mg/dL (75-99)
[2021-02-03] MEDS: INSULIN ASPART (NovoLOG) 100 UNIT/ML VIAL SQ SCH ×4 (07:00→21:32)
--- NOTE | 2021-02-03 07:01 | OP ---
OPERATIVE REPORT PROCEDURE PERFORMED: Right-sided thoracentesis. PREOPERATIVE DIAGNOSIS: Large right pleural effusion. POSTOPERATIVE DIAGNOSIS: Large right pleural effusion. ANESTHESIA USED: 2 mL of 1% lidocaine. PROCEDURE DETAILS: The patient was placed in a sitting upright position. The area below the right scapula was prepared in a sterile fashion and drapes were applied. The area was earlier localized by ultrasound, and it correlated to the level of the 8th intercostal space and tip of the scapula. 2 mL of lidocaine were injected at the same site, and the area was localized and anesthetized. Then a 26-gauge needle was inserted at the same site and advanced into the pleural space until the fluid was localized with a needle. Then a small tiny incision was made at the same site and a standard thoracentesis catheter and needle were used, inserted at the same site, advanced into the pleural space and as the fluid was obtained, the catheter was advanced over the needle into the pleural space and the needle was pulled out of the pleural space. Free-flowing fluid was removed, roughly up to 2700 mL of serosanguineous fluid was drained from the right pleural space. The procedure was well tolerated. No evidence of any complications, chest x-ray postoperatively showed significant improvement and no evidence of pneumothorax. The fluid was not sent for any diagnostic studies because the fluid was earlier sent yesterday by Dr. Villegas who performed a right thoracentesis from the same site also. MMODL / IJN: [id number] /
--- NOTE | 2021-02-03 07:54 | XR ---
EXAMINATION TYPE: XR chest 1V portable DATE OF EXAM: 02/03/2021 COMPARISON: Chest x-ray 02/02/2021 HISTORY: Recurrent pneumothorax, abnormal chest x-ray TECHNIQUE: Single frontal view of the chest is obtained. FINDINGS: There is been marked progression in right-sided pleural effusion, only minimal residual ae rated lung present on the right in the upper lobe. Left lung is relatively spared, there is some prom inence of its interstitium. Heart is largely obscured but likely unchanged. Surgical clips present ri ght upper quadrant. Aorta is dense. IMPRESSION: Progression of right-sided pleural effusion and associated atelectasis
[2021-02-03 08:57] LABS: Anisocytosis Slight; Basophils % (A) 0 %; Eosinophils # (A) 0.1 k/uL (0-0.7); Eosinophils % (A) 3 %; HGB 8.6 gm/dL (11.4-16.0); Hypochromasia Moderate; Lymphocytes # (A) 1.2 k/uL (1.0-4.8); Lymphocytes % (A) 28 %; MCH 32.2 pg (25.0-35.0); MCHC 30.9 g/dL (31.0-37.0); Macrocytosis Marked; Mean Platelet Volume 8.3; Monocytes # (A) 0.2 k/uL (0-1.0); Monocytes % (A) 5 %; Neutrophils # (A) 2.6 k/uL (1.3-7.7); Neutrophils % (A) 63 %; Platelet Count 51 k/uL (150-450); RBC 2.69 m/uL (3.80-5.40); RDW 19.5 % (11.5-15.5); WBC 4.2 k/uL (3.8-10.6)
[2021-02-03 09:12] LABS: African American GFR (CKD) 34 (>60 ml/min/1.73 sqM); Anion Gap 5 mmol/L; Blood Urea Nitrogen 32 mg/dL (7-17); Calcium 8.8 mg/dL (8.4-10.2); Carbon Dioxide 26 mmol/L (22-30); Chloride 107 mmol/L (98-107); Glucose 171 mg/dL (74-99); Non-African American GFR(CKD) 29 (>60 ml/min/1.73 sqM); Potassium 3.7 mmol/L (3.5-5.1); Sodium 138 mmol/L (137-145)
--- NOTE | 2021-02-03 10:13 | P.GSCN ---
History of Present Illness Consult date: 02/03/21 Reason for Consult: right pleural effusion, request for pleurx catheter Requesting physician: Teresa Guerrier History of present illness: This is a 80-year-old female who follows on an outpatient basis with Dr. Aury Gracia. She has a previous medical history of end-stage liver disease with liver cirrhosis status post paracentesis in the past, and portal hypertension secondary to nonalcoholic steatohepatitis, chronic thrombocytopenia, chronic anemia, chronic kidney disease, hypertension, hyperlipidemia, hypothyroid, diet controlled diabetes mellitus, and osteoarthritis. She presented to [facility] emergency room 01/30/2021 with complaints of increased shortness of breath. She was found to have large right-sided pleural effusion with complete whiteout of the right lung. She was admitted for evaluation and treatment with consultation to pulmonology who has done thoracentesis 4. On 01/30/21 1700 milliliters fluid was drained, 01/31/21 1700 milliliters fluid drained, 02/01/21 2400 mL fluid drained, and yesterday 2700 mL fluid was drained. The patient continues to reaccumulate fluid on the right side and consultation was placed to Dr. Alfaro from cardiothoracic surgery for placement of right-sided Pleurx catheter to avoid continued thoracentesis. Review of Systems Review of systems was completed and was negative except as noted - Respiratory Reports as per HPI, Reports dyspnea - Gastrointestinal Gastrointestinal Comment(s): Abdominal distention Reports as per HPI Past Medical History Past Medical History: Blood Disorder, Cancer, Diabetes Mellitus, GERD/Reflux, Hyperlipidemia, Hypertension, Liver Disease, Osteoarthritis (OA), Renal Disease, Thyroid Disorder Additional Past Medical History / Comment(s): patient states "doesn't clot right but is not aware of any specific clotting disorders but all her Drs are aware",hemorrhoids and bleeding with stools,recent dehydration and UTI, non alcoholic cirrhosis of the liver, skin cancer; chronic thrombocytopenia, chronic anemia History of Any Multi-Drug Resistant Organisms: None Reported Past Surgical History: Appendectomy, Cholecystectomy, Orthopedic Surgery Additional Past Surgical History / Comment(s): colonoscopy, lt knee surgery, paracentesis Past Anesthesia/Blood Transfusion Reactions: No Reported Reaction Additional Past Anesthesia/Blood Transfusion Reaction / Comm: no problems with previous blood transfusions Past Psychological History: Depression Additional Psychological History / Comment(s): no medication Smoking Status: Never smoker Past Alcohol Use History: None Reported Past Drug Use History: None Reported - Past Family History Mother Family Medical History: Cancer Father Family Medical History: Unable to Obtain Additional Family Medical History / Comment(s): Unknown cause of Medications and Allergies Home Medications Medication Instructions Recorded Confirmed Type Calcium Carbonate [Calcium] 600 mg PO DAILY 07/19/19 01/30/21 History Cranberry Fruit Extract [Cranberry] 1,500 mg PO DAILY 07/19/19 01/30/21 History Cyanocobalamin (Vitamin B-12) 1,000 mcg PO DAILY 07/19/19 01/30/21 History [Vitamin B-12] Ergocalciferol [Vitamin D2 50,000 unit PO FR 07/19/19 01/30/21 History (DRISDOL)] Ferrous Sulfate [Iron (65 MG 325 mg PO DAILY 07/19/19 01/30/21 History Elemental)] HYDROcodone/APAP 5-325MG [Michie 1 tab PO BID PRN 07/19/19 01/30/21 History 5-325] Levothyroxine Sodium [Synthroid] 100 mcg PO DAILY 07/19/19 01/30/21 History Multivit-Min/Iron/Folic/Lutein 1 tab PO DAILY 07/19/19 01/30/21 History [Centrum Silver Women Tablet] Omeprazole 40 mg PO DAILY 07/19/19 01/30/21 History Simvastatin [Zocor] 40 mg PO DAILY 07/19/19 01/30/21 History allopurinoL [Zyloprim] 100 mg PO DAILY 07/19/19 01/30/21 History atenoloL [Tenormin] 25 mg PO DAILY 07/19/19 01/30/21 History Ascorbic Acid [Vitamin C] 1,000 mg PO DAILY tab 12/17/20 01/30/21 Rx Furosemide [Lasix] 20 mg PO DAILY 01/22/21 01/30/21 History Spironolactone [Aldactone] 25 mg PO DAILY 01/22/21 01/30/21 History Lactulose 10 - 20 gm PO TID PRN 01/30/21 01/30/21 History Rifaximin [Xifaxan] 200 mg PO BID 01/30/21 01/30/21 History Allergies Allergy/AdvReac Type Severity Reaction Status Date / Time No Known Allergies Allergy Verified 01/30/21 09:59 Surgical - Exam Vital Signs Temp Pulse Resp BP Pulse Ox 97.5 F L 85 18 97/51 96 01/30/21 07:55 01/30/21 07:55 01/30/21 07:55 01/30/21 07:55 01/30/21 07:55 CONSTITUTIONAL: Awake and alert, appears comfortable, cooperative, well- developed, well-nourished, no pain, no acute distress EYES: Pupils equal, round, reactive to light, normal ocular movement ENT: Moist mucous membranes without oral lesions present NECK: No masses, no bruits, trachea midline RESPIRATORY: Lungs sounds very diminished on the right. Respirations even, nonlabored. Currently on 2 L nasal cannula with oxygen saturation 98%. Strong cough. CARDIOVASCULAR: S1, S2 present. Regular rate and rhythm. Palpable peripheral pulses bilaterally. No edema present. No calf pain or tenderness noted. GASTROINTESTINAL: Abdomen soft, nontender, slightly distended. There is no rebound or guarding present. Active bowel sounds present 4 quadrants. GENITOURINARY: Deferred INTEGUMENTARY: Skin is warm and dry with evidence of good perfusion. NEUROLOGIC: Cranial nerves II through XII intact, normal coordination, no obvious motor or sensory deficits, speech is normal MUSKULOSKELETAL: Able to move all extremities, strength equal bilaterally, normal posture PSYCHIATRIC: Alert and oriented to person place and time, appropriate affect, intact judgment and insight Results - Labs 02/03/21 08:31 02/03/21 08:31 Abnormal Lab Results - Last 24 Hours (Table) 02/02/21 02/02/21 02/02/21 Range/Units 06:49 06:49 06:49 WBC 4.05 L (4.50-10.00) X 10*3/uL RBC 2.41 L (4.10-5.20) X 10*6/uL Hgb 7.9 L (12.0-15.0) g/dL Hct 25.6 L (37.2-46.3) % MCV 106.2 H (80.0-97.0) fL MCH 32.8 H (27.0-32.0) pg MCHC 30.9 L (32.0-37.0) g/dL RDW 19.9 H (11.5-14.5) % Plt Count 42 L (140-440) X 10*3/uL Plt Count Comment DECREASED A MPV 12.3 H (9.5-12.2) fL Lymphocytes # (Manual) 0.85 L (0.90-5.00) X 10*3/uL Macrocytosis PT 15.0 H (9.0-12.0) sec INR 1.5 H (<1.2) BUN 30.0 H (9.0-27.0) mg/dL Creatinine 1.7 H (0.6-1.5) mg/dL Est GFR (CKD-EPI)AfAm 32.9 L (60.0-200.0) Est GFR (CKD-EPI)NonAf 28.4 L (60.0-200.0) Glucose 122 H (70-110) mg/dL POC Glucose (mg/dL) (75-99) mg/dL Calcium 8.6 L (8.7-10.3) mg/dL 02/02/21 02/02/21 02/02/21 Range/Units 10:57 10:57 11:26 WBC (4.50-10.00) X 10*3/uL RBC 2.78 L (4.10-5.20) X 10*6/uL Hgb 8.9 L (12.0-15.0) g/dL Hct 29.1 L (37.2-46.3) % MCV 104.8 H (80.0-97.0) fL MCH (27.0-32.0) pg MCHC 30.7 L (32.0-37.0) g/dL RDW 19.6 H (11.5-14.5) % Plt Count 55 L (140-440) X 10*3/uL Plt Count Comment MPV (9.5-12.2) fL Lymphocytes # (Manual) (0.90-5.00) X 10*3/uL Macrocytosis Marked A PT (9.0-12.0) sec INR (<1.2) BUN 30 H (9.0-27.0) mg/dL Creatinine 1.64 H (0.6-1.5) mg/dL Est GFR (CKD-EPI)AfAm (60.0-200.0) Est GFR (CKD-EPI)NonAf (60.0-200.0) Glucose 127 H (70-110) mg/dL POC Glucose (mg/dL) 117 H (75-99) mg/dL Calcium (8.7-10.3) mg/dL 02/02/21 02/02/21 02/03/21 Range/Units 16:29 21:36 06:49 WBC (4.50-10.00) X 10*3/uL RBC (4.10-5.20) X 10*6/uL Hgb (12.0-15.0) g/dL Hct (37.2-46.3) % MCV (80.0-97.0) fL MCH (27.0-32.0) pg MCHC (32.0-37.0) g/dL RDW (11.5-14.5) % Plt Count (140-440) X 10*3/uL Plt Count Comment MPV (9.5-12.2) fL Lymphocytes # (Manual) (0.90-5.00) X 10*3/uL Macrocytosis PT (9.0-12.0) sec INR (<1.2) BUN (9.0-27.0) mg/dL Creatinine (0.6-1.5) mg/dL Est GFR (CKD-EPI)AfAm (60.0-200.0) Est GFR (CKD-EPI)NonAf (60.0-200.0) Glucose (70-110) mg/dL POC Glucose (mg/dL) 116 H 154 H 124 H (75-99) mg/dL Calcium (8.7-10.3) mg/dL 02/03/21 02/03/21 Range/Units 08:31 08:31 WBC (4.50-10.00) X 10*3/uL RBC 2.69 L (4.10-5.20) X 10*6/uL Hgb 8.6 L (12.0-15.0) g/dL Hct 28.0 L (37.2-46.3) % MCV 104.0 H (80.0-97.0) fL MCH (27.0-32.0) pg MCHC 30.9 L (32.0-37.0) g/dL RDW 19.5 H (11.5-14.5) % Plt Count 51 L (140-440) X 10*3/uL Plt Count Comment MPV (9.5-12.2) fL Lymphocytes # (Manual) (0.90-5.00) X 10*3/uL Macrocytosis Marked A PT (9.0-12.0) sec INR (<1.2) BUN 32 H (9.0-27.0) mg/dL Creatinine 1.67 H (0.6-1.5) mg/dL Est GFR (CKD-EPI)AfAm (60.0-200.0) Est GFR (CKD-EPI)NonAf (60.0-200.0) Glucose 171 H (70-110) mg/dL POC Glucose (mg/dL) (75-99) mg/dL Calcium (8.7-10.3) mg/dL Microbiology - Last 24 Hours (Table) 01/30/21 10:20 Gram Stain - Preliminary Pleural Fluid Body Fluid Culture - Preliminary Diabetes panel 02/02/21 02/02/21 02/03/21 Range/Units 06:49 10:57 08:31 Sodium 142 138 138 (135-145) mmol/L Potassium 3.9 3.5 3.7 (3.5-5.5) mmol/L Chloride 106 106 107 (96-109) mmol/L Carbon Dioxide 27.5 27 26 (21.6-31.8) mmol/L BUN 30.0 H 30 H 32 H (9.0-27.0) mg/dL Creatinine 1.7 H 1.64 H 1.67 H (0.6-1.5) mg/dL Glucose 122 H 127 H 171 H (70-110) mg/dL Calcium 8.6 L 8.7 8.8 (8.7-10.3) mg/dL Calcium panel 02/02/21 02/02/21 02/03/21 Range/Units 06:49 10:57 08:31 Calcium 8.6 L 8.7 8.8 (8.7-10.3) mg/dL Pituitary panel 02/02/21 02/02/21 02/03/21 Range/Units 06:49 10:57 08:31 Sodium 142 138 138 (135-145) mmol/L Potassium 3.9 3.5 3.7 (3.5-5.5) mmol/L Chloride 106 106 107 (96-109) mmol/L Carbon Dioxide 27.5 27 26 (21.6-31.8) mmol/L BUN 30.0 H 30 H 32 H (9.0-27.0) mg/dL Creatinine 1.7 H 1.64 H 1.67 H (0.6-1.5) mg/dL Glucose 122 H 127 H 171 H (70-110) mg/dL Calcium 8.6 L 8.7 8.8 (8.7-10.3) mg/dL Adrenal panel 02/02/21 02/02/21 02/03/21 Range/Units 06:49 10:57 08:31 Sodium 142 138 138 (135-145) mmol/L Potassium 3.9 3.5 3.7 (3.5-5.5) mmol/L Chloride 106 106 107 (96-109) mmol/L Carbon Dioxide 27.5 27 26 (21.6-31.8) mmol/L BUN 30.0 H 30 H 32 H (9.0-27.0) mg/dL Creatinine 1.7 H 1.64 H 1.67 H (0.6-1.5) mg/dL Glucose 122 H 127 H 171 H (70-110) mg/dL Calcium 8.6 L 8.7 8.8 (8.7-10.3) mg/dL - Imaging Chest x-ray: report reviewed, image reviewed Assessment and Plan Assessment: 1. Recurrent right-sided pleural effusion, status post thoracentesis 4 2. 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 Chronic thrombocytopenia 4. Chronic anemia 5. Chronic kidney disease 6. Hypertension 7. Hyperlipidemia 8. Hypothyroid 9. Diet controlled diabetes mellitus 10. Osteoarthritis Plan: The patient was seen and examined at the bedside with Dr. Alfaro. Chart/diagnostics are reviewed. The case was discussed between Dr. Alfaro and Dr. forrest. The case was also discussed with the patient's daughter Patricia. The usual perioperative course of Pleurx catheter placement was discussed with the patient and her daughters at the bedside, risks and benefits were reviewed, all questions were answered. They're willing to give consent and the patient is scheduled for right-sided Pleurx catheter placement this afternoon. She was made nothing by mouth this morning, last meal was 8 AM. Type and screen was ordered, platelet count is 51,000, and the patient was told she may need a platelet transfusion which she consents to. Medical management comorbidities per primary care. Teaching will be completed with the patient and family for Pl eurx catheter drainage, home care will be ordered at discharge. More recommendations to follow. Thank you Dr. Guerrier for this consult. We look forward to working with you in the care of your patient. Time with Patient: Greater than 30
[2021-02-03] MEDS: allopurinoL 100 MG TAB PO SCH (10:21)
[2021-02-03] MEDS: ASCORBIC ACID 500 MG TAB PO SCH (10:21)
[2021-02-03] MEDS: MULTIVITAMINS, THERA 1 EACH TAB PO SCH (10:22)
[2021-02-03] MEDS: CALCIUM CARB-VIT D 500 MG-5 MCG TAB PO SCH (10:22)
[2021-02-03] MEDS: CYANOCOBALAMIN 500 MCG TAB PO SCH (10:22)
[2021-02-03] MEDS: FUROSEMIDE 20 MG TAB PO SCH (10:22)
[2021-02-03] MEDS: FERROUS SULFATE 325 MG TAB PO SCH (10:22)
[2021-02-03] MEDS: RIFAXIMIN 550 MG TABLET PO SCH ×2 (10:22→21:37)
[2021-02-03] MEDS: ATORVASTATIN 20 MG TAB PO SCH (10:22)
[2021-02-03] MEDS: atenoloL 25 MG TAB PO SCH (10:22)
[2021-02-03] MEDS: PANTOPRAZOLE 40 MG TABLET PO SCH (10:22)
[2021-02-03] MEDS: SPIRONOLACTONE 25 MG TAB PO SCH (10:23)
[2021-02-03 11:21] LABS: Glucose,Whole Blood 139 mg/dL (75-99)
--- NOTE | 2021-02-03 13:01 | P.PN ---
Subjective Progress Note Date: 02/03/21 Principal diagnosis: Recurrent right hemithorax 02/01/2021, the patient has developed recurrent right-sided pleural effusion. After my initial drainage, the patient had some improvement. Nevertheless, the follow-up chest x-ray still showing complete opacification of the right lung consistent with pleural effusion. 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 I'm going to give her another thoracentesis today. She is agreeable to the procedure. She is on diuretics for now. She is still short of breath. On 02/02/2021 patient's chest x-ray again shows complete opacification of the right hemithorax and a stat ultrasound of the chest was obtained showing 8.4 cm fluid pocket on the right. Clinically patient feels short of breath, but appears to be in no acute distress, and actually seems to be quite comfortable. Still on 2 L of oxygen pulse ox is 97%, denies any chest pain, low-grade fever this morning, afebrile right now, hemodynamically she is been stable, we discussed possibility of repeat right-sided thoracentesis with her today and patient agreed to proceed, patient's daughter is at the bedside, this was also discussed with the patient's daughter, decision was made to proceed with repeat right-sided thoracentesis. Patient tired procedure very well, preprocedure blood work was obtained showing hemoglobin of 7.9, white blood cell count was 4.05, platelet count was 44, INR is 1.5, electrolytes were unremarkable, B1 is 30 creatinine is 1.7. 2.7 L of slightly dark pleural fluid was removed, and postprocedure chest x-ray showed interval marked improvement in aeration of the right lung with no sizable pneumothorax. On 02/03/2021 patient seen in follow-up on medical surgical floor, today's chest x-ray shows progression of right-sided pleural effusion and associated atelectasis. Patient is status post repeat right-sided thoracentesis yesterday on 02/02/2021 with removal of 2.7 L of pleural fluid. There was a rapid reaccumulation of right pleural fluid overnight. Pleural fluid analysis revealed transudative fluid, pleural fluid cultures are negative, pleural fluid cytology is still pending. Clinically patient does not appear to be in acute distress, denies any chest discomfort, denies worsening dyspnea, she remains on nasal oxygen pulse ox is 98%. Objective - Vital Signs Vital signs: Vital Signs Temp 98 F 02/03/21 07:30 Pulse 90 02/03/21 07:30 Resp 14 02/03/21 07:30 BP 108/63 02/03/21 07:30 Pulse Ox 98 02/03/21 07:30 Intake & Output 02/02/21 02/03/21 02/03/21 18:59 06:59 18:59 Intake Total 550 Output Total 350 Balance 550 -350 Intake: Oral 550 Output: Urine 350 Other: # Voids 1 1 1 - Exam GENERAL EXAM: Alert, very pleasant, 80-year-old white female, on 2 L of oxygen with pulse ox of 97%, comfortable in no apparent distress. HEAD: Normocephalic/atraumatic. EYES: Normal reaction of pupils, equal size. Conjunctiva pink, sclera white. NOSE: Clear with pink turbinates. THROAT: No erythema or exudates. NECK: No masses, no JVD, no thyroid enlargement, no adenopathy. CHEST: No chest wall deformity. Symmetrical expansion. LUNGS: diminished breath sounds over right upper mid and lower lobe, clear breath sounds on the left. CVS: Regular rate and rhythm, normal S1 and S2, no gallops, no murmurs, no rubs ABDOMEN: Soft, nontender. No hepatosplenomegaly, normal bowel sounds, no guarding or rigidity. EXTREMITIES: No clubbing, no edema, no cyanosis, 2+ pulses and upper and lower extremities. MUSCULOSKELETAL: Muscle strength and tone normal. SPINE: No scoliosis or deformity SKIN: No rashes CENTRAL NERVOUS SYSTEM: Alert and oriented -3. No focal deficits, tone is normal in all 4 extremities. PSYCHIATRIC: Alert and oriented -3. Appropriate affect. Intact judgment and insight. - Labs CBC & Chem 7: 02/03/21 08:31 02/03/21 08:31 Labs: Abnormal Lab Results - Last 24 Hours (Table) 02/02/21 02/02/21 02/03/21 Range/Units 16:29 21:36 06:49 RBC (3.80-5.40) m/uL Hgb (11.4-16.0) gm/dL Hct (34.0-46.0) % MCV (80.0-100.0) fL MCHC (31.0-37.0) g/dL RDW (11.5-15.5) % Plt Count (150-450) k/uL Macrocytosis BUN (7-17) mg/dL Creatinine (0.52-1.04) mg/dL Glucose (74-99) mg/dL POC Glucose (mg/dL) 116 H 154 H 124 H (75-99) mg/dL 02/03/21 02/03/21 02/03/21 Range/Units 08:31 08:31 11:19 RBC 2.69 L (3.80-5.40) m/uL Hgb 8.6 L (11.4-16.0) gm/dL Hct 28.0 L (34.0-46.0) % MCV 104.0 H (80.0-100.0) fL MCHC 30.9 L (31.0-37.0) g/dL RDW 19.5 H (11.5-15.5) % Plt Count 51 L (150-450) k/uL Macrocytosis Marked A BUN 32 H (7-17) mg/dL Creatinine 1.67 H (0.52-1.04) mg/dL Glucose 171 H (74-99) mg/dL POC Glucose (mg/dL) 139 H (75-99) mg/dL Microbiology - Last 24 Hours (Table) 01/30/21 10:20 Gram Stain - Final Pleural Fluid Body Fluid Culture - Final Assessment and Plan Plan: Assessment: #1. Complete whitening out of the right lung, consistent with pleural effusion, hepatic hydrothorax. She underwent thoracentesis and evaluation of 12.4 L of pleural fluid from the right lung on 02/01/2021 and the pleural fluid was a transudate consistent with hepatic hydrothorax. Patient had a repeat chest x- ray on 02/02/2021 that again showed recurrence of right-sided hydrothorax, and underwent right-sided repeat thoracentesis with removal of 2.7 L of pleural fluid. Chest x-ray has been reviewed showing rapid reaccumulation of right-sided pleural fluid. CT surgery has been consulted for placement of Pleurx catheter #2. shortness of breath secondary to above #3. acute hypoxic respiratory failure secondary to above #4. history of liver cirrhosis secondary to nonalcoholic steatohepatitis #5. history of portal hypertension and splenomegaly and esophageal varices #6. history of ascites last drainage was on 11/23/2020 #7. chronic kidney disease #8. hypertension #9. hyperlipidemia #10. history of COVID-19 infection with complete recovery #11. diabetes mellitus #12. thrombocytopenia secondary to liver disease Plan: Chest x-ray has been reviewed showing rapid reaccumulation of right-sided pleur al fluid CT surgery has been consulted for placement of Pleurx catheter Case was discussed with Dr. Alfaro, and patient has been scheduled for Pleurx catheter placement today on 02/03/2021 in the afternoon Would continue the oral Lasix, and Aldactone We'll continue to follow I performed a history & physical examination of the patient and discussed their management with my nurse practitioner, Tari Laguna. I reviewed the nurse practitioner's note and agree with the documented findings and plan of care. Lung sounds are positive for diminished breath sounds. The findings and the impression was discussed with the patient. I attest to the documentation by the nurse practitioner. Time with Patient: Less than 30
[2021-02-03] MEDS ORDERED: IV FLUID CONTINUATION 1,000 ML IV ONE (15:17)
[2021-02-03 15:25] LABS: Poikilocytosis (M) Present
[2021-02-03] MEDS ORDERED: MIDAZOLAM 2 MG/2 ML VIAL ONE (15:40)
[2021-02-03] MEDS ORDERED: fentaNYL (PF) 50 MCG/ML 2 ML AMP ONE (15:40)
--- NOTE | 2021-02-03 16:03 | P.PN ---
Subjective Progress Note Date: 02/03/21 02/02/21 She continues to complain of shortness of breath. CXR today shows complete opacification of R hemithorax. Labs stable from yesterday with increase of hgb to 8.7. 02/03/2021 status post repeat right lung thoracentesis yesterday was 2.7 liters of serosanguineous pleural fluid drained. Tolerated procedure well. Pleural fluid cultures reporting no growth , cytology pending Follow-up chest x-ray this morning reporting significant/marked progression right sided pleural effusion with associated atelectasis. CTS consulted for placement of pleurx catheter. Denies chest pain, palpitations or increased shortness of breath. Maintaining O2 sats in the high 90s on 2 L nasal cannula. Afebrile, T-max 99.3, normal WBC. Creatinine 1.67. Blood sugars controlled Objective - Vital Signs Vital signs: Vital Signs Temp 97.9 F 02/03/21 15:11 Pulse 107 H 02/03/21 15:11 Resp 16 02/03/21 15:11 BP 123/58 02/03/21 15:11 Pulse Ox 95 02/03/21 15:11 Intake & Output 02/02/21 02/03/21 02/03/21 18:59 06:59 18:59 Intake Total 550 Output Total 350 Balance 550 -350 Intake: Oral 550 Output: Urine 350 Other: # Voids 1 1 1 - Exam - Exam General: Sitting up in bed, alert and oriented 3, NAD. Vitals reviewed Lungs: decreased sounds on R, no wheezes or rales CV: Regular rate and rhythm, no murmur. Peripheral pulses 2+ Abdomen: soft, distended, nontender, positive bowel sounds Skin: warm and dry. - Labs CBC & Chem 7: 02/03/21 08:31 02/03/21 08:31 Labs: Abnormal Lab Results - Last 24 Hours (Table) 02/02/21 02/02/21 02/03/21 Range/Units 16:29 21:36 06:49 RBC (3.80-5.40) m/uL Hgb (11.4-16.0) gm/dL Hct (34.0-46.0) % MCV (80.0-100.0) fL MCHC (31.0-37.0) g/dL RDW (11.5-15.5) % Plt Count (150-450) k/uL Macrocytosis BUN (7-17) mg/dL Creatinine (0.52-1.04) mg/dL Glucose (74-99) mg/dL POC Glucose (mg/dL) 116 H 154 H 124 H (75-99) mg/dL 02/03/21 02/03/21 02/03/21 Range/Units 08:31 08:31 11:19 RBC 2.69 L (3.80-5.40) m/uL Hgb 8.6 L (11.4-16.0) gm/dL Hct 28.0 L (34.0-46.0) % MCV 104.0 H (80.0-100.0) fL MCHC 30.9 L (31.0-37.0) g/dL RDW 19.5 H (11.5-15.5) % Plt Count 51 L (150-450) k/uL Macrocytosis Marked A BUN 32 H (7-17) mg/dL Creatinine 1.67 H (0.52-1.04) mg/dL Glucose 171 H (74-99) mg/dL POC Glucose (mg/dL) 139 H (75-99) mg/dL Microbiology - Last 24 Hours (Table) 01/30/21 10:20 Gram Stain - Final Pleural Fluid Body Fluid Culture - Final Assessment and Plan Assessment: Recurrent right Pleural effusion, hepatic hydrothorax, status post right lung thoracentesis 02/01/2021, repeat right lung thoracentesis 02/02/2021. Follow-up chest x-ray reporting significant reaccumulation of the right pleural fluid. Pleurx catheter placement pending. Acute hypoxic respiratory failure secondary to the above History of portal hypertension, esophageal varices and splenomegaly History of liver cirrhosis secondary to nonalcoholic steatohepatitis ([place]) History of ascites Chronic kidney disease, stage IV Diabetes mellitus type 2 Gastroesophageal reflux disease Hypertension Hyperlipidemia Plan: Continue on current medication regime ,monitoring and symptomatic treatment. Pleurx catheter placement pending. Maintain lactulose, xifaxin, Lasix, Aldactone and low salt diet. Pleural cytology pending.Follow closely with both GI and pulmonary. Prognosis guarded given multiple complex medical issues. The impression and plan of care has been dictated as directed. : I performed a history and examination of this patient, discussed the same with the dictator. I agree with the dictator's note ,documented as a scribe. Any additional findings or plans will be noted.
--- NOTE | 2021-02-03 16:20 | P.PN ---
Subjective Progress Note Date: 02/03/21 Principal diagnosis: Ascites Patient is seen and examined lying in bed. Her 4 daughters are at the bedside. She is scheduled today to go for a Pleurx catheter placement. The patient denies any abdominal pain, nausea, or vomiting. She again underwent a thoracentesis yesterday. Objective - Vital Signs Vital signs: Vital Signs Temp 98 F 02/03/21 07:30 Pulse 90 02/03/21 07:30 Resp 14 02/03/21 07:30 BP 108/63 02/03/21 07:30 Pulse Ox 98 02/03/21 07:30 Intake & Output 02/02/21 02/03/21 02/03/21 18:59 06:59 18:59 Intake Total 550 Output Total 350 Balance 550 -350 Intake: Oral 550 Output: Urine 350 Other: # Voids 1 1 1 - Exam General appearance: The patient is alert, oriented, appears in no acute distress. HET: Head is normocephalic and atraumatic. Conjunctiva pink. Sclera anicteric. Neck: Supple without lymphadenopathy. Abdomen: Soft, nontender, nondistended with bowel sounds. No guarding or rigidity. Extremities: Normal skin color and turgor. No pedal edema Skin: No rashes, no jaundice Neurological: No focal deficits. Alert and oriented 3. - Labs CBC & Chem 7: 02/03/21 08:31 02/03/21 08:31 Labs: Abnormal Lab Results - Last 24 Hours (Table) 02/02/21 02/02/21 02/02/21 Range/Units 06:49 06:49 06:49 WBC 4.05 L (4.50-10.00) X 10*3/uL RBC 2.41 L (4.10-5.20) X 10*6/uL Hgb 7.9 L (12.0-15.0) g/dL Hct 25.6 L (37.2-46.3) % MCV 106.2 H (80.0-97.0) fL MCH 32.8 H (27.0-32.0) pg MCHC 30.9 L (32.0-37.0) g/dL RDW 19.9 H (11.5-14.5) % Plt Count 42 L (140-440) X 10*3/uL Plt Count Comment DECREASED A MPV 12.3 H (9.5-12.2) fL Lymphocytes # (Manual) 0.85 L (0.90-5.00) X 10*3/uL Macrocytosis PT 15.0 H (9.0-12.0) sec INR 1.5 H (<1.2) BUN 30.0 H (9.0-27.0) mg/dL Creatinine 1.7 H (0.6-1.5) mg/dL Est GFR (CKD-EPI)AfAm 32.9 L (60.0-200.0) Est GFR (CKD-EPI)NonAf 28.4 L (60.0-200.0) Glucose 122 H (70-110) mg/dL POC Glucose (mg/dL) (75-99) mg/dL Calcium 8.6 L (8.7-10.3) mg/dL 02/02/21 02/02/21 02/02/21 Range/Units 10:57 10:57 11:26 WBC (4.50-10.00) X 10*3/uL RBC 2.78 L (4.10-5.20) X 10*6/uL Hgb 8.9 L (12.0-15.0) g/dL Hct 29.1 L (37.2-46.3) % MCV 104.8 H (80.0-97.0) fL MCH (27.0-32.0) pg MCHC 30.7 L (32.0-37.0) g/dL RDW 19.6 H (11.5-14.5) % Plt Count 55 L (140-440) X 10*3/uL Plt Count Comment MPV (9.5-12.2) fL Lymphocytes # (Manual) (0.90-5.00) X 10*3/uL Macrocytosis Marked A PT (9.0-12.0) sec INR (<1.2) BUN 30 H (9.0-27.0) mg/dL Creatinine 1.64 H (0.6-1.5) mg/dL Est GFR (CKD-EPI)AfAm (60.0-200.0) Est GFR (CKD-EPI)NonAf (60.0-200.0) Glucose 127 H (70-110) mg/dL POC Glucose (mg/dL) 117 H (75-99) mg/dL Calcium (8.7-10.3) mg/dL 02/02/21 02/02/21 02/03/21 Range/Units 16:29 21:36 06:49 WBC (4.50-10.00) X 10*3/uL RBC (4.10-5.20) X 10*6/uL Hgb (12.0-15.0) g/dL Hct (37.2-46.3) % MCV (80.0-97.0) fL MCH (27.0-32.0) pg MCHC (32.0-37.0) g/dL RDW (11.5-14.5) % Plt Count (140-440) X 10*3/uL Plt Count Comment MPV (9.5-12.2) fL Lymphocytes # (Manual) (0.90-5.00) X 10*3/uL Macrocytosis PT (9.0-12.0) sec INR (<1.2) BUN (9.0-27.0) mg/dL Creatinine (0.6-1.5) mg/dL Est GFR (CKD-EPI)AfAm (60.0-200.0) Est GFR (CKD-EPI)NonAf (60.0-200.0) Glucose (70-110) mg/dL POC Glucose (mg/dL) 116 H 154 H 124 H (75-99) mg/dL Calcium (8.7-10.3) mg/dL 02/03/21 02/03/21 Range/Units 08:31 08:31 WBC (4.50-10.00) X 10*3/uL RBC 2.69 L (4.10-5.20) X 10*6/uL Hgb 8.6 L (12.0-15.0) g/dL Hct 28.0 L (37.2-46.3) % MCV 104.0 H (80.0-97.0) fL MCH (27.0-32.0) pg MCHC 30.9 L (32.0-37.0) g/dL RDW 19.5 H (11.5-14.5) % Plt Count 51 L (140-440) X 10*3/uL Plt Count Comment MPV (9.5-12.2) fL Lymphocytes # (Manual) (0.90-5.00) X 10*3/uL Macrocytosis Marked A PT (9.0-12.0) sec INR (<1.2) BUN 32 H (9.0-27.0) mg/dL Creatinine 1.67 H (0.6-1.5) mg/dL Est GFR (CKD-EPI)AfAm (60.0-200.0) Est GFR (CKD-EPI)NonAf (60.0-200.0) Glucose 171 H (70-110) mg/dL POC Glucose (mg/dL) (75-99) mg/dL Calcium (8.7-10.3) mg/dL Microbiology - Last 24 Hours (Table) 01/30/21 10:20 Gram Stain - Preliminary Pleural Fluid Body Fluid Culture - Preliminary Assessment and Plan (1) Liver cirrhosis secondary to nonalcoholic steatohepatitis (SUÁREZ) Narrative/Plan: 72-year-old female with a history of nonalcoholic cirrhosis of the liver with gradual decompensation with mild ascites. She is on Xifaxan and lactulose. Also on diuretics Aldactone 25 mg and Lasix 20 mg daily Current Visit: No Status: Acute Code(s): K75.81 - NONALCOHOLIC STEATOHEPATITIS (SUÁREZ); K74.60 - UNSPECIFIED CIRRHOSIS OF LIVER SNOMED Code(s) : 026796469 (2) Ascites Current Visit: Yes Status: Acute Code(s): R18.8 - OTHER ASCITES SNOMED Code(s): 392544040 (3) Dyspnea Current Visit: Yes Status: Acute Code(s): R06.00 - DYSPNEA, UNSPECIFIED SNOMED Code(s): 511887754 (4) Pleural effusion, right Narrative/Plan: Pulmonology following, patient has status post thoracentesis 01/30/2021 and 02/01/2021 Patient is scheduled for PleurX cath placement today. It was discussed with the patient and family that this procedure can increase risk of infection not the patient and the family were discussed of the risks versus benefits associated with the procedure and seemingly understand and would like to proceed with the procedure as planned. Current Visit: Yes Status: Acute Code(s): J90 - PLEURAL EFFUSION, NOT ELSEWHERE CLASSIFIED SNOMED Code(s): 39701181 Plan: 1. Continue current dose of diuretics Aldactone 25 mg daily Lasix 20 mg daily 2. Low-salt diet 3. Continue Xifaxan and lactulose 4. Ultrasound reviewed only small amount of fluid noted 5. Patient is scheduled for PleurX cath placement today with cardiothoracic. It was discussed with the patient and family that this procedure can increase risk of infection, discussed of the risks versus benefits associated with the procedure with the patient and family, they seemingly understand and would like to proceed with the procedure as planned Thank you for this consultation, we will sign off at this time. Patient to follow-up with Dr. Mckenzie as scheduled. Dr. Vargas I agree with the dictator's note, documented as a scribe by Dary Ross.
[2021-02-03] MEDS ORDERED: LIDOCAINE 1% (PF) 10 MG/ML (30 ML SDV) SQ ONE (16:21)
--- NOTE | 2021-02-03 17:33 | XR ---
EXAMINATION TYPE: XR chest 1V portable DATE OF EXAM: 02/03/2021 Comparison: 02/03/2021 Clinical History: 80-year-old female post pleurx placement Findings: Right-sided Pleurx catheter has been placed. One of the sideholes is noted to be outside of the pleur al space lateral to the ribs as indicated by the arrow. Extensive pleural-parenchymal opacity persist s throughout the right lung but with improved aeration compared to prior exam. At least a moderate ef fusion remains. Heart overall normal size. Impression: 1. Interval placement of right-sided Pleurx catheter at the bases. Note that one of the sideholes is outside the pleural space lateral to the rib margin. 2. Improving aeration the right hemithorax but with residual extensive pleural-parenchymal opacity, l ikely underlying moderate effusion.
[2021-02-03 20:45] LABS: Glucose,Whole Blood 112 mg/dL (75-99)
[2021-02-04] MEDS: LEVOTHYROXINE 100 MCG TAB PO SCH (05:28)
[2021-02-04 07:10] LABS: African American GFR (CKD) 37 (>60 ml/min/1.73 sqM); Anion Gap 7 mmol/L; Blood Urea Nitrogen 32 mg/dL (7-17); Calcium 8.6 mg/dL (8.4-10.2); Carbon Dioxide 23 mmol/L (22-30); Chloride 110 mmol/L (98-107); Glucose 109 mg/dL (74-99); Non-African American GFR(CKD) 32 (>60 ml/min/1.73 sqM); Sodium 140 mmol/L (137-145)
[2021-02-04 07:11] LABS: Glucose,Whole Blood 121 mg/dL (75-99)
[2021-02-04] MEDS: INSULIN ASPART (NovoLOG) 100 UNIT/ML VIAL SQ SCH ×4 (07:32→20:20)
[2021-02-04 07:37] LABS: Potassium 3.6 mmol/L (3.5-5.1)
--- NOTE | 2021-02-04 08:28 | XR ---
EXAMINATION TYPE: XR chest 1V portable DATE OF EXAM: 02/04/2021 COMPARISON: 02/03/2021 INDICATION: Chest tube TECHNIQUE: Single frontal view of the chest is obtained. FINDINGS: The heart size is normal. The pulmonary vasculature is normal. Right lower lobe opacity is present. Right pleural effusion may be present. There is a right basilar chest tube directed towards the midline. This does not appear advanced from the prior study. IMPRESSION: 1. Right basilar chest tube with small right pleural effusion and right lower lobe infiltrate. A cath eter sidehole may remain out of the thoracic cavity.
[2021-02-04] MEDS: ASCORBIC ACID 500 MG TAB PO SCH (08:40)
[2021-02-04] MEDS: RIFAXIMIN 550 MG TABLET PO SCH ×2 (08:40→20:26)
[2021-02-04] MEDS: MULTIVITAMINS, THERA 1 EACH TAB PO SCH (08:40)
[2021-02-04] MEDS: FUROSEMIDE 20 MG TAB PO SCH (08:40)
[2021-02-04] MEDS: CYANOCOBALAMIN 500 MCG TAB PO SCH (08:40)
[2021-02-04] MEDS: PANTOPRAZOLE 40 MG TABLET PO SCH (08:40)
[2021-02-04] MEDS: FERROUS SULFATE 325 MG TAB PO SCH (08:41)
[2021-02-04] MEDS: allopurinoL 100 MG TAB PO SCH (08:41)
[2021-02-04] MEDS: ATORVASTATIN 20 MG TAB PO SCH (08:41)
[2021-02-04] MEDS: CALCIUM CARB-VIT D 500 MG-5 MCG TAB PO SCH (08:41)
[2021-02-04] MEDS: atenoloL 25 MG TAB PO SCH (08:41)
[2021-02-04] MEDS: HYDROcodone/APAP 5-325MG 1 EACH TAB PO PRN (08:44)
--- NOTE | 2021-02-04 09:05 | OP ---
OPERATIVE REPORT DATE OF THE SURGERY: 02/03/2021. SURGEON: Dr. Everette Alfaro. ANESTHESIA: Local IV sedation Dr. Cid. 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 PROCEDURE PERFORMED: Insertion of a right-sided PleurX catheter in the pleural cavity. PROCEDURE: Patient in supine position. The right external jugular IV was started as the patient had no other peripheral IVs. She was given 2 g of cefazolin intravenously. The right side of the chest and the abdomen were prepped and draped using ChloraPrep. A proper time-out was conducted. We started by locating the fluid with a finding needle at the level of the 5th intercostal space mid axillary line. Subsequently, using a modified Seldinger technique, a wire was placed in the pleural cavity. A counter incision was made in the right upper quadrant and a PleurX catheter was tunneled through it and exited from the wire exit site at the skin. That site had been enlarged with an 11 blade to around 1 cm. The peel-away sheath was advanced with the dilator over the wire then a dilator and wire were removed. The catheter that was tunneled was pushed in through the peel-away sheath into the right pleural cavity and the peel away sheath was removed. We secured the PleurX with a silk 2-0 suture to the skin. The counter incision was closed with one Vicryl 4-0 was subcutaneous suture and skin glue. The patient has low platelets and we kept some pressure over the whole area to minimize bleeding. We drained a total of 2 L and we decided to stop the fluid. Patient tolerated procedure well. MMODL / IJN: [id number] /
[2021-02-04 09:38] LABS: Anisocytosis Slight; Basophils % (A) 0 %; Eosinophils # (A) 0.1 k/uL (0-0.7); Eosinophils % (A) 2 %; HCT 29.2 % (34.0-46.0); HGB 8.8 gm/dL (11.4-16.0); Hypochromasia Marked; Lymphocytes % (A) 22 %; MCH 32.1 pg (25.0-35.0); MCHC 30.1 g/dL (31.0-37.0); MCV 106.5 fL (80.0-100.0); Macrocytosis Marked; Monocytes # (A) 0.3 k/uL (0-1.0); Monocytes % (A) 6 %; Neutrophils # (A) 3.2 k/uL (1.3-7.7); Neutrophils % (A) 68 %; RBC 2.74 m/uL (3.80-5.40); RDW 19.7 % (11.5-15.5); WBC 4.7 k/uL (3.8-10.6)
[2021-02-04 09:46] LABS: Platelet Count 45 k/uL (150-450)
[2021-02-04 09:49] LABS: INR 1.6 (<1.2); Prothrombin Time 15.6 sec (9.0-12.0)
[2021-02-04 11:20] LABS: Glucose,Whole Blood 119 mg/dL (75-99)
[2021-02-04] MEDS: SPIRONOLACTONE 25 MG TAB PO SCH (11:24)
--- NOTE | 2021-02-04 11:30 | CT ---
EXAMINATION TYPE: CT abdomen pelvis wo con DATE OF EXAM: 02/04/2021 COMPARISON: 11/24/2020 INDICATION: abd wall hematoma post op DLP: 501.6 mGycm, Automated exposure control for dose reduction was used. CONTRAST: 0 mL of Isovue 300. Study performed without Oral Contrast TECHNIQUE: Axial images were obtained from above the diaphragm to the pubic rami in the axial plane a t 5 mm thick sections. Reconstructed images are reviewed on the computer in the coronal plane. FINDINGS: Limited CT sections are obtained the lung bases. There is a small to moderate right pleural effusion . Some adjacent compressive atelectasis is present. Right-sided drainage catheter is present. There is a sidehole that is external to the thoracic wall, series 201 image 14. Note is made of some loculated fluid within the subcutaneous tissue at this level. This could be rela sabine to pleural effusion. Postop hematoma could also be considered. Extensive additional subcutaneous fluid is present from the breast to the gluteal region CT ABDOMEN: Ascites is present adjacent to the liver and in the right paracolic gutter. Minimal fluid is present in the left paracolic gutter. There is moderate fluid within the pelvis. Liver: There may be some mild lobulation of the hepatic contours. Consider cirrhosis. Spleen: Normal Pancreas: Atrophic Adrenal glands: The adrenal glands are normal. Gallbladder: Surgically absent Kidneys: No masses are evident. No hydronephrosis is present. No cysts are present. No renal stone s are evident. Aorta: Vascular calcification is within the aorta. Inferior vena cava: Normal. CT PELVIS: Loops of bowel within the abdomen and pelvis are normal. This study is without oral contrast limi ting bowel evaluation. Appendix: Not visualized. No suspicious dilated tubular structure or inflammatory changes are evident Urinary bladder: Normal. Genitourinary structures: Uterus and ovaries are not identified. Osseous structures: No suspicious lytic or sclerotic lesions. Facet hypertrophy is present. IMPRESSIONS: 1. Hematoma versus leaking pleural fluid right flank. Subcutaneous edema fluid is present diffusely along the right flank. 2. Small right pleural fluid. Drainage catheter is present. A sidehole is external to the interthorac ic cavity. 3. Ascites
--- NOTE | 2021-02-04 12:03 | P.PN ---
Subjective Progress Note Date: 02/04/21 Principal diagnosis: Recurrent right pleural effusion 02/01/2021, the patient has developed recurrent right-sided pleural effusion. After my initial drainage, the patient had some improvement. Nevertheless, the follow-up chest x-ray still showing complete opacification of the right lung consistent with pleural effusion. 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 I'm going to give her another thoracentesis today. She is agreeable to the procedure. She is on diuretics for now. She is still short of breath. On 02/02/2021 patient's chest x-ray again shows complete opacification of the right hemithorax and a stat ultrasound of the chest was obtained showing 8.4 cm fluid pocket on the right. Clinically patient feels short of breath, but appears to be in no acute distress, and actually seems to be quite comfortable. Still on 2 L of oxygen pulse ox is 97%, denies any chest pain, low-grade fever this morning, afebrile right now, hemodynamically she is been stable, we discussed possibility of repeat right-sided thoracentesis with her today and leonardo coleman agreed to proceed, patient's daughter is at the bedside, this was also discussed with the patient's daughter, decision was made to proceed with repeat right-sided thoracentesis. Patient tired procedure very well, preprocedure blood work was obtained showing hemoglobin of 7.9, white blood cell count was 4.05, platelet count was 44, INR is 1.5, electrolytes were unremarkable, B1 is 30 creatinine is 1.7. 2.7 L of slightly dark pleural fluid was removed, and postprocedure chest x-ray showed interval marked improvement in aeration of the right lung with no sizable pneumothorax. On 02/03/2021 patient seen in follow-up on medical surgical floor, today's chest x-ray shows progression of right-sided pleural effusion and associated atelectasis. Patient is status post repeat right-sided thoracentesis yesterday on 02/02/2021 with removal of 2.7 L of pleural fluid. There was a rapid reaccu mulation of right pleural fluid overnight. Pleural fluid analysis revealed transudative fluid, pleural fluid cultures are negative, pleural fluid cytology is still pending. Clinically patient does not appear to be in acute distress, denies any chest discomfort, denies worsening dyspnea, she remains on nasal oxygen pulse ox is 98%. Patient is seen today 02/04/2021 in follow-up on the regular medical floor. She is currently resting comfortably in bed. Awake and alert in no acute distress. Maintaining O2 saturations in the 90s on room air. She's been afebrile. Slightly tachycardic. Pleural fluid cultures revealed no growth. White count 4.7. Hemoglobin 8.8. Platelet count 45,000. INR 1.6. Sodium 140. Potassium 3.6. Creatinine 1.53. Glucose 109. Alpha 1 antitrypsin 164. Chest x-ray reveals right basilar Pleurx catheter in place with a small right pleural effusion and right lower lobe infiltrate. She continues with a right-sided abdominal wall hematoma. Hemoglobin stable. Objective - Vital Signs Vital signs: Vital Signs Temp 97.7 F 02/04/21 08:00 Pulse 116 H 02/04/21 08:00 Resp 16 02/04/21 08:00 BP 99/58 02/04/21 08:00 Pulse Ox 96 02/04/21 08:00 Intake & Output 02/03/21 02/04/21 02/04/21 18:59 06:59 18:59 Intake Total 650 Output Total 2352 700 Balance -1702 -700 Weight 65.771 kg Intake: IV 650 Output: Drainage 700 Right Abdomen 700 Urine 350 Pleural Fluid 2000 Estimated Blood Loss 2 Other: # Voids 1 1 - Exam GENERAL EXAM: Alert, pleasant, frail 80-year-old female patient, on room air, comfortable in no apparent distress. HEAD: Normocephalic. EYES: Normal reaction of pupils, equal size. NOSE: Clear with pink turbinates. THROAT: No erythema or exudates. NECK: No masses, no JVD. CHEST: No chest wall deformity. Right-sided Pleurx catheter in place LUNGS: Equal air entry with crackles in the right base. CVS: S1 and S2 normal with no audible murmur, regular rhythm. ABDOMEN: Hematoma noted on the right sided abdominal wall. Normal bowel sounds, no guarding or rigidity. SPINE: No scoliosis or deformity SKIN: No rashes CENTRAL NERVOUS SYSTEM: No focal deficits, tone is normal in all 4 extremities. EXTREMITIES: There is no peripheral edema. No clubbing, no cyanosis. Peripheral pulses are intact. - Labs CBC & Chem 7: 02/04/21 09:09 02/04/21 06:16 Labs: Abnormal Lab Results - Last 24 Hours (Table) 02/03/21 02/04/21 02/04/21 Range/Units 20:42 06:16 07:01 RBC (3.80-5.40) m/uL Hgb (11.4-16.0) gm/dL Hct (34.0-46.0) % MCV (80.0-100.0) fL MCHC (31.0-37.0) g/dL RDW (11.5-15.5) % Plt Count (150-450) k/uL Macrocytosis PT (9.0-12.0) sec INR (<1.2) Chloride 110 H (98-107) mmol/L BUN 32 H (7-17) mg/dL Creatinine 1.53 H (0.52-1.04) mg/dL Glucose 109 H (74-99) mg/dL POC Glucose (mg/dL) 112 H 121 H (75-99) mg/dL 02/04/21 02/04/21 02/04/21 Range/Units 09:09 09:09 11:16 RBC 2.74 L (3.80-5.40) m/uL Hgb 8.8 L (11.4-16.0) gm/dL Hct 29.2 L (34.0-46.0) % MCV 106.5 H (80.0-100.0) fL MCHC 30.1 L (31.0-37.0) g/dL RDW 19.7 H (11.5-15.5) % Plt Count 45 L (150-450) k/uL Macrocytosis Marked A PT 15.6 H (9.0-12.0) sec INR 1.6 H (<1.2) Chloride (98-107) mmol/L BUN (7-17) mg/dL Creatinine (0.52-1.04) mg/dL Glucose (74-99) mg/dL POC Glucose (mg/dL) 119 H (75-99) mg/dL Microbiology - Last 24 Hours (Table) 01/30/21 10:20 Gram Stain - Final Pleural Fluid Body Fluid Culture - Final Assessment and Plan Assessment: 1 Recurrent right-sided pleural effusion, hepatic hydrothorax. She had undergone multiple thoracentesis. Chest x-ray has been reviewed showing rapid re accumulation of right-sided pleural fluid. Pleurx catheter placed on 02/03/2021 2 Right-sided abdominal wall hematoma, computed tomography scan of the abdomen reveals hematoma versus leaking pleural fluid right flank. Subcutaneous edema fluid is present diffusely along the right flank. 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 Guerrier Computed tomography scan of the abdomen ordered regarding hematoma Surgical consult placed Stable from the pulmonary standpoint, on room air Pleurx catheter placed 02/03/2021 We will continue to follow I, the cosigning physician, performed a history & physical examination of the p atient. Lungs sounds with crackles in the right base. Maintaining good O2 saturations in the 90s on room air. I discussed the assessment and plan of care with my nurse practitioner, Dejah Benjamin. I attest to the above note as dictated by her.
[2021-02-04 12:50] LABS: Basophils # (A) 0.02 X 10*3/uL (0.00-0.10); Basophils % (A) 0.4 %; Eosinophils # (A) 0.14 X 10*3/uL (0.04-0.35); Eosinophils % (A) 3.1 %; HCT 27.1 % (37.2-46.3); HGB 8.1 g/dL (12.0-15.0); Lymphocytes # (A) 0.96 X 10*3/uL (0.90-5.00); Lymphocytes % (A) 21.1 %; MCH 31.9 pg (27.0-32.0); MCHC 29.9 g/dL (32.0-37.0); MCV 106.7 fL (80.0-97.0); Macrocytosis (M) 2+; Mean Platelet Volume 11.8 fL (9.5-12.2); Monocytes # (A) 0.38 X 10*3/uL (0.20-1.00); Monocytes % (A) 8.4 %; Neutrophils # (A) 3.04 X 10*3/uL (1.80-7.70); Neutrophils % (A) 66.8 %; Platelet Count 42 X 10*3/uL (140-440); RBC 2.54 X 10*6/uL (4.10-5.20); RDW 19.7 % (11.5-14.5); WBC 4.55 X 10*3/uL (4.50-10.00)
--- NOTE | 2021-02-04 13:01 | P.GSCN ---
<Laura Dominguez - Last Filed: 02/04/21 12:48> History of Present Illness Consult date: 02/04/21 History of present illness: CHIEF COMPLAINT: Shortness of breath Reason for consult right flank hematoma HISTORY OF PRESENT ILLNESS: This is a 80-year-old female with a known past medical history of nonalcoholic liver cirrhosis, diabetes mellitus, hyperlipidemia and hypertension. Patient presented to the hospital on 01/30/2021 with shortness of breath and chest pain. She was found to have right pleural effusion. She underwent 2 thoracentesis. However, she continued to have recurrent right-sided pleural effusion. She underwent a Pleurx catheter placement on 02/03/[address] Alfaro for hepatic hydrothorax. Patient has developed a right sided flank hematoma. Surgical service was consulted in regards of the hematoma. She had a computed tomography scan of the abdomen and pelvis that showed hematoma versus a leaking pleural fluid of the right flank. Subcutaneous edema fluid is present diffusely along the right flank. Small right pleural fluid. Drainage catheter is present. Side hole is external to the intrathoracic cavity. And evidence of ascites. Patient does have some discomfort where the Pleurx catheters placed otherwise she denies any significant pain. Denies any nausea or vomiting. She denies any fevers. PAST MEDICAL HISTORY: See list. PAST SURGICAL HISTORY: See list. MEDICATIONS: See list. ALLERGIES: See list. SOCIAL HISTORY: No illicit drug use. REVIEW OF SYSTEMS: CONSTITUTIONAL: Denies fever or chills. HEENT: Denies blurred vision, vision changes, or eye pain. Denies hemoptysis CARDIOVASCULAR: Denies chest pain or pressure. RESPIRATORY: No shortness of breath. GASTROINTESTINAL: See HPI for pertinent findings HEMATOLOGIC: Denies bleeding disorders. GENITOURINARY: Denies any blood in urine or increased urinary frequency. SKIN: Denies pruitis. Denies rash. PHYSICAL EXAM: VITAL SIGNS: Reviewed GENERAL: Well-developed in no acute distress. HEENT: No sclera icterus. Extraocular movements grossly intact. Moist buccal mucosa. Head is atraumatic, normocephalic. No nasal drainage. ABDOMEN: Soft. Nondistended. Large Right flank hematoma soft to palpation. Nontender. NEUROLOGIC: Alert and oriented. Cranial nerves II through XII grossly intact. LABORATORY DATA: WBC is 4.7 hemoglobin 8.8 platelets are 45 INR is 1.6 Creatinine 1.53 IMAGING: computed tomography scan of the abdomen and pelvis that showed hematoma versus a leaking pleural fluid of the right flank. Subcutaneous edema fluid is present diffusely along the right flank. Small right pleural fluid. Drainage catheter is present. Side hole is external to the intrathoracic cavity. And evidence of ascites ASSESSMENT: 1. Large Right flank hematoma. Computed tomography scan of the abdomen and pelvis shows hematoma versus leaking pleural fluid of the right flank. 2. 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 Status post 2 thoracentesis and Pleurx catheter placement during this admission PLAN: -Further recommendations forthcoming per surgeon -Continue supportive care Physician [employer] note has been reviewed by physician. Signing provider agrees with the documented findings, assessment, and plan of care. Past Medical History Past Medical History: Blood Disorder, Cancer, Diabetes Mellitus, GERD/Reflux, Hyperlipidemia, Hypertension, Liver Disease, Osteoarthritis (OA), Renal Disease, Thyroid Disorder Additional Past Medical History / Comment(s): patient states "doesn't clot right but is not aware of any specific clotting disorders but all her Drs are aware",hemorrhoids and bleeding with stools,recent dehydration and UTI, non alcoholic cirrhosis of the liver, skin cancer; chronic thrombocytopenia, chronic anemia History of Any Multi-Drug Resistant Organisms: None Reported Past Surgical History: Appendectomy, Cholecystectomy, Orthopedic Surgery Additional Past Surgical History / Comment(s): colonoscopy, lt knee surgery, paracentesis Past Anesthesia/Blood Transfusion Reactions: No Reported Reaction Additional Past Anesthesia/Blood Transfusion Reaction / Comm: no problems with previous blood transfusions Past Psychological History: Depression Additional Psychological History / Comment(s): no medication Smoking Status: Never smoker Past Alcohol Use History: None Reported Past Drug Use History: None Reported - Past Family History Mother Family Medical History: Cancer Father Family Medical History: Unable to Obtain Additional Family Medical History / Comment(s): Unknown cause of Medications and Allergies Home Medications Medication Instructions Recorded Confirmed Type Calcium Carbonate [Calcium] 600 mg PO DAILY 07/19/19 01/30/21 History Cranberry Fruit Extract [Cranberry] 1,500 mg PO DAILY 07/19/19 01/30/21 History Cyanocobalamin (Vitamin B-12) 1,000 mcg PO DAILY 07/19/19 01/30/21 History [Vitamin B-12] Ergocalciferol [Vitamin D2 50,000 unit PO FR 07/19/19 01/30/21 History (DRISDOL)] Ferrous Sulfate [Iron (65 MG 325 mg PO DAILY 07/19/19 01/30/21 History Elemental)] HYDROcodone/APAP 5-325MG [[place] 1 tab PO BID PRN 07/19/19 01/30/21 History 5-325] Levothyroxine Sodium [Synthroid] 100 mcg PO DAILY 07/19/19 01/30/21 History Multivit-Min/Iron/Folic/Lutein 1 tab PO DAILY 07/19/19 01/30/21 History [Centrum Silver Women Tablet] Omeprazole 40 mg PO DAILY 07/19/19 01/30/21 History Simvastatin [Zocor] 40 mg PO DAILY 07/19/19 01/30/21 History allopurinoL [Zyloprim] 100 mg PO DAILY 07/19/19 01/30/21 History atenoloL [Tenormin] 25 mg PO DAILY 07/19/19 01/30/21 History Ascorbic Acid [Vitamin C] 1,000 mg PO DAILY tab 12/17/20 01/30/21 Rx Furosemide [Lasix] 20 mg PO DAILY 01/22/21 01/30/21 History Spironolactone [Aldactone] 25 mg PO DAILY 01/22/21 01/30/21 History Lactulose 10 - 20 gm PO TID PRN 01/30/21 01/30/21 History Rifaximin [Xifaxan] 200 mg PO BID 01/30/21 01/30/21 History Allergies Allergy/AdvReac Type Severity Reaction Status Date / Time No Known Allergies Allergy Verified 01/30/21 09:59 Surgical - Exam Vital Signs Temp Pulse Resp BP Pulse Ox 97.5 F L 85 18 97/51 96 01/30/21 07:55 01/30/21 07:55 01/30/21 07:55 01/30/21 07:55 01/30/21 07:55 Results - Labs 02/04/21 09:09 02/04/21 06:16 Abnormal Lab Results - Last 24 Hours (Table) 02/03/21 02/04/21 02/04/21 Range/Units 20:42 06:16 07:01 RBC (3.80-5.40) m/uL Hgb (11.4-16.0) gm/dL Hct (34.0-46.0) % MCV (80.0-100.0) fL MCHC (31.0-37.0) g/dL RDW (11.5-15.5) % Plt Count (150-450) k/uL Macrocytosis PT (9.0-12.0) sec INR (<1.2) Chloride 110 H (98-107) mmol/L BUN 32 H (7-17) mg/dL Creatinine 1.53 H (0.52-1.04) mg/dL Glucose 109 H (74-99) mg/dL POC Glucose (mg/dL) 112 H 121 H (75-99) mg/dL 02/04/21 02/04/21 02/04/21 Range/Units 09:09 09:09 11:16 RBC 2.74 L (3.80-5.40) m/uL Hgb 8.8 L (11.4-16.0) gm/dL Hct 29.2 L (34.0-46.0) % MCV 106.5 H (80.0-100.0) fL MCHC 30.1 L (31.0-37.0) g/dL RDW 19.7 H (11.5-15.5) % Plt Count 45 L (150-450) k/uL Macrocytosis Marked A PT 15.6 H (9.0-12.0) sec INR 1.6 H (<1.2) Chloride (98-107) mmol/L BUN (7-17) mg/dL Creatinine (0.52-1.04) mg/dL Glucose (74-99) mg/dL POC Glucose (mg/dL) 119 H (75-99) mg/dL Microbiology - Last 24 Hours (Table) 01/30/21 10:20 Gram Stain - Final Pleural Fluid Body Fluid Culture - Final Diabetes panel 02/04/21 Range/Units 06:16 Sodium 140 (137-145) mmol/L Potassium 3.6 (3.5-5.1) mmol/L Chloride 110 H (98-107) mmol/L Carbon Dioxide 23 (22-30) mmol/L BUN 32 H (7-17) mg/dL Creatinine 1.53 H (0.52-1.04) mg/dL Glucose 109 H (74-99) mg/dL Calcium 8.6 (8.4-10.2) mg/dL Calcium panel 02/04/21 Range/Units 06:16 Calcium 8.6 (8.4-10.2) mg/dL Pituitary panel 02/04/21 Range/Units 06:16 Sodium 140 (137-145) mmol/L Potassium 3.6 (3.5-5.1) mmol/L Chloride 110 H (98-107) mmol/L Carbon Dioxide 23 (22-30) mmol/L BUN 32 H (7-17) mg/dL Creatinine 1.53 H (0.52-1.04) mg/dL Glucose 109 H (74-99) mg/dL Calcium 8.6 (8.4-10.2) mg/dL Adrenal panel 02/04/21 Range/Units 06:16 Sodium 140 (137-145) mmol/L Potassium 3.6 (3.5-5.1) mmol/L Chloride 110 H (98-107) mmol/L Carbon Dioxide 23 (22-30) mmol/L BUN 32 H (7-17) mg/dL Creatinine 1.53 H (0.52-1.04) mg/dL Glucose 109 H (74-99) mg/dL Calcium 8.6 (8.4-10.2) mg/dL <Aamir Sweet - Last Filed: 02/04/21 16:05> History of Present Illness History of present illness: As above. Patient with swelling right flank and lateral chest wall. This appears to be secondary to drainage of pleural fluid along the tract of the catheter. There is some ecchymosis there but the majority of the swelling is related to pleural fluid not blood. Her hemoglobin has been stable. Case discussed with thoracic surgery. They will reassess. Surgical - Exam Vital Signs Temp Pulse Resp BP Pulse Ox 97.5 F L 85 18 97/51 96 01/30/21 07:55 01/30/21 07:55 01/30/21 07:55 01/30/21 07:55 01/30/21 07:55 Results - Labs 02/04/21 09:09 02/04/21 06:16 Abnormal Lab Results - Last 24 Hours (Table) 02/03/21 02/04/21 02/04/21 Range/Units 20:42 06:16 06:16 RBC 2.54 L (4.10-5.20) X 10*6/uL Hgb 8.1 L (12.0-15.0) g/dL Hct 27.1 L (37.2-46.3) % MCV 106.7 H (80.0-97.0) fL MCHC 29.9 L (32.0-37.0) g/dL RDW 19.7 H (11.5-14.5) % Plt Count 42 L (140-440) X 10*3/uL Plt Count Comment DECREASED A Macrocytosis PT (9.0-12.0) sec INR (<1.2) Chloride 110 H (98-107) mmol/L BUN 32 H (7-17) mg/dL Creatinine 1.53 H (0.52-1.04) mg/dL Glucose 109 H (74-99) mg/dL POC Glucose (mg/dL) 112 H (75-99) mg/dL 02/04/21 02/04/21 02/04/21 Range/Units 07:01 09:09 09:09 RBC 2.74 L (4.10-5.20) X 10*6/uL Hgb 8.8 L (12.0-15.0) g/dL Hct 29.2 L (37.2-46.3) % MCV 106.5 H (80.0-97.0) fL MCHC 30.1 L (32.0-37.0) g/dL RDW 19.7 H (11.5-14.5) % Plt Count 45 L (140-440) X 10*3/uL Plt Count Comment Macrocytosis Marked A PT 15.6 H (9.0-12.0) sec INR 1.6 H (<1.2) Chloride (98-107) mmol/L BUN (7-17) mg/dL Creatinine (0.52-1.04) mg/dL Glucose (74-99) mg/dL POC Glucose (mg/dL) 121 H (75-99) mg/dL 02/04/21 Range/Units 11:16 RBC (4.10-5.20) X 10*6/uL Hgb (12.0-15.0) g/dL Hct (37.2-46.3) % MCV (80.0-97.0) fL MCHC (32.0-37.0) g/dL RDW (11.5-14.5) % Plt Count (140-440) X 10*3/uL Plt Count Comment Macrocytosis PT (9.0-12.0) sec INR (<1.2) Chloride (98-107) mmol/L BUN (7-17) mg/dL Creatinine (0.52-1.04) mg/dL Glucose (74-99) mg/dL POC Glucose (mg/dL) 119 H (75-99) mg/dL Diabetes panel 02/04/21 Range/Units 06:16 Sodium 140 (137-145) mmol/L Potassium 3.6 (3.5-5.1) mmol/L Chloride 110 H (98-107) mmol/L Carbon Dioxide 23 (22-30) mmol/L BUN 32 H (7-17) mg/dL Creatinine 1.53 H (0.52-1.04) mg/dL Glucose 109 H (74-99) mg/dL Calcium 8.6 (8.4-10.2) mg/dL Calcium panel 02/04/21 Range/Units 06:16 Calcium 8.6 (8.4-10.2) mg/dL Pituitary panel 02/04/21 Range/Units 06:16 Sodium 140 (137-145) mmol/L Potassium 3.6 (3.5-5.1) mmol/L Chloride 110 H (98-107) mmol/L Carbon Dioxide 23 (22-30) mmol/L BUN 32 H (7-17) mg/dL Creatinine 1.53 H (0.52-1.04) mg/dL Glucose 109 H (74-99) mg/dL Calcium 8.6 (8.4-10.2) mg/dL Adrenal panel 02/04/21 Range/Units 06:16 Sodium 140 (137-145) mmol/L Potassium 3.6 (3.5-5.1) mmol/L Chloride 110 H (98-107) mmol/L Carbon Dioxide 23 (22-30) mmol/L BUN 32 H (7-17) mg/dL Creatinine 1.53 H (0.52-1.04) mg/dL Glucose 109 H (74-99) mg/dL Calcium 8.6 (8.4-10.2) mg/dL
[2021-02-04] MEDS ORDERED: SODIUM CHLORIDE 0.9% 500 ML 500 ML IV ONE ×2 (15:40→16:29)
--- NOTE | 2021-02-04 15:44 | P.PN ---
Subjective Progress Note Date: 02/04/21 02/02/21 She continues to complain of shortness of breath. CXR today shows complete opacification of R hemithorax. Labs stable from yesterday with increase of hgb to 8.7. 02/03/2021 status post repeat right lung thoracentesis yesterday was 2.7 liters of serosanguineous pleural fluid drained. Tolerated procedure well. Pleural fluid cultures reporting no growth , cytology pending Follow-up chest x-ray this morning reporting significant/marked progression right sided pleural effusion with associated atelectasis. CTS consulted for placement of pleurx catheter. Denies chest pain, palpitations or increased shortness of breath. Maintaining O2 sats in the high 90s on 2 L nasal cannula. Afebrile, T-max 99.3, normal WBC. Creatinine 1.67. Blood sugars controlled 02/04/2021 Status post Pleurx catheter placement. Tolerated procedure well. Significant right lateral abdominal wall bruising/hematoma. Hemoglobin 8.8, platelets 45. INR pending. Returning from chest x-ray. Denies chest pain, pa lpitations, complains of mild shortness of breath. Mild tachycardia, heart rates in the 1 teens. Maintaining O2 sats in the 90s on room air. Afebrile,normal WBC. Creatinine down to 1.53. Objective - Vital Signs Vital signs: Vital Signs Temp 97.7 F 02/04/21 08:00 Pulse 116 H 02/04/21 08:00 Resp 16 02/04/21 08:00 BP 99/58 02/04/21 08:00 Pulse Ox 96 02/04/21 08:00 Intake & Output 02/03/21 02/04/21 02/04/21 18:59 06:59 18:59 Intake Total 650 Output Total 2352 700 Balance -1702 -700 Weight 65.771 kg Intake: IV 650 Output: Drainage 700 Right Abdomen 700 Urine 350 Pleural Fluid 2000 Estimated Blood Loss 2 Other: # Voids 1 1 - Exam - Exam General: Sitting up at side of bed, alert and oriented 3, NAD. Vitals reviewed Lungs: Better air entry on R, fine rate basilar crackles CV: Regular rate and rhythm, no murmur. Peripheral pulses 2+, no edema Abdomen: soft, distended, nontender, positive bowel sounds. Right sided abdominal wall hematoma. Skin: warm and dry. - Labs CBC & Chem 7: 02/04/21 09:09 02/04/21 06:16 Labs: Abnormal Lab Results - Last 24 Hours (Table) 02/03/21 02/04/21 02/04/21 Range/Units 20:42 06:16 07:01 RBC (3.80-5.40) m/uL Hgb (11.4-16.0) gm/dL Hct (34.0-46.0) % MCV (80.0-100.0) fL MCHC (31.0-37.0) g/dL RDW (11.5-15.5) % Plt Count (150-450) k/uL Macrocytosis PT (9.0-12.0) sec INR (<1.2) Chloride 110 H (98-107) mmol/L BUN 32 H (7-17) mg/dL Creatinine 1.53 H (0.52-1.04) mg/dL Glucose 109 H (74-99) mg/dL POC Glucose (mg/dL) 112 H 121 H (75-99) mg/dL 02/04/21 02/04/21 02/04/21 Range/Units 09:09 09:09 11:16 RBC 2.74 L (3.80-5.40) m/uL Hgb 8.8 L (11.4-16.0) gm/dL Hct 29.2 L (34.0-46.0) % MCV 106.5 H (80.0-100.0) fL MCHC 30.1 L (31.0-37.0) g/dL RDW 19.7 H (11.5-15.5) % Plt Count 45 L (150-450) k/uL Macrocytosis Marked A PT 15.6 H (9.0-12.0) sec INR 1.6 H (<1.2) Chloride (98-107) mmol/L BUN (7-17) mg/dL Creatinine (0.52-1.04) mg/dL Glucose (74-99) mg/dL POC Glucose (mg/dL) 119 H (75-99) mg/dL Microbiology - Last 24 Hours (Table) 01/30/21 10:20 Gram Stain - Final Pleural Fluid Body Fluid Culture - Final Assessment and Plan Assessment: Recurrent right Pleural effusion, hepatic hydrothorax, status post right lung thoracentesis 02/01/2021, repeat right lung thoracentesis 02/02/2021. Follow-up chest x-ray reporting significant reaccumulation of the right pleural fluid. Status post Pleurx catheter placement. Right sided abdominal wall hematoma,status post Pleurx catheter placement. Acute hypoxic respiratory failure secondary to the above History of portal hypertension, esophageal varices and splenomegaly History of liver cirrhosis secondary to nonalcoholic steatohepatitis ([place]) History of ascites Chronic kidney disease, stage IV Diabetes mellitus type 2 Gastroesophageal reflux disease Hypertension Hyperlipidemia Thrombocytopenia secondary to liver disease Plan: Continue on current medication regime ,monitoring and symptomatic treatment. Chest x-ray pending. Abdomen CT ordered. Repeat CBC Continue on lactulose, xifaxin, Lasix, Aldactone and low salt diet. Pleural cytology pending.Follow closely with both GI and pulmonary. Prognosis guarded given multiple complex medical issues. The impression and plan of care has been dictated as directed. : I performed a history and examination of this patient, discussed the same with the dictator. I agree with the dictator's note ,documented as a scribe. Any additional findings or plans will be noted.
--- NOTE | 2021-02-04 16:49 | P.PN ---
Subjective Progress Note Date: 02/04/21 Principal diagnosis: This is a 80-year-old female who follows on an outpatient basis with Dr. Aury Gracia. She has a previous medical history of end-stage liver disease with l iver cirrhosis status post paracentesis in the past, and portal hypertension secondary to nonalcoholic steatohepatitis, chronic thrombocytopenia, chronic anemia, chronic kidney disease, hypertension, hyperlipidemia, hypothyroid, diet controlled diabetes mellitus, and osteoarthritis. She presented to [facility] emergency room 01/30/2021 with complaints of increased shortness of breath. She was found to have large right-sided pleural effusion with complete whiteout of the right lung. She was admitted for evaluation and treatment with consultation to pulmonology who has done thoracentesis 4. On 01/30/21 1700 milliliters fluid was drained, 01/31/21 1700 milliliters fluid drained, 02/01/21 2400 mL fluid drained, and yesterday 2700 mL fluid was drained. The patient continues to reaccumulate fluid on the right side and consultation was placed to Dr. Alfaro from cardiothoracic surgery for placement of right-sided Pleurx catheter to avoid continued thoracentesis. The patient was seen and examined at the bedside this morning, 02/04/2021. Denies any pain, states shortness of breath is better. 3 daughters were present this morning and Pleurx catheter teaching was continued. The patient was drained for 700 mL fluid with the daughters present. No further concerns Objective - Vital Signs Vital signs: Vital Signs Temp 97.7 F 02/04/21 08:00 Pulse 78 02/04/21 16:29 Resp 15 02/04/21 16:29 BP 82/47 02/04/21 16:29 Pulse Ox 96 02/04/21 08:00 Intake & Output 02/03/21 02/04/21 02/04/21 18:59 06:59 18:59 Intake Total 650 Output Total 2352 700 Balance -1702 -700 Weight 65.771 kg Intake: IV 650 Output: Drainage 700 Right Abdomen 700 Urine 350 Pleural Fluid 2000 Estimated Blood Loss 2 Other: # Voids 1 1 - Exam CONSTITUTIONAL: Appears comfortable, cooperative, no acute distress RESPIRATORY: Lungs sounds diminished bilaterally, right greater than left. Respirations even, nonlabored. Currently on room air with oxygen saturation 96%. Only able to achieve 250 mL on incentive spirometry. Strong cough. CARDIOVASCULAR: S1, S2 present. Regular rate and rhythm. Palpable peripheral pulses bilaterally. No edema present. No calf pain or tenderness noted. SCDs present. GASTROINTESTINAL: Abdomen soft, nontender, nondistended. Active bowel sounds present 4 quadrants. Tolerating diet. GENITOURINARY: Continues to void clear, yellow urine INTEGUMENTARY: Skin is warm and dry with evidence of good perfusion. NEUROLOGIC: Cranial nerves II through XII intact MUSKULOSKELETAL: Able to move all extremities, strength equal bilaterally, gait normal PSYCHIATRIC: Alert and oriented to person place and time, appropriate affect, intact judgment and insight INVASIVE LINES AND TUBES: Right-sided Pleurx present, drained 700 mL this morning - Allied health notes Allied health notes reviewed: nursing - Labs CBC & Chem 7: 02/04/21 09:09 02/04/21 06:16 Labs: Abnormal Lab Results - Last 24 Hours (Table) 02/03/21 02/04/21 02/04/21 Range/Units 20:42 06:16 06:16 RBC 2.54 L (4.10-5.20) X 10*6/uL Hgb 8.1 L (12.0-15.0) g/dL Hct 27.1 L (37.2-46.3) % MCV 106.7 H (80.0-97.0) fL MCHC 29.9 L (32.0-37.0) g/dL RDW 19.7 H (11.5-14.5) % Plt Count 42 L (140-440) X 10*3/uL Plt Count Comment DECREASED A Macrocytosis PT (9.0-12.0) sec INR (<1.2) Chloride 110 H (98-107) mmol/L BUN 32 H (7-17) mg/dL Creatinine 1.53 H (0.52-1.04) mg/dL Glucose 109 H (74-99) mg/dL POC Glucose (mg/dL) 112 H (75-99) mg/dL 02/04/21 02/04/21 02/04/21 Range/Units 07:01 09:09 09:09 RBC 2.74 L (4.10-5.20) X 10*6/uL Hgb 8.8 L (12.0-15.0) g/dL Hct 29.2 L (37.2-46.3) % MCV 106.5 H (80.0-97.0) fL MCHC 30.1 L (32.0-37.0) g/dL RDW 19.7 H (11.5-14.5) % Plt Count 45 L (140-440) X 10*3/uL Plt Count Comment Macrocytosis Marked A PT 15.6 H (9.0-12.0) sec INR 1.6 H (<1.2) Chloride (98-107) mmol/L BUN (7-17) mg/dL Creatinine (0.52-1.04) mg/dL Glucose (74-99) mg/dL POC Glucose (mg/dL) 121 H (75-99) mg/dL 02/04/21 Range/Units 11:16 RBC (4.10-5.20) X 10*6/uL Hgb (12.0-15.0) g/dL Hct (37.2-46.3) % MCV (80.0-97.0) fL MCHC (32.0-37.0) g/dL RDW (11.5-14.5) % Plt Count (140-440) X 10*3/uL Plt Count Comment Macrocytosis PT (9.0-12.0) sec INR (<1.2) Chloride (98-107) mmol/L BUN (7-17) mg/dL Creatinine (0.52-1.04) mg/dL Glucose (74-99) mg/dL POC Glucose (mg/dL) 119 H (75-99) mg/dL - Imaging and Cardiology Chest x-ray: report reviewed, image reviewed Assessment and Plan Assessment: 1. Recurrent right-sided pleural effusion, status post thoracentesis 4, status post right-sided Pleurx catheter placement 2. 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 Chronic thrombocytopenia 4. Chronic anemia 5. Chronic kidney disease 6. Hypertension 7. Hyperlipidemia 8. Hypothyroid 9. Diet controlled diabetes mellitus 10. Osteoarthritis Plan: 1. The patient's Pleurx was drained this morning with the daughters present for teaching 2. From cardiothoracic surgery standpoint the patient may be discharged to home with home care. Pleurx discharge instructions were placed on the discharge plan 3. Medical management per the comorbidities per primary care service 4. Please call us with any further questions Time with Patient: Greater than 30
[2021-02-04 17:12] LABS: Glucose,Whole Blood 117 mg/dL (75-99)
[2021-02-04] MEDS ORDERED: MIDODRINE 5 MG TAB PO SCH (17:30)
[2021-02-04 17:52] LABS: Anisocytosis Slight; Basophils % (A) 0 %; Eosinophils # (A) 0.1 k/uL (0-0.7); Eosinophils % (A) 2 %; HCT 27.3 % (34.0-46.0); HGB 8.1 gm/dL (11.4-16.0); Hypochromasia Marked; Lymphocytes # (A) 0.9 k/uL (1.0-4.8); Lymphocytes % (A) 24 %; MCH 31.6 pg (25.0-35.0); MCHC 29.6 g/dL (31.0-37.0); Macrocytosis Marked; Mean Platelet Volume 8.8; Monocytes # (A) 0.3 k/uL (0-1.0); Monocytes % (A) 7 %; Neutrophils # (A) 2.6 k/uL (1.3-7.7); Neutrophils % (A) 64 %; RBC 2.55 m/uL (3.80-5.40); RDW 19.6 % (11.5-15.5)
[2021-02-04 17:54] LABS: Platelet Count 47 k/uL (150-450)
[2021-02-04] MEDS: SODIUM CHLORIDE 0.9% 1,000 ML IV SCH ×2 (20:20→20:27)
[2021-02-04] MEDS: MIDODRINE 5 MG TAB PO SCH (20:25)
[2021-02-05] MEDS: LEVOTHYROXINE 100 MCG TAB PO SCH (05:02)
[2021-02-05 07:11] LABS: Glucose,Whole Blood 127 mg/dL (75-99)
[2021-02-05] MEDS: INSULIN ASPART (NovoLOG) 100 UNIT/ML VIAL SQ SCH ×2 (08:12→12:20)
[2021-02-05] MEDS: CALCIUM CARB-VIT D 500 MG-5 MCG TAB PO SCH ×2 (08:40→08:53)
[2021-02-05] MEDS: ASCORBIC ACID 500 MG TAB PO SCH ×2 (08:40→08:53)
[2021-02-05] MEDS: MULTIVITAMINS, THERA 1 EACH TAB PO SCH ×2 (08:40→08:53)
[2021-02-05] MEDS: atenoloL 25 MG TAB PO SCH (08:40)
[2021-02-05] MEDS: SPIRONOLACTONE 25 MG TAB PO SCH (08:40)
[2021-02-05] MEDS: CYANOCOBALAMIN 500 MCG TAB PO SCH ×2 (08:40→08:53)
[2021-02-05] MEDS: FUROSEMIDE 20 MG TAB PO SCH (08:40)
[2021-02-05] MEDS: allopurinoL 100 MG TAB PO SCH (08:40)
[2021-02-05] MEDS: PANTOPRAZOLE 40 MG TABLET PO SCH (08:40)
[2021-02-05] MEDS: ATORVASTATIN 20 MG TAB PO SCH (08:40)
[2021-02-05] MEDS: RIFAXIMIN 550 MG TABLET PO SCH (08:40)
[2021-02-05] MEDS: SODIUM CHLORIDE 0.9% 1,000 ML IV SCH (08:41)
[2021-02-05] MEDS: FERROUS SULFATE 325 MG TAB PO SCH ×2 (08:41→08:53)
[2021-02-05] MEDS: MIDODRINE 5 MG TAB PO SCH ×2 (08:41→12:36)
[2021-02-05 09:43] VITALS: BP 93/52; PULSE 75; RESP 16; TEMP 98.2
--- NOTE | 2021-02-05 10:44 | P.PN ---
<Laura Dominguez - Last Filed: 02/05/21 10:37> Subjective Progress Note Date: 02/05/21 CHIEF COMPLAINT: Right flank and lateral chest wall ecchymosis HISTORY OF PRESENT ILLNESS: Surgical service following regards to patient's right flank and lateral chest wall ecchymosis. The swelling of the right flank and lateral chest wall appears to be secondary to drainage of pleural fluid along the track of the catheter. Dr. Sweet did discuss with cardiothoracic surgery. Cardiothoracic has cleared patient for discharge. Patient lying in bed comfortably. Denies any pain. Her hemoglobin remained stable. She's afebrile. Labs for today are pending PHYSICAL EXAM: VITAL SIGNS: Reviewed. GENERAL: Well-developed in no acute distress. HEENT: No sclera icterus. Extraocular movements grossly intact. Moist buccal mucosa. Head is atraumatic, normocephalic. ABDOMEN: Soft. Nondistended. Nontender. Large right flank and lateral chest wall swelling and ecchymosis NEUROLOGIC: Alert and oriented. Cranial nerves II through XII grossly intact. ASSESSMENT: 1. Large right flank and lateral chest wall ecchymosis and swelling. The swelling appears to be secondary to drainage of pleural fluid along the track of the catheter and not due to blood. Hemoglobin remained stable PLAN: -Patient is stable for discharge from surgical standpoint -Continue supportive care Physician Security System Sales Consultant note has been reviewed by physician. Signing provider agrees with the documented findings, assessment, and plan of care. Objective - Vital Signs Vital signs: Vital Signs Temp 98.2 F 02/05/21 08:00 Pulse 75 02/05/21 08:00 Resp 16 02/05/21 08:00 BP 93/52 02/05/21 08:00 Pulse Ox 94 L 02/05/21 08:00 Intake & Output 02/04/21 02/05/21 02/05/21 18:59 06:59 18:59 Output Total 700 Balance -700 Output: Drainage 700 Right Abdomen 700 Other: Voiding Method Toilet Diaper # Voids 2 2 - Labs CBC & Chem 7: 02/04/21 17:24 02/04/21 06:16 Labs: Abnormal Lab Results - Last 24 Hours (Table) 02/04/21 02/04/21 02/04/21 Range/Units 06:16 11:16 17:07 RBC 2.54 L (4.10-5.20) X 10*6/uL Hgb 8.1 L (12.0-15.0) g/dL Hct 27.1 L (37.2-46.3) % MCV 106.7 H (80.0-97.0) fL MCHC 29.9 L (32.0-37.0) g/dL RDW 19.7 H (11.5-14.5) % Plt Count 42 L (140-440) X 10*3/uL Plt Count Comment DECREASED A Lymphocytes # (1.0-4.8) k/uL Macrocytosis POC Glucose (mg/dL) 119 H 117 H (75-99) mg/dL 02/04/21 02/05/21 Range/Units 17:24 07:09 RBC 2.55 L (4.10-5.20) X 10*6/uL Hgb 8.1 L (12.0-15.0) g/dL Hct 27.3 L (37.2-46.3) % MCV 107.0 H (80.0-97.0) fL MCHC 29.6 L (32.0-37.0) g/dL RDW 19.6 H (11.5-14.5) % Plt Count 47 L (140-440) X 10*3/uL Plt Count Comment Lymphocytes # 0.9 L (1.0-4.8) k/uL Macrocytosis Marked A POC Glucose (mg/dL) 127 H (75-99) mg/dL <Aamir Sweet - Last Filed: 02/05/21 11:13> Subjective As above. Area swelling right lateral chest and flank without significant changes. Patient with mild discomfort. Discussed with thoracic surgery. They will address. We will sign off. Call if needed. Objective - Vital Signs Vital signs: Vital Signs Temp 98.2 F 02/05/21 08:00 Pulse 75 02/05/21 08:00 Resp 16 02/05/21 08:00 BP 93/52 02/05/21 08:00 Pulse Ox 94 L 02/05/21 08:00 Intake & Output 02/04/21 02/05/21 02/05/21 18:59 06:59 18:59 Output Total 700 Balance -700 Output: Drainage 700 Right Abdomen 700 Other: Voiding Method Toilet Diaper # Voids 2 2 - Labs CBC & Chem 7: 02/04/21 17:24 02/04/21 06:16 Labs: Abnormal Lab Results - Last 24 Hours (Table) 02/04/21 02/04/21 02/04/21 Range/Units 06:16 11:16 17:07 RBC 2.54 L (4.10-5.20) X 10*6/uL Hgb 8.1 L (12.0-15.0) g/dL Hct 27.1 L (37.2-46.3) % MCV 106.7 H (80.0-97.0) fL MCHC 29.9 L (32.0-37.0) g/dL RDW 19.7 H (11.5-14.5) % Plt Count 42 L (140-440) X 10*3/uL Plt Count Comment DECREASED A Lymphocytes # (1.0-4.8) k/uL Macrocytosis POC Glucose (mg/dL) 119 H 117 H (75-99) mg/dL 02/04/21 02/05/21 Range/Units 17:24 07:09 RBC 2.55 L (4.10-5.20) X 10*6/uL Hgb 8.1 L (12.0-15.0) g/dL Hct 27.3 L (37.2-46.3) % MCV 107.0 H (80.0-97.0) fL MCHC 29.6 L (32.0-37.0) g/dL RDW 19.6 H (11.5-14.5) % Plt Count 47 L (140-440) X 10*3/uL Plt Count Comment Lymphocytes # 0.9 L (1.0-4.8) k/uL Macrocytosis Marked A POC Glucose (mg/dL) 127 H (75-99) mg/dL
[2021-02-05 11:43] LABS: Glucose,Whole Blood 114 mg/dL (75-99)
--- NOTE | 2021-02-05 11:50 | P.PN ---
Subjective Progress Note Date: 02/05/21 Principal diagnosis: Recurrent right pleural effusion 02/01/2021, the patient has developed recurrent right-sided pleural effusion. After my initial drainage, the patient had some improvement. Nevertheless, the follow-up chest x-ray still showing complete opacification of the right lung consistent with pleural effusion. 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 I'm going to give her another thoracentesis today. She is agreeable to the procedure. She is on diuretics for now. She is still short of breath. On 02/02/2021 patient's chest x-ray again shows complete opacification of the right hemithorax and a stat ultrasound of the chest was obtained showing 8.4 cm fluid pocket on the right. Clinically patient feels short of breath, but appears to be in no acute distress, and actually seems to be quite comfortable. Still on 2 L of oxygen pulse ox is 97%, denies any chest pain, low-grade fever this morning, afebrile right now, hemodynamically she is been stable, we discussed possibility of repeat right-sided thoracentesis with her today and leonardo coleman agreed to proceed, patient's daughter is at the bedside, this was also discussed with the patient's daughter, decision was made to proceed with repeat right-sided thoracentesis. Patient tired procedure very well, preprocedure blood work was obtained showing hemoglobin of 7.9, white blood cell count was 4.05, platelet count was 44, INR is 1.5, electrolytes were unremarkable, B1 is 30 creatinine is 1.7. 2.7 L of slightly dark pleural fluid was removed, and postprocedure chest x-ray showed interval marked improvement in aeration of the right lung with no sizable pneumothorax. On 02/03/2021 patient seen in follow-up on medical surgical floor, today's chest x-ray shows progression of right-sided pleural effusion and associated atelectasis. Patient is status post repeat right-sided thoracentesis yesterday on 02/02/2021 with removal of 2.7 L of pleural fluid. There was a rapid reaccu mulation of right pleural fluid overnight. Pleural fluid analysis revealed transudative fluid, pleural fluid cultures are negative, pleural fluid cytology is still pending. Clinically patient does not appear to be in acute distress, denies any chest discomfort, denies worsening dyspnea, she remains on nasal oxygen pulse ox is 98%. Patient is seen today 02/04/2021 in follow-up on the regular medical floor. She is currently resting comfortably in bed. Awake and alert in no acute distress. Maintaining O2 saturations in the 90s on room air. She's been afebrile. Slightly tachycardic. Pleural fluid cultures revealed no growth. White count 4.7. Hemoglobin 8.8. Platelet count 45,000. INR 1.6. Sodium 140. Potassium 3.6. Creatinine 1.53. Glucose 109. Alpha 1 antitrypsin 164. Chest x-ray reveals right basilar Pleurx catheter in place with a small right pleural effusion and right lower lobe infiltrate. She continues with a right-sided abdominal wall hematoma. Hemoglobin stable. The patient is seen today 02/05/2021 in follow-up on the regular medical floor. She is currently awake and alert in no acute distress. She is maintaining O2 saturations in the 90s on room air. She's been afebrile. Pleural fluid cultures revealed no growth. Blood glucose 114. Right-sided Pleurx catheter remains in place. Right sided flank edema somewhat increased today compared to yesterday. Objective - Vital Signs Vital signs: Vital Signs Temp 98.2 F 02/05/21 08:00 Pulse 75 02/05/21 08:00 Resp 16 02/05/21 08:00 BP 93/52 02/05/21 08:00 Pulse Ox 94 L 02/05/21 08:00 Intake & Output 02/04/21 02/05/21 02/05/21 18:59 06:59 18:59 Output Total 700 Balance -700 Output: Drainage 700 Right Abdomen 700 Other: Voiding Method Toilet Diaper # Voids 2 2 - Exam GENERAL EXAM: Alert, pleasant, frail 80-year-old female patient, on room air, comfortable in no apparent distress. HEAD: Normocephalic. EYES: Normal reaction of pupils, equal size. NOSE: Clear with pink turbinates. THROAT: No erythema or exudates. NECK: No masses, no JVD. CHEST: No chest wall deformity. Right-sided Pleurx catheter in place LUNGS: Equal air entry with crackles in the right base. CVS: S1 and S2 normal with no audible murmur, regular rhythm. ABDOMEN: Hematoma and edema noted on the right sided abdominal wall. Normal bowel sounds, no guarding or rigidity. SPINE: No scoliosis or deformity SKIN: No rashes CENTRAL NERVOUS SYSTEM: No focal deficits, tone is normal in all 4 extremities. EXTREMITIES: There is no peripheral edema. No clubbing, no cyanosis. Peripheral pulses are intact. - Labs CBC & Chem 7: 02/04/21 17:24 02/04/21 06:16 Labs: Abnormal Lab Results - Last 24 Hours (Table) 02/04/21 02/04/21 02/04/21 Range/Units 06:16 17:07 17:24 RBC 2.54 L 2.55 L (4.10-5.20) X 10*6/uL Hgb 8.1 L 8.1 L (12.0-15.0) g/dL Hct 27.1 L 27.3 L (37.2-46.3) % MCV 106.7 H 107.0 H (80.0-97.0) fL MCHC 29.9 L 29.6 L (32.0-37.0) g/dL RDW 19.7 H 19.6 H (11.5-14.5) % Plt Count 42 L 47 L (140-440) X 10*3/uL Plt Count Comment DECREASED A Lymphocytes # 0.9 L (1.0-4.8) k/uL Macrocytosis Marked A POC Glucose (mg/dL) 117 H (75-99) mg/dL 02/05/21 02/05/21 Range/Units 07:09 11:42 RBC (4.10-5.20) X 10*6/uL Hgb (12.0-15.0) g/dL Hct (37.2-46.3) % MCV (80.0-97.0) fL MCHC (32.0-37.0) g/dL RDW (11.5-14.5) % Plt Count (140-440) X 10*3/uL Plt Count Comment Lymphocytes # (1.0-4.8) k/uL Macrocytosis POC Glucose (mg/dL) 127 H 114 H (75-99) mg/dL Assessment and Plan Assessment: 1 Recurrent right-sided pleural effusion, hepatic hydrothorax. She had undergone multiple thoracentesis. Chest x-ray has been reviewed showing rapid re accumulation of right-sided pleural fluid. Pleurx catheter placed on 02/03/2021 2 Right-sided abdominal wall hematoma, computed tomography scan of the abdomen reveals hematoma versus leaking pleural fluid right flank. Subcutaneous edema fluid is present diffusely along the right flank. 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 Fareed Valencia from the pulmonary standpoint, on room air Pleurx catheter placed 02/03/2021 Plan is for home with home care I, the cosigning physician, performed a history & physical examination of the patient. Lungs sounds with crackles in the right base. Maintaining good O2 saturations in the 90s on room air. I discussed the assessment and plan of care with my nurse practitioner, Dejah Benjamin. I attest to the above note as dictated by her.
[2021-02-05] MEDS ORDERED: MORPHINE SULFATE 2 MG/ML SYRINGE IVP PRN (11:55)
[2021-02-05 13:50] LABS: Basophils # (A) 0.02 X 10*3/uL (0.00-0.10); Basophils % (A) 0.5 %; Eosinophils # (A) 0.15 X 10*3/uL (0.04-0.35); Eosinophils % (A) 3.8 %; HCT 24.4 % (37.2-46.3); HGB 7.6 g/dL (12.0-15.0); Lymphocytes # (A) 1.16 X 10*3/uL (0.90-5.00); Lymphocytes % (A) 29.2 %; MCH 32.8 pg (27.0-32.0); MCHC 31.1 g/dL (32.0-37.0); MCV 105.2 fL (80.0-97.0); Monocytes # (A) 0.37 X 10*3/uL (0.20-1.00); Monocytes % (A) 9.3 %; Neutrophils # (A) 2.26 X 10*3/uL (1.80-7.70); Neutrophils % (A) 56.9 %; Platelet Count 46 X 10*3/uL (140-440); RBC 2.32 X 10*6/uL (4.10-5.20); RDW 19.6 % (11.5-14.5); WBC 3.97 X 10*3/uL (4.50-10.00)
--- NOTE | 2021-02-05 15:41 | P.DS ---
Providers Date of admission: 01/30/21 09:37 Expected date of discharge: 02/05/21 Attending physician: Get Bower MD Consults: 01/30/21 09:39 Consult Physician Urgent Consulting Provider: Ronal Villegas Consult Reason/Comments: Right pleural effusion Do you want consulting provider notified?: Already Contacted 02/03/21 07:46 Consult Physician Routine Consulting Provider: Everette Alfaro Consult Reason/Comments: recurrent right hydrothorax, pleurix cath placement Do you want consulting provider notified?: Yes 02/04/21 08:15 Consult Physician Routine Consulting Provider: Aamir Sweet Consult Reason/Comments: right abd wall hematoma Do you want consulting provider notified?: Yes 02/05/21 11:38 Consult Physician Urgent Consulting Provider: Colby Hughes Consult Reason/Comments: dislocated jaw Do you want consulting provider notified?: Yes Primary care physician: Aury Gracia Hospital Course: Final Diagnoses: Recurrent right Pleural effusion, hepatic hydrothorax, status post right lung thoracentesis 02/01/2021, repeat right lung thoracentesis 02/02/2021. Follow-up chest x-ray reporting significant reaccumulation of the right pleural fluid. Status post Pleurx catheter placement. Right sided abdominal wall hematoma,status post Pleurx catheter placement. Acute hypoxic respiratory failure secondary to the above History of portal hypertension, esophageal varices and splenomegaly History of liver cirrhosis secondary to nonalcoholic steatohepatitis (SU[place]REZ) History of ascites Chronic kidney disease, stage IV Diabetes mellitus type 2 Gastroesophageal reflux disease Hypertension Hyperlipidemia Thrombocytopenia secondary to liver disease Hospital course:She continues to complain of shortness of breath. CXR today shows complete opacification of R hemithorax. Labs stable from yesterday with increase of hgb to 8.7. 02/03/2021 status post repeat right lung thoracentesis yesterday was 2.7 liters of serosanguineous pleural fluid drained. Tolerated procedure well. Pleural fluid cultures reporting no growth , cytology pending Follow-up chest x-ray this morning reporting significant/marked progression right sided pleural effusion with associated atelectasis. CTS consulted for placement of pleurx catheter. Denies chest pain, palpitations or increased shortness of breath. Maintaining O2 sats in the high 90s on 2 L nasal cannula. Afebrile, T-max 99.3, normal WBC. Creatinine 1.67. Blood sugars controlled 02/04/2021 Status post Pleurx catheter placement. Tolerated procedure well. Significant right lateral abdominal wall bruising/hematoma. Hemoglobin 8.8, platelets 45. INR pending. Returning from chest x-ray. Denies chest pain, palpitations, complains of mild shortness of breath. Mild tachycardia, heart rates in the 1 teens. Maintaining O2 sats in the 90s on room air. Afebrile,normal WBC. Creatinine down to 1.53. Pleural cytology reporting negative for malignancy. Home care has been arranged. 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 Follow-up with ENT of choice regarding chronic dislocated jaw. Patient will be discharged home today in a stable condition with guarded prognosis, when cleared by all consults. The impression and plan of care has been dictated as directed. : I performed a history and examination of this patient, discussed the same with the dictator. I agree with the dictator's note ,documented as a scribe. Any additional findings or plans will be noted. Patient Condition at Discharge: Stable Plan - Discharge Summary Discharge Rx Participant: No New Discharge Prescriptions: New Midodrine [ProAmatine] 10 mg PO AC-TID #84 tab Rifaximin [Xifaxan] 550 mg PO BID #60 tablet Continue Multivit-Min/Iron/Folic/Lutein [Centrum Silver Women Tablet] 1 tab PO DAILY Ferrous Sulfate [Iron (65 MG Elemental)] 325 mg PO DAILY Cyanocobalamin (Vitamin B-12) [Vitamin B-12] 1,000 mcg PO DAILY Cranberry Fruit Extract [Cranberry] 1,500 mg PO DAILY HYDROcodone/APAP 5-325MG [[place] 5-325] 1 tab PO BID PRN PRN Reason: Pain Ergocalciferol [Vitamin D2 (DRISDOL)] 50,000 unit PO FR Simvastatin [Zocor] 40 mg PO DAILY Levothyroxine Sodium [Synthroid] 100 mcg PO DAILY Omeprazole 40 mg PO DAILY atenoloL [Tenormin] 25 mg PO DAILY allopurinoL [Zyloprim] 100 mg PO DAILY Calcium Carbonate [Calcium] 600 mg PO DAILY Ascorbic Acid [Vitamin C] 1,000 mg PO DAILY tab Furosemide [Lasix] 20 mg PO DAILY Lactulose 10 - 20 gm PO TID PRN PRN Reason: Constipation Spironolactone [Aldactone] 25 mg PO DAILY Discontinued Rifaximin [Xifaxan] 200 mg PO BID Discharge Medication List Calcium Carbonate [Calcium] 600 mg PO DAILY 07/19/19 [History] Cranberry Fruit Extract [Cranberry] 1,500 mg PO DAILY 07/19/19 [History] Cyanocobalamin (Vitamin B-12) [Vitamin B-12] 1,000 mcg PO DAILY 07/19/19 [History] Ergocalciferol [Vitamin D2 (DRISDOL)] 50,000 unit PO FR 07/19/19 [History] Ferrous Sulfate [Iron (65 MG Elemental)] 325 mg PO DAILY 07/19/19 [History] HYDROcodone/APAP 5-325MG [[place] 5-325] 1 tab PO BID PRN 07/19/19 [History] Levothyroxine Sodium [Synthroid] 100 mcg PO DAILY 07/19/19 [History] Multivit-Min/Iron/Folic/Lutein [Centrum Silver Women Tablet] 1 tab PO DAILY 07/19/19 [History] Omeprazole 40 mg PO DAILY 07/19/19 [History] Simvastatin [Zocor] 40 mg PO DAILY 07/19/19 [History] allopurinoL [Zyloprim] 100 mg PO DAILY 07/19/19 [History] atenoloL [Tenormin] 25 mg PO DAILY 07/19/19 [History] Ascorbic Acid [Vitamin C] 1,000 mg PO DAILY tab 12/17/20 [Rx] Furosemide [Lasix] 20 mg PO DAILY 01/22/21 [History] Spironolactone [Aldactone] 25 mg PO DAILY 01/22/21 [History] Lactulose 10 - 20 gm PO TID PRN 01/30/21 [History] Midodrine [ProAmatine] 10 mg PO AC-TID #84 tab 02/05/21 [Rx] Rifaximin [Xifaxan] 550 mg PO BID #60 tablet 02/05/21 [Rx] Follow up Appointment(s)/Referral(s): Aury Gracia DO [Primary Care Provider] - 02/08/21 10:30 am [facility] Visiting Nurse, [NON-STAFF] - As Needed Ambulatory/Diagnostic Orders: Complete Blood Count w/diff [LAB.AMB] Time Frame: 3 Days, Location: None Selected Patient Instructions/Handouts: Cirrhosis (DC) Activity/Diet/Wound Care/Special Instructions: [facility] home care . Discussed and recommend hospice related to patient's end-stage liver disease in addition to extra resources to assist patient. Patient will discuss with daughters/family. Follow-up with ENT of choice regarding chronic dislocated jaw. Diet: Soft, increase fluids/oral intake 1. Home Care is ordered, they will obtain new bottles. 2. May shower after 24 hours, no tub baths/hot tubs. 3. Do not drain more than 1 liter or 1000 mL in 24 hours. 4. New drainage bottle needed with each drainage. 5. Drainage frequency dictated by patient symptoms, may be every day, every other day, weekly, or however often the patient is symptomatic. 6. Please notify BUSINESS SERVICES VICE PRESIDENT or office if temperature >101F, excessive pain at insertion site, drainage consistency changes to cloudy or smells bad, catheter falls out, or anything else that concerns you. 7. Contact surgery office with weekly drainage amounts. May fax the amounts. 8. Once drainage is less than 50 mL three times in a row, notify the surgery office for possible removal. Surgery office: , fax BUSINESS SERVICES VICE PRESIDENT: Kaur , Aung Discharge Disposition: HOME WITH HOME HEALTH SERVICES
[2021-02-06 03:54] LABS: African American GFR (CKD) 41.6 (60.0-200.0); Anion Gap 12.3 mmol/L (4.00-12.00); BUN/Creat Ratio 22.14 Ratio (12.00-20.00); Calcium 8.2 mg/dL (8.7-10.3); Carbon Dioxide 18.7 mmol/L (21.6-31.8); Non-African American GFR(CKD) 35.9 (60.0-200.0); Potassium 3.4 mmol/L (3.5-5.5)
== END 2021-02-05 12:35 | disposition home health service (06) | DRG 432 ==
LOC: EC 07:53 → 4SSUR 09:37
PROVIDERS: ADMIT Family Medicine; ATTEND Family Medicine
PROC: 0W993ZX Drainage of Right Pleural Cavity, Percutaneous Approach, Diagnostic (ICD-10-PCS; 2021-01-30)
PROC: 0W993ZZ Drainage of Right Pleural Cavity, Percutaneous Approach (ICD-10-PCS; 2021-02-01)
PROC: 05HP33Z Insertion of Infusion Device into Right External Jugular Vein, Percutaneous Approach (ICD-10-PCS; 2021-02-03)
PROC: 0W993ZZ Drainage of Right Pleural Cavity, Percutaneous Approach (ICD-10-PCS; 2021-02-03)
PROC: 0W9930Z Drainage of Right Pleural Cavity with Drainage Device, Percutaneous Approach (ICD-10-PCS; principal; 2021-02-03 15:55)
DX: K74.60 Unspecified cirrhosis of liver (principal); J96.01 Acute respiratory failure with hypoxia; J18.9 Pneumonia, unspecified organism; J91.8 Pleural effusion in other conditions classified elsewhere; E87.2 Acidosis; J94.8 Other specified pleural conditions; J94.2 Hemothorax; D61.818 Other pancytopenia; N17.9 Acute kidney failure, unspecified; R18.8 Other ascites; D68.4 Acquired coagulation factor deficiency; I85.00 Esophageal varices without bleeding; N18.4 Chronic kidney disease, stage 4 (severe); K76.6 Portal hypertension; J98.11 Atelectasis; K72.90 Hepatic failure, unspecified without coma; E11.22 Type 2 diabetes mellitus with diabetic chronic kidney disease; Z79.4 Long term (current) use of insulin; Z20.822 Contact with and (suspected) exposure to COVID-19; D63.1 Anemia in chronic kidney disease; K75.81 Nonalcoholic steatohepatitis (NASH); D69.59 Other secondary thrombocytopenia; I12.9 Hypertensive chronic kidney disease with stage 1 through stage 4 chronic kidney disease, or unspecified chronic kidney disease; E86.0 Dehydration; E78.5 Hyperlipidemia, unspecified; F32.9 Major depressive disorder, single episode, unspecified; K64.9 Unspecified hemorrhoids; E03.9 Hypothyroidism, unspecified; K21.9 Gastro-esophageal reflux disease without esophagitis; S30.1XXA Contusion of abdominal wall, initial encounter; S03.00XD Dislocation of jaw, unspecified side, subsequent encounter; M19.90 Unspecified osteoarthritis, unspecified site; R16.1 Splenomegaly, not elsewhere classified; Z86.16 Personal history of COVID-19; Z79.890 Hormone replacement therapy; Z79.899 Other long term (current) drug therapy; Z87.440 Personal history of urinary (tract) infections; Z90.49 Acquired absence of other specified parts of digestive tract; Z87.19 Personal history of other diseases of the digestive system; Z85.828 Personal history of other malignant neoplasm of skin; Z87.39 Personal history of other diseases of the musculoskeletal system and connective tissue; Z98.890 Other specified postprocedural states; Z80.9 Family history of malignant neoplasm, unspecified
CPT/HCPCS: 36415; 71045; 71046; 71250; 74176; 76604; 76705; 80048; 80053; 81001; 82103; 82140; 82550; 82945; 83605; 83615; 83690; 83735; 83880; 84157; 84478; 84484; 85025; 85027; 85610; 85730; 86850; 86900; 86901; 87070; 87205; 87635; 88108; 88305; 93005; 94760; 99285

== ENCOUNTER 2021-02-05 12:41 | Emergency (ER) | payer MEDICARE, BC ==
[2021-02-05 13:29] VITALS: TEMP 97.9
[2021-02-05] MEDS ORDERED: PROPOFOL 10 MG/ML 20 ML VIAL IV ONE (14:22)
--- NOTE | 2021-02-05 14:26 | ED ---
General Adult HPI - General Chief complaint: ENT Stated complaint: dislocated jaw Time Seen by Provider: 02/05/21 14:12 Source: patient, family, RN notes reviewed Mode of arrival: wheelchair Limitations: no limitations - History of Present Illness Initial comments: Patient is a pleasant 80-year-old female presenting to the emergency department with concerns for jaw dislocation. Patient does have history of similar episode approximately 5 or 6 times previously and patient does wear a head brace for this. Patient was yawning today when her jaw became dislocated. Similar to previous occurrences. Patient has mild discomfort. Patient unable to fully close her jaw. No direct trauma to the area. No dyspnea. - Related Data Home Medications Medication Instructions Recorded Confirmed Calcium Carbonate [Calcium] 600 mg PO DAILY 07/19/19 02/05/21 Cranberry Fruit Extract [Cranberry] 1,500 mg PO DAILY 07/19/19 02/05/21 Cyanocobalamin (Vitamin B-12) 1,000 mcg PO DAILY 07/19/19 02/05/21 [Vitamin B-12] Ergocalciferol [Vitamin D2 50,000 unit PO FR 07/19/19 02/05/21 (DRISDOL)] Ferrous Sulfate [Iron (65 MG 325 mg PO DAILY 07/19/19 02/05/21 Elemental)] HYDROcodone/APAP 5-325MG [[place] 1 tab PO BID PRN 07/19/19 02/05/21 5-325] Levothyroxine Sodium [Synthroid] 100 mcg PO DAILY 07/19/19 02/05/21 Multivit-Min/Iron/Folic/Lutein 1 tab PO DAILY 07/19/19 02/05/21 [Centrum Silver Women Tablet] Omeprazole 40 mg PO DAILY 07/19/19 02/05/21 Simvastatin [Zocor] 40 mg PO DAILY 07/19/19 02/05/21 allopurinoL [Zyloprim] 100 mg PO DAILY 07/19/19 02/05/21 atenoloL [Tenormin] 25 mg PO DAILY 07/19/19 02/05/21 Furosemide [Lasix] 20 mg PO DAILY 01/22/21 02/05/21 Spironolactone [Aldactone] 25 mg PO DAILY 01/22/21 02/05/21 Lactulose 10 - 20 gm PO TID PRN 01/30/21 02/05/21 Previous Rx's Medication Instructions Recorded Ascorbic Acid [Vitamin C] 1,000 mg PO DAILY tab 12/17/20 Midodrine [ProAmatine] 10 mg PO AC-TID #84 tab 02/05/21 Rifaximin [Xifaxan] 550 mg PO BID #60 tablet 02/05/21 Allergies Allergy/AdvReac Type Severity Reaction Status Date / Time No Known Allergies Allergy Verified 02/05/21 13:29 Review of Systems ROS Statement: Those systems with pertinent positive or pertinent negative responses have been documented in the HPI. ROS Other: All systems not noted in ROS Statement are negative. Constitutional: Denies: fever Eyes: Denies: eye pain ENT: Reports: as per HPI Respiratory: Denies: dyspnea Cardiovascular: Denies: chest pain Endocrine: Denies: fatigue Gastrointestinal: Denies: abdominal pain Genitourinary: Denies: dysuria Musculoskeletal: Denies: back pain Skin: Denies: rash Neurological: Denies: weakness Past Medical History Past Medical History: Blood Disorder, Cancer, Diabetes Mellitus, GERD/Reflux, Hyperlipidemia, Hypertension, Liver Disease, Osteoarthritis (OA), Renal Disease, Thyroid Disorder Additional Past Medical History / Comment(s): patient states "doesn't clot right but is not aware of any specific clotting disorders but all her Drs are aware",hemorrhoids and bleeding with stools,recent dehydration and UTI, non alcoholic cirrhosis of the liver, skin cancer; chronic thrombocytopenia, chronic anemia History of Any Multi-Drug Resistant Organisms: None Reported Past Surgical History: Appendectomy, Cholecystectomy, Orthopedic Surgery Additional Past Surgical History / Comment(s): colonoscopy, lt knee surgery, paracentesis Past Anesthesia/Blood Transfusion Reactions: No Reported Reaction Additional Past Anesthesia/Blood Transfusion Reaction / Comment(s): no problems with previous blood transfusions Past Psychological History: Depression Smoking Status: Never smoker Past Alcohol Use History: None Reported Past Drug Use History: None Reported - Past Family History Mother Family Medical History: Cancer Father Family Medical History: Unable to Obtain Additional Family Medical History / Comment(s): Unknown cause of General Exam Limitations: no limitations General appearance: alert Head exam: Present: atraumatic Eye exam: Present: normal appearance ENT exam: Present: other (Patient resting with mouth open. Unable to close mouth fully. Mild tenderness bilateral TMJ region.) Neck exam: Present: normal inspection Respiratory exam: Present: normal lung sounds bilaterally Cardiovascular Exam: Present: regular rate, normal rhythm GI/Abdominal exam: Present: soft. Absent: tenderness Extremities exam: Present: normal inspection Neurological exam: Present: alert Psychiatric exam: Present: normal affect, normal mood Skin exam: Present: normal color Course Vital Signs 02/05/21 02/05/21 13:24 15:49 Temperature 97.9 F Pulse Rate 69 76 Respiratory 20 20 Rate Blood Pressure 78/43 100/52 O2 Sat by Pulse 98 97 Oximetry - Reevaluation(s) Reevaluation #1: 02/05/21 14:26 Family states patient previously has needed sedation in order to relocate the ja w and does not want attempt without sedation. 02/05/21 17:02 Unable to obtain IV access despite multiple attempts by multiple persons. Patient is agreeable to a shot of morphine and reduction at that time. Procedures - Jaw Reduction Consent Obtained: verbal consent Pre-Treatment Medications Used: opioids Technique used: downward anterior traction Reduction successful: Yes Patient Tolerated Procedure: well Complications: none Medical Decision Making - Medical Decision Making Patient and family updated - Radiology Data Radiology results: image reviewed (Postreduction x-rays show normal alignment) Disposition Clinical Impression: Dislocated mandible Disposition: HOME SELF-CARE Condition: Stable Instructions (If sedation given, give patient instructions): Mandibular Dislocation (ED) Additional Instructions: Avoid opening mouth wide. Please follow-up with your ENT doctor in the next couple days for recheck. Return for dislocation, pain and worsening or change in symptoms or other concerns. Is patient prescribed a controlled substance at d/c from ED?: No Referrals: Aury Gracia DO [Primary Care Provider] - 1-2 days Kamar William MD [STAFF PHYSICIAN] - 1-2 days Time of Disposition: 18:13
[2021-02-05] MEDS ORDERED: MORPHINE SULFATE 4 MG/ML SYRINGE IM STA (16:22)
--- NOTE | 2021-02-05 18:01 | XR ---
EXAMINATION TYPE: XR mandible limited <4V DATE OF EXAM: 02/05/2021 COMPARISON: NONE HISTORY: Reduction TECHNIQUE: 3 views FINDINGS: The mouth is open. The temporomandibular joints appear to be anatomic. I see no dislocation . The mandibular ring is intact. IMPRESSION: No fracture or dislocation.
[2021-02-05 18:39] VITALS: BP 103/60; PULSE 88; RESP 18
== END 2021-02-05 18:39 | disposition home or self-care (01) ==
LOC: EC 12:41
DX: S03.03XA Dislocation of jaw, bilateral, initial encounter (principal); T84.028A Dislocation of other internal joint prosthesis, initial encounter; E11.9 Type 2 diabetes mellitus without complications; E78.5 Hyperlipidemia, unspecified; I10 Essential (primary) hypertension; K21.9 Gastro-esophageal reflux disease without esophagitis; M19.90 Unspecified osteoarthritis, unspecified site; Z85.828 Personal history of other malignant neoplasm of skin; Z87.440 Personal history of urinary (tract) infections; Z90.49 Acquired absence of other specified parts of digestive tract; Z90.89 Acquired absence of other organs
CPT/HCPCS: 70100; 21480; 99283; 96372; J2270

== ENCOUNTER 2021-02-06 11:04 | Emergency (ER) | payer MEDICARE, BC ==
[2021-02-06 11:16] VITALS: TEMP 97.7
--- NOTE | 2021-02-06 12:09 | XR ---
Mandible. HISTORY: Right-sided mandibular pain. COMPARISON: None. TECHNIQUE: 5 views of the mandible were obtained. EYES: There is complete anterior dislocation of the right temporal mandibular joint. There is no fracture or focal intraosseous abnormality of the mandible. IMPRESSION: Dislocation of the right temporomandibular joint.
--- NOTE | 2021-02-06 12:10 | ED ---
General Adult HPI <Giovanni Truong - Last Filed: 02/06/21 13:54> - General Source: patient, family Mode of arrival: ambulatory Limitations: no limitations <Castillo Oden - Last Filed: 02/06/21 14:58> - General Chief complaint: Recheck/Abnormal Lab/Rx Stated complaint: Jaw dislocated Time Seen by Provider: 02/06/21 11:18 - History of Present Illness Initial comments: 80-year-old female with history of jaundice location presents to emergency Department with a chief complaint of jaw pain. Family members state the patient was in emergency Department yesterday and underwent a jaw reduction. However, the patient apparently continued to have problems that she is not able to tolerate any orals. Family members are concerned that she might have redislocated her jaw again. Patient is alert and oriented 3 but she is not able to articulate any words due to her jaw being stuck in an open position. (Castillo Oden) - Related Data Home Medications Medication Instructions Recorded Confirmed Calcium Carbonate [Calcium] 600 mg PO DAILY 07/19/19 02/05/21 Cranberry Fruit Extract [Cranberry] 1,500 mg PO DAILY 07/19/19 02/05/21 Cyanocobalamin (Vitamin B-12) 1,000 mcg PO DAILY 07/19/19 02/05/21 [Vitamin B-12] Ergocalciferol [Vitamin D2 50,000 unit PO FR 07/19/19 02/05/21 (DRISDOL)] Ferrous Sulfate [Iron (65 MG 325 mg PO DAILY 07/19/19 02/05/21 Elemental)] HYDROcodone/APAP 5-325MG [[place] 1 tab PO BID PRN 07/19/19 02/05/21 5-325] Levothyroxine Sodium [Synthroid] 100 mcg PO DAILY 07/19/19 02/05/21 Multivit-Min/Iron/Folic/Lutein 1 tab PO DAILY 07/19/19 02/05/21 [Centrum Silver Women Tablet] Omeprazole 40 mg PO DAILY 07/19/19 02/05/21 Simvastatin [Zocor] 40 mg PO DAILY 07/19/19 02/05/21 allopurinoL [Zyloprim] 100 mg PO DAILY 07/19/19 02/05/21 atenoloL [Tenormin] 25 mg PO DAILY 07/19/19 02/05/21 Furosemide [Lasix] 20 mg PO DAILY 01/22/21 02/05/21 Spironolactone [Aldactone] 25 mg PO DAILY 01/22/21 02/05/21 Lactulose 10 - 20 gm PO TID PRN 01/30/21 02/05/21 Previous Rx's Medication Instructions Recorded Ascorbic Acid [Vitamin C] 1,000 mg PO DAILY tab 12/17/20 Midodrine [ProAmatine] 10 mg PO AC-TID #84 tab 02/05/21 Rifaximin [Xifaxan] 550 mg PO BID #60 tablet 02/05/21 Allergies Allergy/AdvReac Type Severity Reaction Status Date / Time No Known Allergies Allergy Verified 02/06/21 11:16 Review of Systems ROS Other: All systems not noted in ROS Statement are negative. <Giovanni Truong - Last Filed: 02/06/21 13:54> ROS Other: All systems not noted in ROS Statement are negative. <Castillo Oden - Last Filed: 02/06/21 14:58> ROS Statement: Those systems with pertinent positive or pertinent negative responses have been documented in the HPI. Past Medical History Past Medical History: Blood Disorder, Cancer, Diabetes Mellitus, GERD/Reflux, Hyperlipidemia, Hypertension, Liver Disease, Osteoarthritis (OA), Renal Disease, Thyroid Disorder Additional Past Medical History / Comment(s): patient states "doesn't clot right but is not aware of any specific clotting disorders but all her Drs are aware",hemorrhoids and bleeding with stools,recent dehydration and UTI, non alcoholic cirrhosis of the liver, skin cancer; chronic thrombocytopenia, chronic anemia History of Any Multi-Drug Resistant Organisms: None Reported Past Surgical History: Appendectomy, Cholecystectomy, Orthopedic Surgery Additional Past Surgical History / Comment(s): colonoscopy, lt knee surgery, paracentesis Past Anesthesia/Blood Transfusion Reactions: No Reported Reaction Additional Past Anesthesia/Blood Transfusion Reaction / Comment(s): no problems with previous blood transfusions Past Psychological History: Depression Smoking Status: Never smoker Past Alcohol Use History: None Reported Past Drug Use History: None Reported - Past Family History Mother Family Medical History: Cancer Father Family Medical History: Unable to Obtain Additional Family Medical History / Comment(s): Unknown cause of <Castillo Oden - Last Filed: 02/06/21 14:58> General Exam Limitations: no limitations General appearance: alert, in no apparent distress Head exam: Present: atraumatic, normocephalic, normal inspection Eye exam: Present: normal appearance, PERRL, EOMI Pupils: Present: normal accommodation ENT exam: Present: normal exam, normal oropharynx (Jaw stuck an open position. Tenderness over bilateral TMJ. Mild swelling over the right TMJ), mucous membranes moist, TM's normal bilaterally, normal external ear exam Neck exam: Present: normal inspection, full ROM. Absent: tenderness, meningismus, lymphadenopathy, thyromegaly Respiratory exam: Present: normal lung sounds bilaterally. Absent: respiratory distress, wheezes, rales, rhonchi, stridor, chest wall tenderness Cardiovascular Exam: Present: regular rate, normal rhythm, normal heart sounds Extremities exam: Present: normal inspection, full ROM Back exam: Present: normal inspection, full ROM Neurological exam: Present: alert, oriented X3 Psychiatric exam: Present: normal affect, normal mood Skin exam: Present: warm, dry, intact, normal color <Castillo Oden - Last Filed: 02/06/21 14:58> Course Vital Signs 02/06/21 02/06/21 02/06/21 11:12 12:45 14:34 Temperature 97.7 F Pulse Rate 74 86 75 Respiratory 20 18 18 Rate Blood Pressure 87/43 108/37 96/45 O2 Sat by Pulse 99 100 99 Oximetry Procedures - Orthopedic Joint Reduction Joint #1 Consent Obtained: verbal consent Joint Reduction Location: other (Mandible left) Analgesia: none Technique Used: other (Extraoral mandible manipulation) Post Reduction X-Ray Obtained: Yes Post Reduction X-Ray Results: reduced Splint Applied: No Patient Tolerated Procedure: well Joint #2 Consent Obtained: verbal consent Side: left Joint Reduction Location: other (Right mandible) Analgesia: none Technique Used: other (Extraoral mandible manipulation) Post Reduction X-Ray Obtained: Yes Post Reduction X-Ray Results: reduced Patient Tolerated Procedure: well <Giovanni Truong - Last Filed: 02/06/21 13:54> Medical Decision Making <Castillo Oden - Last Filed: 02/06/21 14:58> - Medical Decision Making 80-year-old female with history of jaundice location presents to emergency Department with a chief complaint of jaw pain. X-ray revealed dislocation, anterior of the TMJ. Mandible a reduction performed by Dr. Truong. Postreduction x-rays reveal successful reduction. Kerlix gauze applied to wrap the head in order to prevent further movement of the mandible. Family members and patient were advised not to open her mouth wide when putting her dentures in. Advised to follow-up with ENT. Return parameters were discussed with patient was sitting and agreeable. (Castillo Oden) Disposition <Giovanni Truong - Last Filed: 02/06/21 13:54> Is patient prescribed a controlled substance at d/c from ED?: No Time of Disposition: 14:34 <Castillo Oden - Last Filed: 02/06/21 14:58> Clinical Impression: Jaw dislocation Disposition: HOME SELF-CARE Condition: Stable Instructions (If sedation given, give patient instructions): Mandibular Dislocation (ED) Additional Instructions: Please return to the Emergency Department if symptoms worsen or any other concerns. Referrals: Aury Gracia DO [Primary Care Provider] - 1-2 days
[2021-02-06] MEDS ORDERED: PROPOFOL 10 MG/ML 20 ML VIAL IV ONE (12:15)
[2021-02-06 12:49] VITALS: RESP 18
--- NOTE | 2021-02-06 13:45 | XR ---
Mandible. History is right TMJ dislocation. This is a post reduction film. COMPARISON: 02/06/2021 at an earlier time. TECHNIQUE 3 views of the mandible were obtained. FINDINGS: There is been no change in the anterior dislocation of the right temporomandibular joint
--- NOTE | 2021-02-06 14:25 | XR ---
EXAMINATION TYPE: XR mandible limited <4V DATE OF EXAM: 02/06/2021 COMPARISON: Today HISTORY: Post reduction TECHNIQUE: 2 views FINDINGS: There appears to be anatomic position of the temporomandibular joints bilaterally. I see no fracture line. IMPRESSION: Anatomic reduction of the dislocated right temporomandibular joint.
[2021-02-06 14:35] VITALS: BP 96/45; PULSE 75
== END 2021-02-06 14:58 | disposition home or self-care (01) ==
LOC: EC 11:04
DX: S03.01XA Dislocation of jaw, right side, initial encounter (principal); E11.9 Type 2 diabetes mellitus without complications; E78.5 Hyperlipidemia, unspecified; I10 Essential (primary) hypertension; K21.9 Gastro-esophageal reflux disease without esophagitis; M19.90 Unspecified osteoarthritis, unspecified site; F32.9 Major depressive disorder, single episode, unspecified; E07.9 Disorder of thyroid, unspecified; Z85.828 Personal history of other malignant neoplasm of skin; Z90.89 Acquired absence of other organs; Z90.49 Acquired absence of other specified parts of digestive tract
CPT/HCPCS: 21480; 70100; 70110; 99283